=== PATIENT | female | born 1975 | race Hispanic/Latino ===

== ENCOUNTER 2025-04-20 21:29 | Emergency (ER) | payer OTHER ==
--- OUTSIDE RECORDS SUMMARY | 2025-04-20 21:37 | XMS REPORT | Continuity of Care Document ---
Author Name Unknown Address [address] [facility] [address] [place] [address] [facility] Address [address] [facility] [address] [place] [address] Care Team Providers Care Community Arts Officer Name Role Phone [facility] Primary Care Physician [phone] RAJ MAURER Attending Clinician Unavailable LAURIE SWAN Attending Clinician Unavailable KEO MONSIVAIS Attending Clinician Unavail able PASCUAL LEÓN Attending Clinician UnavailOSCAR Rick Attending Clinician Unavailable TAYLOR SMITH Attending Clinician UnavailMary Chavez MD Attending Clinician MARY STAFFORD Attending Clinician Unavailable LAB47 Attending Clinician Unavailable DANAE GRULLON Attending Clinician Unavailable MD SHANTEL Attending Clinician Unavailab regine PL, TECH 1 Attending Clinician Unavailable YURIY PEDERSEN Attending Clinician Unavailable SARAHY PAUL Attending Clinician Unavailable SERINA BLOOM Attending Clinician Unav ailable BLADIMIR WINKLER Attending Clinician Unavailable Doctor Unassigned, Clute Attending Clinician U navailable LAB45 Attending Clinician Unavailable JORGE IGNACIO Attending Clinician UnavailCharity Lee MD Attending Clinician [phone] CHARITY SPENCE Attending Clinician Unava ilELÍAS Bertrand Attending Clinician Unavailable EMLI RAMSEY Attending Clinician Unava ilable ANA LEAL Attending Clinician Unavailable ELÍAS BEAULIEU Attending Clinician Unavailmorelia Beaulieu MD, Elías Holguin Attending Clinician [phone] Ana Leal MD Attending Clinician [phone] ANA LEAL Attending Clinician Unavailable RONNIE NOYOLA Attending Clinician Unavailable GERTRUDIS TARIQ Attending Clinician UnavailMORALES Tavera Attending Clinician Unavailable RAGHAVENDRA SIMS Attending Clinician Unavailable Pob, 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 Attending Clinician UnavailRaghavendra Encarnacion MD Attending Clinician [phone] Morales Albright MD Attending Clinician [phone] MORALES ALBRIGHT Attending Clinician Unavailable RADIOLOGY Attending Clinician Unavailable Radiology Attending Clinician Unavailable FAUSTINO STINSON Attending Clinician Unavailable Doctor Unassigned, Clute Attending Clinician U navailable Charity Moon MD Attending Clinician [phone] CHARITY MOON Attending Clinician Unavailmorelia e DANAE GRULLON S Attending Clinician Unavailable Tony Alcantaraya S Attending Clinician [phone] Yessi Messina Attending Clinician + [phone] YESSI KLEIN Attending Clinician Unavaila TORRI Burnham Attending Clinician Unavailable Torri Pacheco NP Attending Clinician [phone] YING CADENA Attending Clinician Unavailable NOEL SAMPSON Attending Clinician Unavailable OBDULIA VIRAMONTES Attending Clinician [place] vaWILLIAM Faust Attending Clinician UnavailJAYSHREE Almeida Attending Clinician Unavailab ELÍAS Alvarado Admitting Clinician Unavailmorelia Beaulieu MD, Elías Holguin Admitting Clinician [phone] SARAHY COOK Admitting Clinician Unavailab DANAE Pino Admitting Clinician Unavailable MARY DEJESUS III Admitting Clinician Unava ilYESSI Solis Admitting Clinician Unavaila TORRI Burnham Admitting Clinician Unavailable OBDULIA VIRAMONTES Admitting Clinician [place] vailable JAYSHREE BUSCH Admitting Clinician Unavailab le Payers Payer Name Policy Type Policy Number Effective Date Expirati on Date Source [address] 87 [phone] [id number] 2024 00:00:00 [employer] EX[employer] Exchange [id number] 2023 00:00:00 DONIE TAMELA SEYBOLD EXCHANGE Exchange [id number] 2024 00:00:00 Problems Condition Name Condition Details Condition Category Status Onset Date Resolution Date Last Treatment Date Treating Clinician Comments Source Chronic pain with drug dependence (multi HCC) Chronic pain with drug dependence (multi HCC) Disease Active -13 00:00: 00 Tamela Seybold - Externa l Prediabete s Prediabete s Disease Active 3-13 00:00: 00 Tamela Seybold - Externa l Neural foraminal stenosis of lumbosacra l spine Neural foraminal stenosis of lumbosacra l spine Disease Active 2023-09 1-20 00:00: 00 Tamela Seybold - Externa l Immunodefi 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) Immunodefi 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) Disease Active 5-10 00:00: 00 Tamela Seybold - Externa l Well adult exam Well adult exam Disease Active 4-08 00:00: 00 Tamela Seybold - Externa l Lupus Lupus Disease Active -27 00:00: 00 Tamela Seybold - Externa l Chronic back pain Chronic back pain Disease Active - 00:00: 00 Tamela Seybold - Externa l DDD (degenerat lazaro disc disease), lumbar DDD (degenerat lazaro disc disease), lumbar Disease Active - 00:00: 00 Tamela Seybold - Externa l Rheumatoid arthritis (multi HCC) Rheumatoid arthritis (multi HCC) Disease Active 11-04 00:00: 00 Tamela Moody - Externa l History of hysterecto my History of hysterecto my Disease Active 11-04 00:00: 00 Tamela Moody - Externa l Fatty liver Fatty liver Disease Active 11-04 00:00: 00 Tamela Moody - Externa l Liver hemangioma Liver hemangioma Disease Active 11-04 00:00: 00 Tamela Moody - Externa l Other forms of systemic lupus erythemato marry (multi HCC) Other forms of systemic lupus erythemato marry (multi HCC) Disease Active 11-04 00:00: 00 Tamela Moody - Externa l Left foot pain Left foot pain Disease Active 1- 00:00: 00 [facility] Low back pain Low back pain Disease Active 8-31 00:00: 00 [facility] Hormone replacemen t therapy (postmenop ausal) Hormone replacemen t therapy (postmenop ausal) Disease Resolve d 11-04 00:00: 00 2025-02-10 00:00:00 2025-02-10 16:45:25 Tamela Moody - Externa l Hypertensi on Hypertensi on Disease Resolve d 2 00:00: 00 2024-11-18 00:00:00 2024-11-18 11:46:58 Tamela Moody - Externa l Anxiety Anxiety Disease Resolve d 11-04 00:00: 00 2024-11-18 00:00:00 2024-11-18 11:53:23 Tamela Moody - Externa l Adrenal adenoma Adrenal adenoma Disease Resolve d - 00:00: 00 2024-11-18 00:00:00 2024-11-18 11:49:46 Tamela Moody - Externa l Allergies, Adverse Reactions, Alerts Allergy Name Allergy Type Status Severity Reaction(s) Onset Date Inactive Date Treating Clinician Comments Source Ciproflo xacin Propensi ty to adverse reaction s Active Itching, Anxiety 2023-09 0-24 00:00: 00 Lisa Causey CIPROFLO XACIN DRUG INGREDI Active Hives 09-25 00:00: 00 [facility] Ciproflo xacin Hydrochl oride Propensi ty to adverse reaction s Active Hives 09-25 00:00: 00 Tamela Moody - Externa l Social History Social Habit Start Date Stop Date Quantity Comments Source ASSERTION Possible [facility] Sexual orientation [facility] [employer] History of Occupation Tamela Moody - External History of tobacco use Cigarette Smoker Tamela medina - External Gender identity Tammie Moody - External Alcoholic beverage intake 2025-04-06 00:00:00 2025-04-06 00:00:00 Lifetime non-drinker (finding) Tamela Moody - External Tobacco Comment 2024-09-14 00:00:00 2024-09-14 00:00:00 Quit 05/2024 Tamela Moody - External Cigarettes smoked current (pack per day) - Reported 2024-09-14 00:00:00 2024-09-14 00:00:00 Tamela Moody - External Cigarette pack-years 2024-09-14 00:00:00 2024-09-14 00:00:00 Tamela Moody - External Tobacco use and exposure 2024-09-14 00:00:00 2024-09-14 00:00:00 Smokeless tobacco non-user Tamela Moody - External Sex 2024-06-04 12:50:25 2024-06-04 12:50:25 Female (finding) [facility] Alcohol intake 2023-11-11 00:00:00 2023-11-11 00:00:00 Lifetime non-drinker (finding) Tamela Moody - External Education 2023-11-04 00:00:00 2023-11-04 00:00:00 16 Tamela Moody - External History of Social function 2023-11-03 00:00:00 2023-11-03 00:00:00 Tamela Moody - External Exposure to SARS-CoV-2 (event) 2021-11-18 00:00:00 2021-12-18 20:08:00 Not sure [facility] Sex assigned at 1975 00:00:00 1975 00:00:00 Tamela Comer External Smoking Status Start Date Stop Date Source Tobacco smoking consumption unknown [facility] Never smoked tobacco [facility] Ex-smoker 2024-09-14 00:00:00 2024-09-14 00:00:00 Tamela Comer External Smokes tobacco daily 2023-12-15 00:00:00 Tamela Comer External Medications Ordered Medication Name Filled Medication Name Start Date Stop Date Current Medication? Ordering Clinician Indication Dosage Frequency Signature (SIG) Comments Components Source Tizanidine HCl 4 MG oral Tablet Tizanidine HCl 4 MG oral Tablet 04-06 00:00: 00 Yes [id number] 4mg QD Take 1 tablet (4 mg total) by mouth nightly. Tamela murphy Hydrocortis one 10 MG oral Tablet Hydrocortis one 10 MG oral Tablet 04-06 00:00: 00 Yes [id number] 1.5 tab in the morning, 1 in evening, may increase as directed.. Tamela murphy Tizanidine HCl 4 MG oral Tablet Tizanidine HCl 4 MG oral Tablet 04-05 00:00: 00 04-06 00:00 :00 No [id number] 4mg Q.25D Take 1 tablet (4 mg total) by mouth every 6 hours as needed. Tamela murphy DULoxetine HCl [address] Particles DULoxetine HCl [address] Particles 03-25 00:00: 00 04-06 00:00 :00 No 40mg QD Take 1 capsule (40 mg total) by mouth daily. Tamela murphy Folic Acid 1 MG oral tablet Folic Acid 1 MG oral tablet 03-16 00:00: 00 Yes [id number] 1mg QD Take 1 tablet (1 mg total) by mouth daily. Tamela murphy acetaminoph en-codeine (Tylenol w/ Codeine #3) 300-30 MG per tablet 2 tablet acetaminoph en-codeine (Tylenol w/ Codeine #3) 300-30 MG per tablet 2 tablet 02-25 20:15: 00 02-25 20:24 :00 No 2{tbl} 2 tablet, Oral, Once, On Fri02/25/25 at 2014, For 1 dose Lisa Causey ketorolac (Toradol) injection 30 mg ketorolac (Toradol) injection 30 mg 02-25 20:15: 00 02-25 20:24 :00 No 30mg 30 mg, Intramuscu lar, Once, On Fri02/25/25 at 2014, For 1 dose Lisa Causey Estradiol 0.1 MG/24HR transdermal PATCH BIWEEKLY 02-10 16:35: 54 02-10 00:00 :00 No 1{patch } Place 1 patch onto the skin twice a week. Tamela murphy Hydrocortis one Sod Suc, PF, (SOLU-JD F) 100 MG injection Recon Soln Hydrocortis one Sod Suc, PF, (SOLU-JD F) 100 MG injection Recon Soln 02-10 00:00: 00 Yes [id number] 100mg Inject 100 mg into the muscle as needed (for adrenal crisis). Tamela murphy Cholecalcif ban 50 MCG (2000 UT) oral Capsule Cholecalcif ban 50 MCG (2000 UT) oral Capsule 02-10 00:00: 00 Yes [id number] 1{capsu le} QD Take 1 capsule by mouth daily. Tamela murphy Tramadol HCl (ULTRAM) 50 MG oral Tablet Tramadol HCl (ULTRAM) 50 MG oral Tablet 02-10 00:00: 00 Yes [id number] 50mg QD Take 1 tablet (50 mg total) by mouth daily as needed for pain. Tamela murphy Hydrocortis one 10 MG oral Tablet Hydrocortis one 10 MG oral Tablet 02-10 00:00: 00 04-06 00:00 :00 No [id number] 10mg Q.5D Take 1 tablet (10 mg total) by mouth 2 times daily 1 tablet 3 times a day and extra for sick days. Tamela murphy methylPREDN ISolone (Medrol) 4 MG oral Tablet Therapy Pack 02-10 00:00: 00 02-10 00:00 :00 No 1{joan} Take 1 joan by mouth See Admin Instructio ns. Tamela murphy Tizanidine HCl 2 MG oral Tablet 02-10 00:00: 00 02-10 00:00 :00 No 2mg Take 1 tablet (2 mg total) by mouth every 12 hours as needed for muscle spasms. Tamela murphy Estradiol 0.1 MG/24HR transdermal PATCH BIWEEKLY 02-09 15:52: 14 Yes 1{patch } Place 1 patch onto the skin twice a week. Tamela murphy Duloxetine HCl [address] Particles 01-25 00:00: 00 Yes 40mg QD Take 1 capsule (40 mg total) by mouth daily. Tamela murphy Gabapentin 600 MG oral Tablet Gabapentin 600 MG oral Tablet 01-25 00:00: 00 04-06 00:00 :00 No 600mg Q.[id number] 3D Take 1 tablet (600 mg total) by mouth 3 times daily. Tamela murphy Estradiol 0.1 MG/24HR transdermal PATCH BIWEEKLY 01-13 15:17: 06 Yes 1{patch } Place 1 patch onto the skin twice a week. Tamela murphy Hydrocortis one 10 MG oral Tablet 01-13 00:00: 00 04-14 04:59 :00 No [id number] 10mg Q.[id number] 3D Take 1 tablet (10 mg total) by mouth 3 times daily 1 tablet 3 times a day and extra for sick days. Tamela murphy Hydroxychlo roquine Sulfate 200 MG oral Tablet Hydroxychlo roquine Sulfate 200 MG oral Tablet 01-12 00:00: 00 Yes [id number] 400mg QD Take 2 tablets (400 mg total) by mouth daily. Tamela murphy Estradiol 0.1 MG/24HR transdermal PATCH BIWEEKLY 12-14 15:05: 00 Yes 1{patch } Place 1 patch onto the skin twice a week. Tamela murphy Belimumab (Benlysta) 200 MG/ML subcutaneou s Solution Auto-inject or Belimumab (Benlysta) 200 MG/ML subcutaneou s Solution Auto-inject or 12-14 00:00: 00 Yes [id number] 200mg Q1W Inject 1 mL (200 mg total) into the skin once a week. Tamela murphy Estradiol 0.1 MG/24HR transdermal PATCH BIWEEKLY 12-07 15:23: 23 Yes 1{patch } Place 1 patch onto the skin twice a week. Tamela murphy Duloxetine HCl [address] Particles 12-07 00:00: 00 Yes 20mg QD Take 1 capsule (20 mg total) by mouth daily. Tamela murphy Gabapentin 300 MG oral Capsule 12-07 00:00: 00 Yes Take 1 tab nightly for 5 nights; If no adverse affects increase to 1 tab two times a day for 5 days; If no adverse affects increase to 1 tab three times a day. Call physician office if you have any issues.. Tamela murphy Estradiol 0.1 MG/24HR transdermal PATCH BIWEEKLY 11-18 11:14: 58 Yes 1{patch } Place 1 patch onto the skin twice a week. Tamela murphy Pantoprazol e Sodium 40 MG oral Tablet Delayed Response Pantoprazol e Sodium 40 MG oral Tablet Delayed Response 11-18 00:00: 00 Yes [id number] 40mg QD Take 1 tablet (40 mg total) by mouth daily as needed (GERD). Tamela murphy Cholecalcif ban 50 MCG (2000 UT) oral Capsule 11-18 00:00: 00 02-10 00:00 :00 No [id number] 1{capsu le} QD Take 1 capsule by mouth daily. Tamela murphy Belimumab (Benlysta) 200 MG/ML subcutaneou s Solution Auto-inject or 11-18 00:00: 00 12-14 00:00 :00 No [id number] 200mg Q1W Inject 1 mL (200 mg total) into the skin once a week. Tamela murphy Tramadol HCl (ULTRAM) 50 MG oral Tablet 3-13 00:00: 00 12-07 00:00 :00 No [id number] 50mg QD Take 1 tablet (50 mg total) by mouth daily as needed for pain. Tamela murphy HYDROcodone -Acetaminop hen 7.5-325 MG oral Tablet 12 00:00: 00 02-10 00:00 :00 No 1{tbl} Q.25D Take 1 tablet by mouth every 6 hours as needed. Tamela murphy Meloxicam 7.5 MG oral Tablet 10-18 15:06: 48 10-18 00:00 :00 No 7.5mg QD Take 1 tablet (7.5 mg total) by mouth daily. Tamela murphy Estradiol 0.1 MG/24HR transdermal PATCH BIWEEKLY 10-18 14:55: 18 Yes 1{patch } Place 1 patch onto the skin twice a week. Tamela murphy Estradiol 0.1 MG/24HR transdermal PATCH BIWEEKLY 10-11 15:13: 34 Yes 1{patch } Place 1 patch onto the skin twice a week. Tamela murphy Meloxicam 7.5 MG oral Tablet 10-11 15:13: 34 Yes 7.5mg QD Take 1 tablet (7.5 mg total) by mouth daily. Tamela murphy Hydrocortis one Sod Suc, PF, (SOLU-JD F) 100 MG injection Recon Soln 10-11 00:00: 00 Yes [id number] 100mg Inject 100 mg into the muscle as needed (for adrenal crisis). Tamela murphy Hydrocortis one 10 MG oral Tablet 10-11 00:00: 00 01-13 00:00 :00 No 10mg Take 1 tablet (10 mg total) by mouth every evening. Tamela Fransisco murphy Methotrexat e Sodium 2.5 MG oral Tablet Methotrexat e Sodium 2.5 MG oral Tablet 10-07 00:00: 00 Yes [id number] 15mg Q1W Take 6 tablets (15 mg total) by mouth once a week. Tamela murphy Folic Acid 1 MG oral tablet 10-07 00:00: 00 03-16 00:00 :00 No [id number] 1mg QD Take 1 tablet (1 mg total) by mouth daily. Tamela murphy Estradiol 0.1 MG/24HR transdermal PATCH BIWEEKLY 10-06 15:26: 41 Yes 1{patch } Place 1 patch onto the skin twice a week. Tamela murphy Meloxicam 7.5 MG oral Tablet 10-06 15:26: 41 Yes 7.5mg QD Take 1 tablet (7.5 mg total) by mouth daily. Tamela murphy HYDROcodone -Acetaminop hen 7.5-325 MG oral Tablet 09-23 00:00: 00 Yes [id number] 1{tbl} Q.25D Take 1 tablet by mouth every 6 hours as needed for pain. Tamela Fransisco murphy methylPREDN ISolone 4 MG oral Tablet Therapy Pack 2023-09 00:00: 00 01-13 00:00 :00 No 6{tbl} 6 tablets See Admin Instructio ns. Tamela Fransisco murphy methylPREDN ISolone (Medrol) 4 MG oral Tablet Therapy Pack 2023-09 00:00: 00 10-11 00:00 :00 No [id number] 1{joan} Take 1 joan by mouth See Admin Instructio ns Use as directed.. Tamela murphy Estradiol 0.1 MG/24HR transdermal PATCH BIWEEKLY 2023-09 15:31: 53 Yes 1{patch } Place 1 patch onto the skin twice a week. Tamela murphy Meloxicam 7.5 MG oral Tablet 2023-09 15:31: 53 Yes 7.5mg QD Take 1 tablet (7.5 mg total) by mouth daily. Tamela murphy hydroCHLORO thiazide 25 MG oral Tablet 2023-09 15:31: 53 Yes 25mg QD Take 1 tablet (25 mg total) by mouth daily. Tamela murphy Carvedilol 3.125 MG oral Tablet 2023-09 15:31: 53 Yes 3.125mg Take 1 tablet (3.125 mg total) by mouth in the morning and 1 tablet (3.125 mg total) in the evening. Take with meals. Tamela murphy Hydroxychlo roquine Sulfate 200 MG oral Tablet 2023-09 00:00: 00 Yes 400mg QD Take 2 tablets (400 mg total) by mouth daily. Tamela murphy Estradiol 0.1 MG/24HR transdermal PATCH BIWEEKLY 2023-09 09:16: 28 Yes 1{patch } Place 1 patch onto the skin twice a week. Tamela murphy Meloxicam 7.5 MG oral Tablet 2023-09 09:16: 28 Yes 7.5mg QD Take 1 tablet (7.5 mg total) by mouth daily. Tamela murphy hydroCHLORO thiazide 25 MG oral Tablet 2023-09 09:16: 28 Yes 25mg QD Take 1 tablet (25 mg total) by mouth daily. Tamela murphy Carvedilol 3.125 MG oral Tablet 2023-09 09:16: 28 Yes 3.125mg Take 1 tablet (3.125 mg total) by mouth in the morning and 1 tablet (3.125 mg total) in the evening. Take with meals. Tamela murphy Estradiol 0.1 MG/24HR transdermal PATCH BIWEEKLY 2023-09 10:56: 28 Yes 1{patch } Place 1 patch onto the skin twice a week. Tamela murphy Meloxicam 7.5 MG oral Tablet 2023-09 10:56: 28 Yes 7.5mg QD Take 1 tablet (7.5 mg total) by mouth daily. Tamela murphy hydroCHLORO thiazide 25 MG oral Tablet 2023-09 10:56: 28 Yes 25mg QD Take 1 tablet (25 mg total) by mouth daily. Tamela Fransisco murphy Carvedilol 3.125 MG oral Tablet 2023-09 10:56: 28 Yes 3.125mg Take 1 tablet (3.125 mg total) by mouth in the morning and 1 tablet (3.125 mg total) in the evening. Take with meals. Tamela murphy Benlysta 200 MG/ML subcutaneou s Solution Auto-inject or 2023-09 00:00: 00 Yes Tamela murphy Estradiol 0.1 MG/24HR transdermal PATCH BIWEEKLY 2023-09 14:50: 15 Yes 1{patch } Place 1 patch onto the skin twice a week. Tamela murphy Meloxicam 7.5 MG oral Tablet 2023-09 14:50: 15 Yes 7.5mg QD Take 1 tablet (7.5 mg total) by mouth daily. Tamela murphy hydroCHLORO thiazide 25 MG oral Tablet 2023-09 14:50: 15 Yes 25mg QD Take 1 tablet (25 mg total) by mouth daily. Tamela murphy Carvedilol 3.125 MG oral Tablet 2023-09 14:50: 15 Yes 3.125mg Take 1 tablet (3.125 mg total) by mouth in the morning and 1 tablet (3.125 mg total) in the evening. Take with meals. Tamela murphy Hydrocortis one 10 MG oral Tablet 2023-09 14:50: 15 Yes 15mg QD Take 1.5 tablets (15 mg total) by mouth every evening. Tamela murphy Hydrocortis one 10 MG oral Tablet 2023-09 00:00: 00 10-11 00:00 :00 No [id number] 20mg Q.5D Take 2 tablets (20 mg total) by mouth 2 times daily. Tamela murphy Hydrocortis one Sod Suc, PF, (SOLU-JD F) 100 MG injection Recon Soln 2023-09 00:00: 00 10-11 00:00 :00 No [id number] 100mg Inject 100 mg into the muscle as needed (for adrenal crisis). Tamela murphy Cholecalcif ban 50 MCG (1999) oral Capsule 2023-09 0-29 00:00: 00 11-18 00:00 :00 No [id number] 1{capsu le} QD Take 1 capsule by mouth daily. Tamela murphy ondansetron (Zofran) injection 4 mg ondansetron (Zofran) injection 4 mg 2023-09 18:40: 00 07-01 18:44 :00 No 4mg 4 mg, Intravenou s, Once, On Fri07/01/24 at 1840, For 1 dose, Administer IVP. Lisa Causey sodium chloride 0.9 % bolus 1,000 mL [id number] 0-24 17:25: 00 07-01 19:34 :00 No 1000mL 1,000 mL, Intravenou s, at 1,000 mL/hr, Administer over 1 Hours, Once, On Fri07/01/24 at 1725, For 1 dose Lisa Causey hydrocortis one sod succinate (PF) (Solu-JD F) injection 100 mg hydrocortis one sod succinate (PF) (Solu-JD F) injection 100 mg 2023-09 15:45: 00 07-01 16:22 :00 No 100mg 100 mg, Intravenou s, Once, On Fri07/01/24 at 1545, For 1 dose, IV or IM Reconstitu te 100 mg vials with bacteriost atic water or bacteriost atic sodium chloride. not more > 2ml Lisa Causey iohexol (OMNIPaque) 350 MG/ML injection 100 mL iohexol (OMNIPaque) 350 MG/ML injection 100 mL 2023-09 0 15:27: 04 07-01 15:27 :00 No 100mL 100 mL, Intravenou s, Once in imaging, Starting on Fri07/01/24 at 1527, For 1 dose Lisa Causey ondansetron ODT (Zofran-ODT ) 4 MG disintegrat ing tablet ondansetron ODT (Zofran-ODT ) 4 MG disintegrat ing tablet 2023-09 00:00: 00 07-08 23:59 :00 No 4mg Q8H Take 1 tablet by mouth every 8 hours if needed for nausea or vomiting for up to 7 days. Lisa Causey tiZANidine (Zanaflex) 2 MG tablet tiZANidine (Zanaflex) 2 MG tablet 2023-09 00:00: 00 07-08 23:59 :00 No 2mg Take 1 tablet by mouth at bedtime for 7 days. Lisa Causey Benlysta 200 MG/ML subcutaneou s Solution Auto-inject or 2023-09 00:00: 00 07-12 00:00 :00 No [id number] INJECT 1 PEN UNDER THE SKIN EVERY 7 DAYS Tamela murphy Estradiol 0.1 MG/24HR transdermal PATCH BIWEEKLY 05-31 15:33: 13 Yes 1{patch } Place 1 patch onto the skin twice a week. Tamela murphy Meloxicam 7.5 MG oral Tablet 05-31 15:33: 13 Yes 7.5mg QD Take 1 tablet (7.5 mg total) by mouth daily. Tamela murphy hydroCHLORO thiazide 25 MG oral Tablet 05-31 15:33: 13 Yes 25mg QD Take 1 tablet (25 mg total) by mouth daily. Tamela murphy Carvedilol 3.125 MG oral Tablet 05-31 15:33: 13 Yes 3.125mg Take 1 tablet (3.125 mg total) by mouth in the morning and 1 tablet (3.125 mg total) in the evening. Take with meals. Tamela murphy Cholecalcif ban 50 MCG (1999) oral Capsule 05-31 00:00: 00 Yes [id number] 1{capsu le} QD Take 1 capsule by mouth daily. Tamela murphy Hydrocortis one Sod Suc, PF, (SOLU-JD F) 100 MG injection Recon Soln 05-31 00:00: 00 07-12 00:00 :00 No [id number] 100mg Inject 100 mg into the muscle as needed (for adrenal crisis). Tamela murphy Hydroxychlo roquine Sulfate 200 MG oral Tablet 05-26 00:00: 00 07-30 00:00 :00 No 400mg QD Take 2 tablets (400 mg total) by mouth daily. Tamela murphy Methotrexat e Sodium 2.5 MG oral Tablet 05-06 00:00: 00 Yes [id number] 15mg Q1W Take 6 tablets (15 mg total) by mouth once a week. Tamela murphy Folic Acid 1 MG oral tablet 05-06 00:00: 00 Yes [id number] 1mg QD Take 1 tablet (1 mg total) by mouth daily. Tamela murphy Estradiol 0.1 MG/24HR transdermal PATCH BIWEEKLY 03-31 14:10: 14 Yes 1{patch } Place 1 patch onto the skin twice a week. Tamela murphy Meloxicam 7.5 MG oral Tablet 03-31 14:10: 14 Yes 7.5mg QD Take 1 tablet (7.5 mg total) by mouth daily. Tamela murphy hydroCHLORO thiazide 25 MG oral Tablet 03-31 14:10: 14 Yes 25mg QD Take 1 tablet (25 mg total) by mouth daily. Tameal murphy Carvedilol 3.125 MG oral Tablet 03-31 14:10: 14 Yes 3.125mg Take 1 tablet (3.125 mg total) by mouth in the morning and 1 tablet (3.125 mg total) in the evening. Take with meals. Tamela murphy Estradiol 0.1 MG/24HR transdermal PATCH BIWEEKLY 03-29 15:52: 46 Yes 1{patch } Place 1 patch onto the skin twice a week. Tamela murphy Meloxicam 7.5 MG oral Tablet 03-29 15:52: 46 Yes 7.5mg QD Take 1 tablet (7.5 mg total) by mouth daily. Tamela murphy hydroCHLORO thiazide 25 MG oral Tablet 03-29 15:52: 46 Yes 25mg QD Take 1 tablet (25 mg total) by mouth daily. Tamela murphy Carvedilol 3.125 MG oral Tablet 03-29 15:52: 46 Yes 3.125mg Take 1 tablet (3.125 mg total) by mouth in the morning and 1 tablet (3.125 mg total) in the evening. Take with meals. Tamela murphy Estradiol 0.1 MG/24HR transdermal PATCH BIWEEKLY 03-17 14:58: 16 Yes 1{patch } Place 1 patch onto the skin twice a week. Tamela murphy Meloxicam 7.5 MG oral Tablet 03-17 14:58: 16 Yes 7.5mg QD Take 1 tablet (7.5 mg total) by mouth daily. Tamela murphy hydroCHLORO thiazide 25 MG oral Tablet 03-17 14:58: 16 Yes 25mg QD Take 1 tablet (25 mg total) by mouth daily. Tamela murphy Carvedilol 3.125 MG oral Tablet 03-17 14:58: 16 Yes 3.125mg Take 1 tablet (3.125 mg total) by mouth in the morning and 1 tablet (3.125 mg total) in the evening. Take with meals. Tamela murphy Meloxicam 7.5 MG oral Tablet 03-17 00:00: 00 02-10 00:00 :00 No 7.5mg Take 1 tablet (7.5 mg total) by mouth. Tamela murphy Clobetasol Propionate 0.05 % apply externally Cream 03-17 00:00: 00 11-18 00:00 :00 No [id number] Apply to affected areas on buttock twice daily Friday-Fri.. Tamela murphy Valacyclovi r HCl 500 MG oral Tablet 03-17 00:00: 00 11-18 00:00 :00 No [id number] Take 2 tablets twice daily for 10 days. Tamela Fransisco murphy Estradiol 0.1 MG/24HR transdermal PATCH BIWEEKLY 03-01 15:30: 06 Yes 1{patch } Place 1 patch onto the skin twice a week. Tamela murphy Meloxicam 7.5 MG oral Tablet 03-01 15:30: 06 Yes 7.5mg Take 1 tablet (7.5 mg total) by mouth daily. Tamela Fransisco murphy hydroCHLORO thiazide 25 MG oral Tablet 03-01 15:30: 06 Yes 25mg Take 1 tablet (25 mg total) by mouth daily. Tamela murphy Carvedilol 3.125 MG oral Tablet 03-01 15:30: 06 Yes 3.125mg Take 1 tablet (3.125 mg total) by mouth in the morning and 1 tablet (3.125 mg total) in the evening. Take with meals. Tamela Fransisco murphy Estradiol 0.1 MG/24HR transdermal PATCH BIWEEKLY 02-03 15:07: 21 Yes 1{patch } Place 1 patch onto the skin twice a week. Tamela murphy Meloxicam 7.5 MG oral Tablet 02-03 15:07: 21 Yes 7.5mg Take 1 tablet (7.5 mg total) by mouth daily. Tamela murphy hydroCHLORO thiazide 25 MG oral Tablet 02-03 15:07: 21 Yes 25mg Take 1 tablet (25 mg total) by mouth daily. Tamela Fransisco murphy Carvedilol 3.125 MG oral Tablet 02-03 15:07: 21 Yes 3.125mg Take 1 tablet (3.125 mg total) by mouth in the morning and 1 tablet (3.125 mg total) in the evening. Take with meals. Tamela murphy Folic Acid 1 MG oral tablet 02-03 00:00: 05-06 00:00 :00 No [id number] 1mg QD Take 1 tablet (1 mg total) by mouth daily. Tamela murphy Methotrexat e Sodium 2.5 MG oral Tablet 02-03 00:00: 05-05 04:59 :00 No [id number] 15mg Q1W Take 6 tablets (15 mg total) by mouth once a week 6 tabs. Tamela murphy Hydroxychlo roquine Sulfate 200 MG oral Tablet 02-03 00:00: 05-05 04:59 :00 No [id number] 400mg QD Take 2 tablets (400 mg total) by mouth daily. Tamela murphy hydroCHLORO thiazide 25 MG oral Tablet 01-18 00:00: 03-16 00:00 :00 No 25mg QD Take 1 tablet (25 mg total) by mouth daily. Tamela murphy Losartan Potassium (COZAAR) 50 MG oral Tablet 01-18 00:00: 01-13 00:00 :00 No 50mg QD Take 1 tablet (50 mg total) by mouth daily. Tamela murphy Clobetasol Propionate 0.05 % apply externally Cream 01-06 00:00: 00 03-17 00:00 :00 No [id number] Apply to affected areas twice daily for up to two weeks. Then use as needed to affected areas.. Tamela murphy dexAMETHaso ne 1 MG oral Tablet 12-17 00:00: 05-31 00:00 :00 No [id number] To be taken once at 11 pm : the night before cortisol check. Tamela murphy Estradiol 0.1 MG/24HR transdermal PATCH BIWEEKLY 12-14 13:52: 29 Yes 1{patch } Place 1 patch onto the skin twice a week. Tamela murphy Meloxicam 7.5 MG oral Tablet 12-14 13:52: 29 Yes 7.5mg Take 1 tablet (7.5 mg total) by mouth daily. Tamela murphy hydroCHLORO thiazide 25 MG oral Tablet 12-14 13:52: 29 Yes 25mg Take 1 tablet (25 mg total) by mouth daily. Tamela murphy Carvedilol 3.125 MG oral Tablet 12-14 13:52: 29 Yes 3.125mg Take 1 tablet (3.125 mg total) by mouth in the morning and 1 tablet (3.125 mg total) in the evening. Take with meals. Tamela murphy Tramadol HCl (ULTRAM) 50 MG oral Tablet 12-14 00:00: 00 Yes [id number] 50mg QD Take 1 tablet (50 mg total) by mouth daily as needed for pain. Tamela murphy Venlafaxine HCl 75 MG oral Capsule 24 Hour Sustained Release 12-14 00:00: 00 11-18 00:00 :00 No [id number] 75mg QD Take 1 capsule (75 mg total) by mouth daily. Tamela murphy Belimumab 200 MG/ML subcutaneou s Solution Auto-inject or 11-27 00:00: 00 Yes [id number] 200mg Q1W Inject 1 mL (200 mg total) into the skin once a week. Tamela murphy Belimumab (Benlysta) 200 MG/ML subcutaneou s Solution Auto-inject or 11-05 15:55: 10 11-05 00:00 :00 No 200mg Inject 1 mL (200 mg total) into the skin once a week. Tamela murphy Methotrexat e Sodium 2.5 MG oral Tablet 11-05 15:55: 10 11-05 00:00 :00 No 15mg Take 6 tablets (15 mg total) by mouth once a week 6 tabs . Tamela murphy Methotrexat e 2.5 MG/ML oral Solution 11-05 15:42: 07 11-05 00:00 :00 No 2.5mg Take 1 mL (2.5 mg total) by mouth once a week 6 tablets by mouth per week . Tamela murphy Estradiol 0.1 MG/24HR transdermal PATCH BIWEEKLY 11-05 15:33: 19 Yes 1{patch } Place 1 patch onto the skin twice a week. Tamela murphy Meloxicam 7.5 MG oral Tablet 11-05 15:33: 19 Yes 7.5mg Take 1 tablet (7.5 mg total) by mouth daily. Tamela murphy hydroCHLORO thiazide 25 MG oral Tablet 11-05 15:33: 19 Yes 25mg Take 1 tablet (25 mg total) by mouth daily. Tamela murphy Carvedilol 3.125 MG oral Tablet 11-05 15:33: 19 Yes 3.125mg Take 1 tablet (3.125 mg total) by mouth in the morning and 1 tablet (3.125 mg total) in the evening. Take with meals. Tamela murphy Venlafaxine HCl 75 MG oral Capsule 24 Hour Sustained Release 11-05 15:33: 19 Yes 75mg Take 1 capsule (75 mg total) by mouth daily. Tamela murphy Belimumab 200 MG/ML subcutaneou s Solution Auto-inject or 11-05 00:00: 00 Yes [id number] 200mg Inject 1 mL (200 mg total) into the skin once a week. Tamela murphy Methotrexat e Sodium 2.5 MG oral Tablet 11-05 00:00: 00 02-03 00:00 :00 No [id number] 15mg Take 6 tablets (15 mg total) by mouth once a week 6 tabs. Tamela murphy Folic Acid 1 MG oral tablet 11-05 00:00: 00 02-03 00:00 :00 No [id number] 1mg Take 1 tablet (1 mg total) by mouth daily. Tamela murphy Hydroxychlo roquine Sulfate 200 MG oral Tablet 11-05 00:00: 00 02-03 00:00 :00 No [id number] 400mg Take 2 tablets (400 mg total) by mouth daily. Tamela murphy Venlafaxine HCl 75 MG oral Capsule 24 Hour Sustained Release 11-04 14:11: 03 Yes 75mg Take 1 capsule (75 mg total) by mouth daily. Tamela murphy Losartan Potassium (COZAAR) 50 MG oral Tablet 11-04 14:10: 09 11-04 00:00 :00 No 50mg Take 1 tablet (50 mg total) by mouth daily. Tamela murphy Estradiol 0.1 MG/24HR transdermal PATCH BIWEEKLY 11-04 13:57: 36 Yes 1{patch } Place 1 patch onto the skin twice a week. Tamela murphy Meloxicam 7.5 MG oral Tablet 11-04 13:57: 36 Yes 7.5mg Take 1 tablet (7.5 mg total) by mouth daily. Tamela murphy hydroCHLORO thiazide 25 MG oral Tablet 11-04 13:57: 36 Yes 25mg Take 1 tablet (25 mg total) by mouth daily. Tamela murphy Carvedilol 3.125 MG oral Tablet 11-04 13:57: 36 Yes 3.125mg Take 1 tablet (3.125 mg total) by mouth in the morning and 1 tablet (3.125 mg total) in the evening. Take with meals. Tamela murphy Tramadol HCl (ULTRAM) 50 MG oral Tablet 11-04 00:00: 00 Yes [id number] 50mg QD Take 1 tablet (50 mg total) by mouth daily as needed for pain. Tamela murphy Losartan Potassium (COZAAR) 100 MG oral Tablet 11-04 00:00: 00 Yes [id number] 100mg QD Take 1 tablet (100 mg total) by mouth daily. Tamela murphy Pantoprazol e Sodium 40 MG oral Tablet Delayed Response 11-03 00:00: 00 Yes 40mg QD Take 1 tablet (40 mg total) by mouth daily. Tamela murphy Hydroxychlo roquine Sulfate 200 MG oral Tablet 09-29 00:00: 00 Yes 400mg Take 2 tablets (400 mg total) by mouth daily. Tamela murphy ergocalcife rol, vitamin d2, 1,250 mcg (50,000 unit) capsule 2022-09 00:00: 00 Yes [id number] 66097D Take 1 capsule by mouth weekly. [facility] Ergocalcife rol 10 MCG (400 UNIT) oral Tablet 2022-09 00:00: 00 11-18 00:00 :00 No [id number] Q1W Take 50,000 units by mouth once a week. Tamela murphy gadobenate dimeglumine (MULTIHANCE -20 mL) injection 0.2 mL/kg 2022-09 22:30: 00 07-24 22:21 :00 No [id number] .2mL/kg 0.2 mL/kg, Intravenou s, ONCE, 1 dose, On Fri07/24/23 at 1630, Routine [facility] Tramadol HCl (ULTRAM) 50 MG oral Tablet 2022-09 00:00: 00 11-04 00:00 :00 No 50mg Q.[id number] 3D Take 1 tablet (50 mg total) by mouth every 8 hours as needed for pain. Tamela murphy iopamidol (ISOVUE 370-500 mL) injection 122 mL 05-16 21:30: 00 05-16 20:35 :00 No [id number] 122mL 122 mL, Intravenou s, ONCE, 1 dose, On Fri05/16/23 at 1630, Routine [facility] estradioL 0.1 mg/24 hr twice weekly patch 05-05 20:43: 11 Yes 1{patch } Apply 1 Patch to skin. [facility] FOLIC ACID ORAL 05-05 20:43: 11 Yes Take by mouth. [facility] clonazePAM (KLONOPIN) 2 mg tablet 05-05 17:13: 41 05-05 00:00 :00 No 2mg Take 2 mg by mouth 3 (three) times daily. [facility] acetaminoph en-codeine 300-30 mg tablet 17 00:00: 00 Yes 1{tbl} Take 1 tablet by mouth. [facility] methotrexat e 2.5 mg tablet 8-09 00:00: 00 Yes Take by mouth [facility] Folic Acid 1 MG oral tablet 03-03 00:00: 00 Yes 1mg Take 1 tablet (1 mg total) by mouth daily. Tamela Moody - Ana l meloxicam 7.5 mg tablet 5- 00:00: 00 Yes TAKE 1 TABLET BY MOUTH 1 TIME EACH DAY. [facility] venlafaxine 75 mg tablet 09-24 00:00: 00 Yes TAKE 1 TABLET BY MOUTH 1 TIME EACH DAY. [facility] cyclobenzap rine 10 mg tablet 2021-09 00:00: 00 Yes 10mg Take 1 tablet by mouth. [facility] amoxicillin -clavulanat e 875-125 mg per tablet 12-19 00:00: 00 Yes [id number] 1{tbl} Take 1 tablet by mouth every 12 (twelve) hours. [facility] ondansetron 4 mg disintegrat ing tablet 12-19 00:00: 00 Yes [id number] 4mg Take 1 tablet by mouth every 8 (eight) hours as needed for Nausea and Vomiting (N/V). [facility] hydroxychlo roquine sulfate (HYDROXYCHL OROQUINE ORAL) 2020-09 06:06: 04 Yes Take by mouth. [facility] methylPREDN ISolone 4 mg tablets 2020-09 00:00: 00 05-05 00:00 :00 No [id number] Take by mouth SEE-INSTRU CTIONS. follow package directions [facility] metformin ER 500 mg 24 hr tablet 2020-09 0-05 00:00: 00 06-13 04:59 :00 No 500mg Take 500 mg by mouth. [facility] belimumab (BENLYSTA) 200 mg/mL AtIn 04-16 00:00: 00 Yes [facility] ergocalcife rol, vitamin d2, 1,250 mcg (50,000 unit) capsule 11-06 00:00: 00 08-05 00:00 :00 No [id number] Take 50,000 Units by mouth. [facility] traMADOL (ULTRAM) 50 mg tablet 10-03 00:00: 00 Yes 50mg Take 1 tablet by mouth every 6 (six) hours as needed for Pain (scale 4-6). Brando Burns PA-C / Eleazar Hardy MD SARITHA# [id number] DPS# [id number] x Lic.# [id number] NPI# [id number] [facility] clonazePAM (KLONOPIN) 2 mg tablet 09-09 16:05: 09 Yes 2mg Take 2 mg by mouth 3 (three) times daily. [facility] acyclovir 400 mg tablet 2015-09 00:00: 00 05-05 00:00 :00 No TK 1 T PO QHS [facility] gabapentin 100 mg capsule 2015-09 00:00: 00 05-05 00:00 :00 No TK ONE C PO QHS [facility] methocarbam ol (ROBAXIN) 500 mg tablet 04-11 00:00: 00 05-05 00:00 :00 No TK 1 T PO QHS [facility] tramadol-ac etaminophen (ULTRACET) 37.5-325 mg per tablet 04-11 00:00: 00 05-05 00:00 :00 No TK 1 T PO BID WF [facility] Immunizations Ordered Immunization Name Filled Immunization Name Date Status Comments Source Covid-19 Vaccine Moderna (Spikevax), Mrna-lnp, Brando Protein, Pf Covid-19 Vaccine Moderna (Spikevax), Mrna-lnp, [employer], Pf 2020-12-25 00:00:00 Sirisha Dunn Covid-19 Vaccine Moderna (Spikevax), Mrna-lnp, [employer], Pf Unknown Completed Tamela Seybold - External Covid-19 Vaccine Moderna (Spikevax), Mrna-lnp, [employer], Pf Unknown Completed Tamela Seybold - External Covid-19 Vaccine Moderna (Spikevax), Mrna-lnp, [employer], Pf Unknown Completed Tamela Seybold - External Covid-19 Vaccine Moderna (Spikevax), Mrna-lnp, [employer], Pf Unknown Completed Tamela Seybold - External Covid-19 Vaccine Moderna (Spikevax), Mrna-lnp, [employer], Pf Unknown Completed Tamela Seybold - External Covid-19 Vaccine Moderna (Spikevax), Mrna-lnp, [employer], Pf Unknown Completed Tamela Seybold - External Covid-19 Vaccine Moderna (Spikevax), Mrna-lnp, [employer], Pf Unknown Completed Tamela Seybold - External Covid-19 Vaccine Moderna (Spikevax), Mrna-lnp, [employer], Pf Unknown Completed Tamela Seybold - External Covid-19 Vaccine Moderna (Spikevax), Mrna-lnp, [employer]ando [employer], Pf Unknown Completed Tamela Seybold - External Covid-19 Vaccine Moderna (Spikevax), Mrna-lnp, [employer]ando [employer], Pf Unknown Completed Tamela Seybold - External Covid-19 Vaccine Moderna (Spikevax), Mrna-lnp, [employer]ando [employer], Pf Unknown Completed Tamela Seybold - External Covid-19 Vaccine Moderna (Spikevax), Mrna-lnp, Brando [employer], Pf Unknown Completed Tamela Seybold - External Covid-19 Vaccine Moderna (Spikevax), Mrna-lnp, Brando [employer], Pf Unknown Completed Tamela Seybold - External Covid-19 Vaccine Moderna (Spikevax), Mrna-lnp, Brando [employer], Pf Unknown Completed Tamela Seybold - External Covid-19 Vaccine Moderna (Spikevax), Mrna-lnp, Brando [employer], Pf Unknown Completed Tamela Seybold - External Covid-19 Vaccine Moderna (Spikevax), Mrna-lnp, Brando [employer], Pf Unknown Completed Tamela Seybold - External Covid-19 Vaccine Moderna (Spikevax), Mrna-lnp, Brando [employer], Pf Unknown Completed Tamela Seybold - External Covid-19 Vaccine Moderna (Spikevax), Mrna-lnp, Brando [employer], Pf Unknown Completed Tamela Seybold - External Covid-19 Vaccine Moderna (Spikevax), Mrna-lnp, [employer]ando [employer], Pf Unknown Completed Tamela Seybold - External Covid-19 Vaccine Moderna (Spikevax), Mrna-lnp, Brando Protein, Pf Unknown Completed Tamela Seybold - External Covid-19 Vaccine Moderna (Spikevax), Mrna-lnp, Brando Protein, Pf Unknown Completed Tamela Seybold - External Covid-19 Vaccine Moderna (Spikevax), Mrna-lnp, Brando Protein, Pf Unknown Completed Tamela Seybold - External Covid-19 Vaccine Moderna (Spikevax), Mrna-lnp, Brando Protein, Pf Unknown Completed Tamela Seybold - External Covid-19 Vaccine Moderna (Spikevax), Mrna-lnp, Brando Protein, Pf Unknown Completed Tamela Seybold - External Covid-19 Vaccine Moderna (Spikevax), Mrna-lnp, Brando Protein, Pf Unknown Completed Tamela Seybold - External Covid-19 Vaccine Moderna (Spikevax), Mrna-lnp, Brando Protein, Pf Unknown Completed Tamela Seybold - External Covid-19 Vaccine Moderna (Spikevax), Mrna-lnp, Brando Protein, Pf Unknown Completed Tamela Seybold - External Covid-19 Vaccine Moderna (Spikevax), Mrna-lnp, Brando Protein, Pf Unknown Completed Tamela Seybold - External Covid-19 Vaccine Moderna (Spikevax), Mrna-lnp, Brando Protein, Pf Unknown Completed Tamela Seybold - External Vital Signs Vital Name Observation Time Observation Value Comments S ource Systolic blood pressure 2025-04-06 15:44:00 112 mm[Hg] Tamela Seybold - External Diastolic blood pressure 2025-04-06 15:44:00 72 mm[Hg] Tamela Seybold - External Systolic blood pressure 2025-04-05 15:57:00 107 mm[Hg] Tamela Seybold - External Diastolic blood pressure 2025-04-05 15:57:00 71 mm[Hg] Tamela Seybold - External Heart rate 2025-04-05 15:57:00 98 /min Tamela Seybold - External Systolic blood pressure 2025-03-16 20:15:00 114 mm[Hg] Tamela Hammerybold - External Diastolic blood pressure 2025-03-16 20:15:00 79 mm[Hg] Tamela Hammerybold - External Heart rate 2025-03-16 20:15:00 91 /min Tamela Hammerybold - External Respiratory rate 2025-03-16 20:15:00 16 /min Tamela Hammerybold - External Body height 2025-03-16 20:15:00 157.5 cm Tamela Hammerybold - External Body weight 2025-03-16 20:15:00 70.761 kg Tamela Hammerybold - External BMI 2025-03-16 20:15:00 28.53 kg/m2 Tamela Hammerybold - External Systolic blood pressure 2025-02-25 20:41:00 134 mm[Hg] [facility] Diastolic blood pressure 2025-02-25 20:41:00 84 mm[Hg] [facility] Heart rate 2025-02-25 20:41:00 76 /min [facility] Body temperature 2025-02-25 20:41:00 36.61 Arlet [facility] Epic Respiratory rate 2025-02-25 20:41:00 16 /min [facility] Epic Oxygen saturation in Arterial blood by Pulse oximetry 2025-02-25 20:41:00 97 /min [facility] Body height 2025-02-25 18:30:00 160 cm [facility] Body weight 2025-02-25 18:30:00 72.4 kg [facility] BMI 2025-02-25 18:30:00 28.27 kg/m2 [facility] Systolic blood pressure 2025-02-25 20:41:00 134 mm[Hg] [facility] Diastolic blood pressure 2025-02-25 20:41:00 84 mm[Hg] [facility] Heart rate 2025-02-25 20:41:00 76 /min [facility] Body temperature 2025-02-25 20:41:00 36.61 Arlet [facility] Respiratory rate 2025-02-25 20:41:00 16 /min [facility] Epic Oxygen saturation in Arterial blood by Pulse oximetry 2025-02-25 20:41:00 97 /min [facility] Body height 2025-02-25 18:30:00 160 cm [facility] Body weight 2025-02-25 18:30:00 72.4 kg [facility] BMI 2025-02-25 18:30:00 28.27 kg/m2 [facility] Systolic blood pressure 2025-02-10 21:17:00 118 mm[Hg] Tamela Seybold - External Diastolic blood pressure 2025-02-10 21:17:00 70 mm[Hg] Tamela Seybold - External Heart rate 2025-02-10 21:17:00 92 /min Tamela Seybold - External Body temperature 2025-02-10 21:17:00 36.44 Arlet Tamela Seybold - External Respiratory rate 2025-02-10 21:17:00 18 /min Tamela Seybold - External Body height 2025-02-10 21:17:00 160 cm Tamela Seybold - External Body weight 2025-02-10 21:17:00 75.297 kg Tamela Seybold - External BMI 2025-02-10 21:17:00 29.41 kg/m2 Tamela Seybold - External Oxygen saturation in Arterial blood by Pulse oximetry 2025-02-10 21:17:00 98 /min Tamela Seybold - External Systolic blood pressure 2025-02-09 20:49:00 111 mm[Hg] Tamela Seybold - External Diastolic blood pressure 2025-02-09 20:49:00 70 mm[Hg] Tamela Seybold - External Heart rate 2025-02-09 20:49:00 82 /min Tamela Seybold - External Body temperature 2025-02-09 20:49:00 36.72 Arlet Tamela Seybold - External Respiratory rate 2025-02-09 20:49:00 19 /min Tamela Seybold - External Body height 2025-02-09 20:49:00 160 cm Tamela Seybold - External Body weight 2025-02-09 20:49:00 74.844 kg Tamela Seybold - External BMI 2025-02-09 20:49:00 29.23 kg/m2 Tamela Seybold - External Systolic blood pressure 2025-01-13 20:20:00 114 mm[Hg] Tamela Seybold - External Diastolic blood pressure 2025-01-13 20:20:00 75 mm[Hg] Tamela Seybold - External Heart rate 2025-01-13 20:20:00 84 /min Tamela Hammerybold - External Body temperature 2025-01-13 20:20:00 36.33 Arlet Tamela Seybold - External Respiratory rate 2025-01-13 20:20:00 18 /min Tamela Seybold - External Body height 2025-01-13 20:20:00 160 cm Tamela Seybold - External Body weight 2025-01-13 20:20:00 79.833 kg Tamela Hammerybold - External BMI 2025-01-13 20:20:00 31.18 kg/m2 Tamela Seybold - External Systolic blood pressure 2024-12-14 20:05:00 122 mm[Hg] Tamela Seybold - External Diastolic blood pressure 2024-12-14 20:05:00 86 mm[Hg] Tamela Seybold - External Heart rate 2024-12-14 20:05:00 97 /min Tamela Seybold - External Respiratory rate 2024-12-14 20:05:00 16 /min Tamela Hammerybold - External Body height 2024-12-14 20:05:00 160 cm Tamela Hammerybadam - External Body weight 2024-12-14 20:05:00 76.658 kg Tamela Seybold - External BMI 2024-12-14 20:05:00 29.94 kg/m2 Tamela Seybold - External Systolic blood pressure 2024-12-07 20:23:00 108 mm[Hg] Tamela Seybold - External Diastolic blood pressure 2024-12-07 20:23:00 74 mm[Hg] Tamela Seybold - External Heart rate 2024-12-07 20:23:00 97 /min Tamela Seybold - External Body height 2024-12-07 20:23:00 160 cm Tamela Moody - External Oxygen saturation in Arterial blood by Pulse oximetry 2024-12-07 20:23:00 98 /min Tamela Seybold - External Systolic blood pressure 2024-11-18 16:10:00 122 mm[Hg] Tamela Seybold - External Diastolic blood pressure 2024-11-18 16:10:00 80 mm[Hg] Tamela Seybold - External Heart rate 2024-11-18 16:10:00 96 /min Tamela Seybold - External Body temperature 2024-11-18 16:10:00 36.61 Arlet Tamela Seybold - External Respiratory rate 2024-11-18 16:10:00 16 /min Tamela Seybold - External Body height 2024-11-18 16:10:00 157.5 cm Tamela Seybold - External Body weight 2024-11-18 16:10:00 80.196 kg Tamela Seybold - External BMI 2024-11-18 16:10:00 32.34 kg/m2 Tamela Seybold - External Oxygen saturation in Arterial blood by Pulse oximetry 2024-11-18 16:10:00 98 /min Tamela Seybold - External Systolic blood pressure 2024-10-11 21:16:00 109 mm[Hg] Tamela Seybold - External Diastolic blood pressure 2024-10-11 21:16:00 78 mm[Hg] Tamela Seybold - External Heart rate 2024-10-11 21:16:00 92 /min Tamela Seybold - External Body temperature 2024-10-11 21:16:00 36.39 Arlet Tamela Seybold - External Respiratory rate 2024-10-11 21:16:00 18 /min Tamela Seybold - External Body height 2024-10-11 21:16:00 157.5 cm Tamela Seybold - External Body weight 2024-10-11 21:16:00 84.823 kg Tamela Seybold - External BMI 2024-10-11 21:16:00 34.20 kg/m2 Tamela Seybold - External Systolic blood pressure 2024-10-06 21:21:00 128 mm[Hg] Tamela Seybold - External Diastolic blood pressure 2024-10-06 21:21:00 82 mm[Hg] Tamela Seybold - External Heart rate 2024-10-06 21:21:00 90 /min Tamela Seybold - External Respiratory rate 2024-10-06 21:21:00 17 /min Tamela Seybold - External Body height 2024-10-06 21:21:00 160 cm Tamela Seybold - External Body weight 2024-10-06 21:21:00 84.823 kg Tamela Seybold - External BMI 2024-10-06 21:21:00 33.13 kg/m2 Tamela Seybold - External Oxygen saturation in Arterial blood by Pulse oximetry 2024-10-06 21:21:00 96 /min Tamela Seybold - External Systolic blood pressure 2024-07-30 21:26:00 138 mm[Hg] patient has not taken for a month Tamela Seybold - External Diastolic blood pressure 2024-07-30 21:26:00 80 mm[Hg] patient has not taken for a month Tamela Seybold - External Heart rate 2024-07-30 21:26:00 68 /min Tamela Seybold - External Body temperature 2024-07-30 21:26:00 36.61 Arlet Tamela Seybold - External Respiratory rate 2024-07-30 21:26:00 16 /min Tamela Seybold - External Body height 2024-07-30 21:26:00 160 cm Tamela Seybold - External Body weight 2024-07-30 21:26:00 82.101 kg Tamela Seybold - External BMI 2024-07-30 21:26:00 32.06 kg/m2 Tamela Seybold - External Systolic blood pressure 2024-07-22 16:59:00 128 mm[Hg] Tamela Seybold - External Diastolic blood pressure 2024-07-22 16:59:00 85 mm[Hg] Tamela Seybold - External Heart rate 2024-07-22 16:59:00 97 /min Tamela Seybold - External Body temperature 2024-07-22 16:59:00 36.72 Arlet Tamela Seybold - External Respiratory rate 2024-07-22 16:59:00 18 /min Tamela Seybold - External Body height 2024-07-22 16:59:00 160 cm Tamela Seybold - External Body weight 2024-07-22 16:59:00 82.555 kg Tamela Seybold - External BMI 2024-07-22 16:59:00 32.24 kg/m2 Tamela Seybold - External Systolic blood pressure 2024-07-12 20:58:00 98 mm[Hg] Tamela Seybold - External Diastolic blood pressure 2024-07-12 20:58:00 72 mm[Hg] Tamela Seybold - External Heart rate 2024-07-12 20:58:00 115 /min Tamela Seybold - External Body temperature 2024-07-12 20:58:00 36.83 Arlet Tamela Seybold - External Respiratory rate 2024-07-12 20:58:00 18 /min Tamela Seybold - External Body height 2024-07-12 20:58:00 157.5 cm Tamela Hammerybold - External Body weight 2024-07-12 20:58:00 84.369 kg Tamela Seybold - External BMI 2024-07-12 20:58:00 34.02 kg/m2 Tamela Seybold - External Systolic blood pressure 2024-07-01 19:15:00 150 mm[Hg] [facility] Diastolic blood pressure 2024-07-01 19:15:00 92 mm[Hg] [facility] Epic Heart rate 2024-07-01 19:15:00 97 /min [facility] Body temperature 2024-07-01 19:15:00 37.06 Arlet [facility] Epic Respiratory rate 2024-07-01 19:15:00 22 /min [facility] Epic Oxygen saturation in Arterial blood by Pulse oximetry 2024-07-01 19:15:00 98 /min [facility] Body height 2024-07-01 14:01:00 157.5 cm [facility] Body weight 2024-07-01 14:01:00 85.9 kg [facility] BMI 2024-07-01 14:01:00 34.64 kg/m2 [facility] Epic Systolic blood pressure 2024-07-01 19:15:00 150 mm[Hg] [facility] Epic Diastolic blood pressure 2024-07-01 19:15:00 92 mm[Hg] [facility] Epic Heart rate 2024-07-01 19:15:00 97 /min [facility] Epic Body temperature 2024-07-01 19:15:00 37.06 [facility] Epic Respiratory rate 2024-07-01 19:15:00 22 /min [facility] Oxygen saturation in Arterial blood by Pulse oximetry 2024-07-01 19:15:00 98 /min [facility] Body height 2024-07-01 14:01:00 157.5 cm [facility] Body weight 2024-07-01 14:01:00 85.9 kg [facility] BMI 2024-07-01 14:01:00 34.64 kg/m2 [facility] Systolic blood pressure 2024-05-31 20:36:00 132 mm[Hg] Tamela Seybold - External Diastolic blood pressure 2024-05-31 20:36:00 89 mm[Hg] Tamela Seybold - External Heart rate 2024-05-31 20:36:00 98 /min Tamela Seybold - External Body temperature 2024-05-31 20:36:00 36.94 Arlet Tamela Seybold - External Respiratory rate 2024-05-31 20:36:00 18 /min Tamela Seybold - External Body height 2024-05-31 20:36:00 157.5 cm Tamela Seybold - External Body weight 2024-05-31 20:36:00 87.544 kg Tamela Seybold - External BMI 2024-05-31 20:36:00 35.30 kg/m2 Tamela Seybold - External Systolic blood pressure 2024-03-29 20:59:00 131 mm[Hg] Tamela Seybold - External Diastolic blood pressure 2024-03-29 20:59:00 91 mm[Hg] Tamela Seybold - External Heart rate 2024-03-29 20:59:00 91 /min Tamela Seybold - External Body temperature 2024-03-29 20:59:00 36.78 Arlet Tamela Seybold - External Respiratory rate 2024-03-29 20:59:00 18 /min Tamela Seybold - External Body height 2024-03-29 20:59:00 157.5 cm Tamela Seybold - External Body weight 2024-03-29 20:59:00 87.544 kg Tamela Seybold - External BMI 2024-03-29 20:59:00 35.30 kg/m2 Tamela Seybold - External Systolic blood pressure 2024-02-04 20:07:00 128 mm[Hg] Tamela Seybold - External Diastolic blood pressure 2024-02-04 20:07:00 88 mm[Hg] Tamela Seybold - External Heart rate 2024-02-04 20:07:00 99 /min Tamela Seybold - External Body temperature 2024-02-04 20:07:00 36.39 Arlet Tamela Seybold - External Respiratory rate 2024-02-04 20:07:00 16 /min Tamela Seybold - External Body height 2024-02-04 20:07:00 157.5 cm Tamela Seybold - External Body weight 2024-02-04 20:07:00 87.635 kg Tamela Seybold - External BMI 2024-02-04 20:07:00 35.34 kg/m2 Tamela Seybold - External Systolic blood pressure 2023-12-18 20:33:00 156 mm[Hg] Tamela Seybold - External Diastolic blood pressure 2023-12-18 20:33:00 88 mm[Hg] Tamela Seybold - External Heart rate 2023-12-18 20:33:00 88 /min Tamela Seybold - External Body temperature 2023-12-18 20:33:00 36.72 Arlet Tamela Seybold - External Respiratory rate 2023-12-18 20:33:00 18 /min Tamela Seybold - External Body height 2023-12-18 20:33:00 157.5 cm Tamela Seybold - External Body weight 2023-12-18 20:33:00 90.266 kg Tamela Seybold - External BMI 2023-12-18 20:33:00 36.40 kg/m2 Tamela Seybold - External Systolic blood pressure 2023-12-17 20:06:00 145 mm[Hg] Tamela Seybold - External Diastolic blood pressure 2023-12-17 20:06:00 89 mm[Hg] Tamela Seybold - External Heart rate 2023-12-17 20:06:00 93 /min Tamela Seybold - External Body height 2023-12-17 20:06:00 157.5 cm Tamela Seybold - External Body weight 2023-12-17 20:06:00 90.719 kg Tamela Seybold - External BMI 2023-12-17 20:06:00 36.58 kg/m2 Tamela Seybold - External Systolic blood pressure 2023-12-15 18:49:00 124 mm[Hg] Tamela Seybold - External Diastolic blood pressure 2023-12-15 18:49:00 76 mm[Hg] Tamela Seybold - External Heart rate 2023-12-15 18:49:00 85 /min Tamela Seybold - External Body temperature 2023-12-15 18:49:00 36.28 Arlet Tamela Seybold - External Respiratory rate 2023-12-15 18:49:00 15 /min Tamela Seybold - External Body height 2023-12-15 18:49:00 157.5 cm Tamela Seybold - External Body weight 2023-12-15 18:49:00 89.359 kg Tamela Seybold - External BMI 2023-12-15 18:49:00 36.03 kg/m2 Tamela Seybold - External Systolic blood pressure 2023-11-05 21:33:00 108 mm[Hg] Tamela Seybold - External Diastolic blood pressure 2023-11-05 21:33:00 78 mm[Hg] Tamela Seybold - External Heart rate 2023-11-05 21:33:00 90 /min Tamela Seybold - External Body temperature 2023-11-05 21:33:00 36.17 Arlet Tamela Seybold - External Respiratory rate 2023-11-05 21:33:00 16 /min Tamela Seybold - External Body height 2023-11-05 21:33:00 157.5 cm Tamela Seybold - External Body weight 2023-11-05 21:33:00 87.726 kg Tamela Seybold - External BMI 2023-11-05 21:33:00 35.37 kg/m2 Tamela Seybold - External Systolic blood pressure 2023-11-04 19:54:00 134 mm[Hg] Tamela Seybold - External Diastolic blood pressure 2023-11-04 19:54:00 72 mm[Hg] Tamela Seybold - External Heart rate 2023-11-04 19:54:00 78 /min Tamela Seybold - External Body temperature 2023-11-04 19:54:00 37 Arlet Tamela Moody - External Respiratory rate 2023-11-04 19:54:00 23 /min Tamela Moody - External Body height 2023-11-04 19:54:00 157.5 cm Tamela Moody - External Body weight 2023-11-04 19:54:00 90.266 kg Tamela Moody - External BMI 2023-11-04 19:54:00 36.40 kg/m2 Tamela Moody - External Systolic blood pressure 2023-08-05 19:49:00 129 mm[Hg] [facility] Diastolic blood pressure 2023-08-05 19:49:00 88 mm[Hg] [facility] Heart rate 2023-08-05 19:48:00 120 /min [facility] Respiratory rate 2023-08-05 19:48:00 18 /min [facility] Body height 2023-08-05 19:48:00 157.5 cm [facility] Body weight 2023-08-05 19:48:00 86.909 kg [facility] BMI 2023-08-05 19:48:00 35.04 kg/m2 [facility] Oxygen saturation in Arterial blood by Pulse oximetry 2023-08-05 19:48:00 98 /min [facility] Systolic blood pressure 2023-05-06 01:30:00 148 mm[Hg] [facility] Diastolic blood pressure 2023-05-06 01:30:00 106 mm[Hg] [facility] Heart rate 2023-05-06 01:30:00 93 /min [facility] Respiratory rate 2023-05-06 01:30:00 16 /min [facility] Oxygen saturation in Arterial blood by Pulse oximetry 2023-05-06 01:30:00 95 /min [facility] Body temperature 2023-05-05 21:15:00 36.89 Arlet [facility] Body height 2023-05-05 21:15:00 157.5 cm [facility] Body weight 2023-05-05 21:15:00 85.276 kg [facility] BMI 2023-05-05 21:15:00 34.39 kg/m2 [facility] Procedures Procedure Date / Time Performed Performing Clinician Source UA WITH CULTURE IF INDICATED 2024-07-01 17:28:00 Hetal, Ivonne Laguna [facility] CT ANGIOGRAM CHEST ABDOMEN PELVIS 2024-07-01 15:26:33 Hetal, Ivonne Laguna [facility] BLOOD GAS, VENOUS 2024-07-01 14:29:00 Hetal, Ivonne Laguna [facility] COMPLETE BLOOD COUNT 2024-07-01 14:28:00 Hetal, Ivonne Laguna [facility] AUTOMATED DIFFERENTIAL 2024-07-01 14:28:00 Hetal, Ivonne Laguna [facility] COMPREHENSIVE METABOLIC PANEL 2024-07-01 14:28:00 Hetal, Ivonne Laguna [facility] LIPASE LEVEL 2024-07-01 14:28:00 Hetal, Ivonne Laguna [facility] HCG TOTAL (QUANTITATIVE) 2024-07-01 14:28:00 Hetal, Ivonne Laguna [facility] COMPLETE BLOOD COUNT W/DIFF AND PLATELET 2024-07-01 14:28:00 Hetal, Ivonne Laguna [facility] PROCALCITONIN LEVEL 2024-07-01 14:28:00 [facility] TROPONIN I HIGH SENSITIVITY (SINGLE ORDER) 2024-07-01 14:28:00 Hetal, Ivonne Laguna [facility] LACTIC ACID WITH 2 HOUR REFLEX 2024-07-01 14:28:00 Hetal, Ivonne Laguna [facility] Lactic acid with 2 Hours Reflex 2024-07-01 00:00:00 [facility] Urine Culture 2024-07-01 00:00:00 [facility] MAGNESIUM LEVEL 2024-06-09 05:35:00 [place] [facility] PHOSPHORUS LEVEL 2024-06-09 05:35:00 [place] [facility] COMPLETE BLOOD COUNT W/DIFF AND PLATELET 2024-06-09 05:35:00 [place] landry [facility] AUTO DIFFERENTIAL - DATA CONV 2024-06-09 05:35:00 [place], Elías Holguin [facility] COMPREHENSIVE METABOLIC PANEL 2024-06-09 05:35:00 Brittnee Elías Holguin [facility] ANTIBODY SCREEN 2024-06-08 10:39:00 Adriel Charity [facility] ABORH BLOOD TYPE 2024-06-08 10:39:00 Adriel Charity [facility] HEMOGLOBIN A1C 2024-06-07 15:51:00 Brittnee Elías [facility] COMPLETE BLOOD COUNT W/DIFF AND PLATELET 2024-06-07 15:51:00 Brittnee Elías [facility] MANUAL DIFFERENTIAL 2024-06-07 15:51:00 Brittnee Elías [facility] COMPREHENSIVE METABOLIC PANEL 2024-06-07 15:51:00 Brittnee Elías [facility] CORTISOL AM 2023-09-03 15:02:00 [facility] FREE T4 2023-09-03 15:02:00 Levi [facility] THYROID STIMULATING HORMONE 2023-09-03 15:02:00 Levi [facility] BASIC METABOLIC PANEL (NA, K , CL, CO2, GLUCOSE, BUN, CREATININE, CA) 2023-09-03 15:02:00 [facility] INTACT PTH CALCIUM GROUP 2023-09-03 15:02:00 [facility] VITAMIN D, 25-OH 2023-09-03 15:02:00 [facility] FREE T3 2023-09-03 15:02:00 [facility] BI SCREENING TOMOSYNTHESIS BILATERAL 2023-07-24 20:25:37 Requisition, Paper [facility] REFERRAL- REQUEST/RESPONSE 2023-06-06 05:01:00 Doctor Unassigned, Clute [facility] CT ABDOMEN PELVIS W WO CONTRAST 2023-05-16 20:33:04 Sarahy Cook [facility] NOTICE OF PRIVACY PRACTICES 2023-05-16 19:11:34 Doctor Unassigned, Clute [facility] CONSENT/REFUSAL FOR DIAGNOSI S AND TREATMENT 2023-05-16 19:11:17 Doctor Unassigned, Clute [facility] ASSIGNMENT OF BENEFITS 2023-05-16 19:10:49 Doctor Unassigned, Clute [facility] CBC WITH DIFF 2023-05-08 14:41:00 Sarahy Cook [facility] PHOSPHORUS 2023-05-08 14:41:00 Sarahy Cook [facility] GAMMA GLUTAMYLTRANSFERASE 2023-05-08 14:41:00 Sarahy Cook [facility] BILI UNCONJUGATED/BILI CONJUG 2023-05-08 14:41:00 Sarahy Cook [facility] FREE T4 2023-05-08 14:41:00 Sarahy Cook [facility] THYROID STIMULATING HORMONE 2023-05-08 14:41:00 Sarahy Cook [facility] COMP. METABOLIC PANEL (32608) 2023-05-08 14:41:00 Sarahy Cook [facility] SEDIMENTATION RATE 2023-05-08 14:41:00 Celio Mclean [facility] URINALYSIS 2023-05-08 14:41:00 Celio Mclean [facility] PROTEIN CREAT RATIO URINE RANDOM 2023-05-08 14:41:00 Celio Mclean [facility] CT ABDOMEN PELVIS WO CONTRAST 2023-05-05 23:14:21 Danae Grullon [facility] COMP. METABOLIC PANEL (27566) 2023-05-05 22:28:00 Danae Grullon [facility] CBC WITH DIFF 2023-05-05 22:28:00 Danae Grullon [facility] URINALYSIS 2023-05-05 22:24:00 Danae Grullon [facility] ASSIGNMENT OF BENEFITS 2023-05-05 21:34:15 Doctor Unassigned, Clute [facility] CONSENT/REFUSAL FOR DIAGNOSI S AND TREATMENT 2023-05-05 21:05:37 Doctor Unassigned, Clute [facility] ASSIGNMENT OF BENEFITS 2022-07-18 22:46:03 Doctor Unassigned, Clute [facility] PHYSICIAN ORDERS 2022-05-22 05:01:00 Doctor Unassigned, Clute [facility] RENAL PANEL 2022-05-11 14:31:00 Mealnie Olivera [facility] BILI UNCONJUGATED/BILI CONJUG 2022-05-11 14:31:00 Melanie Olivera [facility] COMP. METABOLIC PANEL (67329) 2022-05-11 14:31:00 Sarahy Cook [facility] LIPID PANEL (00201)(TOTAL CHOLESTEROL, TRIGLYCERIDES, HDL) 2022-05-11 14:31:00 Sarahy Cook [facility] CBC WITH DIFF 2022-05-11 14:31:00 Sarahy Cook [facility] PHYSICIAN ORDERS 2022-05-11 05:01:00 Doctor Unassigned, Clute [facility] MAMMOGRAM, BILATERAL-DIAGNOSTIC 2006-04-14 15:31:00 Emma Conway [facility] SINGLE/[employer]LET[employer] POINT 1/2 MUSCLES Tamela Moody - External Plan of Care Planned Activity Planned Date Details Comments Source Encounters Start Date/Time End Date/Time Encounter Type Admission Type Attending Clinicians Care Facility Care Department Encounter ID Source 2025-08-09 16:00:00 2025-08-09 16:00:00 Outpatient RAJ MAURER [id number] Tamela Moody 2025-08-01 14:30:00 2025-08-01 14:30:00 Outpatient LAURIE SWAN [id number] Tamela Hammerybadam 2025-07-20 15:45:00 2025-07-20 15:45:00 Outpatient KEO MONSIVAIS [id number] Tamela Hammerybadam 2025-05-24 15:45:00 2025-05-24 15:45:00 Outpatient PASCUAL LEÓN [id number] Tamela Moody 2025-04-29 12:17:00 2025-04-29 12:17:00 Outpatient PASCUAL LEÓN [id number] Tamela Hammerybadam 2025-04-20 00:00:00 2025-04-20 00:00:00 Outpatient KEO MONSIVAIS TAMELA SINGH [id number] [facility] 2025-04-18 00:00:00 2025-04-18 00:00:00 Outpatient KEO MONSIVAIS TAMELA SINGH [id number] Tamela Seybold 2025-04-18 00:00:00 2025-04-18 00:00:00 Outpatient OSCAR JONES TAMELA SINGH [id number] Tamela Seybold 2025-04-13 00:00:00 2025-04-13 00:00:00 Outpatient ANSOANUUR, PASCUAL ISNGH [id number] [facility] 2025-04-13 00:00:00 2025-04-13 00:00:00 Outpatient ANSOANUUR, PASCUAL SINGH [id number] [facility] 2025-04-12 00:00:00 2025-04-12 00:00:00 Outpatient ANSOANUUR, PASCUAL SINGH [id number] [facility] 2025-04-07 00:00:00 2025-04-07 00:00:00 Outpatient ANSOANUUR, PASCUAL SINGH [id number] [facility] 2025-04-07 00:00:00 2025-04-07 00:00:00 Outpatient ANSOANUUR, PASCUAL SINGH [id number] Tamela Seybold 2025-04-06 15:45:00 2025-04-06 15:45:00 Outpatient RAJ MAURER [id number] Tamela Seybold 2025-04-05 16:00:00 2025-04-05 16:00:00 Outpatient ANSOANUURPASCUAL [id number] Tamela Seybold 2025-03-30 14:45:00 2025-03-30 14:45:00 Outpatient TAMELA SINGH [id number] Tamela Seybold 2025-03-25 00:00:00 2025-03-25 00:00:00 Outpatient TAYLOR SMITH [id number] Tamela Seybold 2025-03-24 15:15:00 2025-03-24 15:15:00 Outpatient RAJ MAURER TAMELA [id number] Tamela Hammeradam 2025-03-16 15:30:00 2025-03-16 15:30:00 Outpatient KEO MONSIVAIS TAMELA TAMELA [id number] Tamela Hammeradam 2025-03-15 16:45:00 2025-03-15 16:45:00 Outpatient TAMELA SINGH [id number] Tamela [facility] 2025-02-28 00:00:00 2025-02-28 00:00:00 Outpatient RAJ MAURER TAMELA [id number] Tamela [facility] 2025-02-25 19:40:00 2025-02-25 20:51:00 Emergency [place] [id number] [facility] 2025-02-25 19:40:00 2025-02-25 20:51:00 Emergency Emergency [facility] General Medicine [id number] [facility] 2025-02-18 14:00:00 2025-02-18 14:00:00 Outpatient RAJ MAURER TAMELA [id number] Tamela [facility] 2025-02-10 16:30:00 2025-02-10 16:30:00 Outpatient RAJ MAURER TAMELA SINGH [id number] [facility] 2025-02-10 00:00:00 2025-02-10 00:00:00 Outpatient TAYLOR SMITH [id number] Tamela [facility] 2025-02-10 00:00:00 2025-02-10 00:00:00 [facility] [id number] [facility] 2025-02-09 16:35:00 2025-02-09 16:35:00 Outpatient SARWAT SINGH [id number] Tamela [facility] 2025-02-09 16:00:00 2025-02-09 16:00:00 Outpatient OSCAR JONES TAMELA SINGH [id number] Tamela Seybadam 2025-02-08 00:00:00 2025-02-08 00:00:00 Outpatient SARAH TAYLOR TAMELA SINGH [id number] [facility] 2025-02-01 00:00:00 2025-02-01 00:00:00 Outpatient TONY GRULLONYA TAMELA SINGH [id number] [facility] 2025-01-28 14:30:00 2025-01-28 14:30:00 Outpatient TONY GRULLONYA TAMELA SINGH [id number] [facility] 2025-01-28 00:00:00 2025-01-28 00:00:00 Outpatient MD TAMELA HASTINGS [id number] [facility] 2025-01-25 00:00:00 2025-01-25 00:00:00 Outpatient TAYLOR SMITH [id number] Tamela [facility] 2025-01-13 15:30:00 2025-01-13 15:30:00 Outpatient BENY MIGUELABBIE SINGH [id number] [facility] 2025-01-12 00:00:00 2025-01-12 00:00:00 Outpatient RAJ MAURER [id number] [facility] 2025-01-12 00:00:00 2025-01-12 00:00:00 Outpatient KEO MONSIVAIS [id number] [facility] 2025-01-11 00:00:00 2025-01-11 00:00:00 Outpatient TAYLOR SMITH [id number] Tamela Seybadam 2025-01-07 15:45:00 2025-01-07 15:45:00 Outpatient SARWAT SINGH [id number] Tamela Seybadam 2025-01-07 15:00:00 2025-01-07 15:00:00 Outpatient IZABEL GREGORIO [id number] Tamela Seybold 2025-01-07 00:00:00 2025-01-07 00:00:00 Outpatient MD TAMELA HASTINGS [id number] Tamela pamella 2025-01-06 00:00:00 2025-01-06 00:00:00 Outpatient MD [facility]ST[facility] [id number] [facility] 00:00:00 2025-01-06 00:00:00 Outpatient LAURIE SWAN TAMELA SINGH [id number] [facility] 2025-01-04 00:00:00 2025-01-04 00:00:00 Outpatient TAMELA SINGH [id number] Tamela pamella 2025-01-04 00:00:00 2025-01-04 00:00:00 Outpatient MD TAMELA HASTINGS [id number] Tamela [facility] 2024-12-31 00:00:00 2024-12-31 00:00:00 Outpatient TAYLOR SMITH [id number] Tamela [facility] 2024-12-16 15:45:00 2024-12-16 15:45:00 Outpatient YURIY PEDERSEN [id number] Tamela [facility] 2024-12-14 15:45:00 2024-12-14 15:45:00 Outpatient KEO MONSIVAIS [id number] Tamela [facility] 2024-12-14 15:00:00 2024-12-14 15:00:00 Outpatient SARAHY PAUL [id number] [facility] 2024-12-13 10:45:00 2024-12-13 10:45:00 Outpatient YURIY PEDERSEN [id number] [facility] 2024-12-13 00:00:00 2024-12-13 00:00:00 Outpatient RAJ MAURER [id number] Tamela Moody 2024-12-10 00:00:00 2024-12-10 00:00:00 Outpatient MD TAMELA HASTINGS [id number] Tamela Moody 2024-12-10 00:00:00 2024-12-10 00:00:00 Outpatient RAJ MAURER TAMELA SINGH [id number] [facility] 2024-12-07 15:45:00 2024-12-07 15:45:00 Outpatient TAYLOR SMITH TAMELA SINGH [id number] [facility] 2024-12-01 00:00:00 2024-12-01 00:00:00 Outpatient RAJ MAURER TAMELA SINGH [id number] [facility] 2024-11-25 00:00:00 2024-11-25 00:00:00 Outpatient SERINA BLOOM TAMELA SINGH [id number] [facility] 2024-11-23 14:45:00 2024-11-23 14:45:00 Outpatient KEO MONSIVAIS TAMELA SINGH [id number] [facility] 2024-11-23 14:20:00 2024-11-23 14:20:00 Outpatient MERARISandhya TAMELA SINGH [id number] [facility] 2024-11-23 00:00:00 2024-11-23 00:00:00 Outpatient LAURIE SWAN TAMELA SINGH [id number] [facility] 2024-11-23 00:00:00 2024-11-23 00:00:00 Outpatient LAURIE SWAN TAMELA SINGH [id number] [facility] 2024-11-18 11:30:00 2024-11-18 11:30:00 Outpatient RAJ MAURER TAMELA SINGH [id number] [facility] 2024-11-17 09:59:00 2024-11-17 09:59:00 Outpatient YURIY PEDERSEN [id number] Tamela Seybold 2024-11-17 07:50:00 2024-11-17 07:50:00 Outpatient TAMELA SINGH [id number] Tamela Seybold 2024-11-17 00:00:00 2024-11-17 00:00:00 Outpatient TAMELA SINGH [id number] Tamela Seybold 2024-11-12 00:00:00 2024-11-12 00:00:00 Outpatient YURIY PEDERSEN [id number] Tamela Fransisco 2024-11-08 15:45:00 2024-11-08 15:45:00 Outpatient TAMELA SINGH [id number] Tamela Fransisco 2024-11-06 00:00:00 2024-11-06 00:00:00 Outpatient SERINA BLOOM [id number] Tamela Moody 2024-11-05 00:00:00 2024-11-05 00:00:00 Outpatient SERINA BLOOM [id number] Tamela Hammeradam 2024-11-03 15:45:00 2024-11-03 15:45:00 Outpatient WINKLERBLADIMIR [id number] Tamela Hammeradam 2014-11-30 00:00:00 2024-10-23 04:30:46 Orders Only Doctor Unassigned, Clute Doctor Unassigned, Clute [facility] [id number] [facility] 2024-10-21 15:00:00 2024-10-21 15:00:00 Outpatient YURIY PEDERSEN [id number] Tamela adam 2024-10-20 00:00:00 2024-10-20 00:00:00 Outpatient SERINA BLOOM [id number] Tamela adam 2024-10-20 00:00:00 2024-10-20 00:00:00 Outpatient SERINA BLOOM [id number] Tamela adam 2024-10-18 15:00:00 2024-10-18 15:00:00 Outpatient SERINA BLOOM [id number] Tamela adam 2024-10-11 16:00:00 2024-10-11 16:00:00 Outpatient SARWAT SINGH [id number] Tamela pamella 2024-10-11 15:30:00 2024-10-11 15:30:00 Outpatient LAURIE SWAN [id number] Tamela Moody 2024-10-07 10:00:00 2024-10-07 10:00:00 Outpatient LAURIE SWAN TAMELA SINGH [id number] Tamela Fransisco 2024-10-07 00:00:00 2024-10-07 00:00:00 Outpatient BLADIMIR WINKLER [id number] Tamela Fransisco 2024-10-06 16:00:00 2024-10-06 16:00:00 Outpatient HUGO TAMELA SINGH [id number] Tamela Hammeradam 2024-10-06 15:00:00 2024-10-06 15:00:00 Outpatient BLADIMIR WINKLER [id number] Tamela adam 2024-09-27 00:00:00 2024-09-27 00:00:00 Outpatient MATEUS JORGE TAMELA SINGH [id number] Tamela adam 2024-09-23 00:00:00 2024-09-23 00:00:00 Outpatient SERINA BLOOM [id number] [facility] 2024-09-23 00:00:00 2024-09-23 00:00:00 Outpatient SERINA BLOOM [id number] [facility] 2024-09-15 10:40:00 2024-09-15 10:40:00 Outpatient ANGELITO YURIY TAMELA SINGH [id number] Tamela adam 2024-09-15 07:55:00 2024-09-15 07:55:00 Outpatient TAMELA SINGH [id number] Tamela adam 2024-09-15 00:00:00 2024-09-15 00:00:00 Outpatient TAMELA SINGH [id number] Tamela ybadam 2024-09-09 00:00:00 2024-09-09 00:00:00 Outpatient TAMELA SINGH [id number] Tamela Moody 2024-09-06 00:00:00 2024-09-06 00:00:00 Outpatient BLADIMIR WINKLER [id number] Tamela ybadam 2024-09-06 00:00:00 2024-09-06 00:00:00 Outpatient BLADIMIR WINKLER [id number] Tamela Seybold 2024-08-31 00:00:00 2024-08-31 00:00:00 Outpatient MD TAMELA HASTINGS [id number] Tamela Seybold 2024-08-26 10:00:00 2024-08-26 10:00:00 Outpatient [facility] TAMELA SINGH [id number] Tamela Seybold 2024-08-24 00:00:00 2024-08-24 00:00:00 Outpatient LAURIE SWAN [id number] Tamela Seybold 2024-08-13 00:00:00 2024-08-13 00:00:00 Outpatient TAMELA SINGH [id number] Tamela Seybold 2024-08-09 09:20:00 2024-08-09 09:20:00 Outpatient TAMELA SINGH [id number] Tamela Seybold 2024-08-05 00:00:00 2024-08-05 00:00:00 Outpatient LAURIE SWAN [id number] Tamela Seybold 2024-08-04 00:00:00 2024-08-04 00:00:00 Outpatient MD TAMELA HASTINGS [id number] Tamela Seybold 2024-08-04 00:00:00 2024-08-04 00:00:00 Outpatient SERINA BLOOM [id number] Tamela Seybold 2024-08-04 00:00:00 2024-08-04 00:00:00 Outpatient MD TAMELA HASTINGS [id number] Tamela Seybold 2024-08-02 00:00:00 2024-08-02 00:00:00 Outpatient LAURIE SWAN [id number] Tamela Seybold 2024-07-30 15:00:00 2024-07-30 15:00:00 Outpatient BLADIMIR WINKLER [id number] Tamela Seybold 2024-07-28 09:15:00 2024-07-28 09:15:00 [facility] [id number] [facility]24-07-22 11:45:00 2024-07-22 11:45:00 Outpatient LAB47 TAMELA ZENGSEY [id number] Tamela Moody 2024-07-22 11:00:00 2024-07-22 11:00:00 Outpatient LAURIE SWAN TAMELA [id number] Tamela Moody 2024-07-19 00:00:00 2024-07-19 00:00:00 Outpatient LAURIE SWAN TAMELA [id number] Tamela Hammerybadam 2024-07-14 00:00:00 2024-07-14 00:00:00 Outpatient LAURIE SWAN TAMELA SINGH [id number] Tamela Hammerybadam 2024-07-12 16:00:00 2024-07-12 16:00:00 Outpatient LAB47 TAMELA TAMELA [id number] Tamela Moody 2024-07-12 15:30:00 2024-07-12 15:30:00 Outpatient LAURIE SWAN TAMELA [id number] [facility]ela [facility] 2024-07-06 00:00:00 2024-07-06 00:00:00 Outpatient LAURIE SWAN TAMELA [id number] [facility] 2024-07-01 14:12:00 2024-07-01 19:36:00 Emergency Charity Spence [facility] 1.2.840.114 350.1.13.70 8.2.7.2.686 [id number] [facility] 2024-07-01 14:12:00 2024-07-01 19:36:00 Emergency Emergency JORDYCHARITY LOYD [facility] General Medicine [id number] [facility] 2024-06-29 00:00:00 2024-06-29 00:00:00 Outpatient LAURIE SWAN TAMELA SINGH [id number] [facility] 2024-06-24 00:00:00 2024-06-24 00:00:00 Outpatient ELÍAS BEAULIEU [id number] [facility] 2024-06-23 14:00:00 2024-06-23 14:00:00 Outpatient ELÍAS BEAULIEU TAMELA SINGH [id number] [facility] 2024-06-18 00:00:00 2024-06-18 00:00:00 Outpatient LAURIE SWAN TAMELA SINGH [id number] [facility] 2024-06-17 15:45:00 2024-06-17 15:45:00 Outpatient RAJ MAURER TAMELA SINGH [id number] [facility] 2024-06-17 15:15:00 2024-06-17 15:15:00 Outpatient EMIL RAMSEY TAMELA SINGH [id number] [facility] 2024-06-15 00:00:00 2024-06-15 00:00:00 Outpatient ELÍAS BEAULIEU TAMELA SINGH [id number] [facility] 2024-06-15 00:00:00 2024-06-15 00:00:00 Outpatient MD TAMELA HASTINGS [id number] [facility] 2024-06-10 00:00:00 2024-06-10 00:00:00 Outpatient BLADIMIR WINKLER TAMELA SINGH [id number] [facility] 2024-06-08 14:29:00 2024-06-09 13:40:00 Inpatient U ANA LEAL [facility] [id number] [facility] 2024-06-08 14:29:00 2024-06-09 13:40:00 Inpatient Urgent ELÍAS BEAULIEU [facility] [id number] [facility] 2024-06-08 14:29:00 2024-06-09 13:40:00 Hospital Encounter Brittnee ElíasAna [facility] 1.2.840.114 350.1.13.70 8.2.7.2.686 [id number] Lisa murphy [facility] 2024-06-09 00:00:00 2024-06-09 00:00:00 Outpatient ANA LEAL [id number] [facility] 2024-06-08 12:00:00 2024-06-08 12:00:00 Outpatient ELÍAS BEAULIEU TAMELA SINGH [id number] [facility] 2024-06-08 00:00:00 2024-06-08 00:00:00 Outpatient ANA LEAL [facility]ELA [facility]INGH [id number] [facility] 2024-05-31 15:45:00 2024-05-31 15:45:00 Outpatient LAURIE SWAN TAMELA SINGH [id number] [facility] 2024-05-31 00:00:00 2024-05-31 00:00:00 Outpatient MD TAMELA HASTINGS [id number] [facility] 2024-05-31 00:00:00 2024-05-31 00:00:00 Outpatient BRITTNEEELÍAS LANDRY TAMELA SINGH [id number] [facility] 2024-05-30 00:00:00 2024-05-30 00:00:00 Outpatient TAMELA SINGH [id number] [facility] 2024-05-20 00:00:00 2024-05-20 00:00:00 Outpatient ELÍAS BEAULIEU TAMELA SINGH [id number] [facility] 2024-05-18 15:20:00 2024-05-18 15:20:00 Outpatient RONNIE NOYOLA TAMELA SINGH [id number] [facility] 2024-05-18 14:00:00 2024-05-18 14:00:00 Outpatient TAMELA SINGH [id number] Tamela Seybold 2024-05-06 15:00:00 2024-05-06 15:00:00 Outpatient PETERSON BLADIMIR SINGH [id number] Tamela Seybold 2024-05-05 15:00:00 2024-05-05 15:00:00 Outpatient ELÍAS BEAULIEU TAMELA SINGH [id number] Tamela Seybold 2024-05-03 15:45:00 2024-05-03 15:45:00 Outpatient SERINA BLOOM [id number] Tamela Seybold 2024-04-05 00:00:00 2024-04-05 00:00:00 Outpatient LAURIE SWAN TAMELA [id number] Tamela Seybold 2024-03-31 14:00:00 2024-03-31 14:00:00 Outpatient ELÍAS BEAULIEU TAMELA TAMELA [id number] Tamela Seybold 2024-03-31 00:00:00 2024-03-31 00:00:00 Outpatient ELÍAS BEAULIEU TAMELA [id number] Tamela Seybold 2024-03-29 16:35:00 2024-03-29 16:35:00 Outpatient SARWAT TAMELA SINGH [id number] Tamela Seybold 2024-03-29 16:00:00 2024-03-29 16:00:00 Outpatient LAURIE SWAN TAMELA SINGH [id number] Tamela Seybold 2024-03-29 00:00:00 2024-03-29 00:00:00 Outpatient LUHMIGUEL PETERABBIE SINGH [id number] Tamela Seybold 2024-03-17 15:00:00 2024-03-17 15:00:00 Outpatient ROXY EMILBerna SINGH [id number] Tamela Seybold 2024-03-16 14:30:00 2024-03-16 14:30:00 Outpatient RAJ MAURER [id number] Tamela Seybold 2024-03-01 15:45:00 2024-03-01 15:45:00 Outpatient SERINA BLOOM [id number] Tamela Seybold 2024-02-12 00:00:00 2024-02-12 00:00:00 Outpatient BENY LAURIE SINGH [id number] Tamela Seybold 2024-02-11 00:00:00 2024-02-11 00:00:00 Outpatient LUHROME LAURIE SINGH [id number] Tamela Seybold 2024-02-11 00:00:00 2024-02-11 00:00:00 Outpatient GERTRUDIS TARIQ [id number] Tamela Seybold 2024-02-09 15:00:00 2024-02-09 15:00:00 Outpatient LAB47 TAMELA ZENGSEY [id number] Tamela Seybold 2024-02-06 15:45:00 2024-02-06 15:45:00 Outpatient LAB47 TAMELA SINGH [id number] Tamela Seybold 2024-02-06 15:00:00 2024-02-06 15:00:00 Outpatient TAMELA TAMELA [id number] Tamela Seybold 2024-02-06 13:55:00 2024-02-06 13:55:00 Outpatient LAB47 TAMELA ZENGSEY [id number] Tamela Seybold 2024-02-06 00:00:00 2024-02-06 00:00:00 Outpatient MORALES ALBRIGHT TAMELA SINGH [id number] Tamela Seybold 2024-02-04 15:30:00 2024-02-04 15:30:00 Outpatient PETERSON BLADIMIR SINGH [id number] Tamela Seybold 2024-01-27 00:00:00 2024-01-27 00:00:00 Outpatient LAURIE SWAN [id number] Tamela Seybold 2024-01-20 00:00:00 2024-01-20 00:00:00 Outpatient LAURIE SWAN [id number] Tamela Seybold 2024-01-19 16:00:00 2024-01-19 16:00:00 Outpatient SERINA BLOOM [id number] Tamela Seybold 2024-01-15 16:00:00 2024-01-15 16:00:00 Outpatient LABSandhya TAMELA SINGH [id number] Tamela Seybold 2024-01-14 00:00:00 2024-01-14 00:00:00 Outpatient TAMELA SINGH [id number] Tamela Seybold 2024-01-13 00:00:00 2024-01-13 00:00:00 Outpatient LAURIE SWAN [id number] Tamela Seybold 2024-01-13 00:00:00 2024-01-13 00:00:00 Outpatient LAURIE SWAN [id number] Tamela Seybold 2024-01-13 00:00:00 2024-01-13 00:00:00 Outpatient LAURIE SWAN TAMELA [id number] Tamela Seybold 2024-01-13 00:00:00 2024-01-13 00:00:00 Outpatient LAURIE SWAN TAMELA [id number] Tamela Seybold 2024-01-12 15:30:00 2024-01-12 15:30:00 Outpatient TAMELA SINGH [id number] Tamela Seybold 2024 10:50:00 2024 10:50:00 Outpatient LAB TAMELA SINGH [id number] Tamela Seybold 2024-01-07 15:00:00 2024-01-07 15:00:00 Outpatient EMIL RAMSEY TAMELA SINGH [id number] Tamela Seybold 2023-12-22 00:00:00 2023-12-22 00:00:00 Outpatient PREMARLENERAJ Florentino TAMELA SINGH [id number] Tamela Seybold 2023-12-19 00:00:00 2023-12-19 00:00:00 Outpatient PREMARLENERAJ Florentino TAMELA SINGH [id number] Tamela Seybold 2023-12-19 00:00:00 2023-12-19 00:00:00 Outpatient TAMELA SINGH [id number] Tamela Seybold 2023-12-18 15:45:00 2023-12-18 15:45:00 Outpatient LAURIE SWAN TAMELA SINGH [id number] Tamela Seybold 2023-12-17 15:15:00 2023-12-17 15:15:00 Outpatient WOLFHOLLYSERINASMALLS [id number] Tamela Seybold 2023-12-15 14:15:00 2023-12-15 14:15:00 Outpatient CARIMARLENERAJ Florentino TAMELA SINGH [id number] Tamela Seybold 2023-12-12 00:00:00 2023-12-12 00:00:00 Outpatient BLADIMIR WINKLER [id number] Tamela Seybold 2023-12-05 00:00:00 2023-12-05 00:00:00 Outpatient BLADIMIR WINKLER TAMELA [id number] Tamela Seybadam 2023-11-28 00:00:00 2023-11-28 00:00:00 Outpatient BLADIMIR WINKLER TAMELA [id number] Tamela Seybadam 2023-11-27 14:45:00 2023-11-27 14:45:00 Outpatient TAMELA SINGH [id number] Tamela Seybold 2023-11-27 14:40:00 2023-11-27 14:40:00 Outpatient TAMELA SINGH [id number] Tamela Seybold 2023-11-27 14:35:00 2023-11-27 14:35:00 Outpatient TAMELA TAMELA [id number] Tamela Seybadam 2023-11-27 14:30:00 2023-11-27 14:30:00 Outpatient LAB47 TAMELA SINGH [id number] [facility] 2023-11-25 15:30:00 2023-11-25 15:30:00 Outpatient R RAGHAVENDRA SIMS [facility] [id number] [facility] 2023-11-11 15:05:00 2023-11-11 15:05:00 Outpatient TAMELA SINGH [id number] [facility] 2023-11-11 15:00:00 2023-11-11 15:00:00 Outpatient RONNIE NOYOLA TAMELA SINGH [id number] Tamela Seybold 2023-11-05 16:20:00 2023-11-05 16:20:00 Outpatient LAB45 TAMELA SINGH [id number] Tamela Seybold 2023-11-05 15:30:00 2023-11-05 15:30:00 Outpatient BLADIMIR WINKLER TAMELA SINGH [id number] Tamela Seybold 2023-11-04 14:00:00 2023-11-04 14:00:00 Outpatient KINGSTON RAJ TAMELA SINGH [id number] Tamela Seybold 2023-09-03 08:00:00 2023-09-03 08:15:00 Last Putter Away Visit Pob, 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 Raghavendra Sims [facility] 1.2.840.114 350.1.13.10 4.2.7.2.686 [id number] [facility] 2023-09-03 08:00:00 2023-09-03 08:00:00 Outpatient R LEVI GUTHRIE [facility] [id number] [facility] 2023-08-05 14:00:00 2023-08-05 14:50:24 Outpatient R LEVI GUTHRIE [facility] [id number] [facility] 2023-08-05 14:00:00 2023-08-05 14:50:24 Office Visit [facility] 1.2.840.114 350.1.13.10 4.2.7.2.686 [id number] [facility] 2023-07-24 14:05:59 2023-07-24 23:59:00 Hospital Encounter Morales Albright [facility] 1.2.840.114 350.1.13.10 4.2.7.2.686 [id number] [facility] 2023-07-24 14:03:47 2023-07-24 14:04:00 Outpatient R RADIOLOGY [facility] [id number] [facility] 2023-07-24 14:03:47 2023-07-24 14:04:00 Hospital Encounter Radiology [facility] 1.2.840.114 350.1.13.10 4.2.7.2.686 [id number] [facility] 2023-07-17 00:00:00 2023-07-17 00:00:00 Outpatient R RADIOLOGY [facility] [id number] [facility] 2023-07-08 14:00:00 2023-07-08 14:00:00 Outpatient R FAUSTINO STINSON [facility] [id number] [facility] 2023-06-06 00:00:00 2023-06-06 00:00:00 Orders Only Doctor Unassigned, Clute [facility] 1.2.840.114 350.1.13.10 4.2.7.2.686 [id number] [facility] 2023-05-16 14:11:26 2023-05-16 23:59:00 Outpatient R RADIOLOGY [facility] [id number] [facility] 2023-05-16 14:11:26 2023-05-16 23:59:00 Hospital Encounter Radiology [facility] 1.2.840.114 350.1.13.10 4.2.7.2.686 [id number] [facility] 2023-05-13 00:00:00 2023-05-13 00:00:00 Outpatient R RADIOLOGY [facility] [id number] [facility] 2023-05-08 09:45:00 2023-05-08 10:00:00 Last Putter Away Visit Pob, 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 Charity Moon [facility] PROFESSIO [facility] 1..840.114 350.1.13.10 4.2.7.2.686 [id number] [facility] 2023-05-08 09:45:00 2023-05-08 09:45:00 Outpatient R CHARITY MOON [facility] [id number] [facility] 2023-05-05 16:17:00 2023-05-05 20:43:00 Emergency X DANAE GRULLON [facility] ERT [id number] [facility] 2023-05-05 16:17:00 2023-05-05 20:43:00 Emergency Danae Grullon S [facility] 1.2.840.114 350.1.13.10 4.2.7.2.686 [id number] [facility] 2022-07-18 16:47:32 2022-07-18 23:59:00 Outpatient R RADIOLOGY [facility] [id number] [facility] 2022-07-18 16:47:32 2022-07-18 23:59:00 Hospital Encounter Radiology [facility] 1.2840.114 350.1.13.10 4.2.7.2.686 [id number] [facility] 2022-07-18 00:00:00 2022-07-18 00:00:00 Orders Only Doctor Unassigned, Clute [facility] 1.2840.114 350.1.13.10 4.2.7.2.686 [id number] [facility] 2022-06-07 13:29:41 2022-06-07 23:59:00 Outpatient R RADIOLOGY [facility] [id number] [facility] 2022-06-07 13:29:41 2022-06-07 23:59:00 Hospital Encounter Radiology [facility] 1.2840.114 350.1.13.10 4.2.7.2.686 [id number] [facility] 2022-05-22 14:45:00 2022-05-22 15:00:00 Last Putter Away Visit Pob, 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 Charity Moon [facility] 1.840.114 350.1.13.10 4.2.7.2.686 [id number] [facility] 2022-05-22 14:45:00 2022-05-22 14:45:00 Outpatient R ANA M BECKLEY [facility] [id number] [facility] 2022-05-22 00:00:00 2022-05-22 00:00:00 Orders Only Doctor Unassigned, Clute [facility] 1.2840.114 350.1.13.10 4.2.7.2.686 [id number] [facility] 2022-05-11 09:45:00 2022-05-11 10:00:00 Last Putter Away Visit Pob, 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 Charity Moon [facility] 1.840.114 350.1.13.10 4.2.7.2.686 [id number] [facility] 2022-05-11 09:45:00 2022-05-11 09:45:00 Outpatient R CHARITY MOON [facility] [id number] [facility] 2022-05-11 00:00:00 2022-05-11 00:00:00 Orders Only Doctor Unassigned, Clute [facility] 1.840.114 350.1.13.10 4.2.7.2.686 [id number] [facility] 2022-04-22 00:00:00 2022-04-22 00:00:00 Outpatient R RADIOLOGY [facility] [id number] [facility] 2021-12-18 20:11:00 2021-12-19 01:25:00 Emergency Latoya [facility] 1840.114 350..13.10 4.2.7.2.686 [id number] [facility] 2021-12-18 20:11:00 2021-12-19 01:25:00 Emergency X LATOYA [facility] ERT [id number] [facility] 2021-08-14 00:00:00 2021-08-14 00:00:00 Patient Secure Msg Doctor Unassigned, Clute [facility] 1.840.114 350.1.13.10 4.2.7.2.686 [id number] [facility] 2021-08-13 16:13:00 2021-08-13 18:06:00 Emergency X TORRI PACHECO [facility] ERT [id number] [facility] 2021-08-13 16:13:00 2021-08-13 18:06:00 Emergency Torri Pacheco [facility] 1.2.840.114 350.1.13.10 4.2.7.2.686 [id number] [facility] 2020-11-23 00:00:00 2020-11-23 00:00:00 Outpatient R SURINDERBETHANYRANIKAILA [facility] [id number] [facility] 2020-06-05 14:40:00 2020-06-05 14:40:00 Outpatient R [facility] [id number] [facility] 2020-03-22 14:45:00 2020-03-22 14:45:00 Outpatient R NOEL SAMPSON [facility] [id number] [facility] 2020-02-21 14:03:27 2020-02-21 23:59:00 Outpatient R OBDULIA BOOTH [facility] [id number] [facility] 2020-02-07 14:30:00 2020-02-07 14:30:00 Outpatient R OBDULIA BOOTH [facility] [id number] [facility] 2019-12-13 14:30:00 2019-12-13 14:30:00 Outpatient R WILLIAM OSORIO [facility] [id number] [facility] 2019-12-01 10:42:24 2019-12-01 12:03:00 Emergency X JAYSHREE BUSCH [facility] ERT [id number] [facility] Results Test Description Test Time Test Comments Results Result Co [facility]/Diff and Vpyhuyoe5815-26-69 06:43:31 * Test Item Value Reference Range Interpretation Comme nts WBC (test code = 4590376070) 12.25 10^3/uL 4.15-10.55 H NRBC % (test code = 4596794790) See_Comment Reference range for Pediatrics not established. [Automated message] The system which generated this result transmitted reference range: 0.0 - 0.0 /100WB. The reference range was not used to interpret this result as normal/abnormal. RBC (test code = 4653753853) 4.31 10^6/ul 3.74-5.22 Hgb (test code = 4566810001) 13.6 g/dL 10.8-14.8 Hct (test code = 3295735295) 42.3 % 33.9-45.4 MCV (test code = 6941664246) 98.1 fL 77.8-97.5 H MCH (test code = 9594722695) 31.6 pg 24.9-32.6 MCHC (test code = 9428723838) 32.2 g/dL 30.1-35.0 RDW - SD (test code = 6037990286) 56.8 fL 37.6-49.1 H Plt Count (test code = 6308413132) 247 10^3/uL 191-422 MPV (test code = 5915343763) 10.7 fL 9.0-12.6 Lab Interpretation (test code = 78121-9) Abnormal [facility] EpicComprehensive Metabolic Tmowb7601-09-39 06:26:06* Test Item Value Reference Range Interpretation Comme nts Sodium Lvl (test code = 7287943851) See_Comment [Automated TrackBill] The system which generated this result transmitted reference range: 136 - 145 mEq/L. The reference range was not used to interpret this result as normal/abnormal. Potassium Lvl (test code = 2779405669) See_Comment L The pediatric reference ranges for this test represent a CLSI-based transference of the Siemens study of pediatric reference intervals for the Siemens Atellica analyzer (CLSI EP28). [facility] has not internally validated these reference ranges and therefore they should be used only in the context of a thorough clinical assessment. [Automated message] The system which generated this result transmitted reference range: 3.4 - 4.5 mEq/L. The reference range was not used to interpret this result as normal/abnormal. Chloride Lvl (test code = 8717090008) See_Comment [Automated TrackBill] The system which generated this result transmitted reference range: 98 - 107 mEq/L. The reference range was not used to interpret this result as normal/abnormal. CO2 Lvl (test code = 1700917293) See_Comment [Automated messa Aqua Access] The system which generated this result transmitted reference range: 20.0 - 31.0 mEq/L. The reference range was not used to interpret this result as normal/abnormal. Anion Gap (test code = 5650986688) See_Comment [Automated messa Aqu[employer] Access] The system which generated this result transmitted reference range: 10.0 - 20.0 mEq/L. The reference range was not used to interpret this result as normal/abnormal. Glucose Lvl (test code = 0446057374) 90 mg/dL 70-99 Adult reference range values reflect the clinical guidelines of the [place] [employer]. The pediatric reference ranges for this test represent a CLSI-based transference of the Siemens study of pediatric reference intervals for the Siemens Atellica analyzer (CLSI EP28). ?[facility] [employer] Services has not internally validated these reference ranges and therefore they should be used only in the context of a thorough clinical assessment. Creatinine Lvl (test code = 4821154896) 0.63 mg/dL 0.55-1.02 BUN (test code = 7109985345) 10 mg/dL 9-23 B/C Ratio (test code = 3076420098) 6-25 Total Protein (test code = 9131142694) 5.4 g/dL 5.7-8.2 L Albumin Lvl (test code = 7457145048) 2.9 g/dL 3.4-5.0 L Globulin (test code = 7363534104) 2.5 g/dL 2.0-4.0 Albumin/Globulin Ratio (test code = 4423164006) 0.7-1.6 Calcium Lvl (test code = 3063927502) 7.9 mg/dL 8.3-10.6 L ALT (test code = 9647369917) 48 U/L 7-40 H AST (test code = 9005568924) 30 U/L 12-40 Bilirubin Total (test code = 4601142646) 0.7 mg/dL 0.30-1.20 The pediatric reference ranges for this test represent a CLSI-based transference of the Siemens study of pediatric reference intervals for the Siemens Atellica analyzer (CLSI EP28). [facility] [employer] [facility] has not internally validated these reference ranges and therefore they should be used only in the context of a thorough clinical assessment. Alkaline Phosphatase (test code = 1439049238) 108 U/L 46-116 eGFR (test code = 3326048891) mL/min/1.73m2 The eGFR is calculated using the CKD-EPI formula. In most young, healthy individuals the eGFR will be >90 mL/min/1.73m2. The eGFR declines with age. An eGFR of 60-89 may be normal in some populations, particularly the elderly, for whom the CKD-EPI formula has not been extensively validated. Use of the eGFR is not recommended in the following populations:Individu als with unstable creatinine concentrations, including patients and those with serious co-morbid conditions.Patients with extremes in muscle mass or diet. The data above are obtained from the National Kidney Disease Education Program (NKDEP) which additionally recommends that when the eGFR is used in patients with extremes of body mass index for purposes of drug dosing, the eGFR should be multiplied by the estimated BMI. Lab Interpretation (test code = 98730-6) [facility]normal [facility] Rznve3161-21-33 06:26:06* Test Item Value Reference Range Interpretation Comme nts Magnesium Lvl (test code = 4639903868) 1.79 mg/dL 1.60-2.60 [facility] EpicPhosphorus Icbov0704-60-56 06:26:06* Test Item Value Reference Range Interpretation Comme nts Phosphorus Lvl (test code = 3905704698) 3.4 mg/dL 2.4-5.1 [facility] Paso[facility]ibody Avnlin7583-21-91 11:34:28* Test Item Value Reference Range Interpretation Comme nts Antibody Screen (test code = 5642409527) Negative [facility] Paso[facility] Blood [id number] 11:23:36* Test Item Value Reference Range Interpretation Comme nts ABO/Rh (test code = 7197254949) O POS [facility] Paso[facility]ual Mhrolptgdteh0766-58-51 16:38:27* Test Item Value Reference Range Interpretation Comme nts Segmented Neutrophils Manual (test code = 2092371180) 77 % 40.9-70.4 H Lymphs % (test code = 9401095177) 14 % 15.6-46.4 L Monocytes (test code = 8382782332) 3 % 3.9-10.9 L Eos % (test code = 5450417079) 2 % 0.3-4.1 Basos % (test code = 6061339591) 1 % 0.2-1.3 The pediatric reference ranges for this test represent a CLSI-based transference of the study for "Pediatric Reference Intervals" 8th edition, [facility] press 2020, with the Sysmex analyzers (CLSI EP28). [facility] has not internally validated these reference ranges and therefore they should be used only in the context of a thorough clinical assessment. Segs # (test code = 6973409798) 10.76 10^3/uL 2.03-7.09 H Lymphocytes # (test code = 8493400294) 1.96 10^3/uL 1.09-3.65 Monocytes # (test code = 6451486066) 0.42 10^3/uL 0.27-0.78 The pediatric reference ranges for this test represent a CLSI-based transference of the study for "Pediatric Reference Intervals" 8th edition, [facility] press 2020, with the Sysmex analyzers (CLSI EP28). [facility] has not internally validated these reference ranges and therefore they should be used only in the context of a thorough clinical assessment. Eosinophils # (test code = 0445176048) 0.28 10^3/uL 0.02-0.33 Basophils # (test code = 3458483231) 0.14 10^3/uL 0.01-0.09 H Metamyelocytes (test code = 6663702141) 3 % 0.0-1.0 H NRBC % (test code = 2558552775) See_Comment The pediatric reference ranges for this test represent a CLSI-based transference of the study for "Pediatric Reference Intervals" 8th edition, [facility] press 2020, with the Sysmex analyzers (CLSI EP28). [facility] not internally validated these reference ranges and therefore they should be used only in the context of a thorough clinical assessment. [Automated message] The system which generated this result transmitted reference range: <=0 /100WB. The reference range was not used to interpret this result as normal/abnormal. Lab Interpretation (test code = 44156-0) Abnormal [facility] EpicComprehensive Metabolic [id number] 16:21:15* Test Item Value Reference Range Interpretation Comme nts Sodium Lvl (test code = 8529316174) See_Comment [Automated [employer]] The system which generated this result transmitted reference range: 136 - 145 mEq/L. The reference range was not used to interpret this result as normal/abnormal. Potassium Lvl (test code = 4576417589) See_Comment The pediatric reference ranges for this test represent a CLSI-based transference of the Siemens study of pediatric reference intervals for the Siemens Atellica analyzer (CLSI EP28). [facility] [employer] [facility] has not internally validated these reference ranges and therefore they should be used only in the context of a thorough clinical assessment. [Automated message] The system which generated this result transmitted reference range: 3.4 - 4.5 mEq/L. The reference range was not used to interpret this result as normal/abnormal. Chloride Lvl (test code = 9056633689) See_Comment [Automated Correlsense[employer] ge] The system which generated this result transmitted reference range: 98 - 107 mEq/L. The reference range was not used to interpret this result as normal/abnormal. CO2 Lvl (test code = 3998623932) See_Comment [Automated [employer]rels[employer] ge] The system which generated this result transmitted reference range: 20.0 - 31.0 mEq/L. The reference range was not used to interpret this result as normal/abnormal. Anion Gap (test code = 5130656416) See_Comment [Automated [employer]] The system which generated this result transmitted reference range: 10.0 - 20.0 mEq/L. The reference range was not used to interpret this result as normal/abnormal. Glucose Lvl (test code = 0076566784) 95 mg/dL 70-99 Adult reference range values reflect the clinical guidelines of the [place] [employer]. The pediatric reference ranges for this test represent a CLSI-based transference of the Siemens study of pediatric reference intervals for the Siemens Atellica analyzer (CLSI EP28). ?[facility] [employer] [facility] has not internally validated these reference ranges and therefore they should be used only in the context of a thorough clinical assessment. Creatinine Lvl (test code = 1490796738) 1.01 mg/dL 0.55-1.02 BUN (test code = 9670070083) 20 mg/dL 9-23 B/C Ratio (test code = 8495680001) 6-25 Total Protein (test code = 1676112929) 6.6 g/dL 5.7-8.2 Albumin Lvl (test code = 6663883977) 3.5 g/dL 3.4-5.0 Globulin (test code = 8947101800) 3.1 g/dL 2.0-4.0 Albumin/Globulin Ratio (test code = 0193366482) 0.7-1.6 Calcium Lvl (test code = 4700374928) 8.8 mg/dL 8.3-10.6 ALT (test code = 6176141231) 62 U/L 7-40 H AST (test code = 9877919535) 40 U/L 12-40 Bilirubin Total (test code = 0790605861) 0.4 mg/dL 0.30-1.20 The pediatric reference ranges for this test represent a CLSI-based transference of the Siemens study of pediatric reference intervals for the Siemens Atellica analyzer (CLSI EP28). [facility] has not internally validated these reference ranges and therefore they should be used only in the context of a thorough clinical assessment. Alkaline Phosphatase (test code = 6368672855) 130 U/L 46-116 H eGFR (test code = 9577553999) mL/min/1.73m2 The eGFR is calculated using the CKD-EPI formula. In most young, healthy individuals the eGFR will be >90 mL/min/1.73m2. The eGFR declines with age. An eGFR of 60-89 may be normal in some populations, particularly the elderly, for whom the CKD-EPI formula has not been extensively validated. Use of the eGFR is not recommended in the following populations:Individu als with unstable creatinine concentrations, including patients and those with serious co-morbid conditions.Patients with extremes in muscle mass or diet. The data above are obtained from the National Kidney Disease Education Program (NKDEP) which additionally recommends that when the eGFR is used in patients with extremes of body mass index for purposes of drug dosing, the eGFR should be multiplied by the estimated BMI. Lab Interpretation (test code = 38045-4) Abnormal [facility] EpicHemoglobin [id number] 16:16:15* Test Item Value Reference Range Interpretation Comme nts Hgb A1C (test code = 0124089729) 5.97 % <=5.60 H Lab Interpretation (test cod e = 23404-2) Abnormal [facility] EpicComplete Blood Count w/Diff and [id number] 16:08:20 * Test Item Value Reference Range Interpretation Comme nts WBC (test code = 5273609450) 13.98 10^3/uL 4.15-10.55 H NRBC % (test code = 1346295250) See_Comment H Reference range for Pediatrics not established. [Automated message] The system which generated this result transmitted reference range: 0.0 - 0.0 /100WB. The reference range was not used to interpret this result as normal/abnormal. RBC (test code = 4181066274) 4.76 10^6/ul 3.74-5.22 Hgb (test code = 0668137071) 15.1 g/dL 10.8-14.8 H Hct (test code = 8382252697) 46 % 33.9-45.4 H MCV (test code = 3021374133) 96.6 fL 77.8-97.5 MCH (test code = 2087531852) 31.7 pg 24.9-32.6 MCHC (test code = 0517604353) 32.8 g/dL 30.1-35.0 RDW - SD (test code = 8404522521) 55.8 fL 37.6-49.1 H Plt Count (test code = 8223380248) 293 10^3/uL 191-422 MPV (test code = 5248108010) 10.3 fL 9.0-12.6 Lab Interpretation (test code = 05672-0) Abnormal [facility] EpicTHYROID STIMULATING [id number] 16:37:37* Test Item Value Reference Range Interpretation Comme nts TSH (test code = 8581992499) 1.00 See_Comment [Automated messa ge] The system which generated this result transmitted reference range: 0.45 - 4.70 mIU/L. The reference range was not used to interpret this result as normal/abnormal. Lab Interpretation (test code = 99635-0) Normal [facility] [id number] 16:23:56* Test Item Value Reference Range Interpretation Comme nts FREE T4 (test code = 6300380735) 0.60 See_Comment L [Automated messa ge] The system which generated this result transmitted reference range: 0.78 - 2.20 ng/dL:. The reference range was not used to interpret this result as normal/abnormal. Lab Interpretation (test code = 57913-8) [facility]normal [facility] [id number] 16:14:33* Test Item Value Reference Range Interpretation Comme nts ESR (test code = 60719-2) 4 See_Comment [Automated message] The system which generated this result transmitted reference range: 0 - 20 mm/HR. The reference range was not used to interpret this result as normal/abnormal. Lab Interpretation (test code = 56176-0) Normal [facility]. METABOLIC PANEL (48525)2023-05-08 16:10:52* Test Item Value Reference Range Interpretation Comme nts NA (test code = 9090013936) 140 mmol/L 135-145 K (test code = 6326118179) 3.9 mmol/L 3.5-5.0 CL (test code = 9256259518) 104 mmol/L 98-108 CO2 TOTAL (test code = 5230236937) 30 mmol/L 23-31 AGAP (test code = 7637514254) 6 2-16 BUN (test code = 8978536046) 10 mg/dL 7-23 GLUCOSE (test code = 2760082385) 96 mg/dL 70-110 CREATININE (test code = 7613173134) 0.62 mg/dL 0.50-1.04 TOTAL BILI (test code = 0866771548) 0.3 mg/dL 0.1-1.1 CALCIUM (test code = 2850692076) 9.0 mg/dL 8.6-10.6 T PROTEIN (test code = 0189662717) 6.0 g/dL 6.3-8.2 L ALBUMIN (test code = 2109918376) 3.7 g/dL 3.5-5.0 ALK PHOS (test code = 9433296633) 147 U/L 34-122 H ALTv (test code = 1742-6) 37 U/L 5-35 H AST(SGOT) (test code = 9160231896) 31 U/L 13-40 eGFR (test code = 7302778941) 102.3 mL/min/1.73m2 REJI (test code = REJI) Association of Glomerular Filtration Rate (GFR) and Staging of Kidney Disease* + --+ --+ ------+| GFR (mL/min/1.73 m2) ?| With Kidney Damage ?| ?Without Kidney Damage+ --------+ --------+ +| ?>90 ?| ?Stage one ?| ? Normal ?+ ---+ ---+ -------+| ?60-89 ?| ?Stage two ?| ? Decreased GFR ? + --+ --+ ------+| ?30-59 ?| ?Stage three ?| ? Stage three ? + --+ --+ ------+| ?15-29 ?| ?Stage four ? | ? Stage four ?+ ---+ ---+ -------+| ?<15 (or dialysis) ? ?| ?Stage five ? | ? Stage five ?+ ---+ ---+ -------+ *Each stage assumes the associated GFR level has been in effect for at least three months. ?Stages 1 to 5, with or without kidney disease, indicate chronic kidney disease. Notes: Determination of stages one and two (with eGFR >59mL/min/1.73 m2) requires estimation of kidney damage for at least three months as defined by structural or functional abnormalities of the kidney, manifested by either:Pathological abnormalities or Markers of kidney damage (including abnormalities in the composition of the blood or urine or abnormalities in imaging tests). Lab Interpretation (test code = 64319-5) [facility]normal [facility] 16:10:32* Test Item Value Reference Range Interpretation Comme nts PHOSPHORUS (test code = 2351730347) 3.3 mg/dL 2.5-5.0 Lab Interpretation (test cod e = 38306-9) Normal [facility] NorthwestGAMMA [id number] 16:10:31* Test Item Value Reference Range Interpretation Comme nts GGT (test code = 5423551346) 104 U/L 13-40 H Lab Interpretation (test cod e = 91452-7) Abnormal [facility] NorthwestBILI UNCONJUGATED/BILI [id number] 16:09:51* Test Item Value Reference Range Interpretation Comme nts BILI CONJ (test code = 5929062367) 0.0 mg/dL 0.0-0.3 BILI UNCON (test code = 4130446828) 0.1 mg/dL 0.1-1.1 Lab Interpretation (test cod e = 98247-1) Normal [facility]MAMMOGRAM, [id number] 22:44:00*.*.*.*.*.*.*.*.*.*.*.*.*.*FINAL*.*.*.*.*.*.*.*.*.*.*.*.*.*.*No comparison films were available at the time of this reading. Bilateral Breast Findings (craniocaudal, mediolateral oblique and CCexaggerated to axilla projections):There are scattered fibroglandular densities. No significant masses,calcifications or other abnormalities are seen. ROSALEE OMALLEY JR, MD ?Personally interpreted by: ROSALEE OMALLEY JR, MD /Signed/ ROSALEE OMALLEY JR, MDUnTexas Health [facility] Notes Date/Time Note Provider Source 2025-04-06 16:01:56 [facility] [id number] 16:01:56* Patient Instructions* Raj Maurer DO - 04/06/2025 4:01 PM CDT Lupus/RA: Stable. Managed by Rheumatology. Taking Plaquenil 400 mg daily, methotrexate 15 mg every week, and Benysta.200 mg every week. She is also taking folic acid. Follow up with Rheumatology as directed. Hyperparathyroidism/adrenal insufficiency after removal of adrenal adenoma/Simona: Stable. Managed by endocrinology. Currently on Hydrocortisone 15 mg every am and 10 mg every pm. Chronic back pain: Stable. Managed by Spine and Pain management. Had trigger point injections. Tramadol was increased to 100 mg daily. Tizandine 4 mg nightly. She stopped Cymbalta and Gabapentin. There is plan for nerve ablation in the future. Has follow up in 1.5 months. Prediabetes: Recent A1c 6.2. Recommend to decrease carbohydrate intake to less than 45 g per meal. Recheck lab in 3 to 6 months to reassess. 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 Will provide handicap placard. [facility]2025-07-30 16:01:56* Raj Maurer DO - 04/06/2025 3:45 PM CDT Chief Complaint Routine Follow-up (Prediabetes) and Back Pain (LSpine) History of Present Illness Eda Deshpande is a(n) 50 year old female with a past medical history asdocumented below who presents today for evaluation of Routine Follow-up (Prediabetes) and Back Pain (LSpine) . Prediabetes: Recent A1c 6.2. Lupus/RA: Medication reviewed and updated. Diagnosed about 4 years. Managed by Rheumatology. Taking Plaquenil and methotrexate amd Benysta. She also takes folic acid. Hyperparathyroidism/adrenal insufficiency after removal of adrenal adenoma/Flushing: Managed by endocrinology in the past. Notes below. Currently on Hydrocortisone 15 mg every am and 10 mg every pm. She will feels fine with medication. Chronic back pain: Managed by Spine and Pain management. Had trigger point injections. Tramadol was increased to 100 mg daily. Tizandine 4 mg nightly. He stopped Cymbalta and Gabapentin. Now seen by a new pain management doctor. Told surgery is not recommended at this time. Lab 02/09/2025: CBC/CMP is stable and unremarkable. Lab 11/25/2024: Creatinine 0.7, GFR 106. Liver function test unremarkable. Hemoglobin A1c 6.2. Lab 10/06/2024: AST within normal range. ALT within normal range. C-reactive protein unremarkable. Sed rate within normal range. Lab 07/22/2024: Double-stranded DNA negative. Complement C3 and C4 unremarkable. Creatinine 0.7, GFR 106. AST 112, ALT 75 Lab 11/27/2023: QuantiFERON gold negative. Hepatitis B- hepatitis C nonreactive. CBC unremarkable. Hepatic function shows alk phos 145, ALT 39, ALT 48. Renal function unremarkable. CCP negative. RF negative. Lab 09/03/2023: TSH was normal. Free T4 0.76. Lab 05/11/2022: A1c 5.4 Pain management note 04/05/2025: Reviewed1. Myofascial pain syndrome INJECTION SINGLE/[employer]LET[employer] TRIGGER POINT 1/2 MUSCLES 2. Neural foraminal stenosis of lumbosacral spine 3. Chronic lumbosacral pain 4. Lumbar paraspinal muscle spasm Tizanidine HCl 4 MG oral Tablet PLAN Patient presents to clinic for follow-up with a pretty extensive history ofback pain there are multiple factors contributing to it including scoliosis, lumbar canal stenosis, lumbar spondylosis and likely some lumbar radiculitis however her presentation today appears that myofascial pain and spasming of the lumbar paraspinous muscle is the main generator of her pain. The lumbar paraspinal muscle stenosis and myofascial pain could be a result of for instance the lumbar spondylosis leading to irritation of medial branch nerves and/or lumbar radiculitis leading to spasming of lumbar paraspinous muscles. Patient has tried different types of medications including Tylenol 3, hydrocodone-acetaminophen, gabapentin and Cymbalta. The aforementioned opioid medications seem to make her drowsy. She is currently on tramadol which gives her energy I would like patient to try increasing each dose of tramadol to 100 mg at a time and I will also give her a muscle relaxer for her to take that will help relax her muscles and make her drowsy so that she can sleep when she takes tramadol 100 mg. We also performed a trigger point injection in clinic for her lumbar paraspinous muscles Will have patient follow-up in a month and a half to see if there is new medication regiment and the trigger point injected were effective for her recommend routine physical Continue bowel management Patient instructed to continue with home exercise program. Patient instructed to go to nearest ER if developed any sudden weakness in the extremities or sudden bowel and/or bladder incontinence. Procedure order: Trigger point injection performed in clinic today Rheumatology note 03/16/2025: ReviewedAssessment and Plan Eda Deshpande is a 50 year old female following up for RA & SLE, has new De Quervain tenosynovitis on MTX, HCQ, and belimumab, so has additional diagnosis of underlying immunodeficiency due to drug therapy. No signs of infection, will continue infection precautions and monitor. 100% improvement on belimumab, which is still working well. -labs with next draw -nighttime splints for De Quervain's -renew FA, other meds ok, pt will call about Estephania seniors -RTC 4 months/PRN Endocrinology notes 01/13/2025: ReviewedCushing's disease (multi HCC) Adrenal Simona'sThe patient incidentally was found to have a 3.6 cm adenoma She has excess cortisol secretion Cortisol after 1 mg Dex was 21 Urine and salivary cortisol elevated She has overt adrenal Simona's She has striae, easy bruising, she has a buffalo hump and truncal obesity I discussed the case with the patient She needs surgery Because she has such high cortisol levels , she needs to have stress dosage preop, she also needs to be started on steroid replacement after surgery She probably will have some cortisol withdrawal postop I recommend giving preop HC injections and starting HC right after surgery I discussed the need for medical alert after surgery and discussed sick day rules She didn't have DEXA scan yet Metanephrines were normal Renin and aldosterone were normal ruling out hyper Cyrus Features on CT abdomen rules out ACC Surgery was done Confirming an adrenal adenoma Hyperparathyroidism (multi HCC) Secondary to low vitamin D PTH normalized when vitamin D was replaced Liver hemangiomaI did an E consult to GI They recommended repeat CT abdomen in 6 months I will schedule it next visit Adrenal insufficiency after adrenalectomyI believe the patient has adrenal insufficiency secondary to surgery I believe patient was going through steroid withdrawal That is why I increased the dose of the hydrocortisone The patient started feeling much better We had so much trouble lowering the dose of the steroids She is on 20 mg in the morning and 10 in the evening I will try to lower the dose for her she will take 15 in the morning and 10 in the evening Then 15 in the morning and 5 in the evening, and stay on this dose on this dose till I see her Eda was seen today for follow-up and adrenal problem. Diagnoses and all orders for this visit: Adrenal Flushing's syndrome ([facility]-H[facility])- COMP. METABOLIC PANEL (14); Future - HEMOGLOBIN (HB) A1C; Future - LIPID PANEL; Future - TSH; Future Adrenal insufficiency after adrenalectomy ([facility]-HCC)- Hydrocortisone 10 MG oral Tablet; Take 1 tablet (10 mg total) by mouth 3 times daily 1 tablet 3 times a day and extra for sick days. - COMP. METABOLIC PANEL (14); Future - HEMOGLOBIN (HB) A1C; Future - LIPID PANEL; Future - TSH; Future Liver hemangioma Hyperparathyroidism ([facility]HS-HCC) Current Medications Current Medications[1] Past Medical History Past Medical History[2] Past Surgical History Past Surgical History:Procedure Laterality Date ADRENAL LAPAROSCOPIC SURGERY Left 06/08/2024 LUMBAR/SACRAL INTERLAMINAR EPIDURAL STEROID INJECTION Left 09/15/2024 Performed by Yuriy Pedersen MD at [facility] LUMBAR/SACRAL TRANSFORAMINAL/SELECTIVE NERVE ROOT BLOCK EPIDURAL INJECTION Left 11/17/2024 Performed by Yuriy Pedersen MD at [facility] LUMBAR/SACRAL TRANSFORAMINAL/SELECTIVE NERVE ROOT BLOCK EPIDURAL INJECTION, ADDITIONAL LEVEL Left 11/17/2024 Performed by Yuriy Pedersen MD at [facility] SUPRACERVICAL ABDL HYSTER W/WO RMVL TUBE OVARY Family Medical History Family History[3] Social History Social History[4] Review of Systems Review of Systems Physical Exam BP 112/72 | LMP (LMP Unknown) General: Alert, Conversant, cooperative, oriented x3.Heart: Regular rate and rhythm. No murmurs. Lungs: Clear to auscultation bilateral. Abdomen: Soft, nontender, nondistended. Extremities: Good range of motion to all extremities. No focal deficits. Skin: Normal skin turgor. Skin appears dry. No significant edema. Neuro: No focal deficits. Mental: Patient appears in good mood. Intact judgement and insight. Patient interactive and appropriate. Labs/Radiology As above Assessment and Plan 1. Lumbar paraspinal muscle spasm- Tizanidine HCl 4 MG oral Tablet; Take 1 tablet (4 mg total) by mouth nightly. - HANDICAP PLACARD APPLICATION 2. Adrenal insufficiency after adrenalectomy ([facility])- Hydrocortisone 10 MG oral Tablet; 1.5 tab in the morning, 1 in evening, may increase as directed.. - HANDICAP PLACARD APPLICATION 3. History of adrenal surgery- HANDICAP PLACARD APPLICATION 4. Prediabetes- HANDICAP PLACARD APPLICATION 5. Rheumatoid arthritis involving multiple sites, unspecified whetherrheumatoid factor present (multi [facility]) - HANDICAP PLACARD APPLICATION 6. Other forms of systemic lupus erythematosus, unspecified organ involvement status (multi [facility]) - HANDICAP PLACARD APPLICATION 7. Immunodeficiency due to conditions classified elsewhere ([facility])- HANDICAP PLACARD APPLICATION Lupus/RA: Stable. Managed by Rheumatology. Taking Plaquenil 400 mg daily, methotrexate 15 mg every week, and Benysta.200 mg every week. She is also taking folic acid. Follow up with Rheumatology as directed. Hyperparathyroidism/adrenal insufficiency after removal of adrenal adenoma/Simona: Stable. Managed by endocrinology. Currently on Hydrocortisone 15 mg every am and 10 mg every pm. Chronic back pain: Stable. Managed by Spine and Pain management. Had trigger point injections. Tramadol was increased to 100 mg daily. Tizandine 4 mg nightly. She stopped Cymbalta and Gabapentin. There is plan for nerve ablation in the future. Has follow up in 1.5 months. Prediabetes: Recent A1c 6.2. Recommend to decrease carbohydrate intake to less than 45 g per meal. Recheck lab in 3 to 6 months to reassess. 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 Will provide handicap placard. Questions answered. Instructions/handouts given. Risks and benefits of any prescription medicines, including any side effects, addressed in detail with the patient. Patient understands and agrees with plan of care. Follow-Up Return in about 4 months (around 08/07/2025) for Well adult. RAJ MAURER DO [1]Current Outpatient Medications Medication Sig Dispense Refill Hydrocortisone 10 MG oral Tablet 1.5 tab in the morning, 1 in evening, may increase as directed.. Tizanidine HCl 4 MG oral Tablet Take 1 tablet (4 mg total) by mouth nightly. Belimumab (Benlysta) 200 MG/ML subcutaneous Solution Auto-injector Inject 1 mL (200 mg total) into the skin once a week. 4 each 12 Cholecalciferol 50 MCG (2000 UT) oral Capsule Take 1 capsule by mouth daily. 90 capsule 1 Folic Acid 1 MG oral tablet Take 1 tablet (1 mg total) by mouth daily. 90 tablet 3 Hydrocortisone Sod Suc, PF, (SOLU-CORTEF) 100 MG injection Recon Soln Inject 100 mg into the muscle as needed (for adrenal crisis). Hydroxychloroquine Sulfate 200 MG oral Tablet Take 2 tablets (400 mg total) by mouth daily. 180 tablet 1 Methotrexate Sodium 2.5 MG oral Tablet Take 6 tablets (15 mg total) by mouth once a week. 78 tablet 1 Pantoprazole Sodium 40 MG oral Tablet Delayed Response Take 1 tablet (40 mg total) by mouth daily as needed (GERD). Tramadol HCl (ULTRAM) 50 MG oral Tablet Take 1 tablet (50 mg total) by mouth daily as needed for pain. 30 tablet 0 No current facility-administered medications for this visit.[2] Past Medical History: Diagnosis Date Adrenal adenoma Left side Anxiety Chronic back pain DDD (degenerative disc disease), lumbar Fatty liver History of adrenal surgery 2023 Left removed History of hysterectomy Hormone replacement therapy (postmenopausal) Hypertension Liver hemangioma GI Dr. 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 [employer] Tobacco Use Smoking status: Former Current packs/day: 0.50 Average packs/day: 0.5 packs/day for 10.0 years (5.0 ttl pk-yrs) Types: Cigarettes Smokeless tobacco: Never Tobacco comments: Quit 05/2024 Vaping Use Vaping status: Never Used Substance and Sexual Activity Alcohol use: Never Drug use: Never Sexual activity: Not Currently control/protection: Hysterectomy [facility]2025-07-30 16:01:56Upcoming Encounters Health Maintenance Due Date Last Done Comments CT Colonography 1974 Cologuard 1974 FIT Tests 1974 Sigmoidoscopy 1974 Pneumococcal Vaccine: 50+ Ye ars (1 of 2 - PCV) 1993 Zoster Vaccines (1 of 2) 1993 COVID-19 Vaccine (2 - Modern a risk series) 01/22/2021 12/25/2020 Physical Exam 12/14/2024 12/15/2023 Influenza Vaccines (#1) 2025 Mammogram 07/24/2025 07/24/2023, 05/11, 11/30/2015 Creatinine Level (Kidney Fun ction Test) 02/09/2026 02/09/2025, 01/07/2025, 11/23/2024, Additional history exists Tdap Vaccines 12/21/2028 12/21/2018 (Prev iously completed) COLONOSCOPY 08/18/2033 08/18/2023 Colorectal Cancer Screening 08/18/2033 RSV Vaccines (1 - 1-dose 75+ series) 2049 [facility]2025-07-30 16:01:56 Diagnosis Prediabetes - Primary Other abnormal glucose Lumbar paraspinal muscle spasm Other symptoms referable to back Adrenal insufficiency after adrenalectomy ([facility]) History of adrenal surgery Rheumatoid arthritis involvi ng multiple sites, unspecified whether rheumatoid factor present (multi HCC) Other forms of systemic lupu s erythematosus, unspecified organ involvement status (multi HCC) Immunodeficiency due to cond itions classified elsewhere ([facility]) [facility]2025-07-30 16:01:56 [place] [id number] 16:37:26* [facility]2025-07-29 16:37:26 [place] [id number] 16:37:26* Pascual León MD - 04/05/2025 4:06 PM CDT Images from the original note were not included. [facility] Pascual León MD Workers Comp? No Case in Litigation? No Allergies[1] A) Chief complaint or Subjective: Area of pain : Low-Back left-sided, with radicular pain to lower extremity Pain status since onset - worsening Have you had this pain before? Yes Frequency of flare up? Daily What is the duration of your pain? constantly Kind of pain (quality):Sharp, Pins/[place], Numbness What makes it worse? Walking What have you tried for this pain? Rest, Ice Pack, Physical Therapy,Acupuncture, Chiropractor, medications-duloxetine, gabapentin, Tylenol 3, tramadol, patient has had transforaminal epidural steroid injections and intralaminar epidural steroid injections without any improvement Do you have any - WEAKNESS NoneNUMBNESS None Changes in pattern of pain or weakness? No Current modalities for pain management: Tramadol Functional Status: Independent with all Activities of Daily Living and mobility Social History[2] ROSReports of: Review of Systems Constitutional: Negative for chills, diaphoresis, fatigue and fever. HENT: Negative for congestion, rhinorrhea, tinnitus and trouble swallowing. Eyes: Negative for photophobia and pain. Respiratory: Negative for apnea, cough and choking. Cardiovascular: Negative for chest pain and leg swelling. Gastrointestinal: Negative for abdominal pain, constipation, diarrhea, nausea and vomiting. Endocrine: Negative for cold intolerance, heat intolerance and polyphagia. Genitourinary: Negative for difficulty urinating, dysuria, frequency and hematuria. Musculoskeletal: Positive for back pain. Skin: Negative for color change, pallor and rash. Allergic/Immunologic: Negative for environmental allergies. Neurological: Negative for dizziness, seizures, weakness and headaches. Psychiatric/Behavioral: Negative for agitation, confusion, hallucinations and suicidal ideas. PCP or referring MD is aware of the above symptom(s) HPI Eda Rosales a 50 year old female with a past medical history of [PastMedical History] who presents to clinic with Back Pain [Past Medical History]Diagnosis Date Adrenal adenoma Left side Anxiety Chronic back pain DDD (degenerative disc disease), lumbar Fatty liver History of adrenal surgery 2023 Left removed History of hysterectomy Hormone replacement therapy (postmenopausal) Hypertension Liver hemangioma GI Dr. Albright Lupus (systemic lupus erythematosus) (multi HCC) Seen by Rheumatology Rheumatoid arthritis (multi HCC) Seen by Rheumatology . her pain is localized to Lumbar Spine. her pain started 2 years ago. The pain has progressively gotten Worse There was an Inciting event of fall. The pain is described as sharp , tingling, and numb. There is radiation to the left back, radiation to the left buttock, and radiation to the left thigh. The pain occurs constantly . The pain is aggravated by walking. The pain is alleviated by laying down. At its worst the pain is rated as a 10 out of 10, at its best the pain is rated as a 8 out of 10 and on average the pain is rated as a 9 out of 10. So far the patient has tried injections, PT > 6 weeks, Acupuncture, and Chiropractor. Current medications include Tylenol and tramadol 50 mg which they take 2 x's a days. They have used these for the past 1-2 years. These medications can take their worst pain rating down to a 9 out of 10. Patient denies bowel or bladder incontinence. Patient denies weakness. Denies fever, chills, unintentional weight loss. Denies depression, denies suicidal ideation. Trial of PT, OTC analgesics, and medications without relief. Routine physical or WWE within the past year? YES PHYSICAL EXAMINATION Vital sign and Nursing Note Reviewed. GENERAL: Not in acute distress, well developed, well nourished HEADNormocephalic, atraumatic Cranial nerves II - XII: grossly intact Pupils: PERRLA, without miosis or mydriasis Greater occipital tenderness: none CERVICAL Full range of motionAlignment: normal Lehrmitte's: negative Spurling's: negative Facet joints: non tender Trigger points: none trapezius, splenius capitus, paraspinatus UPPER EXTREMITIES Sensory: Normal C5-T1 dermatomes bilateralTone: Normal; no muscle atrophy Pulses: 2+ bilaterally Reflexes: Normal C5, C6, C7 bilateral Motor: C5-T1 myotomes 5/5 bilateral SHOULDER ROM: full, without pain (active or passive)Impingement: Absent Hawkin's: negative Supraspinatus stress test: negative ELBOW Medial epicondyle tenderness: absentPain with resisted wrist extension: absent Lateral epicondyle tenderness: absent Swelling: none WRIST/HAND Tinel's: AbsentReverse Phalen's: absent Thenar atrophy: Absent Hand intrinsic muscle atrophy: absent Heberden's nodules: absent Tenderness: absent THORACIC/LUMBAR ROM: Decreased due to painAlignment: Normal Scoliosis: Present Palpable mass or focal swelling/redness: absent Pat's signs: Absent Trigger points: There is a trigger point on the left lumbar paraspinous muscle that surround L1 and L2 Tender points: absent Lumbar scar: none Facet joints: non tender Facet loading: Negative LOWER EXTREMITIES Reflexes: 2+ Patella and ankle bilateralBabinski: WNL bilaterally Pulses: posterior tibial and dorsalis pedis 2+ bilateral Tone: Normal; no muscle atrophy Edema: Absent Skin hair growth: Normal Sensory: Dermatomes L2-S1 normal bilateral Motor: Myotomes L3-S1 are 5/5 bilateral Straight Leg Raise: Positive on the left HIP/PELVIS ROM: Decreased due to pain particularly on the leftIlliotibial band tightness: Negative PSIS: Non tender Suraj's: negative NEUROLOGICAL Gait: antalgic PSYCH Mood: stable Pain behavior: none Diagnostic studies MRI of the lumbar spine: FINDINGS: For purposes of this dictation, it is assumed that there are 5 nonrib-bearing lumbar type vertebrae, and the most caudal fully segmented lumbar vertebra is labeled L5. Moderate levoscoliosis with apex at L2-L3. Vertebral bodies are normal inheight. There is a normal marrow signal pattern. The conus medullaris terminates at a normal level. The nerve roots of the cauda equina appear normal. Partially visualized heterogeneous mass again noted in the left adrenal gland. The included paraspinal soft tissues are grossly normal. Evaluation of the individual levels: L1-2: Mild loss of disc height. No significant spinal canal or neural foraminal stenosis. L2-3: Disc is normal in height and signal intensity. No significant spinalcanal or neural foraminal stenosis. L3-4: Severe loss of disc height with edematous endplate changes.Circumferential disc bulge and facet hypertrophy result in moderate spinal canal, moderate right and mild left neural foraminal stenosis. L4-5: Mild loss of disc height. Circumferential disc bulge and facethypertrophy result in moderate spinal canal, mild right and severe left neural foraminal stenosis. L5-S1: Disc is normal in height and signal intensity. Fatty endplate changes. Circumferential disc bulge and facet hypertrophy result in moderate left neural foraminal stenosis. No significant spinal canal or right neural foraminal stenosis. IMPRESSION: Scoliosis and degenerative changes result in moderate spinal canal stenosis at L3-L4 and L4-L5. There is also moderate right L3-L4, severe left L4-L5 and moderate left L5-S1 neural foraminal stenosis. Blood ThinnersNSAIDs ASSESSMENT 1. Myofascial pain syndrome INJECTION SINGLE/ATHLETIC TRAINING INTERNSHIP TRIGGER POINT 1/2 MUSCLES 2. Neural foraminal stenosis of lumbosacral spine 3. Chronic lumbosacral pain 4. Lumbar paraspinal muscle spasm Tizanidine HCl 4 MG oral Tablet PLAN Patient presents to clinic for follow-up with a pretty extensive history ofback pain there are multiple factors contributing to it including scoliosis, lumbar canal stenosis, lumbar spondylosis and likely some lumbar radiculitis however her presentation today appears that myofascial pain and spasming of the lumbar paraspinous muscle is the main generator of her pain. The lumbar paraspinal muscle stenosis and myofascial pain could be a result of for instance the lumbar spondylosis leading to irritation of medial branch nerves and/or lumbar radiculitis leading to spasming of lumbar paraspinous muscles. Patient has tried different types of medications including Tylenol 3, hydrocodone-acetaminophen, gabapentin and Cymbalta. The aforementioned opioid medications seem to make her drowsy. She is currently on tramadol which gives her energy I would like patient to try increasing each dose of tramadol to 100 mg at a time and I will also give her a muscle relaxer for her to take that will help relax her muscles and make her drowsy so that she can sleep when she takes tramadol 100 mg. We also performed a trigger point injection in clinic for her lumbar paraspinous muscles Will have patient follow-up in a month and a half to see if there is new medication regiment and the trigger point injected were effective for her recommend routine physical Continue bowel management Patient instructed to continue with home exercise program. Patient instructed to go to nearest ER if developed any sudden weakness in the extremities or sudden bowel and/or bladder incontinence. Procedure order: Trigger point injection performed in clinic today *The following may be discussed with patient based on pt's treatment plan: Opiate Risk Tool Scorin-3 Low risk: 6% change of developing problematic behaviors 4-7 Moderate risk: 28% change of developing problematic behaviors >=8 High risk: >90% change of developing problematic behaviors Goals of Therapy:Improve ambulation, quality of life, minimize medications, improve sleep pattern, increase level of activities, return to work, or improve ability to work. Patient understands their responsibility of their involvement to achieve the above goals, better quality of life, better function, and possible pain control. Patient also understands the nature of chronic pain and disease process. Options:Conservative options have been reviewed and discussed in detail. These include additional physical therapy, medication, exercise conditioning, and weight loss. Interventional treatment options include epidural steroid injections, sacroiliac injections, medial branch block, or radiofrequency ablation. The patient has decided to proceed with interventional injection therapy. We discussed the role of surgery consult as well. That decision was deferred at this time. Risks:Risks of conservative treatment were discussed and include progression of the underlying condition, including permanent or increased neurological sequelae. Risks of interventional injection treatment were also reviewed in detail and include , hemorrhage, infection, nerve damage, paralysis, recurrence, worsening or non-resolution of symptoms, dural tear, dural puncture headache, meningitis. No guarantees were given. Certain components of the symptoms may not resolve as a result of interventional injection therapy. Patient is aware that spinal injection with varies types of corticosteroids is not FDA approved. The patient agrees to proceed with this treatment recommendation. Counseling Given:The diagnosis, prognosis, treatment options, risks; alternatives were discussed in detail using language understandable to this patient. Questions have been elicited and all questions have been answered to the patient’s satisfaction in understandable terms. Realistic reassurance has been given to the patient regarding any fears or anxieties expressed today. Risks, benefits and options of recommended interventional procedures and proposed treatments were discussed. Preoperative instructions were reviewed including the use of anticoagulants. The patient was instructed to call if any change in medical status occurs, including infections which may necessitate schedule changes. Opiate Controlled Substance Therapy Requirements:Urine Drug Screen: Agree to submit to urine and/or blood screening tests to detect the use of non-prescribed medications, inappropriate pain medication, (including alcohol) or illicit drugs at any time. Psychology Clearance: Opiate controlled substance therapy for chronic pain represents a complex problem that may benefit from physical therapy, psychotherapy, and behavioral medicine strategies. Safety: Patient is aware that driving is prohibited while using opiate medications, muscle relaxants, antidepressants, or antiepileptics. Patients are prohibited to use any sedative hypnotics or sleeping aid, benzodiazepines or barbiturates while on medications from the pain clinic. Controlled substance medications should be in a locked, inaccessible to others, including children. Medication therapy of opiate controlled substance, muscle relaxant, antidepressant, antiepileptic, benzodiazepine, tranquilizer, or sedative may cause: Psychological dependence (addiction) to controlled substances that willrequire participation in any treatment program prescribed at facilities, which may include; ?? detoxification and/or ?? psychological, and medical treatment 2. multiple side effects include:- respiratory depression or failure that may lead to sudden . - intractable constipation that may cause bowel impaction or obstruction, which may require surgery. - urinary retention that may lead to renal problems - decrease of hormone levels with possible impotence, decreased libido, or sexual dysfunction. - Methadone or various antidepressants may cause heart arrhythmias that may lead to . - withdrawal symptoms such as, abdominal cramps, sweats, chills, generalized aching, and sudden . - sedation caused by medications: opiates (oral, patch, or infusion pump) muscle relaxants, anti-epileptic, benzodiazapines, antidepressants, sedatives, and/or tranquilizers, the drug coupon collection clerk, recommends not operating ANY machinery or ANY form of motorized equipment (this includes a motor vehicle). - sedation from medications may cause increase risk of falls which requires 24 hrs supervision when starting a new medication. - any other side effects that may require immediate ER medical attention. - Patient is aware the possible of developing seriotonin syndrome while being on various antidepressants or tramadol type medications which may lead to sudden . Pascual León, [facility]-Pain [facility] [place] This document was created using a voice recognition transcribing system. Incorrect words may have been transcribed or phrases may have been missed during proofreading. Please interpret accordingly. INJECTION PROCEDURE NOTE Location: left Procedure: Trigger point injection of the lumbar paraspinous muscle Indication: Myofascial pain Medication used:Triamcinolone 40 mg/mL- 1 mL and Bupivacaine 0.25% - 4 mL Consent for the procedure was obtained from the patient. Risks of the procedure were discussed which included infection, infiltration of blood vessel and worsening pain. As well as benefits which included relief from patient's current pain. Patient gave verbal consent to proceed with the procedure after displaying an understanding of the risks and the benefits. Patient was gowned and sat in an upright position on the examination table. Trigger points were identified at the left lumbar paraspinous muscle was marked and sterilely prepped with ChloraPrep. A a formal timeout was performed, and afterward a 1 1/2 inch 25 gauge needlewas advanced through one of the identified trigger points. Next 2 mL of a solution containing Triamcinolone 40 mg/mL- 1 mL combined with Bupivacaine 0.25% - 4 mL was injected. The needle and syringe were removed and a Band-Aid was placed. After 5 minutes the patient reported that she no longer experienced shepain. Patient tolerated the procedure well, instructed to call 911 with any shortness of abdominal pain, abdominal distention, breath, anaphylactic or allergy, infection, or fever and proceed to ER if any complications were to occur. Corticosteroid use with diabetic patients must monitor blood sugar three times a day for one week. Pascual León, [facility]-Pain Medicine [place] This document was created using a voice recognition transcribing system. Incorrect words may have been transcribed or phrases may have been missed during proofreading. Please interpret accordingly. [1]Allergies Allergen Reactions Ciprofloxacin Hydrochloride Hives [2] Social History Tobacco Use Smoking status: Former Current packs/day: 0.50 Average packs/day: 0.5 packs/day for 10.0 years (5.0 ttl pk-yrs) Types: Cigarettes Smokeless tobacco: Never Tobacco comments: Quit 05/2024 Vaping Use Vaping status: Never Used Substance Use Topics Alcohol use: Never Drug use: Never [facility]2025-07-29 16:37:26Upcoming Encounters Scheduled Orders Name Type Priority Associated Diagnoses Orde r Schedule INJECTION SINGLE/ATHLETIC TRAINING INTERNSHIP TRIGGER POINT 1/2 MUSCLES Procedures Routine Myofascial pain syndrome Ordered: 04/05/2025 Health Maintenance Due Date Last Done Comments CT Colonography 1974 Cologuard 1974 FIT Tests 1974 Sigmoidoscopy 1974 Pneumococcal Vaccine: 50+ Ye ars (1 of 2 - PCV) 1993 Zoster Vaccines (1 of 2) 1993 COVID-19 Vaccine (2 - Modern a risk series) 01/22/2021 12/25/2020 Physical Exam 12/14/2024 12/15/2023 Influenza Vaccines (#1) 2025 Mammogram 07/24/2025 07/24/2023, 05/11, 11/30/2015 Creatinine Level (Kidney Fun ction Test) 02/09/2026 02/09/2025, 01/07/2025, 11/23/2024, Additional history exists Tdap Vaccines 12/21/2028 12/21/2018 (Prev iously completed) COLONOSCOPY 08/18/2033 08/18/2023 Colorectal Cancer Screening 08/18/2033 RSV Vaccines (1 - 1-dose 75+ series) 2049 [facility]2025-07-29 16:37:26 Diagnosis Myofascial pain syndrome - Primary Mylagia and myositis, unspecified Neural foraminal stenosis of lumbosacral spine Chronic lumbosacral pain Lumbago Lumbar paraspinal muscle spasm Other symptoms referable to back [facility]2025-07-29 16:37:26 [facility]2025-07-29 15:55:53 Eda Rosales a 50 year old female with a past medical history of Past Medical History[1] who presents to clinic with Back Pain . her pain is localized to Lumbar Spine. her pain started 2 years ago. The pain has progressively gotten Worse There was an Inciting event of fall. The pain is described as sharp , tingling, and numb. There is radiation to the left back, radiation to the left buttock, and radiation to the left thigh. The pain occurs constantly . The pain is aggravated by walking. The pain is alleviated by laying down. At its worst the pain is rated as a 10 out of 10, at its best the pain is rated as a 8 out of 10 and on average the pain is rated as a 9 out of 10. So far the patient has tried injections, PT > 6 weeks, Acupuncture, and Chiropractor. Current medications include Tylenol and tramadol 50 mg which they take 2 x's a days. They have used these for the past 1-2 years. These medications can take their worst pain rating down to a 9 out of 10. Patient denies bowel or bladder incontinence. Patient denies weakness. [1] Past Medical History: Diagnosis Date Adrenal adenoma Left side Anxiety Chronic back pain DDD (degenerative disc disease), lumbar Fatty liver History of adrenal surgery 2023 Left removed History of hysterectomy Hormone replacement therapy (postmenopausal) Hypertension Liver hemangioma GI Dr. Albright Lupus (systemic lupus erythematosus) (multi HCC) Seen by Rheumatology Rheumatoid arthritis (multi HCC) Seen by Rheumatology [id number] 15:23:10 Chief Complaint Patient presents with Follow-up 3 month. Danielle Horne LVN [id number] 20:51:20* [id number] 20:51:20 [facility] [id number] 20:51:20 Diagnosis Acute on chronic back pain - Primary [id number] 20:51:20 [id number] 18:01:00 History of Present Illness: Chief Complaint: Patient presents with Groin Pain Rectal Pain 50 yo female with hx of Lupus RA presenting to ER for evaluation of groin pain/rectal pain. Pt reports hx of chronic back pain related to herniated discs. Pt repots left buttock pain that radiates around the inguinal region and down left leg. Pt is seeing a pain management doctor. PT reports these symptoms have been chornic but feels like the pain is worse. Pain management was changed to gabapentin recently. Pt reports her meds are not working. Pt was on narcotics before but it was stopped. Pt reports some numbness of left leg. Pt denies any recent falls. Pt is able to ambulate. Pt denies urinary symptoms, urniatng normally. BM are normal other than constipation. No fever. PMH: as above PSH: adrenalectomy, hysterectomy History provided by: Patient and friend per diem interpreter used: No Patient History No past medical history on file. Past Surgical History: Procedure Laterality Date ADRENALECTOMY Left CHOLECYSTECTOMY Left 06/08/2024 LAPAROSCOPIC LEFT ADRENALECTOMY AND ALL OTHER INDICATED PROCEDURES No family history on file. Social History: Tobacco Use Smoking status: Not on file Smokeless tobacco: Not on file Substance Use Topics Alcohol use: Not on file Drug use: Not on file Review of Systems: Review of Systems Constitutional: Negative for fever. Respiratory: Negative for shortness of breath. Cardiovascular: Negative for chest pain. Gastrointestinal: Negative for abdominal pain, nausea and vomiting. Genitourinary: Negative for difficulty urinating, dysuria and urgency. Musculoskeletal: Positive for back pain and joint swelling. Neurological: Positive for numbness. Physical Exam: Constitutional: General: She is not in acute distress. HENT: Head: Normocephalic and atraumatic. Eyes: Conjunctiva/sclera: Conjunctivae normal. Pupils: Pupils are equal, round, and reactive to light. Cardiovascular: Rate and Rhythm: Normal rate and regular rhythm. Pulmonary: Effort: Pulmonary effort is normal. Breath sounds: Normal breath sounds. Abdominal: General: Abdomen is flat. There is no distension. Palpations: Abdomen is soft. Tenderness: There is no abdominal tenderness. Musculoskeletal: General: No swelling or deformity. Normal range of motion. Cervical back: Normal range of motion. Comments: no tenderness in the lumbar spine, no gluteal tenderness, no proximal femoral tenderness or hip tenderness. Negative for CVA tenderness. Patient with +2 pedal pulse on the left, patient able to extend and flex at the knee with normal range of motion and +2 patellar reflex Skin: General: Skin is warm and dry. Neurological: General: No focal deficit present. Mental Status: She is alert and oriented to person, place, and time. Triage Vitals: BP: 116/82, Heart Rate: 93, Temp: 36.7 ?C (98.1 ?F), Resp: 20, SpO2: 96 %, Height: 160 cm (5' 3"), Weight: 72.4 kg (159 lb 9.8 oz) Last Recorded Vitals: BP: 116/82, Heart Rate: 93, Temp: 36.7 ?C (98.1 ?F), Resp: 20, SpO2: 96 %, Height: 160 cm (5' 3"), Weight: 72.4 kg (159 lb 9.8 oz) Procedures Performed: Procedures ED Course : Diagnoses as of 02/25/252019 Acute on chronic back pain Disposition: Discharge Medical Decision Making Patient with unremarkable vitals on arrival, nontoxic in appearance, no red flags or history of physical. 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 Will revive patient with analgesia, otherwise no need for additional workup at this time. No urinary symptoms, no fever, no recent injections or surgeries. No tenderness to the back. Recommend follow-up to PCP and pain specialist, will give spine surgery referral as well. Differential diagnosis for back pain: Muscle strain, sciatica, herniated disks, muscle spasm Amount and/or Complexity of Data Reviewed External Data Reviewed: notes. Details: Raj Maurer DO at 02/10/2025, outpatient PCP note for evaluation of chronic back pain, continue supportive measures and follow-up with pain management Risk OTC drugs. Diagnosis or treatment significantly limited by social determinants of health. Risk Details: Considered antiemetics but patient without nausea/vomiting in ER. Considered getting UA but patient symptoms not consistent with UTI Scoring Tools Mary Stafford MD 02/25/252019 [facility]66[facility]-91 16:23:07 Chief Complaint Patient presents with Leg Pain Hip Pain Back Pain Patient complains of lower extremity pain Natalie Hebert MA Abby [id number] 15:51:10 Chief Complaint Patient presents with Consultation Previous In [place] Dx Fatty, Liver Mass, and CystPt. 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 [place] [id number] 14:49:55 Eda Deshpande is a 49 year old female Chief Complaint Patient presents with Follow-up Low back and left leg pain, numbness and tingling. Back Pain Adela Alexander MA III [facility] Adela Alexander [place] [id number] 15:13:39 Chief Complaint Patient presents with Follow-up Adrenal Problem Vanita Marcelino MA [place] [id number] 15:23:28 Chief Complaint Patient presents with Elbow Pain Elbow pain/swelling. Started over a month and progressively getting worse each day Na Mccoy MA [place] [id number] 15:26:47 Chief Complaint Patient presents with Follow-Up Visit Lupus Patient here for follow up on lupus Cecilia Donald LVN [facility] [id number] 10:56:33 Chief Complaint Patient presents with Follow-up Adrenal Problem Vanita Marcelino CMA II [facility] TamelaFransisco [id number] 14:50:44 Chief Complaint Patient presents with Follow-up Adrenal Problem Vanita Marcelino CMA II [facility]2024-10-24 19:36:42* [facility] HospitalVvotxzq7846-10-46 19:36:42* Calculated C-SSRS Risk Score (Lifetime/Recent) Answer Date of Assessment Author No Risk Indicated 07/01/2024 3:32 PM CDT Kevon Calvin RN * [place] Suicide Severity Rating Scale (Screener/Recent Self-Report) Question Answer Date of Assessment Author 1. Wish to be (Past 1 Month) No 024 3:32 PM CDT Kevon Calvin, NILDA 2. Non-Specific Active Suici millicent Thoughts (Past 1 Month) No 07/01/2024 3:32 PM CDT Kevon Calvin RN 6. Suicidal Behavior (Lifetime) No 4 3:32 PM CDT Kevon Calvin RN [facility] HospitalQhzgbqu9286-44-42 19:36:42Pending Results Scheduled Orders Name Type Priority Associated Diagnoses Orde r Schedule Lactic acid with 2 Hours Reflex Lab STAT Once for 1 Occur rences starting 07/01/2024 until 07/01/2024 Urine Culture Microbiology STAT Once (Lab ) for 1 Occurrences starting 07/01/2024 until 07/01/2024 Health Maintenance Due Date Last Done Comments CT Colonography 1975 Colonoscopy 1975 Colorectal Cancer Screening 1975 FIT-DNA 1975 FIT 1975 FOBT 1975 Sigmoidoscopy 1975 Pneumococcal Vaccine: Pediatrics (0 to 5 Years) and At-Risk Patients (6 to 64 Years) (1 of 2 - PCV) 01/09/1980 DTaP/Tdap/Td Vaccines (1 - Tdap) 1993 Hepatitis A Vaccines (1 of 2 - Risk 2-dose series) 1993 Hepatitis B Vaccines (1 of 3 - 19+ 3-dose series) 1993 Zoster Vaccines (1 of 2) 1993 Pap Smear 1995 Cervical Cancer Screening 01/09/2004 HPV/Cotest 01/09/2004 Influenza Vaccine (#1) 2024 Mammogram 07/24/2025 07/24/2023, 07/24/2023, 06/07/2022 Lipid Panel 01/07/2029 2024, 05/11/2022 HIB Vaccines Aged Out No longer eligi ble based on patient's age to complete this topic HPV Vaccines Aged Out No longer eligi ble based on patient's age to complete this topic IPV Vaccines Aged Out No longer eligi ble based on patient's age to complete this topic Meningococcal Vaccine Aged Out No bessie cruz eligible based on patient's age to complete this topic Rotavirus Vaccines Aged Out No longer eligible based on patient's age to complete this topic [place] [address]-10-24 19:36:42 Diagnosis Nausea and vomiting, unspeci fied vomiting type - Primary Right upper quadrant abdomin al pain [place] 67832-10-24 19:36:42 [place] 67832-10-02 16:01:30* [place] [address]-10-02 16:01:[address]10-02 16:01:30 Diagnosis Flushing's syndrome, unspecif ied (HCC) [facility] HospitalYevoufs6019-58-09 15:33:18 Chief Complaint Patient presents with Follow-up Adrenal Problem Vanita Marcelino CMA II T Abby [id number] 15:52:52 Chief Complaint Patient presents with Follow-up Adrenal Problem Vanita Marcelino CMA II T Abby [id number] 14:58:20 Chief Complaint Patient presents with Follow-up Discoid lupus f/u Leigh Marquez TamelaFransisco [id number] 15:29:38 Eda Deshpande is a 49 year old female Chief Complaint Patient presents with Follow-up 49 year old female; C/O lower back pain. No recent injuries/accidents. Pain 11/15. Fanny Olsen CMA I [facility]2024-05-29 15:07:00 Chief Complaint Patient presents with Follow-Up Visit Follow up on lupus Lupus Sol Tavares CMA II [facility]2024-05-13 16:03:38 Eda Deshpande is a 49 year old female Chief Complaint Patient presents with Follow-up 49 year old female; C/O lower back pain. Patient here to review MRI results. No recent injuries/accidents. Pain 12/16. Fanny Olsen CMA I [facility] 15:39:03 Chief Complaint Patient presents with Consultation Thyroid Problem Vanita Marcelino CMA II [facility]2024-04-10 15:02:01 Eda Deshpande is a 48 year old female Chief Complaint Patient presents with New Patient Consult Back Pain Patient with chronic back pain, rheumatoid arthritis and lupus. Seen by media marketing specialist in the past. Was to have MRI and further evaluation and treatment. Adela Alexander CMA II [facility], [facility] 13:52:35 Chief Complaint Patient presents with Physical Jeri Mack MA II [place] [id number] 15:32:07 Chief Complaint Patient presents with Follow-Up Visit Follow up on Lupus and rheumatoid arthritis Sol Tavares CMA II [facility]2023-12-27 08:00:00 Images from the original note were not included. Pt is here to complete all labs for Raghavendra Sims MD. Mihir Fierro 09/03/2023 9:02 AM Venipuncture collection performed by clean technique on the right anticubitus. Total of 1 attempts were made. Slight pressure and a bandage/dressing were applied to the site(s). The patient experienced no complications. The following specimens were processed according to instructions and sent to [facility] laboratories per lab order on 09/03/2023 : LT BLUE SST 5 RED LAV 3 PPT DK GREEN (LiHep) 1 DK GREEN (SodH) [place] DK BLUE (K2) DK BLUE (S) ACD Blood Culture NIPT/NTD [facility]2023-08-31 09:45:00 Images from the original note were not included. Venipuncture collection performed by clean technique on the right anticubitus. Total of 1 attempts were made. Slight pressure and a bandage/dressing were applied to the site(s). The patient experienced no complications. The following specimens were processed according to instructions and sent to [facility] laboratories per lab order on 05/08/2023: LT BLUE SST 6 RED LAV 1 PPT DK GREEN (LiHep) DK GREEN (SodH) [place] DK BLUE (K2) DK BLUE (S) ACD Blood Culture NIPT/NTD Patient has been identified by and name and was provided with cup, antiseptic towelette, and clean catch instructions. 2 urine specimen(s) sent. Unpreserved 2 Urine Culture Aptima tube Other urine [facility]2023-08-28 20:41:41 Pt discharged with diagnosis of acute left flank pain and R groin pain. Printed and verbal instructions reviewed with and given to patient. Prescriptions given x 0. Pt verbalized understanding of teaching and recommended follow-up. Denies questions or concerns at this time. Pt ambulatory at discharge. Appears in no apparent distress. No ataxia noted. 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 Ana Edouard [facility]
[2025-04-20] MEDS ORDERED: ONDANSETRON 4 MG/2 ML VIAL ONE (22:55)
[2025-04-20] MEDS ORDERED: KETOROLAC 30 MG/ML INJ ONE (22:55)
[2025-04-20] MEDS ORDERED: MORPHINE 4 MG/ML SYR ONE (22:56)
--- NOTE | 2025-04-20 23:59 | ER ---
Nurse's Notes [facility] Name: Sienna Vogel Age: 50 yrs Sex: Female : 1975 Arrival Date: 04/20/2025 Time: 21:29 Bed 17 Private MD: Raj Maurer Diagnosis: Low back pain;Radiculopathy, lumbosacral region Presentation: 04/20 21:58 Chief complaint: Patient states: low back pain radiating down left leg. Coronavirus lg3 screen: Client denies travel out of the [place] in the last 14 days. At this time, the client does not indicate any symptoms associated with coronavirus-19. Ebola Screen: No symptoms or risks identified at this time. Initial Sepsis Screen: Does the patient meet any 2 criteria? No. Patient's initial sepsis screen is negative. Does the patient have a suspected source of infection? No. Patient's initial sepsis screen is negative. Risk Assessment: Do you want to hurt yourself or someone else? Patient reports no desire to harm self or others. Onset of symptoms is unknown. 21:58 Method Of Arrival: Wheelchair lg3 21:58 Acuity: LIVE 4 lg3 Triage Assessment: 22:00 General: Appears in no apparent distress. uncomfortable, Behavior is calm, cooperative. lg3 Pain: Complains of pain in lumbar area and left low back Pain radiates to left leg. EENT: No deficits noted. No signs and/or symptoms were reported regarding the EENT system. Neuro: No deficits noted. Walker Agitation-Sedation Scale (RASS): 0 - Alert and Calm Level of Consciousness is awake, alert, obeys commands, Oriented to person, place, time, situation. Cardiovascular: No deficits noted. Denies chest pain, shortness of breath, Capillary refill < 3 seconds Clubbing of nail beds is absent JVD is absent Patient's skin is warm and dry. Respiratory: No deficits noted. Airway is patent Respiratory effort is even, unlabored, Respiratory pattern is regular, symmetrical. GI: No deficits noted. No signs and/or symptoms were reported involving the gastrointestinal system. : No signs and/or symptoms were reported regarding the genitourinary system. Derm: No deficits noted. No signs and/or symptoms reported regarding the dermatologic system. Skin is intact, is healthy with good turgor, Skin is dry, Skin is normal, Skin temperature is warm. Musculoskeletal: Circulation, motion, and sensation intact. Range of motion: intact in all extremities, Reports pain in lumbar area, left low back and left leg. 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 - Infectious Disease History:: Denies. - Social history:: Smoking status: Patient denies any tobacco usage or history of. Patient/guardian denies using alcohol, street drugs. - Family history:: not pertinent. - Hospitalizations: : No recent hospitalization is reported. Screenin:40 [facility] ED Fall Risk Assessment (Adult) History of falling in the last 3 months, kj2 including since admission No falls in past 3 months (0 pts) Confusion or Disorientation No (0 pts) Intoxicated or Sedated No (0 pts) Impaired Gait No (0 pts) Mobility Assist Device Used No (0 pt) Altered Elimination No (0 pt) Score/Fall Risk Level 0 - 2 = Low Risk Maintained a safe environment, Hourly rounding (assess needs \T\ fall precautionary measures) done. Abuse screen: Denies threats or abuse. Denies injuries from another. Nutritional screening: No deficits noted. Tuberculosis screening: No symptoms or risk factors identified. Assessment: 22:40 General: Appears in no apparent distress. uncomfortable, Behavior is cooperative. Pain: kj2 Complains of pain in left leg and left low back Pain currently is 9 out of 10 on a pain scale. Neuro: Level of Consciousness is awake, alert, obeys commands, Oriented to person, place, time, situation. Cardiovascular: Patient's skin is warm and dry. Respiratory: Airway is patent Respiratory effort is even, unlabored. GI: No signs and/or symptoms were reported involving the gastrointestinal system. : No signs and/or symptoms were reported regarding the genitourinary system. 23:37 Reassessment: Patient appears in no apparent distress at this time. Patient and/or kj2 family updated on plan of care and expected duration. Pain level reassessed. Patient is alert, oriented x 3, equal unlabored respirations, skin warm/dry/pink. 04/21 00:08 Reassessment: Patient appears in no apparent distress at this time. Patient and/or kj2 family updated on plan of care and expected duration. Pain level reassessed. Patient is alert, oriented x 3, equal unlabored respirations, skin warm/dry/pink. Vital Signs: 04/20 21:58 BP 119 / 90; Pulse 79; Resp 18 S; Temp 97.9(O); Pulse Ox 97% on R/A; Weight 65.77 kg lg3 (R); Height 5 ft. 3 in. (R); Pain 9/10; 23:38 BP 104 / 64; Pulse 67; Resp 20; Pulse Ox 98% on R/A; kj2 04/21 00:08 BP 101 / 61; Pulse 64; Resp 18; Temp 98; Pulse Ox 100% on R/A; kj2 04/20 21:58 Body Mass Index 25.69 (65.77 kg, 160.02 cm) lg3 04/20 21:58 Pain Scale: Adult lg3 ED Course: 04/20 21:32 Patient arrived in ED. jj6 21:32 Raj Maurer DO is Private Physician. jj6 21:37 Aston Zepeda MD is Attending Physician. rn 22:00 Triage completed. lg3 22:00 Arm band placed on right wrist. lg3 22:40 Patient has correct armband on for positive identification. Bed in low position. Call kj2 light in reach. Provided Education on: call light. 22:40 Inserted saline lock: 20 gauge in left antecubital area, using aseptic technique. ha1 Flushed with 10 mL NS. 22:53 Kori Casey, RN is Primary Nurse. kj2 04/21 00:09 No provider procedures requiring assistance completed. IV discontinued, intact, kj2 bleeding controlled, No redness/swelling at site. Pressure dressing applied. Administered Medications: 04/20 23:05 Drug: Decadron - Dexamethasone IVP 10 mg IVP once Route: IVP; Site: left antecubital; kj2 04/21 00:09 Follow up: Response: No adverse reaction kj2 04/20 23:06 Drug: Ketorolac IVP 15 mg IVP once Route: IVP; Site: left antecubital; kj2 04/21 00:10 Follow up: Response: No adverse reaction 2 04/20 23:06 Drug: morphine IVP or IV 4 mg IVP once over 4 mins Route: IVP; Infused Over: 4 mins; kj2 Site: left antecubital; 04/21 00:10 Follow up: Response: No adverse reaction kj2 04/20 23:06 Drug: Ondansetron IVP 4 mg IVP once; over 2 minutes Route: IVP; Site: left antecubital; kj2 04/21 00:09 Follow up: Response: No adverse reaction kj2 Medication: 00:09 VIS not applicable for this client. kj2 Outcome: 04/20 23:58 Discharge ordered by . rn 04/21 00:09 Discharged to home ambulatory, with family, kj2 Condition: stable Discharge instructions given to patient, family, Instructed on discharge instructions, follow up and referral plans. Demonstrated understanding of instructions, follow-up care, 00:15 Patient left the ED. kj2 Signatures: Aston Zepdea MD MD rn Able, Lacie RN RN lg3 Sarahy Gallegos jj6 Marcia Ocasio RN RN ha1 Kori Casey RN RN kj2
--- NOTE | 2025-04-20 23:59 | EDPHYS ---
Physician Documentation [facility] Name: Sienna Vogel Age: 50 yrs Sex: Female : 1975 Arrival Date: 04/20/2025 Time: 21:29 Bed 17 Private MD: Raj Maurer ED Physician Aston Zepeda HPI: 04/20 22:43 This 50 yrs old Female presents to ER via Wheelchair with complaints of Back rn Pain. 22:43 The patient presents with pain that is chronic. Patient reports lower back pain, rn radiates to both legs but more on the left side. Patient has chronic back pain for 6 years and gets back injections. Patient denies any new injury or new symptoms. No bowel or bladder issues. No weakness. Patient states feels identical to other episodes but is not due for another shot until next week. Came in for pain control. No abdominal pain. No fever.. 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 - Infectious Disease History:: Denies. - Social history:: Smoking status: Patient denies any tobacco usage or history of. Patient/guardian denies using alcohol, street drugs. - Family history:: not pertinent. - Hospitalizations: : No recent hospitalization is reported. ROS: 22:43 Constitutional: Negative for fever, chills, and weight loss, Cardiovascular: Negative rn for chest pain, palpitations, and edema, Respiratory: Negative for shortness of breath, cough, wheezing, and pleuritic chest pain, Abdomen/GI: Negative for abdominal pain, nausea, vomiting, diarrhea, and constipation, Back: Positive for back pain : Negative for injury, bleeding, discharge, and swelling, MS/Extremity: Negative for injury and deformity, Neuro: Negative for headache, weakness, numbness, tingling, and seizure, Exam: 22:43 Constitutional: This is a well developed, well nourished patient who is awake, alert, rn appears uncomfortable, in wheelchair Abdomen/GI: Soft, nontender, no masses, no pulsatile masses, no peritoneal signs Skin: No skin discoloration or cyanosis MS/ Extremity: Pulses equal, no cyanosis. Neurovascular intact. Full, normal range of motion. Equal circumference. Neuro: Awake and alert, GCS 15, oriented to person, place, time, and situation. Motor strength 5/5 in all extremities. Sensory grossly intact. Vital Signs: 21:58 BP 119 / 90; Pulse 79; Resp 18 S; Temp 97.9(O); Pulse Ox 97% on R/A; Weight 65.77 kg lg3 (R); Height 5 ft. 3 in. (R); Pain 9/10; 23:38 BP 104 / 64; Pulse 67; Resp 20; Pulse Ox 98% on R/A; kj2 04/21 00:08 BP 101 / 61; Pulse 64; Resp 18; Temp 98; Pulse Ox 100% on R/A; kj2 04/20 21:58 Body Mass Index 25.69 (65.77 kg, 160.02 cm) lg3 04/20 21:58 Pain Scale: Adult lg3 MDM: 04/20 21:37 Medical Screening Exam initiated rn 23:57 Differential diagnosis: arthritis, chronic back pain, Radiculopathy. Data reviewed: rn vital signs, nurses notes, old medical records, and as a result, I will discharge patient. Care significantly affected by the following chronic conditions: Chronic back pain, adrenal insufficiency, sciatica. Counseling: I had a detailed discussion with the patient and/or guardian regarding the historical points, exam findings, and any diagnostic results supporting the discharge/admit diagnosis, the need for outpatient follow up, to return to the emergency department if symptoms worsen or persist or if there are any questions or concerns that arise at home. Response to treatment: the patient's symptoms have markedly improved after treatment, and as a result, I will discharge patient. Special discussion: I discussed with the patient/guardian in detail that at this point there is no indication for admission to the hospital. It is understood, however, that if the symptoms persist or worsen the patient needs to return immediately for re-evaluation. 23:59 ED course: Patient already on tramadol and tizanidine as well as chronic hydrocortisone rn for her adrenal insufficiency. Will add gabapentin and not more steroids.. 04/20 22:01 Order name: IV Start; Complete Time: 23:03 rn Administered Medications: 23:05 Drug: Decadron - Dexamethasone IVP 10 mg IVP once Route: IVP; Site: left antecubital; kj2 04/21 00:09 Follow up: Response: No adverse reaction kj2 04/20 23:06 Drug: Ketorolac IVP 15 mg IVP once Route: IVP; Site: left antecubital; kj2 04/21 00:10 Follow up: Response: No adverse reaction 2 04/20 23:06 Drug: morphine IVP or IV 4 mg IVP once over 4 mins Route: IVP; Infused Over: 4 mins; kj2 Site: left antecubital; 04/21 00:10 Follow up: Response: No adverse reaction 2 04/20 23:06 Drug: Ondansetron IVP 4 mg IVP once; over 2 minutes Route: IVP; Site: left antecubital; kj2 04/21 00:09 Follow up: Response: No adverse reaction kj2 Disposition Summary: 04/20/25 23:58 Discharge Ordered Notes: Location: Home rn Problem: new rn Symptoms: have improved rn Condition: Stable rn Diagnosis - Low back pain rn - Radiculopathy, lumbosacral region rn Followup: rn - With: Private Physician - When: As needed - Reason: Recheck today's complaints, Re-evaluation by your physician Discharge Instructions: - Discharge Summary Sheet rn - Acute Back Pain, Adult rn - Lumbosacral Radiculopathy rn - Musculoskeletal Pain rn Forms: - Medication Reconciliation Form rn - Antibiotic production pattern maker - Prescription Opioid Use rn - Patient Portal Instructions rn - Leadership Thank You Letter rn Prescriptions: - gabapentin 100 mg Oral capsule - take 1 capsule ORAL route 2 times per day As needed; 14 capsule; Refills: 0, rn Product Selection Permitted Signatures: Aston Zepeda MD MD rn Able, Lacie, RN RN lg3 Kori Casey RN RN kj2
[2025-04-21 01:18] VITALS: BP 101/61; TEMP 98; O2SAT 100
== END 2025-04-21 00:15 | disposition home or self-care (01) ==
LOC: ER 21:29
DX: M54.17 Radiculopathy, lumbosacral region (principal)
CPT/HCPCS: 96375; 96374; 99284; J1100; J2405

== ENCOUNTER 2025-06-08 07:31 | Emergency (ER) | payer OTHER ==
--- OUTSIDE RECORDS SUMMARY | 2025-06-08 07:40 | XMS REPORT | Continuity of Care Document ---
Author Name Unknown Address [address] [place] [address] [facility] Address [address] [place] [address] Care Team Providers Care Accounting Officer Name Role Phone [facility] Primary Care Physician [phone] PASCUAL LEÓN Attending Clinician UnavailRAJ Tate Attending Clinician Unavailable LAURIE SWAN Attending Clinician Unavailable KEO MONSIVAIS Attending Clinician Unavail able TRED47 Attending Clinician Unavailable OSCAR JONES Attending Clinician Unavailable TAYLOR SMITH Attending Clinician Unavailab MARY Bailey Attending Clinician Unavailable Mary Stafford MD Attending Clinician LAB47 Attending Clinician Unavailable DANAE GRULLON Attending Clinician Unavailable MD SHANTEL Attending Clinician Unavailab regine PL, TECH 1 Attending Clinician Unavailable YURIY PEDERSEN Attending Clinician Unavailable SARAHY PAUL Attending Clinician Unavailable SERINA BLOOM Attending Clinician Unav ailable BLADIMIR WINKLER Attending Clinician Unavailable Doctor Unassigned, [place] Attending Clinician U navailable LAB45 Attending Clinician Unavailable JORGE IGNACIO Attending Clinician UnavailCharity Lee MD Attending Clinician [phone] CHARITY SPENCE Attending Clinician Unava ilELÍAS Bertrand Attending Clinician Unavailable EMIL RAMSEY Attending Clinician Unava ELÍAS Walsh Attending Clinician UnavailANA Mirza Attending Clinician Unavailable Elías Beaulieu MD Attending Clinician [phone] Ana Leal MD Attending Clinician [phone] ANA LEAL Attending Clinician Unavailable RONNIE NOYOLA Attending Clinician Unavailable GERTRUDIS TARIQ Attending Clinician UnavailMORALES Tavera Attending Clinician Unavailable RAGHAVENDRA SIMS Attending Clinician Unavailable Pob, 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 Attending Clinician UnavailRaghavendra Encarnacion MD Attending Clinician [phone] Morales Albright MD Attending Clinician [phone] MORALES ALBRIGHT Attending Clinician Unavailable RADIOLOGY Attending Clinician Unavailable Radiology Attending Clinician Unavailable FAUSTINO STINSON Attending Clinician Unavailable Doctor Unassigned, [place] Attending Clinician U navailable Charity Moon MD Attending Clinician [phone] CHARIYT MOON Attending Clinician Unavailabl e DANAE GRULLON Attending Clinician Unavailable Jose Armando Alcantaraya S Attending Clinician [phone] Yessi Messina Attending Clinician + [phone] YESSI KLEIN Attending Clinician Unavaila TORRI Burnham Attending Clinician Unavailable Torri Pacheco NP Attending Clinician [phone] YING CADENA Attending Clinician Unavailable NOEL SAMPSON Attending Clinician Unavailable OBDULIA VIRAMONTES Attending Clinician [place] vailable WILLIAM OSORIO Attending Clinician UnavailJAYSHREE Almeida Attending Clinician Unavailab ELÍAS Alvarado Admitting Clinician UnavailElías Adler MD Admitting Clinician [phone] SARAHY COOK Admitting Clinician Unavailab DANAE Pino Admitting Clinician Unavailable MARY DEJESUS III Admitting Clinician YESSI Corona Admitting Clinician UnavailTORRI Dalton Admitting Clinician Unavailable OBDULIA VIRAMONTES Admitting Clinician [place] JAYSHREE [place] Admitting Clinician Unavailab le Payers Payer Name Policy Type Policy Number Effective Date Expirati on Date Source [place] [employer] 87 [id number] 2024 00:00:00 [employer] EXCHANGE Exchange [id number] 2023 00:00:00 IONIA TAMELA SEYBOLD EXCHANGE Exchange [id number] 2024 00:00:00 Problems Condition Name Condition Details Condition Category Status Onset Date Resolution Date Last Treatment Date Treating Clinician Comments Source Chronic pain with drug dependence Chronic pain with drug dependence Disease Active 3-13 00:00: 00 Tamela Seybold - Externa l Prediabete s Prediabete s Disease Active 3-13 00:00: 00 Tamela Seybold - Externa l Neural foraminal stenosis of lumbosacra l spine Neural foraminal stenosis of lumbosacra l spine Disease Active 2023-09 1-20 00:00: 00 Tamela Seybold - Externa l Immunodefi ciency due to conditions classified elsewhere Immunodefi ciency due to conditions classified elsewhere Disease Active 5-10 00:00: 00 Tamela Seybold [...] (degenerat lazaro disc disease), lumbar Disease Active -27 00:00: 00 Tamela Seybold - Externa l Rheumatoid arthritis Rheumatoid arthritis Disease Active - 00:00: 00 Tamela Vallesa jeffrey History of hysterecto my History of hysterecto my Disease Active 11-04 00:00: 00 Tamela Vallesa jeffrey Fatty liver Fatty liver Disease Active 11-04 00:00: 00 Tamela Vallesa jeffrey Liver hemangioma Liver hemangioma Disease Active 11-04 00:00: 00 Tamela Vallesa jeffrey Other forms of systemic lupus erythemato marry Other forms of systemic lupus erythemato marry Disease Active 11-04 00:00: 00 Tamela Vallesa jeffrey Left foot pain Left foot pain Disease Active 09-09 00:00: 00 [facility] Low back pain Low back pain Disease Active 05-08 00:00: 00 [facility] Hormone replacemen t therapy (postmenop ausal) Hormone replacemen t therapy (postmenop ausal) Disease Resolve d 11-04 00:00: 00 2025-02-10 00:00:00 2025-02-10 16:45:25 Tamela Vallesa jeffrey Hypertensi on Hypertensi on Disease Resolve d 11-04 00:00: 00 2024-11-18 00:00:00 2024-11-18 11:46:58 Tamela Moody - Externa jeffrey Anxiety Anxiety Disease Resolve d 11-04 00:00: 00 2024-11-18 00:00:00 2024-11-18 11:53:23 Tamela Comer Externa l Adrenal adenoma Adrenal adenoma Disease Resolve d 11-04 00:00: 00 2024-11-18 00:00:00 2024-11-18 11:49:46 Tamela Moody - Externa l Allergies, Adverse Reactions, Alerts Allergy Name Allergy Type Status Severity Reaction(s) Onset Date Inactive Date Treating Clinician Comments Source Ciproflo xacin Propensi ty to adverse reaction s Active Itching, Anxiety 2023-09 0-24 00:00: 00 Lisa Causey CIPROFLO XACIN DRUG INGREDI Active Hives 118 00:00: 00 [facility] Ciproflo xacin Hydrochl oride Propensi ty to adverse reaction s Active Hives 2015-0 1-18 00:00: 00 Tamela Moody - Externa l Social History Social Habit Start Date Stop Date Quantity Comments Source ASSERTION Possible [facility] Sexual orientation [facility] History of Occupation Tamela Moody - External History of tobacco use Cigarette Smoker Tamela medina - External Gender identity Tammie Moody - External Alcoholic beverage intake 2025-05-24 00:00:00 2025-05-24 00:00:00 Lifetime non-drinker (finding) Tamela Moody - [...] Sex 2024-06-04 12:50:25 2024-06-04 12:50:25 Female (finding) [facility] Alcohol intake 2023-11-11 00:00:00 2023-11-11 00:00:00 Lifetime non-drinker (finding) Tamela Moody - External Education 2023-11-04 00:00:00 2023-11-04 00:00:00 16 Tamela Moody - External History of Social function 2023-11-03 00:00:00 2023-11-03 00:00:00 Tamela Moody - External Exposure to SARS-CoV-2 (event) 2021-11-18 00:00:00 2021-12-18 20:08:00 Not sure [facility] Sex assigned at 1975 00:00:00 1975 00:00:00 Tamela Moody - External Smoking Status Start Date Stop Date Source Tobacco smoking consumption unknown [facility] Never smoked tobacco [facility] Ex-smoker 2024-09-14 00:00:00 2024-09-14 00:00:00 Tamela Comer External Smokes tobacco daily 2023-12-15 00:00:00 Tamela Comer External Medications Ordered Medication Name Filled Medication Name Start Date Stop Date Current Medication? Ordering Clinician Indication Dosage Frequency Signature (SIG) Comments Components Source Pantoprazol e Sodium 40 MG oral Tablet Delayed Response Pantoprazol e Sodium 40 MG oral Tablet Delayed Response 8- 00:00: 00 Yes [id number] 40mg QD Take 1 tablet (40 mg total) by mouth daily as needed (GERD). Tamela murphy Tramadol HCl (ULTRAM) 50 MG oral Tablet Tramadol HCl (ULTRAM) 50 MG oral Tablet 04-12 00:00: 00 Yes [id number] 100mg QD Take 2 tablets (100 mg total) by mouth daily as needed for pain. Tamela murphy Tizanidine HCl 4 MG oral Tablet Tizanidine HCl 4 MG oral Tablet 04-06 00:00: 00 Yes [id number] 4mg QD Take 1 tablet (4 mg total) by mouth nightly. Tamela murphy Hydrocortis one 10 MG oral Tablet Hydrocortis one 10 MG oral Tablet 04-06 00:00: 00 Yes [id number] 1.5 tab in the morning, 1 in evening, may increase as directed.. Tamela murphy Tizanidine HCl 4 MG oral Tablet Tizanidine HCl 4 MG oral Tablet 04-05 00:00: 00 04-06 00:00 :00 No [id number] 4mg Q.25D Take 1 tablet (4 mg total) by mouth every 6 hours as needed. Tamela murphy Cyclobenzap rine HCl 10 MG oral Tablet Cyclobenzap rine HCl 10 MG oral Tablet 04-04 00:00: 00 Yes 10mg Q.[id number] 3D Take 1 tablet (10 mg total) by mouth every 8 hours as needed for muscle spasms. Tamela murphy DULoxetine HCl [address] Particles DULoxetine HCl [address] Particles 03-25 00:00: 00 04-06 00:00 :00 No 40mg QD Take 1 capsule (40 mg total) by mouth daily. Tamela murphy Folic Acid 1 MG oral tablet Folic Acid 1 MG oral tablet 03-16 00:00: 00 Yes [id number] 1mg QD Take 1 tablet (1 mg [...] the skin twice a week. Tamela murphy methylPREDN ISolone 4 MG oral Tablet Therapy Pack methylPREDN ISolone 4 MG oral Tablet Therapy Pack 02-10 00:00: 00 Yes 6{tbl} 6 tablets See Admin Instructio ns TAKE 6 TABLETS ON DAY 1 DIRECTED ON PACKAGE AND DECREASE BY 1 TAB EACH DAY FOR A TOTAL OF 6 DAYS. Tamela murphy Hydrocortis one Sod Suc, PF, (SOLU-JD F) 100 MG injection Recon Soln Hydrocortis one Sod Suc, PF, (SOLU-JD F) 100 MG injection Recon Soln 02-10 00:00: 00 Yes [id number] 100mg Inject 100 mg into the muscle as needed (for adrenal crisis). Tamela murphy Cholecalcif ban 50 MCG (1999) oral Capsule Cholecalcif ban 50 MCG (1999) oral Capsule 02-10 00:00: 00 Yes [id number] 1{capsu le} QD Take 1 capsule by mouth daily. Tamela murphy Tramadol HCl (ULTRAM) 50 MG oral Tablet Tramadol HCl (ULTRAM) 50 MG oral Tablet 02-10 00:00: 00 Yes [id number] 50mg QD Take 1 tablet (50 mg total) by mouth daily as needed for pain. Tamela murphy Hydrocortis one 10 MG oral Tablet Hydrocortis one 10 MG oral Tablet 02-10 00:00: 00 04-06 00:00 :00 No [id number] 10mg Q.5D Take 1 tablet (10 mg [...] Gabapentin 600 MG oral Tablet 01-25 00:00: 04-06 00:00 :00 No 600mg Q.[id number] 3D Take 1 tablet (600 mg total) by mouth 3 times daily. Tamela Perez l Estradiol 0.1 MG/24HR transdermal PATCH BIWEEKLY 01-13 15:17: 06 Yes 1{patch } Place 1 patch onto the skin twice a week. Tamela murphy Hydrocortis one 10 MG oral Tablet 01-13 00:00: 00 04-14 04:59 :00 No [id number] 10mg Q.[id number] 3D Take 1 tablet (10 mg total) by mouth 3 times daily 1 tablet 3 times a day and extra for sick days. Tamela murphy Hydroxychlo roquine Sulfate 200 MG oral Tablet Hydroxychlo roquine Sulfate 200 MG oral Tablet 01-12 00:00: 00 Yes [id number] 400mg QD Take 2 tablets (400 mg total) by mouth daily. Tamela murphy Estradiol 0.1 MG/24HR transdermal PATCH BIWEEKLY 12-14 15:05: 00 Yes 1{patch } Place 1 patch onto the skin twice a week. Tamela murphy Belimumab (Benlysta) 200 MG/ML subcutaneou s Solution Auto-inject or Belimumab (Benlysta) 200 MG/ML subcutaneou s Solution Auto-inject or 12-14 00:00: 00 Yes [id number] 200mg Q1W Inject 1 mL (200 mg [...] Tablet Delayed Response 11-18 00:00: 00 Yes [id number] 40mg QD Take 1 tablet (40 mg total) by mouth daily as needed (GERD). Tamela murphy Cholecalcif ban 50 MCG (2000 UT) oral Capsule 11-18 00:00: 00 02-10 00:00 :00 No [id number] 1{capsu le} QD Take 1 capsule by mouth daily. Tamela murphy Belimumab (Benlysta) 200 MG/ML subcutaneou s Solution Auto-inject or 11-18 00:00: 00 12-14 00:00 :00 No [id number] 200mg Q1W Inject 1 mL (200 mg total) into the skin once a week. Tamela murphy Tramadol HCl (ULTRAM) 50 MG oral Tablet 11-18 00:00: 00 12-07 00:00 :00 No [id number] 50mg QD Take 1 tablet (50 mg total) by mouth daily as needed for pain. Tamela murphy HYDROcodone -Acetaminop hen 7.5-325 MG oral Tablet -12 00:00: 00 02-10 00:00 :00 No 1{tbl} Q.25D Take 1 tablet by mouth every 6 hours as needed. Tamela murphy Meloxicam 7.5 MG oral Tablet 2-10 15:06: 48 10-18 00:00 :00 No 7.5mg QD Take 1 tablet (7.5 mg total) by mouth daily. Tamela murphy Estradiol 0.1 MG/24HR transdermal PATCH BIWEEKLY 10-18 14:55: 18 Yes 1{patch } Place 1 patch onto the skin twice a week. Tamela Perez l Estradiol 0.1 MG/24HR transdermal PATCH BIWEEKLY 10-11 15:13: 34 Yes 1{patch } Place 1 patch onto the skin twice a week. Tamela murphy Meloxicam 7.5 MG oral Tablet 10-11 15:13: 34 Yes 7.5mg QD Take 1 tablet (7.5 mg total) by mouth daily. Tamela murphy Hydrocortis one Sod Suc, PF, (SOLU-JD F) 100 MG injection Recon Soln 10-11 00:00: 00 Yes [id number] 100mg Inject 100 mg into the muscle as needed (for adrenal crisis). Tamela murphy Hydrocortis one 10 MG oral Tablet 10-11 00:00: 00 01-13 00:00 :00 No 10mg Take 1 tablet (10 mg total) by mouth every evening. Tamela murphy Methotrexat e Sodium 2.5 MG oral Tablet Methotrexat e Sodium 2.5 MG oral Tablet 10-07 00:00: 00 Yes [id number] 15mg Q1W Take 6 tablets (15 mg total) by mouth once a week. Tamela murphy Folic Acid 1 MG oral tablet 10-07 00:00: 00 03-16 00:00 :00 No [id number] 1mg QD Take 1 tablet (1 mg [...] MG oral Tablet 09-23 00:00: 00 Yes [id number] 1{tbl} Q.25D Take 1 tablet by mouth every 6 hours as needed for pain. Tamela Fransisco murphy methylPREDN ISolone 4 MG oral Tablet Therapy Pack 2023-09 00:00: 00 01-13 00:00 :00 No 6{tbl} 6 tablets See Admin Instructio ns. Tamela Fransisco murphy methylPREDN ISolone (Medrol) 4 MG oral Tablet Therapy Pack 2023-09 00:00: 00 10-11 00:00 :00 No [id number] 1{joan} Take 1 joan by mouth See [...] or 2023-09 00:00: 00 Yes Tamela murphy Carvedilol 3.125 MG oral Tablet 2023-09 14:50: 15 Yes 3.125mg Take 1 tablet (3.125 mg total) by mouth in the morning and 1 tablet (3.125 mg total) in the evening. Take with meals. Tamela murphy Hydrocortis one 10 MG oral Tablet 2023-09 14:50: 15 Yes 15mg QD Take 1.5 tablets (15 mg total) by mouth every evening. Tamela murphy Estradiol 0.1 MG/24HR transdermal PATCH [...] by mouth daily. Tamela murphy Hydrocortis one 10 MG oral Tablet 2023-09 00:00: 00 10-11 00:00 :00 No [id number] 20mg Q.5D Take 2 tablets (20 mg total) by mouth 2 times daily. Tamela murphy Hydrocortis one Sod Suc, PF, (SOLU-JD F) 100 MG injection Recon Soln 2023-09 00:00: 00 10-11 00:00 :00 No [id number] 100mg Inject 100 mg into the muscle as needed (for adrenal crisis). Tamela murphy Cholecalcif ban 50 MCG (2000 UT) oral Capsule 2023-09 0-29 00:00: 00 11-18 00:00 :00 No [id number] 1{capsu le} QD Take 1 capsule by mouth daily. Tamela muprhy ondansetron (Zofran) injection 4 mg ondansetron (Zofran) injection 4 mg 2023-09 18:40: 00 07-01 18:44 :00 No 4mg 4 mg, Intravenou s, Once, On Christal 07/01/24 at 1840, For 1 dose, Administer IVP. Lisa Causey sodium chloride 0.9 % bolus 1,000 mL [id number] 9481-1 0- 17:25: 00 07-01 19:34 :00 No 1000mL [...] (OMNIPaque) 350 MG/ML injection 100 mL 2023-09 15:27: 04 07-01 15:27 :00 No 100mL [...] MG/ML subcutaneou s Solution Auto-inject or 2023-09 0-03 00:00: 00 07-12 00:00 :00 No [id number] INJECT 1 PEN UNDER THE SKIN EVERY [...] meals. Tamela murphy Cholecalcif ban 50 MCG (2000 UT) oral Capsule 05-31 00:00: 00 Yes [id number] 1{capsu le} QD Take 1 capsule by mouth daily. Tamela murphy Hydrocortis one Sod Suc, PF, (SOLU-JD F) 100 MG injection Recon Soln 05-31 00:00: 00 07-12 00:00 :00 No [id number] 100mg Inject 100 mg into the muscle as needed (for adrenal crisis). Tamela murphy Hydroxychlo roquine Sulfate 200 MG oral Tablet 05-26 00:00: 00 07-30 00:00 :00 No 400mg QD Take 2 tablets (400 mg total) by mouth daily. Tamela murphy Methotrexat e Sodium 2.5 MG oral Tablet 05-06 00:00: 00 Yes [id number] 15mg Q1W Take 6 tablets (15 mg total) by mouth once a week. Tamela murphy Folic Acid 1 MG oral tablet 05-06 00:00: 00 Yes [id number] 1mg QD Take 1 tablet (1 mg [...] Tamela murphy Carvedilol 3.125 MG oral Tablet 03-31 [...] 03-17 00:00: 00 11-18 00:00 :00 No [id number] Apply to affected areas on buttock twice daily Friday-Fri.. Tamela murphy Valacyclovi r HCl 500 MG oral Tablet 03-17 00:00: 00 11-18 00:00 :00 No [id number] Take 2 tablets twice daily for 10 days. Tamela murphy Estradiol 0.1 MG/24HR transdermal PATCH [...] Tamela murphy Carvedilol 3.125 MG oral Tablet 02-03 15:07: 21 Yes 3.125mg Take 1 tablet (3.125 mg total) by mouth in the morning and 1 tablet (3.125 mg total) in the evening. Take with meals. Tamela murphy Folic Acid 1 MG oral tablet 02-03 00:00: 00 05-06 00:00 :00 No [id number] 1mg QD Take 1 tablet (1 mg total) by mouth daily. Tamela murphy Methotrexat e Sodium 2.5 MG oral Tablet 02-03 00:00: 00 05-05 04:59 :00 No [id number] 15mg Q1W Take 6 tablets (15 mg total) by mouth once a week 6 tabs. Tamela murphy Hydroxychlo roquine Sulfate 200 MG oral Tablet 02-03 00:00: 00 05-05 04:59 :00 No [id number] 400mg QD Take 2 tablets (400 mg total) by mouth daily. Tamela murphy hydroCHLORO thiazide 25 MG oral Tablet 01-18 00:00: 00 03-16 00:00 :00 No 25mg QD Take 1 tablet (25 mg total) by mouth daily. Tamela murphy Losartan Potassium (COZAAR) 50 MG oral Tablet 01-18 00:00: 00 01-13 00:00 :00 No 50mg QD Take 1 tablet (50 mg total) by mouth daily. Tamela murphy Clobetasol Propionate 0.05 % apply externally Cream 01-06 00:00: 00 03-17 00:00 :00 No [id number] Apply to affected areas twice daily for up to two weeks. Then use as needed to affected areas.. Tamela murphy dexAMETHaso ne 1 MG oral Tablet 12-17 00:00: 00 05-31 00:00 :00 No [id number] To be taken once at 11 pm [...] MG oral Tablet 12-14 00:00: 00 Yes [id number] 50mg QD Take 1 tablet (50 mg total) by mouth daily as needed for pain. Tamela murphy Venlafaxine HCl 75 MG oral Capsule 24 Hour Sustained Release 12-14 00:00: 00 11-18 00:00 :00 No [id number] 75mg QD Take 1 capsule (75 mg total) by mouth daily. Tamela murphy Belimumab 200 MG/ML subcutaneou s Solution Auto-inject or 11-27 00:00: 00 Yes [id number] 200mg Q1W Inject 1 mL (200 mg [...] Solution Auto-inject or 11-05 00:00: 00 Yes [id number] 200mg Inject 1 mL (200 mg total) into the skin once a week. Tamela murphy Methotrexat e Sodium 2.5 MG oral Tablet 11-05 00:00: 00 02-03 00:00 :00 No [id number] 15mg Take 6 tablets (15 mg total) by mouth once a week 6 tabs. Tamela murphy Folic Acid 1 MG oral tablet 11-05 00:00: 00 02-03 00:00 :00 No [id number] 1mg Take 1 tablet (1 mg total) by mouth daily. Tamela murphy Hydroxychlo roquine Sulfate 200 MG oral Tablet 11-05 00:00: 00 02-03 00:00 :00 No [id number] 400mg Take 2 tablets (400 mg total) [...] MG oral Tablet 11-04 00:00: 00 Yes [id number] 50mg QD Take 1 tablet (50 mg total) by mouth daily as needed for pain. Tamela murphy Losartan Potassium (COZAAR) 100 MG oral Tablet 11-04 00:00: 00 Yes [id number] 100mg QD Take 1 tablet (100 mg [...] (50,000 unit) capsule 2022-09 00:00: 00 Yes [id number] 63931P Take 1 capsule by mouth weekly. [facility] Ergocalcife rol 10 MCG (400 UNIT) oral Tablet 2022-09 00:00: 00 11-18 00:00 :00 No [id number] Q1W Take 50,000 units by mouth once a week. Tamela murphy gadobenate dimeglumine (MULTIHANCE -20 mL) injection 0.2 mL/kg 2022-09 22:30: 00 07-24 22:21 :00 No [id number] .2mL/kg 0.2 mL/kg, Intravenou s, ONCE, 1 dose, On Fri07/24/23 at 1630, Routine [facility] Tramadol HCl (ULTRAM) 50 MG oral Tablet 2022-09 0-30 00:00: 00 11-04 00:00 :00 No 50mg Q.[id number] 3D Take 1 tablet (50 mg total) by mouth every 8 hours as needed for pain. Tamela murphy iopamidol (ISOVUE 370-500 mL) injection 122 mL 05-16 21:30: 00 05-16 20:35 :00 No [id number] 122mL 122 mL, Intravenou s, ONCE, 1 dose, On Fri05/16/23 at 1630, Routine [facility] estradioL 0.1 mg/24 hr twice weekly patch 05-05 20:43: 11 Yes 1{patch } Apply 1 Patch to skin. [facility] FOLIC ACID ORAL 05-05 20:43: 11 Yes Take by mouth. [facility] clonazePAM (KLONOPIN) 2 mg tablet 05-05 17:13: 41 05-05 00:00 :00 No 2mg Take 2 mg by mouth 3 (three) times daily. [facility] acetaminoph en-codeine 300-30 mg tablet 04-24 00:00: 00 Yes 1{tbl} Take 1 tablet by mouth. [facility] methotrexat e 2.5 mg tablet 04-16 00:00: 00 Yes Take by mouth [facility] Folic Acid 1 MG oral tablet 03-03 00:00: 00 Yes 1mg Take 1 tablet (1 mg total) by mouth daily. Tamela murphy meloxicam 7.5 mg tablet - 00:00: 00 Yes TAKE 1 TABLET BY MOUTH 1 TIME EACH DAY. [facility] venlafaxine 75 mg tablet -17 00:00: 00 Yes TAKE 1 TABLET BY MOUTH 1 TIME EACH DAY. [facility] cyclobenzap rine 10 mg tablet 2021-09 2- 00:00: 00 Yes 10mg Take 1 tablet by mouth. [facility] amoxicillin -clavulanat e 875-125 mg per tablet 12-19 00:00: 00 Yes [id number] 1{tbl} Take 1 tablet by mouth every 12 (twelve) hours. [facility] ondansetron 4 mg disintegrat ing tablet 12-19 00:00: 00 Yes [id number] 4mg Take 1 tablet by mouth every 8 (eight) hours as needed for Nausea and Vomiting (N/V). [facility] hydroxychlo roquine sulfate (HYDROXYCHL OROQUINE ORAL) 2020-09 06:06: 04 Yes Take by mouth. [facility] methylPREDN ISolone 4 mg tablets 2020-09 00:00: 00 05-05 00:00 :00 No [id number] Take by mouth SEE-INSTRU CTIONS. follow package directions [facility] metformin ER 500 mg 24 hr tablet 2020-09 0 00:00: 00 06-13 04:59 :00 No 500mg Take 500 mg by mouth. [facility] belimumab (BENLYSTA) 200 mg/mL AtIn 04-16 00:00: 00 Yes [facility] ergocalcife rol, vitamin d2, 1,250 mcg (50,000 unit) capsule 11-06 00:00: 00 08-05 00:00 :00 No [id number] Take 50,000 Units by mouth. [facility] traMADOL (ULTRAM) 50 mg tablet 10-03 00:00: 00 Yes 50mg Take 1 tablet by mouth every 6 (six) hours as needed for Pain (scale 4-6). Brando Burns PA-C / Eleazar Hardy MD SARITHA# [id number] DPS# [id number] Lic.# [id number] NPI# [id number] [facility] clonazePAM (KLONOPIN) 2 mg tablet 09-09 16:05: 09 Yes 2mg Take 2 mg by mouth 3 (three) times daily. [facility] acyclovir 400 mg tablet 2015-09 00:00: 00 05-05 00:00 :00 No TK 1 T [facility] gabapentin 100 mg capsule 2015-09 00:00: 00 05-05 00:00 :00 No TK ONE C [facility] methocarbam ol (ROBAXIN) 500 mg tablet 04-11 00:00: 00 05-05 00:00 :00 No TK 1 T [facility] tramadol-ac etaminophen (ULTRACET) 37.5-325 mg per tablet 04-11 00:00: 00 05-05 00:00 :00 No TK 1 T PO BID [facility] Immunizations Ordered Immunization Name Filled Immunization Name Date Status Comments Source Covid-19 Vaccine Moderna (Spikevax), Mrna-lnp, [employer], Pf Covid-19 Vaccine Moderna (Spikevax), Mrna-lnp, [employer], Pf 2020-12-25 00:00:00 [facility] Moderna (Spikevax), Mrna-lnp, [facility] [employer], Pf Unknown [facility]ine Moderna (Spikevax), Mrna-lnp, [employer], Pf Unknown Completed [facility] - External Covid-19 Vaccine Moderna (Spikevax), Mrna-lnp, [employer], Pf Unknown [facility]ine Moderna (Spikevax), Mrna-lnp, [employer], Pf Unknown [facility]ine Moderna (Spikevax), Mrna-lnp, [facility], Pf [facility]ine Moderna (Spikevax), Mrna-lnp, [employer], Pf Unknown [facility] Cov[facility] Vaccine Moderna (Spikevax), Mrna-lnp, [employer], Pf Unknown [facility] Vaccine Moderna (Spikevax), Mrna-lnp, [...] Value Comments S ource Systolic blood pressure 2025-05-24 15:30:00 113 mm[Hg] Tamela Seybold - External Diastolic blood pressure 2025-05-24 15:30:00 71 mm[Hg] Tamela Seybold - External Heart rate 2025-05-24 15:30:00 82 /min Tamela Seybold - External Systolic blood pressure 2025-04-06 15:44:00 112 mm[Hg] Tamela Seybold - External Diastolic blood pressure 2025-04-06 15:44:00 72 mm[Hg] Tamela Seybold - External Systolic blood pressure 2025-04-05 15:57:00 107 mm[Hg] Tamela Seybold - External Diastolic blood pressure 2025-04-05 15:57:00 71 mm[Hg] Tamela Seybold - External Heart rate 2025-04-05 15:57:00 98 /min Tamela Seybold - External Systolic blood pressure 2025-03-16 20:15:00 114 mm[Hg] Tamela Seybold - External Diastolic blood pressure 2025-03-16 20:15:00 79 mm[Hg] Tamela Seybold - External Heart rate 2025-03-16 20:15:00 91 /min Tamela Seybold - External Respiratory rate 2025-03-16 20:15:00 16 /min Tamela Hammerybold - External Body height 2025-03-16 20:15:00 157.5 cm Tamela Hammerybold - External Body weight 2025-03-16 20:15:00 70.761 kg Tamela Seybold - External BMI 2025-03-16 20:15:00 28.53 kg/m2 Tamela Seybold - External Systolic blood pressure 2025-02-25 20:41:00 134 mm[Hg] [facility] Diastolic blood pressure 2025-02-25 20:41:00 84 mm[Hg] [facility] Heart rate 2025-02-25 20:41:00 76 /min [facility] Body temperature 2025-02-25 20:41:00 36.61 Arlet [facility] Respiratory rate 2025-02-25 20:41:00 16 /min [facility] Oxygen saturation in Arterial blood by Pulse oximetry 2025-02-25 20:41:00 97 /min [facility] Body height 2025-02-25 18:30:00 160 cm [facility] Body weight 2025-02-25 18:30:00 72.4 kg [facility] BMI 2025-02-25 18:30:00 28.27 kg/m2 [facility] Systolic blood pressure 2025-02-25 20:41:00 134 mm[Hg] [facility] Diastolic blood pressure 2025-02-25 20:41:00 84 mm[Hg] [facility] Heart rate 2025-02-25 20:41:00 76 /min [facility] Body temperature 2025-02-25 20:41:00 36.61 Arlet [facility] Respiratory rate 2025-02-25 20:41:00 16 /min [facility] Oxygen saturation in Arterial blood by Pulse oximetry 2025-02-25 20:41:00 97 /min [facility] Body height 2025-02-25 18:30:00 160 cm [facility] Body weight 2025-02-25 18:30:00 72.4 kg [facility] BMI 2025-02-25 18:30:00 28.27 kg/m2 [facility] Systolic blood pressure 2025-02-10 21:17:00 118 mm[Hg] Tamela Seybold - External Diastolic blood pressure 2025-02-10 21:17:00 70 mm[Hg] Tamela Seybold - External Heart rate 2025-02-10 21:17:00 92 /min Tamela Seybold - External Body temperature 2025-02-10 21:17:00 36.44 Arlet Tamela Hammerybold - External Respiratory rate 2025-02-10 21:17:00 18 /min Tamela Garciaold - External Body height 2025-02-10 21:17:00 160 cm Tamela Garciaold - External Body weight 2025-02-10 21:17:00 75.297 kg Tamela Seybold - External BMI 2025-02-10 21:17:00 29.41 kg/m2 Tamela Moody - External Oxygen saturation in Arterial blood by Pulse oximetry 2025-02-10 21:17:00 98 /min Tamela Seybold - External Systolic blood pressure 2025-02-09 20:49:00 111 mm[Hg] Tamela Seybold - External Diastolic blood pressure 2025-02-09 20:49:00 70 mm[Hg] Tamela Seybold - External Heart rate 2025-02-09 20:49:00 82 /min Tamela Seybold - External Body temperature 2025-02-09 20:49:00 36.72 Arlet Tamela Hammerybold - External Respiratory rate 2025-02-09 20:49:00 19 /min Tamela Garciaold - External Body height 2025-02-09 20:49:00 160 cm Tamela Moody - External Body weight 2025-02-09 20:49:00 74.844 kg Tamela Moody - External BMI 2025-02-09 20:49:00 29.23 kg/m2 Tamela Seybold - External Systolic blood pressure 2025-01-13 20:20:00 114 mm[Hg] Tamela Seybold - External Diastolic blood pressure 2025-01-13 20:20:00 75 mm[Hg] Tamela Seybold - External Heart rate 2025-01-13 20:20:00 84 /min Tamela Seybold - External Body temperature 2025-01-13 20:20:00 36.33 Arlet Tamela Hammerybold - External Respiratory rate 2025-01-13 20:20:00 18 /min Tamela Hammerybold - External Body height 2025-01-13 20:20:00 160 cm Tamela Garciaold - External Body weight 2025-01-13 20:20:00 79.833 [...] Body height 2024-12-14 20:05:00 160 cm Tamela Hammerybold - External Body weight 2024-12-14 20:05:00 76.658 [...] blood pressure 2024-11-18 16:10:00 80 mm[Hg] Tamela Hammerybold - External Heart rate 2024-11-18 16:10:00 96 /min Tamela Hammerybold - External Body temperature 2024-11-18 16:10:00 36.61 Arlet Tamela Hammerybold - External Respiratory rate 2024-11-18 16:10:00 16 /min Tamela Hammerybold - External Body height 2024-11-18 16:10:00 157.5 cm Tamela Hammerybold - External Body weight 2024-11-18 16:10:00 80.196 [...] External Body temperature 2024-10-11 21:16:00 36.39 Arlet Tamlea Seybold - External Respiratory rate 2024-10-11 21:16:00 [...] patient has not taken for a month Tamlea Seybold - External Heart rate 2024-07-30 21:26:00 [...] Body height 2024-07-12 20:58:00 157.5 cm Tamela Seybold - External Body weight 2024-07-12 20:58:00 84.369 kg Tamela Seybold - External BMI 2024-07-12 20:58:00 34.02 kg/m2 Tamela Seybold - External Systolic blood pressure 2024-07-01 19:15:00 150 mm[Hg] [facility] Diastolic blood pressure 2024-07-01 19:15:00 92 mm[Hg] [facility] Heart rate 2024-07-01 19:15:00 97 /min [facility] Body temperature 2024-07-01 19:15:00 37.06 Arlet [facility] Respiratory rate 2024-07-01 19:15:00 22 /min [facility] Oxygen saturation in Arterial blood by Pulse oximetry 2024-07-01 19:15:00 98 /min [facility] Body height 2024-07-01 14:01:00 157.5 cm [facility] Body weight 2024-07-01 14:01:00 85.9 kg [facility] BMI 2024-07-01 14:01:00 34.64 kg/m2 [facility] Systolic blood pressure 2024-07-01 19:15:00 150 mm[Hg] [facility] Diastolic blood pressure 2024-07-01 19:15:00 92 mm[Hg] [facility] Heart rate 2024-07-01 19:15:00 97 /min [facility] Body temperature 2024-07-01 19:15:00 37.06 Arlet [facility] Respiratory rate 2024-07-01 19:15:00 22 /min [facility] Oxygen saturation in Arterial blood by Pulse oximetry 2024-07-01 19:15:00 98 /min [facility] Body height 2024-07-01 14:01:00 157.5 cm [facility] Body weight 2024-07-01 14:01:00 85.9 kg [facility] BMI 2024-07-01 14:01:00 34.64 kg/m2 [facility] Systolic blood pressure 2024-05-31 20:36:00 132 mm[Hg] [...] External Respiratory rate 2024-02-04 20:07:00 16 /min Tameal Seybold - External Body height 2024-02-04 20:07:00 [...] Body temperature 2023-11-04 19:54:00 37 Arlet Tamela Seybold - External Respiratory rate 2023-11-04 19:54:00 23 /min Tamela Seybold - External Body height 2023-11-04 19:54:00 157.5 cm Tamela Seybold - External Body weight 2023-11-04 19:54:00 90.266 kg Tamela Seybold - External BMI 2023-11-04 19:54:00 36.40 kg/m2 Tamela Seybold - External Systolic blood pressure 2023-08-05 19:49:00 129 mm[Hg] [facility] Diastolic blood pressure 2023-08-05 19:49:00 88 mm[Hg] [facility] Heart rate 2023-08-05 19:48:00 120 /min [facility] Respiratory rate 2023-08-05 19:48:00 18 /min [facility] Body height 2023-08-05 19:48:00 157.5 cm [facility] Body weight 2023-08-05 19:48:00 86.909 kg [facility] BMI 2023-08-05 19:48:00 35.04 kg/m2 [facility] Oxygen saturation in Arterial blood by Pulse oximetry 2023-08-05 19:48:00 98 /min [facility] Systolic blood pressure 2023-05-06 01:30:00 148 mm[Hg] [facility] Diastolic blood pressure 2023-05-06 01:30:00 106 mm[Hg] [facility] Heart rate 2023-05-06 01:30:00 93 /min [facility] Respiratory rate 2023-05-06 01:30:00 16 /min [facility] Oxygen saturation in Arterial blood by Pulse oximetry 2023-05-06 01:30:00 95 /min [facility] Body temperature 2023-05-05 21:15:00 36.89 Arlet [facility] Body height 2023-05-05 21:15:00 157.5 cm [facility] Body weight 2023-05-05 21:15:00 85.276 kg [facility] BMI 2023-05-05 21:15:00 34.39 kg/m2 [facility] Procedures Procedure Date / Time Performed Performing Clinician Source UA WITH CULTURE IF INDICATED 2024-07-01 17:28:00 Hetal, Ivonne Laguna [facility] CT ANGIOGRAM CHEST ABDOMEN PELVIS 2024-07-01 15:26:33 HetalIvonne ritchie [facility] BLOOD GAS, VENOUS 2024-07-01 14:29:00 HetalIvonne ritchie [facility] COMPREHENSIVE METABOLIC PANEL 2024-07-01 14:28:00 HetalIvonne ritchie [facility] LIPASE LEVEL 2024-07-01 14:28:00 HetalIvonne scott [facility] HCG TOTAL (QUANTITATIVE) 2024-07-01 14:28:00 Hetal, Ivonne Laguna [facility] COMPLETE BLOOD COUNT W/DIFF AND PLATELET 2024-07-01 14:28:00 Hetal, Ivonne Lecea [facility] PROCALCITONIN LEVEL 2024-07-01 14:28:00 Hetal, Ivonne [facility] TROPONIN I HIGH SENSITIVITY (SINGLE ORDER) 2024-07-01 14:28:00 Hetal, Ivonne [facility] LACTIC ACID WITH 2 HOUR REFLEX 2024-07-01 14:28:00 [facility] 2024-07-01 14:28:00 [facility] AUTOM[facility] DIFFERENTIAL 2024-07-01 14:28:00 Hetal, Ivonne [facility] Lactic acid with 2 Hours Reflex 2024-07-01 00:00:00 [facility] Urine Culture 2024-07-01 00:00:00 [facility] MAGNESIUM LEVEL 2024-06-09 05:35:00 [facility]OS[facility] 2024-06-09 05:35:00 Brittnee, Elías [facility] COMPLETE BLOOD COUNT W/DIFF AND PLATELET 2024-06-09 05:35:00 Barneveld, Elías [facility] AUTO DIFFERENTIAL - DATA CONV 2024-06-09 05:35:00 Barneveld, Elías [facility] COMPREHENSIVE METABOLIC PANEL 2024-06-09 05:35:00 Barneveld, Elías [facility] ANTIBODY SCREEN 2024-06-08 10:39:00 Charity Morel [facility] ABORH BLOOD TYPE 2024-06-08 10:39:00 Charity Morel [facility] HEMOGLOBIN A1C 2024-06-07 15:51:00 Brittnee, Elías [facility] COMPLETE BLOOD COUNT W/DIFF AND PLATELET 2024-06-07 15:51:00 Barneveld, Elías [facility] MANUAL DIFFERENTIAL 2024-06-07 15:51:00 Brittnee, Elías [facility] COMPREHENSIVE METABOLIC PANEL 2024-06-07 15:51:00 Elías Beaulieu [facility] CORTISOL AM 2023-09-03 15:02:00 Levi [facility] FREE T4 2023-09-03 15:02:00 Levi, [facility] THYROID STIMULATING HORMONE 2023-09-03 15:02:00 Levi [facility] BASIC METABOLIC PANEL (NA, K , CL, CO2, GLUCOSE, BUN, CREATININE, CA) 2023-09-03 15:02:00 Levi [facility] INTACT PTH CALCIUM GROUP 2023-09-03 15:02:00 Levi [facility] VITAMIN D, 25-OH 2023-09-03 15:02:00 Levi, [facility] FREE T3 2023-09-03 15:02:00 Levi [facility] BI SCREENING TOMOSYNTHESIS BILATERAL 2023-07-24 20:25:37 Requisition, Paper [facility] REFERRAL- REQUEST/RESPONSE 2023-06-06 05:01:00 Doctor Unassigned, [place] [facility] CT ABDOMEN PELVIS W WO CONTRAST 2023-05-16 20:33:04 Sarahy Cook [facility] NOTICE OF PRIVACY PRACTICES 2023-05-16 19:11:34 Doctor Unassigned, [place] [facility] CONSENT/REFUSAL FOR DIAGNOSI S AND TREATMENT 2023-05-16 19:11:17 Doctor Unassigned, [place] [facility] ASSIGNMENT OF BENEFITS 2023-05-16 19:10:49 Doctor Unassigned, [place] [facility] CBC WITH DIFF 2023-05-08 14:41:00 Sarahy Cook [facility] PHOSPHORUS 2023-05-08 14:41:00 Sarahy Cook [facility] GAMMA GLUTAMYLTRANSFERASE 2023-05-08 14:41:00 Sarahy Cook [facility] BILI UNCONJUGATED/BILI CONJUG 2023-05-08 14:41:00 Sarahy Cook [facility] FREE T4 2023-05-08 14:41:00 Sarahy Cook [facility] THYROID STIMULATING HORMONE 2023-05-08 14:41:00 Sarahy Cook [facility] COMP. METABOLIC PANEL (67131) 2023-05-08 14:41:00 Sarahy Cook [facility] SEDIMENTATION RATE 2023-05-08 14:41:00 Celio Mclean [facility] URINALYSIS 2023-05-08 14:41:[address] [facility] PROTEIN CREAT RATIO URINE RANDOM 2023-05-08 14:41:00 Celio Mclean [facility] CT ABDOMEN PELVIS WO CONTRAST 2023-05-05 23:14:21 Danae Grullon [facility] COMP. METABOLIC PANEL (32795) 2023-05-05 22:28:00 Danae Grullon [facility] CBC WITH DIFF 2023-05-05 22:28:00 Danae Grullon [facility] URINALYSIS 2023-05-05 22:24:00 Danae Grullon [facility] ASSIGNMENT OF BENEFITS 2023-05-05 21:34:15 Doctor Unassigned, [place] [facility] CONSENT/REFUSAL FOR DIAGNOSI S AND TREATMENT 2023-05-05 21:05:37 Doctor Unassigned, [place] [facility] ASSIGNMENT OF BENEFITS 2022-07-18 22:46:03 Doctor Unassigned, [place] [facility] PHYSICIAN ORDERS 2022-05-22 05:01:00 Doctor Unassigned, [place] [facility] RENAL PANEL 2022-05-11 14:31:00 Melanie Olivera [facility] BILI UNCONJUGATED/BILI CONJUG 2022-05-11 14:31:00 Melanie Olivera [facility] COMP. METABOLIC PANEL (01085) 2022-05-11 14:31:00 Sarahy Cook [facility] LIPID PANEL (03053)(TOTAL CHOLESTEROL, TRIGLYCERIDES, HDL) 2022-05-11 14:31:00 Sarahy Cook [facility] CBC WITH DIFF 2022-05-11 14:31:00 Sarahy Cook [facility] PHYSICIAN ORDERS 2022-05-11 05:01:00 Doctor Unassigned, [place] [facility] MAMMOGRAM, BILATERAL-DIAGNOSTIC 2006-04-14 15:31:00 Emma Conway [facility] ECG 12 lead [facility] INJECTION SINGLE/SHOVELER TRIGGER POINT 1/2 MUSCLES Tamela Moody - External Plan of Care Planned Activity Planned Date Details Comments Source Encounters Start Date/Time End Date/Time Encounter Type Admission Type Attending [facility] Facility Care Department Encounter ID Source 2025-08-26 15:30:00 2025-08-26 15:30:00 Outpatient PASCUAL LE[facility]N [id number] [facility]-09 16:00:00 2025-08-09 16:00:00 Outpatient RAJ MAURER [id number] Tamela [facility] 2025-08-01 14:30:00 2025-08-01 14:30:00 Outpatient LAURIE SWAN [id number] Tamela [facility] 2025-07-20 15:45:00 2025-07-20 15:45:00 Outpatient KEO MONSIVAIS [id number] Tamela [facility] 2025-06-06 00:00:00 2025-06-06 00:00:00 Outpatient PASCUAL LEÓN [id number] Tamela [facility] 2025-05-24 15:45:00 2025-05-24 15:45:00 Outpatient PASCUAL LEÓN [id number] Tamela [facility] 2025-05-24 00:00:00 2025-05-24 00:00:00 Outpatient TAMELA SINGH [id number] [facility] 2025-04-29 09:40:00 2025-04-29 09:40:00 Outpatient PASCUAL LEÓN [id number] [facility] 2025-04-29 07:45:00 2025-04-29 07:45:00 Outpatient TAMELA SINGH [id number] Tamela [facility] 2025-04-22 14:30:00 2025-04-22 14:30:00 Outpatient LEANDRO7 [facility] SINGH [id number] [facility] 2025-04-22 00:00:00 2025-04-22 00:00:00 Outpatient TAMELA SINGH [id number] Tamela Seybold 2025-04-20 00:00:00 2025-04-20 00:00:00 Outpatient KEO MONSIVAIS [facility]A SINGH [id number] [facility] 2025-04-18 00:00:00 2025-04-18 00:00:00 Outpatient KEO MONSIVAIS [facility] SINGH [id number] [facility] 2025-04-18 00:00:00 2025-04-18 00:00:00 Outpatient ROBERTOSCAR [facility]ELA SINGH [id number] [facility] 2025-04-13 00:00:00 2025-04-13 00:00:00 Outpatient ANSOANPASCUAL FLOREZ [id number] [facility] 2025-04-13 00:00:00 2025-04-13 00:00:00 Outpatient ANSOANPASCUAL FLOREZ [id number] Tamela Seybold 2025-04-12 00:00:00 2025-04-12 00:00:00 Outpatient ANSOANELDARPASCUAL [id number] Tamela Seybold 2025-04-07 00:00:00 2025-04-07 00:00:00 Outpatient ANSOANPASCUAL FLOREZ [id number] Tamela Seybold 2025-04-07 00:00:00 2025-04-07 00:00:00 Outpatient ANSOANPASCUAL FLOREZ [id number] Tamela Seybold 2025-04-06 15:45:00 2025-04-06 15:45:00 Outpatient RAJ MAURER [id number] Tamela Seybold 2025-04-05 16:00:00 2025-04-05 16:00:00 Outpatient ANSOANUURPASCUAL [id number] Tamela Seybold 2025-03-30 14:45:2025-03-30 14:45:00 Outpatient TAMELA SINGH [id number] Tamela [facility] 2025-03-25 00:00:00 2025-03-25 00:00:00 Outpatient SARAHTAYLOR TAMELA SINGH [id number] Tamela [facility] 2025-03-24 15:15:00 2025-03-24 15:15:00 Outpatient CARIMARLENERAJ Florentino TAMELA SINGH [id number] Tamela [facility] 2025-03-16 15:30:00 2025-03-16 15:30:00 Outpatient KEO MONSIVAIS TAMELA SINGH [id number] Tamela [facility] 2025-03-15 16:45:00 2025-03-15 16:45:00 Outpatient TAMELA SINGH [id number] [facility] 2025-02-28 00:00:00 2025-02-28 00:00:00 Outpatient KINGSTONRAJ TAMELA SINGH [id number] [facility] 2025-02-25 19:40:00 2025-02-25 20:51:00 Emergency Emergency [facility] General Medicine [id number] [facility] 2025-02-25 19:40:00 2025-02-25 20:51:00 Emergency [place], [facility] [id number] [facility] 2025-02-18 14:00:00 2025-02-18 14:00:00 Outpatient RAJ MAURER TAMELA SINGH [id number] Tamela [facility] 2025-02-10 16:30:00 2025-02-10 16:30:00 Outpatient KINGSTON RAJ TAMELA SINGH [id number] [facility] 2025-02-10 00:00:00 2025-02-10 00:00:00 Outpatient TAYLOR SMITH [id number] [facility] 2025-02-10 00:00:00 2025-02-10 00:00:00 Outpatient OSCAR JONES [id number] Tamela Seybold 2025-02-09 16:35:00 2025-02-09 16:35:00 Outpatient LABSandhya TAMELA SINGH [id number] Tamela Seybold 2025-02-09 16:00:00 2025-02-09 16:00:00 Outpatient OSCAR JONES TAMELA SINGH [id number] Tamela Seybold 2025-02-08 00:00:00 2025-02-08 00:00:00 Outpatient TAYLOR SMITH [id number] Tamela Seybold 2025-02-01 00:00:00 2025-02-01 00:00:00 Outpatient DANAE GRULLON [id number] Tamela Seybold 2025-01-28 14:30:00 2025-01-28 14:30:00 Outpatient DANAE GRULLON [id number] Tamela Seybold 2025-01-28 00:00:00 2025-01-28 00:00:00 Outpatient MD TAMELA HASTINGS [id number] Tamela Seybold 2025-01-25 00:00:00 2025-01-25 00:00:00 Outpatient TAYLOR SMITH [id number] Tamela Seybold 2025-01-13 15:30:00 2025-01-13 15:30:00 Outpatient LAURIE SWAN [id number] Tamela Seybold 2025-01-12 00:00:00 2025-01-12 00:00:00 Outpatient RAJ MAURER [id number] Tamela Seybold 2025-01-12 00:00:00 2025-01-12 00:00:00 Outpatient KEO MONSIVAIS [id number] Tamela Seybold 2025-01-11 00:00:00 2025-01-11 00:00:00 Outpatient TAYLOR SMITH [id number] Tamela Seybold 2025-01-07 15:45:00 2025-01-07 15:45:00 Outpatient LAB47 TAMELA SINGH [id number] Tamela Seybadam 2025-01-07 15:00:00 2025-01-07 15:00:00 Outpatient IZABEL GREGORIO [id number] Tamela Seadam 2025-01-07 00:00:00 2025-01-07 00:00:00 Outpatient MD TAMELA HASTINGS [id number] Tamela Moody 2025-01-06 00:00:00 2025-01-06 00:00:00 Outpatient MD TAMELA HASTINGS [id number] [facility]-06 00:00:00 2025-01-06 00:00:00 Outpatient LAURIE SWAN [id number] Tamela [facility] 2025-01-04 00:00:00 2025-01-04 00:00:00 Outpatient TAMELA SINGH [id number] Tamela [facility] 2025-01-04 00:00:00 2025-01-04 00:00:00 Outpatient MD TAMELA HASTINGS [id number] Tamela [facility] 2024-12-31 00:00:00 2024-12-31 00:00:00 Outpatient TAYLOR SMITH [id number] Tamela [facility] 2024-12-16 15:45:00 2024-12-16 15:45:00 Outpatient YURIY PEDERSEN [id number] Tamela [facility] 2024-12-14 15:45:00 2024-12-14 15:45:00 Outpatient KEO MONSIVAIS [id number] [facility] 2024-12-14 15:00:00 2024-12-14 15:00:00 Outpatient SARAHY PAUL [id number] [facility] 2024-12-13 10:45:00 2024-12-13 10:45:00 Outpatient YURIY PEDERSEN [id number] [facility] 2024-12-13 00:00:00 2024-12-13 00:00:00 Outpatient RAJ MAURER [id number] Tamela Seybold 2024-12-10 00:00:00 2024-12-10 00:00:00 Outpatient MD TAMELA HASTINGS [id number] Tamela Seybold 2024-12-10 00:00:00 2024-12-10 00:00:00 Outpatient CARIDEA RAJ SINGH [id number] Tamela Seybold 2024-12-07 15:45:00 2024-12-07 15:45:00 Outpatient SARAH TAYLOR TAMELA SINGH [id number] Tamela Seybold 2024-12-01 00:00:00 2024-12-01 00:00:00 Outpatient KINGSTON RAJ SINGH [id number] [facility] 2024-11-25 00:00:00 2024-11-25 00:00:00 Outpatient SERINA BLOOM [id number] Tamela Seybold 2024-11-23 14:45:00 2024-11-23 14:45:00 Outpatient MITRA MONSIVAISKCHELSEY SINGH [id number] Tamela Seybold 2024-11-23 14:20:00 2024-11-23 14:20:00 Outpatient SARWAT SINGH [id number] Tamela Seybold 2024-11-23 00:00:00 2024-11-23 00:00:00 Outpatient LAURIE SWAN [id number] Tamela Seybold 2024-11-23 00:00:00 2024-11-23 00:00:00 Outpatient BENY MIGUELABBIE SINGH [id number] Tamela Seybold 2024-11-18 11:30:00 2024-11-18 11:30:00 Outpatient KINGSTON RAJ TAMELA SINGH [id number] Tamela Seybold 2024-11-17 09:59:00 2024-11-17 09:59:00 Outpatient YURIY PEDERSEN [id number] Tamela Seybold 2024-11-17 07:50:00 2024-11-17 07:50:00 Outpatient TAMELA SINGH [id number] Tamela [facility] 2024-11-17 00:00:00 2024-11-17 00:00:00 Outpatient TAMELA SINGH [id number] Tamela [facility] 2024-11-12 00:00:00 2024-11-12 00:00:00 Outpatient YURIY PEDERSEN TAMELA SINGH [id number] Tamela Moody 2024-11-08 15:45:00 2024-11-08 15:45:00 Outpatient TAMELA SINGH [id number] Tamela [facility] 2024-11-06 00:00:00 2024-11-06 00:00:00 Outpatient SERINA BLOOM [id number] Tamela Moody 2024-11-05 00:00:00 2024-11-05 00:00:00 Outpatient SERINA BLOOM [id number] Tamela Hammeradam 2024-11-03 15:45:00 2024-11-03 15:45:00 Outpatient BLADIMIR WINKLER TAMELA SINGH [id number] [facility] 2014-11-30 00:00:00 2024-10-23 04:30:46 Orders Only Doctor Unassigned, [place] Doctor Unassigned, [place] [facility] [id number] [facility] 2024-10-21 15:00:00 2024-10-21 15:00:00 Outpatient YURIY PEDERSEN TAMELA SINGH [id number] [facility] 2024-10-20 00:00:00 2024-10-20 00:00:00 Outpatient SERINA BLOOM [id number] Tamela adam 2024-10-20 00:00:00 2024-10-20 00:00:00 Outpatient SERINA BLO[facility] [id number] [facility] 2024-10-18 15:00:00 2024-10-18 15:00:00 Outpatient SERINA BLOOM [id number] Tamela [facility] 2024-10-11 16:00:00 2024-10-11 16:00:00 Outpatient LAB47 TAMELA SINGH [id number] Tamela Seybold 2024-10-11 15:30:00 2024-10-11 15:30:00 Outpatient LAURIE SWAN TAMELA SINGH [id number] Tamela Seybold 2024-10-07 10:00:00 2024-10-07 10:00:00 Outpatient LAURIE SWAN TAMELA SINGH [id number] Tamela Seybold 2024-10-07 00:00:00 2024-10-07 00:00:00 Outpatient BLADIMIR WINKLER TAMELA SINGH [id number] Tamela Seybold 2024-10-06 16:00:00 2024-10-06 16:00:00 Outpatient LAB45 TAMELA SINGH [id number] Tamela Seybold 2024-10-06 15:00:00 2024-10-06 15:00:00 Outpatient BLADIMIR WINKLER TAMELA SINGH [id number] Tamela Seybold 2024-09-27 00:00:00 2024-09-27 00:00:00 Outpatient JORGE IGNACIO [id number] Tamela Seybold 2024-09-23 00:00:00 2024-09-23 00:00:00 Outpatient SERINA BLOOM [id number] Tamela Seybold 2024-09-23 00:00:00 2024-09-23 00:00:00 Outpatient SERINA BLOOM [id number] Tamela Seybold 2024-09-15 10:40:00 2024-09-15 10:40:00 Outpatient YURIY PEDERSEN [id number] Tamela Seybold 2024-09-15 07:55:00 2024-09-15 07:55:00 Outpatient TAMELA SINGH [id number] Tamela Seybold 2024-09-15 00:00:00 2024-09-15 00:00:00 Outpatient TAMELA SINGH [id number] Tamela Seybold 2024-09-09 00:00:00 2024-09-09 00:00:00 Outpatient TAMELA SINGH [id number] Tamela Seybold 2024-09-06 00:00:00 2024-09-06 00:00:00 Outpatient BLADIMIR WINKLER TAMELA SINGH [id number] Tamela Seybold 2024-09-06 00:00:00 2024-09-06 00:00:00 Outpatient BLADIMIR WINKLER TAMELA SINGH [id number] Tamela Seybold 2024-08-31 00:00:00 2024-08-31 00:00:00 Outpatient MD [facility]ELA HASTINGS [id number] [facility] 2024-08-26 10:00:00 2024-08-26 10:00:[address] [facility] TAMELA SINGH [id number] Tamela Seybold 2024-08-24 00:00:00 2024-08-24 00:00:00 Outpatient LAURIE SWAN [id number] Tamela Seybold 2024-08-13 00:00:00 2024-08-13 00:00:00 Outpatient TAMELA SINGH [id number] Tamela Seybold 2024-08-09 09:20:00 2024-08-09 09:20:00 Outpatient TAMELA SINGH [id number] Tamela Seybold 2024-08-05 00:00:00 2024-08-05 00:00:00 Outpatient LAURIE SWAN [id number] Tamela Seybold 2024-08-04 00:00:00 2024-08-04 00:00:00 Outpatient MD TAMELA HASTINGS [id number] Tamela Seybold 2024-08-04 00:00:00 2024-08-04 00:00:00 Outpatient SERINA BLOOM [id number] Tamela Seybold 2024-08-04 00:00:00 2024-08-04 00:00:00 Outpatient MD TAMELA HASTINGS [id number] Tamela Seybold 2024-08-02 00:00:00 2024-08-02 00:00:00 Outpatient LAURIE SWAN [id number] Tamela Seybold 2024-07-30 15:00:00 2024-07-30 15:00:00 Outpatient BLADIMIR WINKLERSEY [id number] [facility] 2024-07-28 09:15:00 2024-07-28 09:15:00 Outpatient SERINA BLOOMSEY [id number] Tamela Seybold 2024-07-22 11:45:00 2024-07-22 11:45:00 Outpatient LABSandhya ZENGSEY [id number] Tamela Seybold 2024-07-22 11:00:00 2024-07-22 11:00:00 Outpatient LAURIE SWANSEY [id number] Tamela Seybold 2024-07-19 00:00:00 2024-07-19 00:00:00 Outpatient LAURIE SWAN TAMELA [id number] [facility] 2024-07-14 00:00:00 2024-07-14 00:00:00 Outpatient LAURIE SWAN TAMELA [id number] [facility] 2024-07-12 16:00:00 2024-07-12 16:00:00 Outpatient LABSandhya SINGH [id number] [facility] 2024-07-12 15:30:00 2024-07-12 15:30:00 Outpatient LAURIE SWAN TAMELA [id number] [facility] 2024-07-06 00:00:00 2024-07-06 00:00:00 Outpatient LAURIE SWAN TAMELA [id number] [facility] 2024-07-01 14:12:00 2024-07-01 19:36:00 Emergency Charity Spence [facility] 1.2.840.114 350.1.13.70 8.2.7.2.686 [id number] [facility] 2024-07-01 14:12:00 2024-07-01 19:36:00 Emergency Emergency CHARITY SPENCE [facility] General Medicine [id number] [facility] 2024-06-29 00:00:00 2024-06-29 00:00:00 Outpatient LAURIE SWAN TAMELA SINGH [id number] [facility] 2024-06-24 00:00:00 2024-06-24 00:00:00 Outpatient ELÍAS BEAULIEU TAMELA SINGH [id number] [facility] 2024-06-23 14:00:00 2024-06-23 14:00:00 Outpatient ELÍAS BEAULIEU TAMELA SINGH [id number] [facility] 2024-06-18 00:00:00 2024-06-18 00:00:00 Outpatient LAURIE SWAN TAMELA SINGH [id number] [facility] 2024-06-17 15:45:00 2024-06-17 15:45:00 Outpatient RAJ MAURER TAMELA SINGH [id number] [facility] 2024-06-17 15:15:00 2024-06-17 15:15:00 Outpatient RAMSEYEMIL ALMANZAR TAMELA SINGH [id number] [facility] 2024-06-15 00:00:00 2024-06-15 00:00:00 Outpatient ELÍAS BEAULIEU TAMELA SINGH [id number] [facility] 2024-06-15 00:00:00 2024-06-15 00:00:00 Outpatient MD TAMELA HASTINGS [id number] [facility] 2024-06-10 00:00:00 2024-06-10 00:00:00 Outpatient BLADIMIR WINKLER [id number] [facility] 2024-06-08 14:29:00 2024-06-09 13:40:00 Inpatient Urgent ELÍAS BEAULIEU [facility] [id number] [facility] 2024-06-08 14:29:00 2024-06-09 13:40:00 Inpatient ANA LEAL [facility] [id number] [facility] 2024-06-08 14:29:00 2024-06-09 13:40:00 Hospital Encounter Elías Beaulieu [facility] 1.2.840.114 350.1.13.70 8.2.7.2.686 [id number] Lisa Levin [facility] 2024-06-09 00:00:00 2024-06-09 00:00:00 Outpatient ANA LEAL TAMELA SINGH [id number] Tamela [facility] 2024-06-08 12:00:00 2024-06-08 12:00:00 Outpatient BRITTNEEELÍAS HURST TAMELA SINGH [id number] [facility] 2024-06-08 00:00:00 2024-06-08 00:00:00 Outpatient ANA LEAL TAMELA SINGH [id number] Tamela [facility] 2024-05-31 15:45:00 2024-05-31 15:45:00 Outpatient YOELAnn MIGUELABBIE SINGH [id number] [facility] 2024-05-31 00:00:00 2024-05-31 00:00:00 Outpatient MD TAMELA HASTINGS [id number] [facility] 2024-05-31 00:00:00 2024-05-31 00:00:00 Outpatient ELÍAS BEAULIEU [id number] [facility] 2024-05-30 00:00:00 2024-05-30 00:00:00 Outpatient TAMELA SINGH [id number] Tamela [facility] 2024-05-20 00:00:00 2024-05-20 00:00:00 Outpatient ELÍAS BEAULIEU [id number] [facility] 2024-05-18 15:20:00 2024-05-18 15:20:00 Outpatient RONNIE NOYOLA [id number] [facility]-18 14:00:00 2024-05-18 14:00:00 Outpatient TAMELA SINGH [id number] [facility] 2024-05-06 15:00:00 2024-05-06 15:00:00 Outpatient BLADIMIR WINKLER [id number] [facility] 2024-05-05 15:00:00 2024-05-05 15:00:00 Outpatient ELÍAS BEAULIEU TAMELA SINGH [id number] Tamela Seybold 2024-05-03 15:45:00 2024-05-03 15:45:00 Outpatient SERINA BLOOM [id number] Tamela Seybold 2024-04-05 00:00:00 2024-04-05 00:00:00 Outpatient LAURIE SWAN [id number] Tamela Seybold 2024-03-31 14:00:00 2024-03-31 14:00:00 Outpatient ELÍAS BEAULIEU TAMELA SINGH [id number] Tamela Seybold 2024-03-31 00:00:00 2024-03-31 00:00:00 Outpatient ELÍAS BEAULIEU TAMELA SINGH [id number] [facility] 2024-03-29 16:35:00 2024-03-29 16:35:00 Outpatient SARWAT SINGH [id number] [facility] 2024-03-29 16:00:00 2024-03-29 16:00:00 Outpatient LAURIE SWAN [id number] Tamela Seybold 2024-03-29 00:00:00 2024-03-29 00:00:00 Outpatient LAURIE SWAN [id number] [facility] 2024-03-17 15:00:00 2024-03-17 15:00:00 Outpatient EMIL RAMSEY [id number] Tamela Seybold 2024-03-16 14:30:00 2024-03-16 14:30:00 Outpatient RAJ MAURER [id number] Tamela Seybold 2024-03-01 15:45:00 2024-03-01 15:45:00 Outpatient SERINA BLOOM [id number] Tamela Seybold 2024-02-12 00:00:00 2024-02-12 00:00:00 Outpatient LAUREI SWAN [id number] Tamela Seybold 2024-02-11 00:00:00 2024-02-11 00:00:00 Outpatient LAURIE SWAN TAMELA SINGH [id number] Tamela Seybold 2024-02-11 00:00:00 2024-02-11 00:00:00 Outpatient GERTRUDIS TARIQ TAMELA SINGH [id number] Tamela Seybold 2024-02-09 15:00:00 2024-02-09 15:00:00 Outpatient LAB47 TAMELA SINGH [id number] Tamela Seybold 2024-02-06 15:45:00 2024-02-06 15:45:00 Outpatient LAB47 TAMELA TAMELA [id number] Tamela Seybold 2024-02-06 15:00:00 2024-02-06 15:00:00 Outpatient TAMELA SINGH [id number] Tamela Seybold 2024-02-06 13:55:00 2024-02-06 13:55:00 Outpatient LAB47 TAMELA SINGH [id number] Tamela Seybold 2024-02-06 00:00:00 2024-02-06 00:00:00 Outpatient MORALES ALBRIGHT TAMELA SINGH [id number] Tamela Seybold 2024-02-04 15:30:00 2024-02-04 15:30:00 Outpatient BLADIMIR WINKLER TAMELA SINGH [id number] Tamela Seybold 2024-01-27 00:00:00 2024-01-27 00:00:00 Outpatient LAURIE SWAN TAMELA SINGH [id number] Tamela Seybold 2024-01-20 00:00:00 2024-01-20 00:00:00 Outpatient LAURIE SWAN TAMELA SINGH [id number] Tamela Seybold 2024-01-19 16:00:00 2024-01-19 16:00:00 Outpatient SERINA BLOOM [id number] Tamela Seybold 2024-01-15 16:00:00 2024-01-15 16:00:00 Outpatient LAB47 TAMELA SINGH [id number] Tamela Seybold 2024-01-14 00:00:00 2024-01-14 00:00:00 Outpatient TAMELA SINGH [id number] Tamela Seybold 2024-01-13 00:00:00 2024-01-13 00:00:00 Outpatient BENY, LAURIE SINGH TAMELA [id number] Tamela Seybold 2024-01-13 00:00:00 2024-01-13 00:00:00 Outpatient BENY, LAURIE SINGH TAMELA [id number] Tamela Seybold 2024-01-13 00:00:00 2024-01-13 00:00:00 Outpatient BENY, LAURIE SINGH TAMELA [id number] Tamela Seybold 2024-01-13 00:00:00 2024-01-13 00:00:00 Outpatient BENY, LAURIE SINGH TAMELA [id number] Tamela Seybold 2024-01-12 15:30:00 2024-01-12 15:30:00 Outpatient TAMELA SINGH [id number] Tamela Seybold 2024 10:50:00 2024 10:50:00 Outpatient LABSandhya SINGH [id number] Tamela Seybold 2024-01-07 15:00:00 2024-01-07 15:00:00 Outpatient RAMSEYEMIL TAMELA SINGH [id number] Tamela Seybold 2023-12-22 00:00:00 2023-12-22 00:00:00 Outpatient RAJ MAURER [id number] Tamela Seybold 2023-12-19 00:00:00 2023-12-19 00:00:00 Outpatient RAJ MAURER [id number] Tamela Seybold 2023-12-19 00:00:00 2023-12-19 00:00:00 Outpatient TAMELA SINGH [id number] Tamela Seybold 2023-12-18 15:45:00 2023-12-18 15:45:00 Outpatient LUHALURIE PETER TAMELA SINGH [id number] Tamela Seybold 2023-12-17 15:15:00 2023-12-17 15:15:00 Outpatient SERINA BLOOM [id number] Tamela Seybold 2023-12-15 14:15:00 2023-12-15 14:15:00 Outpatient RAJ MAURER TAMELA SINGH [id number] Tamela Seybadam 2023-12-12 00:00:00 2023-12-12 00:00:00 Outpatient PETERSON BLADIMIR SINGH [id number] Tamela Seybadam 2023-12-05 00:00:00 2023-12-05 00:00:00 Outpatient BLADIMIR WINKLER TAMELA SINGH [id number] Tamela Seybadam 2023-11-28 00:00:00 2023-11-28 00:00:00 Outpatient WINKLERBLADIMIR Parra TAMELA SINGH [id number] Tamela Seybadam 2023-11-27 14:45:00 2023-11-27 14:45:00 Outpatient [facility]ELA SINGH [id number] [facility] 2023-11-27 14:40:00 2023-11-27 14:40:00 Outpatient TAMELA SINGH [id number] [facility] 2023-11-27 14:35:00 2023-11-27 14:35:00 Outpatient TAMELA SINGH [id number] [facility] 2023-11-27 14:30:00 2023-11-27 14:30:00 Outpatient LAB47 TAMELA SINGH [id number] [facility] 2023-11-25 15:30:00 2023-11-25 15:30:00 Outpatient RAGHAVENDRA HANNA [facility] [id number] [facility] 2023-11-11 15:05:00 2023-11-11 15:05:00 Outpatient TAMELA SINGH [id number] [facility] 2023-11-11 15:00:00 2023-11-11 15:00:00 Outpatient RONNIE NOYOLA TAMELA SINGH [id number] Tamela Seybold 2023-11-05 16:20:00 2023-11-05 16:20:00 Outpatient LAB45 TAMELA SINGH [id number] Tamela Seybold 2023-11-05 15:30:00 2023-11-05 15:30:00 Outpatient BLADIMIR WINKLER [id number] Tamela Seybold 2023-11-04 14:00:00 2023-11-04 14:00:00 Outpatient RAJ MAURER [id number] Tamela Moody 2023-09-03 08:00:00 2023-09-03 08:15:00 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, 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 Levi [facility] [employer] 1.2.840.114 350.1.13.10 4.2.7.2.686 [id number] [facility] 2023-09-03 08:00:00 2023-09-03 08:00:00 Outpatient R LEVI [facility] [id number] [facility] 2023-08-05 14:00:00 2023-08-05 14:50:24 Outpatient R LEVI [facility] [id number] [facility] 2023-08-05 14:00:00 2023-08-05 14:50:24 Office Visit [facility] 1.2.840.114 350.1.13.10 4.2.7.2.686 [id number] [facility] 2023-07-24 14:05:59 2023-07-24 23:59:00 Hospital Encounter Morales Albright [facility] 1.2.840.114 350.1.13.10 4.2.7.2.686 [id number] [facility] 2023-07-24 14:03:47 2023-07-24 14:04:00 Outpatient R RADIOLOGY [facility] [id number] [facility] 2023-07-24 14:03:47 2023-07-24 14:04:00 Hospital Encounter Radiology [facility] 1.2.840.114 350.1.13.10 4.2.7.2.686 [id number] [facility] 2023-07-17 00:00:00 2023-07-17 00:00:00 Outpatient R RADIOLOGY [facility] [id number] [facility] 2023-07-08 14:00:00 2023-07-08 14:00:00 Outpatient R FAUSTINO STINSON [facility] [id number] [facility] 2023-06-06 00:00:00 2023-06-06 00:00:00 Orders Only Doctor Unassigned, [place] [facility] 1..840.114 350.1.13.10 4.2.7.2.686 [id number] [facility] 2023-05-16 14:11:26 2023-05-16 23:59:00 Outpatient R RADIOLOGY [facility] [id number] [facility] 2023-05-16 14:11:26 2023-05-16 23:59:00 Hospital Encounter Radiology [facility] 1..840.114 350.1.13.10 4.2.7.2.686 [id number] [facility] 2023-05-13 00:00:00 2023-05-13 00:00:00 Outpatient R RADIOLOGY [facility] [id number] [facility] 2023-05-08 09:45:00 2023-05-08 10:00:00 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, 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 Charity Moon [facility] 1..840.114 350.1.13.10 4.2.7.2.686 [id number] [facility] 2023-05-08 09:45:00 2023-05-08 09:45:00 Outpatient R CHARITY MOON [facility] [id number] [facility] 2023-05-05 16:17:00 2023-05-05 20:43:00 Emergency X DANAE GRULLON [facility] ERT [id number] [facility] 2023-05-05 16:17:00 2023-05-05 20:43:00 Emergency Danae Grullon [facility] 1.2.840.114 350.1.13.10 4.2.7.2.686 [id number] [facility] 2022-07-18 16:47:32 2022-07-18 23:59:00 Outpatient R RADIOLOGY [facility] [id number] [facility] 2022-07-18 16:47:32 2022-07-18 23:59:00 Hospital Encounter Radiology [facility] 1.2.840.114 350.1.13.10 4.2.7.2.686 [id number] [facility] 2022-07-18 00:00:00 2022-07-18 00:00:00 Orders Only Doctor Unassigned, [place] 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 1.2.114 350.1.13.10 4.2.7.2.686 [id number] [facility] 2022-04-22 00:00:00 2022-04-22 00:00:00 Outpatient R RADIOLOGY [facility] [id number] [facility] 2021-12-18 20:11:00 2021-12-19 01:25:00 [facility] 1.84.114 350.1.13.10 4.2.7.2.686 [id number] [facility] 2021-12-18 20:11:00 2021-12-19 01:25:00 Emergency [facility] [id number] [facility] 2021-08-14 00:00:00 2021-08-14 00:00:00 Patient Secure Msg Doctor Unassigned, [place] [facility] 1.284.114 350.1.13.10 4.2.7.2.686 [id number] [facility] 2021-08-13 16:13:00 2021-08-13 18:06:00 Emergency X TORRI PACHECO [facility] ERT [id number] [facility] 2021-08-13 16:13:00 2021-08-13 18:06:00 Emergency Torri Pacheco [facility] 1.2.840.114 350.1.13.10 4.2.7.2.686 [id number] [facility] 2020-11-23 00:00:00 2020-11-23 00:00:00 Outpatient R YING CADENA [facility] [id number] [facility] 2020-06-05 14:40:00 2020-06-05 14:40:00 Outpatient R [facility] [id number] [facility] 2020-03-22 14:45:00 2020-03-22 14:45:00 Outpatient R NOEL SAMPSON [facility] [id number] [facility] 2020-02-21 14:03:27 2020-02-21 23:59:00 Outpatient R OBDULIA BOOTH [facility] [id number] [facility] 2020-02-07 14:30:00 2020-02-07 14:30:00 Outpatient R OBDULIA BOOTH [facility] [id number] [facility] 2019-12-13 14:30:00 2019-12-13 14:30:00 Outpatient R WILLIAM OSORIO [facility] [id number] [facility] 2019-12-01 10:42:24 2019-12-01 12:03:00 Emergency X JAYSHREE BUSCH [facility] ERT [id number] [facility] Results Test Description Test Time Test Comments Results Result Co mments Source [facility] w/Diff and [id number] 06:43:31 * Test Item Value Reference Range Interpretation Comme nts WBC (test code = 5420954517) 12.25 10^3/uL 4.15-10.55 H NRBC % (test code = 6504170461) See_Comment Reference range for Pediatrics not established. [Automated message] The system which generated this result transmitted reference range: 0.0 - 0.0 /100WB. The reference range was not used to interpret this result as normal/abnormal. RBC (test code = 3300636849) 4.31 10^6/ul 3.74-5.22 Hgb (test code = 4954202292) 13.6 g/dL 10.8-14.8 Hct (test code = 8944470412) 42.3 % 33.9-45.4 MCV (test code = 6356042736) 98.1 fL 77.8-97.5 H MCH (test code = 6993060710) 31.6 pg 24.9-32.6 MCHC (test code = 4439365866) 32.2 g/dL 30.1-35.0 RDW - SD (test code = 0990772946) 56.8 fL 37.6-49.1 H Plt Count (test code = 0009082369) 247 10^3/uL 191-422 MPV (test code = 5324248132) 10.7 fL 9.0-12.6 Lab Interpretation (test code = 35856-7) Abnormal [facility] EpicComprehensive Metabolic [id number] 06:26:06* Test Item Value Reference Range Interpretation Comme nts Sodium Lvl (test code = 9239445942) See_Comment [Automated messa ge] The system which generated this result transmitted reference range: 136 - 145 mEq/L. The reference range was not used to interpret this result as normal/abnormal. Potassium Lvl (test code = 8755578454) See_Comment L The pediatric reference ranges for this test represent a CLSI-based transference of the Siemens study of pediatric reference intervals for the Siemens Atellica analyzer (CLSI EP28). [facility] has not internally validated these reference ranges and therefore they should be used only in the context of a thorough clinical assessment. [Automated message] The system which generated this result transmitted reference range: 3.4 - 4.5 mEq/L. The reference range was not used to interpret this result as normal/abnormal. Chloride Lvl (test code = 5860436987) See_Comment [Automated [employer]] The system which generated this result transmitted reference range: 98 - 107 mEq/L. The reference range was not used to interpret this result as normal/abnormal. CO2 Lvl (test code = 1346610388) See_Comment [Automated [employer]] The system which generated this result transmitted reference range: 20.0 - 31.0 mEq/L. The reference range was not used to interpret this result as normal/abnormal. Anion Gap (test code = 3331513265) See_Comment [Automated [employer]] The system which generated this result transmitted reference range: 10.0 - 20.0 mEq/L. The reference range was not used to interpret this result as normal/abnormal. Glucose Lvl (test code = 2052479307) 90 mg/dL 70-99 Adult reference range values reflect the clinical guidelines of the [place] [employer]. The pediatric reference ranges for this test represent a CLSI-based transference of the Siemens study of pediatric reference intervals for the Siemens Atellica analyzer (CLSI EP28). ?[facility] has not internally validated these reference ranges and therefore they should be used only in the context of a thorough clinical assessment. Creatinine Lvl (test code = 5871045969) 0.63 mg/dL 0.55-1.02 BUN (test code = 7015780105) 10 mg/dL 9-23 B/C Ratio (test code = 6836393499) 6-25 Total Protein (test code = 9669503690) 5.4 g/dL 5.7-8.2 L Albumin Lvl (test code = 8757398644) 2.9 g/dL 3.4-5.0 L Globulin (test code = 1906200151) 2.5 g/dL 2.0-4.0 Albumin/Globulin Ratio (test code = 8151390267) 0.7-1.6 Calcium Lvl (test code = 3400829414) 7.9 mg/dL 8.3-10.6 L ALT (test code = 5520801296) 48 U/L 7-40 H AST (test code = 3047302261) 30 U/L 12-40 Bilirubin Total (test code = 2776626380) 0.7 mg/dL 0.30-1.20 The pediatric reference ranges for this test represent a CLSI-based transference of the Siemens study of pediatric reference intervals for the Siemens Atellica analyzer (CLSI EP28). [facility] has not internally validated these reference ranges and therefore they should be used only in the context of a thorough clinical assessment. Alkaline Phosphatase (test code = 3179438688) 108 U/L 46-116 eGFR (test code = 0003634275) mL/min/1.73m2 The eGFR is calculated using the [...] estimated BMI. Lab Interpretation (test code = 16881-3) Abnormal [place] [facility] EpicMagnesium Ghqxn4521-28-58 06:26:06* Test Item Value Reference Range Interpretation Comme nts Magnesium Lvl (test code = 6053718350) 1.79 mg/dL 1.60-2.60 [facility] EpicPhosphorus Rhqwr6050-13-90 06:26:06* Test Item Value Reference Range Interpretation Comme nts Phosphorus Lvl (test code = 0208444770) 3.4 mg/dL 2.4-5.1 [facility] EpicAntibody Cphxwr9824-81-18 11:34:28* Test Item Value Reference Range Interpretation Comme nts Antibody Screen (test code = 8069045730) Negative [facility] Ibse0416-84-24 11:23:36* Test Item Value Reference Range Interpretation Comme nts ABO/Rh (test code = 9016378542) O POS [facility] EpicManual Liprhmojasbu8889-39-32 16:38:27* Test Item Value Reference Range Interpretation Comme nts Segmented Neutrophils Manual (test code = 7763002328) 77 % 40.9-70.4 H Lymphs % (test code = 0986800239) 14 % 15.6-46.4 L Monocytes (test code = 1564936143) 3 % 3.9-10.9 L Eos % (test code = 2073920151) 2 % 0.3-4.1 Basos % (test code = 1309232236) 1 % 0.2-1.3 The pediatric reference ranges for this test represent a CLSI-based transference of the study for "Pediatric Reference Intervals" 8th edition, AAC press 2020, with the Sysmex analyzers (CLSI EP28). [facility] has not internally validated these reference ranges and therefore they should be used only in the context of a thorough clinical assessment. Segs # (test code = 3158489595) 10.76 10^3/uL 2.03-7.09 H Lymphocytes # (test code = 3718479275) 1.96 10^3/uL 1.09-3.65 Monocytes # (test code = 4480983213) 0.42 10^3/uL 0.27-0.78 The pediatric reference ranges for this test represent a CLSI-based transference of the study for "Pediatric Reference Intervals" 8th edition, AAC press 2020, with the Sysmex analyzers (CLSI EP28). [facility] [email or web address] has not internally validated these reference ranges and therefore they should be used only in the context of a thorough clinical assessment. Eosinophils # (test code = 1583170383) 0.28 10^3/uL 0.02-0.33 Basophils # (test code = 5068583114) 0.14 10^3/uL 0.01-0.09 H Metamyelocytes (test code = 9093769004) 3 % 0.0-1.0 H NRBC % (test code = 5943056065) See_Comment The pediatric reference ranges for this test represent a CLSI-based transference of the study for "Pediatric Reference Intervals" 8th edition, AAC press 2020, with the Sysmex analyzers (CLSI EP28). [facility] has not internally validated these reference ranges and therefore they should be used only in the context of a thorough clinical assessment. [Automated message] The system which generated this result transmitted reference range: <=0 /100WB. The reference range was not used to interpret this result as normal/abnormal. Lab Interpretation (test code = 00076-6) Abnormal [facility] Axbph7727-08-31 16:21:15* Test Item Value Reference Range Interpretation Comme nts Sodium Lvl (test code = 0992229177) See_Comment [Automated [employer]] The system which generated this result transmitted reference range: 136 - 145 mEq/L. The reference range was not used to interpret this result as normal/abnormal. Potassium Lvl (test code = 0118856049) See_Comment The pediatric reference ranges for this test represent a CLSI-based transference of the Siemens study of pediatric reference intervals for the Siemens Atellica analyzer (CLSI EP28). [facility] [email or web address] [facility] has not internally validated these reference ranges and therefore they should be used only in the context of a thorough clinical assessment. [Automated message] The system which generated this result transmitted reference range: 3.4 - 4.5 mEq/L. The reference range was not used to interpret this result as normal/abnormal. Chloride Lvl (test code = 6409537116) See_Comment [Automated messa ge] The system which generated this result transmitted reference range: 98 - 107 mEq/L. The reference range was not used to interpret this result as normal/abnormal. CO2 Lvl (test code = 0358239773) See_Comment [Automated messa ge] The system which generated this result transmitted reference range: 20.0 - 31.0 mEq/L. The reference range was not used to interpret this result as normal/abnormal. Anion Gap (test code = 5272719467) See_Comment [Automated messa ge] The system which generated this result transmitted reference range: 10.0 - 20.0 mEq/L. The reference range was not used to interpret this result as normal/abnormal. Glucose Lvl (test code = 3253432983) 95 mg/dL 70-99 Adult reference range values reflect the clinical guidelines of the [place] [employer]. The pediatric reference ranges for this test represent a CLSI-based transference of the Siemens study of pediatric reference intervals for the Siemens Atellica analyzer (CLSI EP28). ?[facility] has not internally validated these reference ranges and therefore they should be used only in the context of a thorough clinical assessment. Creatinine Lvl (test code = 5411104020) 1.01 mg/dL 0.55-1.02 BUN (test code = 1375515369) 20 mg/dL 9-23 B/C Ratio (test code = 7910991993) 6-25 Total Protein (test code = 6491344920) 6.6 g/dL 5.7-8.2 Albumin Lvl (test code = 8958426164) 3.5 g/dL 3.4-5.0 Globulin (test code = 9899205523) 3.1 g/dL 2.0-4.0 Albumin/Globulin Ratio (test code = 2976599846) 0.7-1.6 Calcium Lvl (test code = 3552244448) 8.8 mg/dL 8.3-10.6 ALT (test code = 0607230595) 62 U/L 7-40 H AST (test code = 4156241535) 40 U/L 12-40 Bilirubin Total (test code = 0210914182) 0.4 mg/dL 0.30-1.20 The pediatric reference ranges for this test represent a CLSI-based transference of the Siemens study of pediatric reference intervals for the Siemens Atellica analyzer (CLSI EP28). [facility] has not internally validated these reference ranges and therefore they should be used only in the context of a thorough clinical assessment. Alkaline Phosphatase (test code = 4447276239) 130 U/L 46-116 H eGFR (test code = 6166600936) mL/min/1.73m2 The eGFR is calculated using the [...] estimated BMI. Lab Interpretation (test code = 93670-7) Abnormal [facility] EpicHemoglobin [id number] 16:16:15* Test Item Value Reference Range Interpretation Comme nts Hgb A1C (test code = 2042595982) 5.97 % <=5.60 H Lab Interpretation (test cod e = 83153-7) [facility]normal [facility] w/Diff and Migoyssq4546-89-44 16:08:20 * Test Item Value Reference Range Interpretation Comme nts WBC (test code = 2548400176) 13.98 10^3/uL 4.15-10.55 H NRBC % (test code = 9575470834) See_Comment H Reference range for Pediatrics not established. [Automated message] The system which generated this result transmitted reference range: 0.0 - 0.0 /100WB. The reference range was not used to interpret this result as normal/abnormal. RBC (test code = 2579205000) 4.76 10^6/ul 3.74-5.22 Hgb (test code = 0659107655) 15.1 g/dL 10.8-14.8 H Hct (test code = 7715784523) 46 % 33.9-45.4 H MCV (test code = 9072588427) 96.6 fL 77.8-97.5 MCH (test code = 6159537911) 31.7 pg 24.9-32.6 MCHC (test code = 7629301901) 32.8 g/dL 30.1-35.0 RDW - SD (test code = 5689018739) 55.8 fL 37.6-49.1 H Plt Count (test code = 7517995128) 293 10^3/uL 191-422 MPV (test code = 5862481925) 10.3 fL 9.0-12.6 Lab Interpretation (test code = 74739-3) Abnormal [facility] STIMULATING BDYEZZK2231-21-92 16:37:37* Test Item Value Reference Range Interpretation Comme nts TSH (test code = 0646081931) 1.00 See_Comment [Automated [employer] ge] The system which generated this result transmitted reference range: 0.45 - 4.70 mIU/L. The reference range was not used to interpret this result as normal/abnormal. Lab Interpretation (test code = 37058-4) [facility] [id number] 16:23:56* Test Item Value Reference Range Interpretation Comme nts FREE T4 (test code = 9816528893) 0.60 See_Comment L [Automated messa ge] The system which generated this result transmitted reference range: 0.78 - 2.20 ng/dL:. The reference range was not used to interpret this result as normal/abnormal. Lab Interpretation (test code = 95956-8) Abnormal [facility] CenterSEDIMENTATION [id number] 16:14:33* Test Item Value Reference Range Interpretation Comme nts ESR (test code = 27181-0) 4 See_Comment [Automated message] The system which generated this result transmitted reference range: 0 - 20 mm/HR. The reference range was not used to interpret this result as normal/abnormal. Lab Interpretation (test code = 11698-4) Normal [facility]. METABOLIC PANEL (89802)2023-05-08 16:10:52* Test Item Value Reference Range Interpretation Comme nts NA (test code = 7219984550) 140 mmol/L 135-145 K (test code = 5371873017) 3.9 mmol/L 3.5-5.0 CL (test code = 4076703588) 104 mmol/L 98-108 CO2 TOTAL (test code = 6861461045) 30 mmol/L 23-31 AGAP (test code = 9018561981) 6 2-16 BUN (test code = 9006050097) 10 mg/dL 7-23 GLUCOSE (test code = 2899337909) 96 mg/dL 70-110 CREATININE (test code = 8579759768) 0.62 mg/dL 0.50-1.04 TOTAL BILI (test code = 1126623312) 0.3 mg/dL 0.1-1.1 CALCIUM (test code = 4350490973) 9.0 mg/dL 8.6-10.6 T PROTEIN (test code = 0251574281) 6.0 g/dL 6.3-8.2 L ALBUMIN (test code = 4334170924) 3.7 g/dL 3.5-5.0 ALK PHOS (test code = 3573542583) 147 U/L 34-122 H ALTv (test code = 1742-6) 37 U/L 5-35 H AST(SGOT) (test code = 6743434983) 31 U/L 13-40 eGFR (test code = 9742029496) 102.3 mL/min/1.73m2 REJI (test code = REJI) [...] imaging tests). Lab Interpretation (test code = 47803-2) [facility]normal [facility]2023-[facility]-31 16:10:32* Test Item Value Reference Range Interpretation Comme [facility] PHOSPHORUS (test code = 0677376115) 3.3 mg/dL 2.5-5.0 Lab Interpretation (test cod e = 21481-0) Normal [facility] CenterGAMMA KJXAVDMPNJLBMCWUNET4576-50-76 16:10:31* Test Item Value Reference Range Interpretation Comme nts GGT (test code = 2193277551) 104 U/L 13-40 H Lab Interpretation (test cod e = 03446-3) Abnormal [facility] CenterBILI UNCONJUGATED/BILI IJYMOQ8847-24-76 16:09:51* Test Item Value Reference Range Interpretation Comme nts BILI CONJ (test code = 9932640384) 0.0 mg/dL 0.0-0.3 BILI UNCON (test code = 4566647841) 0.1 mg/dL 0.1-1.1 Lab Interpretation (test cod e = 32897-9) Normal [facility] CenterMAMMOGRAM, PKOEHZTRG-[id number] 22:44:00*.*.*.*.*.*.*.*.*.*.*.*.*.*FINAL*.*.*.*.*.*.*.*.*.*.*.*.*.*.*No comparison films were available at the time of this reading. Bilateral Breast Findings (craniocaudal, mediolateral oblique and CCexaggerated to axilla projections):There are scattered fibroglandular densities. No significant masses,calcifications or other abnormalities are seen. ROSALEE OMALLEY JR, MD ?Personally interpreted by: ROSALEE OMALLEY JR, MD /Signed/ ROSALEE OMALLEY JR, MDUnUT Health [facility] Notes Date/Time Note Provider Source Referral ID Status Reason Start Date Expiration Date Visits Requested Visits Authorized [id number] Authorized Service Not Available at Clinic 05/24/2025 08/22/2025 1 1 Abby Cmfnkh0701-98-64 16:03:53* Abby Ckwvqu1924-52-09 16:03:53 Abby Afhjbk6077-11-37 16:03:53* Pascual León MD - 05/24/2025 3:45 PM CDT Images from the original note [...] your pain? constantly Kind of pain (quality):Sharp, Pins/[place], Numbness What makes it worse? Walking What [...] PT, OTC analgesics, and medications without relief. Interval history05/24/2025 Patient presents to clinic for follow-up. Pain level is a 5-6 out of 10 she is 50% improved from a caudal epidural steroid injection that was recently done. Still having some pain around her lumbar paraspinous muscles. Routine physical or WWE within the past [...] leftIlliotibial band tightness: Negative PSIS: Non tender Surja's: negative NEUROLOGICAL Gait: antalgic PSYCH Mood: stable [...] neural foraminal stenosis. Blood ThinnersNSAIDs ASSESSMENT 1. Chronic lumbosacral pain REFERRAL TO PHYSICAL THERAPY- EXTERNAL 2. Myofascial pain syndrome REFERRAL TO PHYSICAL THERAPY- EXTERNAL 3. Coccydynia 4. Neural foraminal stenosis of lumbosacral spine PLAN Patient presents to clinic for follow-up [...] Trigger point injection performed in clinic today Addendum 5Caudal epidural steroid injection as patient is complaining of coccydynia with radicular symptoms down her left leg. 5Assessment: 1. Chronic lumbosacral pain REFERRAL TO PHYSICAL THERAPY- EXTERNAL 2. Myofascial pain syndrome REFERRAL TO PHYSICAL THERAPY- EXTERNAL 3. Coccydynia 4. Neural foraminal stenosis of lumbosacral spine Plan:Patient will follow-up in 3 months time to see if we need to repeat the caudal epidural steroid injection Patient referred to physical therapy for dry needling *The following may be discussed with patient [...] benzodiazapines, antidepressants, sedatives, and/or tranquilizers, the drug commercial painter, recommends not operating ANY machinery or ANY [...] which may lead to sudden . Pascual León [facility]-Pain Medicine [facility] This document was created using a voice [...] times a day for one week. Pascual León [facility]-Pain [facility] This document was created using a voice [...] Topics Alcohol use: Never Drug use: Never [facility]2025-09-16 16:03:53Upcoming Encounters Scheduled Referrals Name Type Priority Associated Diagnoses Orde r Schedule REFERRAL TO PHYSICAL THERAPY- EXTERNAL Referral Routine Chronic lumbosacral pain Myofascial pain syndrome Ordered: 05/24/2025 Health Maintenance Due Date Last Done Comments [...] Vaccines (1 - 1-dose 75+ series) 2049 [facility]2025-09-16 16:03:53 Diagnosis Chronic lumbosacral pain - Primary Lumbago Myofascial pain syndrome Mylagia and myositis, unspecified Coccydynia Other disorder of coccyx Neural foraminal stenosis of lumbosacral spine [facility]2025-09-16 16:03:53 [place] 816565-09-16 15:29:36 Chief Complaint Patient presents with Follow-up On back pain. LIZZETTE 04/05/2025. Says pain has improved about 50% since having the trigger point injection. LIANG Diaz III Irina PriceAshtabula General HospitalJuahex0590-01-21 16:01:56* [facility] 2025-04-06 16:01:56 [facility]2025-07-30 16:01:56* Patient Instructions* Raj Maurer DO - [...] plan of care. Will provide handicap placard. TamelaFransisco Givsvt8696-60-82 16:01:56* Raj Maurer DO - 04/06/2025 3:45 [...] acid. Hyperparathyroidism/adrenal insufficiency after removal of adrenal adenoma/Simona: Managed by endocrinology in the past. Notes [...] note 04/05/2025: Reviewed1. Myofascial pain syndrome INJECTION SINGLE/SHOVELER TRIGGER POINT 1/2 MUSCLES 2. Neural foraminal [...] other meds ok, pt will call about Benlysta shots -RTC 4 months/PRN Endocrinology notes 01/13/2025: ReviewedCushing's [...] and all orders for this visit: Adrenal Simona's syndrome (HHS-HCC)- COMP. METABOLIC PANEL (14); Future [...] 09/15/2024 Performed by Yuriy Pedersen MD at [facility] LUMBAR/SACRAL TRANSFORAMINAL/SELECTIVE NERVE ROOT BLOCK EPIDURAL INJECTION Left 11/17/2024 Performed by Yuriy Pedersen MD at [facility] LUMBAR/SACRAL TRANSFORAMINAL/SELECTIVE NERVE ROOT BLOCK EPIDURAL INJECTION, ADDITIONAL LEVEL Left 11/17/2024 Performed by Yuriy Pedersen MD at [facility] SUPRACERVICAL ABDL HYSTER W/WO RMVL TUBE [...] PLACARD APPLICATION 2. Adrenal insufficiency after adrenalectomy ([facility])- Hydrocortisone 10 MG oral Tablet; 1.5 tab in the morning, 1 in evening, may increase as directed.. - HANDICAP PLACARD APPLICATION 3. History of adrenal surgery- HANDICAP PLACARD APPLICATION 4. Prediabetes- HANDICAP PLACARD APPLICATION 5. Rheumatoid arthritis involving multiple sites, unspecified whetherrheumatoid factor present (multi HCC) - HANDICAP PLACARD APPLICATION 6. Other forms of systemic lupus erythematosus, unspecified organ involvement status (multi HCC) - HANDICAP PLACARD APPLICATION 7. Immunodeficiency due to conditions classified elsewhere ([facility])- HANDICAP PLACARD APPLICATION Lupus/RA: Stable. 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[employer] Tobacco Use Smoking status: Former Current packs/day: 0.50 Average packs/day: 0.5 packs/day for 10.0 years (5.0 ttl pk-yrs) Types: Cigarettes Smokeless tobacco: Never Tobacco comments: Quit 05/2024 Vaping Use Vaping status: Never Used Substance and Sexual Activity Alcohol use: Never Drug use: Never Sexual activity: Not Currently control/protection: Hysterectomy [facility]2025-07-30 16:01:56Upcoming Encounters Health Maintenance Due Date Last [...] Vaccines (1 - 1-dose 75+ series) 2049 [facility]2025-07-30 16:01:56 Diagnosis Prediabetes - Primary Other abnormal glucose Lumbar paraspinal muscle spasm Other symptoms referable to back Adrenal insufficiency after adrenalectomy ([facility]) History of adrenal surgery Rheumatoid arthritis involvi ng multiple sites, unspecified whether rheumatoid factor present (multi HCC) Other forms of systemic lupu s erythematosus, unspecified organ involvement status (multi HCC) Immunodeficiency due to cond itions classified elsewhere ([facility]) [facility]ercatrinaApp[facility] HospitalLdorpb2424-39-22 16:01:56 [facility] Jcqanr1162-77-06 16:37:26* [facility]2025-07-29 16:37:26 [place] 816565-07-29 16:37:26* Pascual León MD - 04/05/2025 4:06 [...] your pain? constantly Kind of pain (quality):Sharp, Pins/[place], Numbness What makes it worse? Walking What [...] ThinnersNSAIDs ASSESSMENT 1. Myofascial pain syndrome INJECTION SINGLE/SHOVELER TRIGGER POINT 1/2 MUSCLES 2. Neural foraminal [...] benzodiazapines, antidepressants, sedatives, and/or tranquilizers, the drug commercial painter, recommends not operating ANY machinery or ANY [...] which may lead to sudden . Pascual León [facility]-Pain Medicine [facility] This document was created using a voice [...] times a day for one week. Pascual León [facility]-Pain Medicine [address] This document was created using a voice [...] Topics Alcohol use: Never Drug use: Never [facility]2025-07-29 16:37:26Upcoming Encounters Scheduled Orders Name Type Priority Associated Diagnoses Orde r Schedule INJECTION SINGLE/SHOVELER TRIGGER POINT 1/2 MUSCLES Procedures Routine Myofascial [...] Vaccines (1 - 1-dose 75+ series) 2049 [facility]2025-07-29 16:37:26 Diagnosis Myofascial pain syndrome - Primary Mylagia and myositis, unspecified Neural foraminal stenosis of lumbosacral spine Chronic lumbosacral pain Lumbago Lumbar paraspinal muscle spasm Other symptoms referable to back [facility]2025-07-29 16:37:26 [facility]2025-07-29 15:55:53 Eda Rosales a 50 year old [...] arthritis (multi HCC) Seen by Rheumatology Irina Julio [facility]2025-07-09 15:23:10 Chief Complaint Patient presents with Follow-up 3 month. Danielle Horne LVN [facility]2025-06-20 20:51:20* [facility] HospitalQvygeqk4762-80-32 20:51:20 [place] 889075-06-20 20:51:20 Diagnosis Acute on chronic back pain - Primary [facility] HospitalTqaegyb7238-38-06 20:51:20 [place] 889075-06-20 18:01:00 History of Present Illness: Chief Complaint: [...] hysterectomy History provided by: Patient and friend translator and interpreter used: No Patient History No past [...] on chronic back pain, patient is seeing painter spray. Will revive patient with analgesia, otherwise no [...] UTI Scoring Tools Mary Stafford MD 02/25/252019 [facility]2025-06-05 16:23:07 Chief Complaint Patient presents with Leg Pain Hip Pain Back Pain Patient complains of lower extremity pain Laquesheia Lotson, MA TamelaFransisco Ffewgb9413-13-04 15:51:10 Chief Complaint Patient presents with Consultation Previous DrNicol [place] D[place] Fatty, Liver Mass, and CystPt. Seeking new Gastro resident care Kathrine TAVERA TamelaFransisco Zikrbh3232-44-19 15:17:35 Chief Complaint Patient presents with Follow-up Adrenal Problem Vanita Marcelino MA TamelaFransisco Cyiugo6000-61-11 15:05:04 Chief Complaint Patient presents with Consultation Hx of lupus CHELSIE - Kathrine Bee TamelaFransisco Myovmz2115-65-45 15:22:30 Chief Complaint Patient presents with Back Pain Brenda Godfrey MA Brenda PriceFransisco Ijjfod1300-98-63 11:14:59 No chief complaint on file. TamelaFransisco Zccwia4203-82-85 14:49:55 Eda Deshpande is a 49 year old female Chief Complaint Patient presents with Follow-up Low back and left leg pain, numbness and tingling. Back Pain Adela Alexander MA III MACHINE OPERATOR Adela PriceJoseold Rzsmxx4338-80-30 15:13:39 Chief Complaint Patient presents with Follow-up Adrenal Problem Vanita Marcelino MA [facility] TamelaFransisco Pxazdh5007-20-60 15:23:28 Chief Complaint Patient presents with Elbow Pain Elbow pain/swelling. Started over a month and progressively getting worse each day Na Mccoy MA [place] 753884-11-22 15:26:47 Chief Complaint Patient presents with Follow-Up Visit Lupus Patient here for follow up on lupus Cecilia Donald LVN [facility]2024-11-14 10:56:33 Chief Complaint Patient presents with Follow-up Adrenal Problem Vanita Marcelino CMA II [facility] Sqrlcq5654-52-71 14:50:44 Chief Complaint Patient presents with Follow-up Adrenal Problem Vanita Marcelino CMA II [facility]2024-10-24 19:36:42* [facility] HospitalKayjxcb8908-88-48 19:36:42* Calculated C-SSRS Risk Score (Lifetime/Recent) Answer Date of Assessment Author No Risk Indicated 07/01/2024 3:32 PM Kevon Kent RN * [place] Suicide Severity Rating Scale (Screener/Recent Self-Report) Question Answer Date of Assessment Author 1. Wish to be (Past 1 Month) No 024 3:32 PM CDT Udtohan, Kevon, RN 2. Non-Specific Active Suici millicent Thoughts (Past 1 Month) No 07/01/2024 3:32 PM CDT Kevon Calvin , NILDA 6. Suicidal Behavior (Lifetime) No 3:32 PM CDT Kevon Calvni, NILDA [facility] HospitalFwmonog5821-04-78 19:36:42Pending Results Scheduled Orders Name Type Priority [...] on patient's age to complete this topic [facility] HospitalLinjhxv1816-04-09 19:36:42 Diagnosis Nausea and vomiting, unspeci fied vomiting type - Primary Right upper quadrant abdomin al pain [facility] HospitalVrxqyin2413-00-24 19:36:42 [place] [address]-10-02 16:01:30* [place] [address]-10-02 16:01:30 [place] [address]-10-02 16:01:30 Diagnosis Simona's syndrome, unspecif ied ([facility]) [place] [address]-09-23 15:33:18 Chief Complaint Patient presents with Follow-up Adrenal Problem Vanita Marcelino CMA II Abby Hlofhs2485-07-69 15:52:52 Chief Complaint Patient presents with Follow-up Adrenal Problem Vanita Marcelino CMA II [place] Tuodvm9283-96-52 14:58:20 Chief Complaint Patient presents with Follow-up Discoid lupus f/u Leigh Marquez [facility] Mdcosn5558-65-61 15:29:38 Eda Deshpande is a 49 year old female Chief Complaint Patient presents with Follow-up 49 year old female; C/O lower back pain. No recent injuries/accidents. Pain 11/15. Fanny Olsen CMA I TamelaFransisco Suevkq9790-03-75 15:07:00 Chief Complaint Patient presents with Follow-Up Visit Follow up on lupus Lupus Sol Tavares CMA II Ab[place] Eydkhj8190-61-53 16:03:38 Eda Deshpande is a 49 year old female Chief Complaint Patient presents with Follow-up 49 year old female; C/O lower back pain. Patient here to review MRI results. No recent injuries/accidents. Pain 12/16. Fanny Olsen CMA I [facility] 15:39:03 Chief Complaint Patient presents with Consultation Thyroid Problem Vanita Marcelino CMA II [facility]2024-04-10 15:02:01 Eda Deshpande is a 48 year old female Chief Complaint Patient presents with New Patient Consult Back Pain Patient with chronic back pain, rheumatoid arthritis and lupus. Seen by environmental resource specialist in the past. Was to have MRI and further evaluation and treatment. Adela Alexander CMA II Adela Alexander MA, [facility]orth [facility] [id number] 13:52:35 Chief Complaint Patient presents with Physical Jeri Mack MA II [facility] [id number] 15:32:07 Chief Complaint Patient presents with Follow-Up Visit Follow up on Lupus and rheumatoid arthritis Sol Tavares CMA II [facility]2023-12-27 08:00:00 Images from the original note were [...] according to instructions and sent to [facility] laboratories per lab order on 09/03/2023 : LT BLUE SST 5 RED LAV 3 PPT DK GREEN (LiHep) 1 DK GREEN (SodH) [place] DK BLUE (K2) DK BLUE (S) ACD Blood Culture NIPT/NTD [facility]2023-08-31 09:45:00 Images from the original note were not included. Venipuncture collection performed by clean technique on the right anticubitus. Total of 1 attempts were made. Slight pressure and a bandage/dressing were applied to the site(s). The patient experienced no complications. The following specimens were processed according to instructions and sent to [facility] laboratories per lab order on 05/08/2023: LT BLUE SST 6 RED LAV 1 PPT DK GREEN (LiHep) DK GREEN (SodH) [place] DK BLUE (K2) DK BLUE (S) ACD Blood Culture NIPT/NTD Patient has been identified by and name and was provided with cup, antiseptic towelette, and clean catch instructions. 2 urine specimen(s) sent. Unpreserved 2 Urine Culture Aptima tube Other urine T [id number] 20:41:41 Pt discharged with diagnosis of acute left flank pain and R groin pain. Printed and verbal instructions reviewed with and given to patient. Prescriptions given x 0. Pt verbalized understanding of teaching and recommended follow-up. Denies questions or concerns at this time. Pt ambulatory at discharge. Appears in no apparent distress. No ataxia noted. 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 Ana Edouard [facility]
[2025-06-08 08:11] LABS: Absolute Lymphocytes (CBC) 1.2 K/uL (0.7-4.9); Hematocrit 42.4 % (36.0-45.0); Hemoglobin 14.6 g/dL (12.0-15.0); MCH 30.2 pg (27.0-35.0); MCHC 34.5 g/dL (32.0-36.0); MCV 87.5 fL (80-100); MPV 9.4 fL (7.6-11.3); Nucleated RBC Absolute Count 0.0 (0-0); Nucleated Red Blood Cells % 0.1 % (0-0); RBC Red Blood Cell Count 4.84 M/uL (3.86-4.86); White Blood Count 10.40 thou/uL (4.3-10.9)
[2025-06-08] MEDS ORDERED: MORPHINE 4 MG/ML SYR ONE (08:14)
[2025-06-08] MEDS ORDERED: NA CHLORIDE 0.9% 1,000 ML ONE (08:14)
[2025-06-08 08:29] LABS: ALT/SGPT 28.0 U/L (13-56); AST/SGOT 25.0 U/L (15-37); Albumin 2.9 g/dL (3.4-5.0); Albumin/Globulin Ratio 1.0 (1.1-1.8); Alkaline Phosphatase 124.0 U/L (45-117); Anion Gap 10.4 mEq/L (5.0-15.0); BUN Blood Urea Nitrogen 11.0 mg/dL (7-18); Globulin 2.9 g/dL (2.3-3.5); Glucose Level 122.0 mg/dL (74-106); Lipase 34.0 U/L (13-75); Potassium 3.4 mEq/L (3.5-5.1)
--- NOTE | 2025-06-08 09:11 | RAD REPORT ---
EXAMINATION: Abdomen Pelvis W Contrast CLINICAL INDICATION: Female, 50 years old.ABD PAIN TECHNIQUE: CT abdomen and pelvis was performed, after the administration of IV contrast, [facility]. Axial, sagittal and coronal reconstructions were obtained. One or more of the following dose reduction techniques were used: Automated exposure control, adjustment of the mA and/o r kV according to patient size, and/or iterative reconstruction. Unless otherwise specified, incidental findings do not require dedicated imaging follow-up. [id number]. COMPARISON: No prior exams FINDINGS: LOWER CHEST: No acute process identified.No significant pericardial effusion. UPPER GI: No significant abnormality. LIVER: 7 mm hypoattenuating lesion in the left hepatic lobe is too small to characterize but has vikram gn imaging features. GALLBLADDER/BILE DUCTS: The gallbladder is distended which is nonspecific. No pericholecystic inflamm atory changes.? PANCREAS: No mass, ductal dilation, or heavenly-pancreatic fluid. SPLEEN: Unremarkable. ADRENALS: Status post left adrenalectomy. 3.5 x 3.4 cm fluid collection adjacent to the upper pole le ft kidney without significant enhancement. This is probably a postoperative seroma. KIDNEYS AND URETERS: No hydronephrosis.No suspicious renal mass.Nonobstructing renal calculi.No urete ral calculi. ABDOMINAL AORTA AND OTHER VESSELS: Normal caliber aorta and IVC. PERITONEUM: No abnormal free fluid. No free air. LYMPH NODES: No pathologic lymphadenopathy. ABDOMINAL WALL: Unremarkable SMALL BOWEL/COLON: Small bowel has normal course and caliber. No colonic wall thickening or pericolon ic inflammatory changes.Normal appendix. Mild diverticulosis without diverticulitis. URINARY BLADDER: Underdistended but grossly unremarkable. REPRODUCTIVE ORGANS: Uterus surgically absent. No adnexal abnormality. MUSCULOSKELETAL: Multilevel degenerative changes in the spine. Grade 1 anterolisthesis of L3 on L4. There is some endplate irregularity, sclerosis, and severe disc height loss at L3-4 along the right aspect of the disc consistent with severe degenerative changes. Right inferior pubic ramus deformity may be from a remote fracture. No acute fracture seen. ADDITIONAL FINDINGS: None. IMPRESSION: Left adrenalectomy. Fluid collection adjacent to the upper pole the left kidney probably a postoperat lazaro seroma. Distended gallbladder without pericholecystic inflammatory changes. Normal appendix.
[2025-06-08 09:41] LABS: Urine Culture Reflex Order NOT NEEDED; Urine Microscopic Reflex YN ORDER UMIC
--- NOTE | 2025-06-08 09:57 | ER ---
Nurse's Notes [facility] Name: Sienna Vogel Age: 50 yrs Sex: Female : 1975 Arrival Date: 06/08/2025 Time: 07:31 Bed 7 Private MD: Diagnosis: Left lower quadrant abdominal tenderness Presentation: 06/08 07:42 Chief complaint: Patient states: LEFT LOWER ABDOMINAL/PELVIC PAIN X 2 WEEKS WORSE SINCE db YESTERDAY. FEELS"SQUEEZING" PAIN. N/V THIS AM. Coronavirus screen: Client denies travel out of the [place] in the last 14 days. At this time, the client does not indicate any symptoms associated with coronavirus-19. Ebola Screen: Patient negative for fever greater than or equal to 101.5 degrees Fahrenheit, and additional compatible Ebola Virus Disease symptoms Patient denies exposure to infectious person. Patient denies travel to an Ebola-affected area in the 21 days before illness onset. No symptoms or risks identified at this time. Initial Sepsis Screen: Does the patient meet any 2 criteria? No. Patient's initial sepsis screen is negative. Does the patient have a suspected source of infection? No. Patient's initial sepsis screen is negative. Risk Assessment: Do you want to hurt yourself or someone else? Patient reports no desire to harm self or others. Onset of symptoms was June 08, 2025. 07:42 Method Of Arrival: Ambulatory db 07:42 Acuity: LIVE 3 db Triage Assessment: 07:47 General: Appears in no apparent distress. uncomfortable, Behavior is calm, cooperative. db Pain: Complains of pain in left femoral area, left inguinal area and left iliac crest. Neuro: Level of Consciousness is awake, alert, obeys commands, Oriented to person, place, time, situation. Respiratory: Airway is patent Respiratory effort is even, unlabored, Respiratory pattern is regular, symmetrical. GI: Abdomen is flat, non-distended, Reports lower abdominal pain, nausea, vomiting. Historical: - Allergies: 07:47 Cipro; db - PMHx: 07:47 Hypertension; Lupus; sciatica (Lupus); Rheumatoid arthritis; db - PSHx: 07:47 adrenal gland removed; hysterectomy; db - Immunization history:: Adult Immunizations unknown. - Infectious Disease History:: Denies. - Social history:: Smoking status: Patient reports the use of cigarette tobacco products, denies chronic smoking, but will smoke occasionally. Screenin:03 [facility] ED Fall Risk Assessment (Adult) History of falling in the last 3 months, bp including since admission No falls in past 3 months (0 pts) Confusion or Disorientation No (0 pts) Intoxicated or Sedated No (0 pts) Impaired Gait No (0 pts) Mobility Assist Device Used No (0 pt) Altered Elimination No (0 pt) Score/Fall Risk Level 0 - 2 = Low Risk Oriented to surroundings. Abuse screen: Denies threats or abuse. Denies injuries from another. Nutritional screening: No deficits noted. Tuberculosis screening: No symptoms or risk factors identified. Assessment: 07:56 Reassessment: Patient appears in no apparent distress at this time. Patient and/or db family updated on plan of care and expected duration. Pain level reassessed. Patient is alert, oriented x 3, equal unlabored respirations, skin warm/dry/pink. SEE TRIAGE FOR INITIAL ASSESSMENT. 09:16 Reassessment: No changes from previously documented assessment. Patient is alert, bp oriented x 3, equal unlabored respirations, skin warm/dry/pink. 10:06 GI: Bowel sounds present X 4 quads. Abd is soft X 4 quads. bp Vital Signs: 07:42 BP 122 / 85; Pulse 103; Resp 18; Temp 98.2; Pulse Ox 98% ; Weight 68.04 kg; Height 5 db ft. 3 in. ; 08:00 BP 108 / 77; Pulse 96; Resp 16; Pulse Ox 100% on R/A; db 09:16 BP 109 / 70; Pulse 77; Resp 16; Pulse Ox 100% ; bp 07:42 Body Mass Index 26.57 (68.04 kg, 160.02 cm) db ED Course: 07:33 Patient arrived in ED. im 07:37 Saul Munoz DO is Attending Physician. ms3 07:45 Linda Roberto, RN is Primary Nurse. db 07:47 Triage completed. db 07:47 Arm band placed on Patient placed in an exam room. db 08:02 Inserted saline lock: 20 gauge in right forearm, using aseptic technique. Blood bp collected. Flushed with 10 mL NS. 08:03 Patient has correct armband on for positive identification. bp 08:47 CT Abd/Pelvis - IV Contrast Only In Process Unspecified. EDMS 09:56 Ryan Knapp DO is Referral Physician. ms3 10:05 No provider procedures requiring assistance completed. IV discontinued, intact, bp bleeding controlled, No redness/swelling at site. Pressure dressing applied. Administered Medications: 08:14 Drug: morphine IVP or IV 4 mg IVP once over 4 mins Route: IVP; Infused Over: 4 mins; db Site: right antecubital; 10:06 Follow up: Response: No adverse reaction bp 08:14 Drug: NS 0.9% IV 1000 ml IV at 1 bolus Per protocol; to be given as a bolus over 60 db minutes Route: IV; Rate: 1 bolus; Site: right antecubital; 10:06 Follow up: IV Status: Completed infusion bp Medication: 10:06 VIS not applicable for this client. bp Outcome: 09:56 Discharge ordered by . ms3 10:05 Discharged to home ambulatory, bp 10:05 Condition: stable 10:05 Discharge instructions given to patient, Instructed on discharge instructions, follow up and referral plans. Demonstrated understanding of instructions, follow-up care, 10:06 Patient left the ED. bp Signatures: Dispatcher [employer] EDMS Juan Liu, RN RN bp Saul Munoz DO DO ms3 Linda Roberto, RN RN db Vanessa Crandall
--- NOTE | 2025-06-08 09:57 | EDPHYS ---
Physician Documentation [facility] Name: Sienna Vogel Age: 50 yrs Sex: Female : 1975 Arrival Date: 06/08/2025 Time: 07:31 Bed 7 Private MD: ED Physician Saul Munoz HPI: 06/08 09:02 This 50 yrs old Female presents to ER via Ambulatory with complaints of ms3 Abdominal Pain. 09:02 50-year-old female with past medical history of hypertension, lupus, sciatica, ms3 rheumatoid arthritis presents to the emergency department for left lower quadrant abdominal pain that began on Friday. Patient states pain is 10/10. She denies any alleviating or inciting factors. Patient endorses nausea and vomiting. Patient denies diarrhea.. Historical: - Allergies: 07:47 Cipro; db - PMHx: 07:47 Hypertension; Lupus; sciatica (Lupus); Rheumatoid arthritis; db - PSHx: 07:47 adrenal gland removed; hysterectomy; db - Immunization history:: Adult Immunizations unknown. - Infectious Disease History:: Denies. - Social history:: Smoking status: Patient reports the use of cigarette tobacco products, denies chronic smoking, but will smoke occasionally. ROS: 09:02 Constitutional: Negative for fever, and chills. Cardiovascular: Negative for chest ms3 pain, and palpitations. Respiratory: Negative for shortness of breath, cough, wheezing, and pleuritic chest pain, 09:02 MS/Extremity: Negative for injury and deformity, Skin: Negative for injury, rash, and discoloration, 09:02 Abdomen/GI: Positive for abdominal pain, Exam: 09:02 Constitutional: This is a well developed, well nourished patient who is awake, alert, ms3 and in no acute distress. Cardiovascular: Regular rate and rhythm with a normal S1 and S2. No gallops, murmurs, or rubs. Normal PMI, no JVD. No pulse deficits. Respiratory: Lungs have equal breath sounds bilaterally, clear to auscultation and percussion. No rales, rhonchi or wheezes noted. No increased work of breathing, no retractions or nasal flaring. 09:02 Abdomen/GI: Inspection: abdomen appears normal, Bowel sounds: normal, in all quadrants, Palpation: moderate abdominal tenderness, in the left lower quadrant, Vital Signs: 07:42 BP 122 / 85; Pulse 103; Resp 18; Temp 98.2; Pulse Ox 98% ; Weight 68.04 kg; Height 5 db ft. 3 in. ; 08:00 BP 108 / 77; Pulse 96; Resp 16; Pulse Ox 100% on R/A; db 09:16 BP 109 / 70; Pulse 77; Resp 16; Pulse Ox 100% ; bp 07:42 Body Mass Index 26.57 (68.04 kg, 160.02 cm) db MDM: 07:38 Medical Screening Exam initiated ms3 09:02 Differential diagnosis: diverticulitis, non-specific abd pain, urinary tract infection. ms3 14:44 Data reviewed: vital signs, nurses notes, lab test result(s), radiologic studies, and ms3 as a result, I will discharge patient. I considered the following discharge prescriptions or medication management in the emergency department Medications were administered in the Emergency Department. See MAR. Independent interpretation of the following test(s) in the Emergency Department CT Scan: My interpretation is CT abdomen pelvis images reviewed by me did not reveal free air. Counseling: I had a detailed discussion with the patient and/or guardian regarding the historical points, exam findings, and any diagnostic results supporting the discharge/admit diagnosis, lab results, radiology results, the need for outpatient follow up, to return to the emergency department if symptoms worsen or persist or if there are any questions or concerns that arise at home. Special discussion: Based on the patient's Hx, exam, and Dx evaluation, there is no indication for emergent surgery or inpatient Tx. It is understood by the patient/guardian that if the Sx's persist or worsen they need to return immediately for re-evaluation. ED course: Discussed labs, imaging with patient. Patient to follow-up with primary care physician 2 to 3 days. All questions were answered. Return precautions were discussed include worsening symptoms, or any other concerns. Patient understands and agrees with plan. On reevaluation patient alert and oriented x 4, no apparent distress, nontoxic-appearing, speaking full sentences, ambulatory in the emergency department.. 06/08 07:58 Order name: CBC with Diff; Complete Time: 09:02 ms3 06/08 07:58 Order name: CMP; Complete Time: 09:02 ms3 06/08 07:58 Order name: Lipase; Complete Time: 09:02 ms3 06/08 07:58 Order name: Test, Serum; Complete Time: 09:02 ms3 06/08 09:24 Order name: UA Rfx Lewis Cult if indicated; Complete Time: 09:52 ms3 06/08 07:58 Order name: CT Abd/Pelvis - IV Contrast Only; Complete Time: 09:19 ms3 06/08 07:58 Order name: IV Saline Lock; Complete Time: 07:59 ms3 06/08 07:58 Order name: Labs collected and sent; Complete Time: 07:59 ms3 Administered Medications: 08:14 Drug: morphine IVP or IV 4 mg IVP once over 4 mins Route: IVP; Infused Over: 4 mins; db Site: right antecubital; 10:06 Follow up: Response: No adverse reaction bp 08:14 Drug: NS 0.9% IV 1000 ml IV at 1 bolus Per protocol; to be given as a bolus over 60 db minutes Route: IV; Rate: 1 bolus; Site: right antecubital; 10:06 Follow up: IV Status: Completed infusion bp Disposition Summary: 06/08/25 09:56 Discharge Ordered Notes: Location: Home ms3 Condition: Stable ms3 Diagnosis - Left lower quadrant abdominal tenderness ms3 Followup: ms3 - With: Ryan Knapp DO - When: 2 - 3 days - Reason: Re-evaluation by your physician Discharge Instructions: - Discharge Summary Sheet ms3 - Abdominal Pain, Adult ms3 Forms: - Medication Reconciliation Form ms3 - Antibiotic Education ms3 - Prescription Opioid Use ms3 - Patient Portal Instructions ms3 - Leadership Thank You Letter ms3 Signatures: Dispatcher [employer] Saul Trinh DO DO ms3 Linda Roberto, RN RN db Juan Liu RN bp
[2025-06-08 10:23] VITALS: TEMP 98.2
[2025-06-08 10:25] VITALS: O2SAT 100
[2025-06-08 10:27] VITALS: BP 109/70
== END 2025-06-08 10:06 | disposition home or self-care (01) ==
LOC: ER 07:31
DX: R10.32 Left lower quadrant pain (principal); I10 Essential (primary) hypertension; M54.30 Sciatica, unspecified side; M06.9 Rheumatoid arthritis, unspecified; F17.210 Nicotine dependence, cigarettes, uncomplicated
CPT/HCPCS: 96361; 85025; 81001; 36415; 84703; 83690; 80053; 74177; 96374; 99284; Q9967; J7030

== ENCOUNTER 2025-06-26 03:54 | Emergency (ER) | payer OTHER ==
--- OUTSIDE RECORDS SUMMARY | 2025-06-26 04:02 | XMS REPORT | Continuity of Care Document ---
Author Name Unknown Address [address] [place] [address] [facility] Address [address] [place] [address] Care Team Providers Care Trainman Name Role Phone [facility] Physician [phone] PASCUAL LEÓN Attending Clinician UnavailRAJ Tate Attending Clinician Unavailable LAURIE SWAN Attending Clinician Unavailable KEO MONSIVAIS Attending Clinician Unavail able [id number] Attending Clinician Unavailable [id number] Attending Clinician Unavailable OSCAR JONES Attending [...] BLADIMIR WINKLER Attending Clinician Unavailable Doctor Unassigned, [place] Attending Clinician U navailable [id number] Attending Clinician Unavailable JORGE IGNACIO Attending Clinician Unavaila Charity Cason MD Attending Clinician [phone] CHARITY SPENCE Attending Clinician Unava ilELÍAS Bertrand Attending Clinician Unavailable EMIL RAMSEY Attending Clinician Unava ilELÍAS Bertrand Attending Clinician Unavailabl ANA Parra Attending Clinician Unavailable Elías Beaulieu MD Attending Clinician [phone] Ana Leal MD Attending Clinician [phone] ANA LEAL Attending Clinician Unavailable RONNIE NOYOLA Attending Clinician Unavailable GERTRUDIS TARIQ Attending Clinician Unavailabl MORALES Tamayo Attending Clinician Unavailable RAGHAVENDRA SIMS Attending Clinician Unavailable Pob, 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 Attending Clinician UnavailRaghavendra Encarnacion MD Attending Clinician [phone] Morales Albright MD Attending Clinician [phone] MORALES ALBRIGHT Attending Clinician Unavailable RADIOLOGY Attending Clinician Unavailable Radiology Attending Clinician Unavailable FAUSTINO STINSON Attending Clinician Unavailable Doctor Unassigned, [place] Attending Clinician U navailable Charity Moon MD Attending Clinician [phone] CHARITY MOON Attending Clinician Unavailabl e DANAE GRULLON Attending Clinician Unavailable Danae Alcantara S Attending Clinician [phone] Yessi Messina Attending Clinician + [phone] YESSI KLEIN Attending Clinician Unavaila TORRI [place] Attending Clinician Unavailable Torri Pacheco NP Attending Clinician [phone] YING CADENA Attending Clinician Unavailable NOEL SAMPSON Attending Clinician Unavailable OBDULIA VIRAMONTES Attending Clinician Palak vailable WILLIAM OSORIO Attending Clinician UnavailJAYSHREE Almeida Attending Clinician UnavailELÍAS Britton Admitting Clinician UnavailElías Adler MD Admitting Clinician [phone] SHABNAMSARAHY Briseno Rand Admitting Clinician Unavailab DANAE Pino Admitting Clinician Unavailable MARY DEJESUS III Admitting Clinician Unaveronica ilYESSI Solis Admitting Clinician Unavaila TORRI [place] Admitting Clinician Unavailable OBDULIA VIRAMONTES Admitting Clinician Palak vaJAYSHREE Cabezas Admitting Clinician Unavailab le Payers Payer Name Policy Type Policy Number Effective Date Expirati on Date Source [place] [address] [employer] 87 [id number] 2024 00:00:00 [employer] Exchange [id number] 2023 00:00:00 [place] SEYBOLD EXCHANGE Exchange [id number] 2024 00:00:00 Problems Condition Name Condition Details [...] - Externa l Lupus Lupus Disease Active 2-27 00:00: 00 Tamela Seybold - Externa l Chronic back pain Chronic back pain Disease Active - 00:00: 00 Tamela Seybold - Externa l DDD (degenerat lazaro disc disease), lumbar DDD (degenerat lazaro disc disease), lumbar Disease Active 2- 00:00: 00 Tamela Hammerybold - Externa l Rheumatoid arthritis Rheumatoid arthritis Disease Active 11-04 00:00: 00 Tamela Moody - Externa l History of hysterecto my History of hysterecto my Disease Active 11-04 00:00: 00 Tamela Moody - Externa l Fatty liver Fatty liver Disease Active 11-04 00:00: 00 Tamela Moody - Externa l Liver hemangioma Liver hemangioma Disease Active 11-04 00:00: 00 Tamela Comer Externa l Other forms of systemic lupus erythemato marry Other forms of systemic lupus erythemato marry Disease Active 11-04 00:00: 00 Tamela Comer Externa l Left foot pain Left foot pain Disease Active 09-09 00:00: 00 [facility] Low back pain Low back pain Disease Active 05-08 00:00: 00 [facility] Hormone replacemen t therapy (postmenop ausal) [...] DRUG INGREDI Active Hives 118 00:00: 00 [facility] Ciproflo xacin Hydrochl oride Propensi ty to adverse reaction s Active Hives 0 1-18 00:00: 00 Tamela Moody - Externa l Social History Social Habit Start Date Stop Date Quantity Comments Source ASSERTION Possible [facility] Sexual orientation [facility] History of Occupation Tamela Moody - External [...] Sex 2024-06-04 12:50:25 2024-06-04 12:50:25 Female (finding) [facility] Alcohol intake 2023-11-11 00:00:00 2023-11-11 00:00:00 Lifetime non-drinker (finding) Tamela Moody - External Education 2023-11-04 00:00:00 2023-11-04 00:00:00 16 Tamela Moody - External History of Social function 2023-11-03 00:00:00 2023-11-03 00:00:00 Tamela Moody - External Exposure to SARS-CoV-2 (event) 2021-11-18 00:00:00 2021-12-18 20:08:00 Not sure [facility] Sex assigned at 1975 00:00:00 1975 00:00:00 Tamela Moody - External Smoking Status Start Date Stop Date Source Tobacco smoking consumption unknown [facility] Never smoked tobacco [facility] Ex-smoker 2024-09-14 00:00:00 2024-09-14 00:00:00 Tamela Comer External Smokes tobacco daily 2023-12-15 00:00:00 Tamela Comer External Medications Ordered Medication Name Filled Medication Name Start Date Stop Date Current Medication? Ordering Clinician Indication Dosage Frequency Signature (SIG) Comments Components Source Pantoprazol e Sodium 40 MG oral Tablet Delayed Response Pantoprazol e Sodium 40 MG oral Tablet Delayed Response 04-18 00:00: 00 Yes [id number] 40mg QD Take 1 tablet (40 mg total) by mouth daily as needed (GERD). Tamela murphy Tramadol HCl (ULTRAM) 50 MG oral Tablet Tramadol HCl (ULTRAM) 50 MG oral Tablet 04-12 00:00: 00 Yes [id number] 100mg QD Take 2 tablets (100 mg total) by mouth daily as needed for pain. Tamela murphy Tizanidine HCl 4 MG oral Tablet Tizanidine HCl 4 MG oral Tablet 04-06 00:00: 00 Yes [id number] 4mg QD Take 1 tablet (4 mg total) by mouth nightly. Tamela murphy Hydrocortis one 10 MG oral Tablet Hydrocortis one 10 MG oral Tablet 04-06 00:00: 00 Yes [id number] 1.5 tab in the morning, 1 in evening, may increase as directed.. Tamela murphy Tizanidine HCl 4 MG oral Tablet Tizanidine HCl 4 MG oral Tablet 04-05 00:00: 00 04-06 00:00 :00 No [id number] 4mg Q.25D Take 1 tablet (4 mg total) by mouth every 6 hours as needed. Tamela murphy Cyclobenzap rine HCl 10 MG oral Tablet Cyclobenzap rine HCl 10 MG oral Tablet 04-04 00:00: 00 Yes 10mg Q.[id number] 3D Take 1 tablet (10 mg total) [...] MG oral tablet 03-16 00:00: 00 Yes [id number] 1mg QD Take 1 tablet (1 mg total) by mouth daily. Tamela murphy acetaminoph en-codeine (Tylenol w/ Codeine #3) 300-30 MG per tablet 2 tablet acetaminoph en-codeine (Tylenol w/ Codeine #3) 300-30 MG per tablet 2 tablet 02-25 20:15: 00 02-25 20:24 :00 No 2{tbl} 2 tablet, Oral, Once, On Fri02/25/25 at 2014, For 1 dose Lisa Levin Epic ketorolac (Toradol) injection 30 mg ketorolac (Toradol) injection 30 mg 02-25 20:15: 00 02-25 20:24 :00 No 30mg 30 mg, Intramuscu lar, Once, On Fri02/25/25 at 2014, For 1 dose Lisa Levin Epic Estradiol 0.1 MG/24HR transdermal PATCH BIWEEKLY 02-10 [...] injection Recon Soln 02-10 00:00: 00 Yes [id number] 100mg Inject 100 mg into the muscle as needed (for adrenal crisis). Tamela murphy Cholecalcif ban 50 MCG (1999) oral Capsule Cholecalcif ban 50 MCG (1999) oral Capsule 02-10 00:00: 00 Yes [id number] 1{capsu le} QD Take 1 capsule by mouth daily. Tamela murphy Tramadol HCl (ULTRAM) 50 MG oral Tablet Tramadol HCl (ULTRAM) 50 MG oral Tablet 02-10 00:00: 00 Yes [id number] 50mg QD Take 1 tablet (50 mg total) by mouth daily as needed for pain. Tamela murphy Hydrocortis one 10 MG oral Tablet Hydrocortis one 10 MG oral Tablet 02-10 00:00: 00 04-06 00:00 :00 No [id number] 10mg Q.5D Take 1 tablet (10 mg [...] oral Tablet Gabapentin 600 MG oral Tablet 2025-0 5-20 00:00: 00 04-06 00:00 :00 No 600mg Q.[id number] 3D Take 1 tablet (600 mg total) by mouth 3 times daily. Tamela murphy Estradiol 0.1 MG/24HR transdermal PATCH BIWEEKLY 01-13 15:17: 06 Yes 1{patch } Place 1 patch onto the skin twice a week. Tamela murphy Hydrocortis one 10 MG oral Tablet 01-13 00:00: 00 04-14 04:59 :00 No [id number] 10mg Q.[id number] [id number] 3D Take 1 tablet (10 mg total) by mouth 3 times daily 1 tablet 3 times a day and extra for sick days. Tamela murphy Hydroxychlo roquine Sulfate 200 MG oral Tablet Hydroxychlo roquine Sulfate 200 MG oral Tablet 01-12 00:00: 00 Yes [id number] 400mg QD Take 2 tablets (400 mg total) by mouth daily. Tamela murphy Estradiol 0.1 MG/24HR transdermal PATCH BIWEEKLY 12-14 15:05: 00 Yes 1{patch } Place 1 patch onto the skin twice a week. Tamela murphy Belimumab (Benlysta) 200 MG/ML subcutaneou s Solution Auto-inject or Belimumab (Benlysta) 200 MG/ML subcutaneou s Solution Auto-inject or 12-14 00:00: 00 Yes [id number] 200mg Q1W Inject 1 mL (200 mg total) into the skin once a week. Tamela murphy Estradiol 0.1 MG/24HR transdermal PATCH BIWEEKLY 12-07 15:23: 23 Yes 1{patch } Place 1 patch onto the skin twice a week. Tamela murphy Duloxetine HCl [address] Particles 12-07 00:00: 00 Yes 20mg QD Take 1 capsule (20 mg total) by mouth daily. Tamela murhpy Gabapentin 300 MG oral Capsule 12-07 00:00: [...] Tablet Delayed Response 11-18 00:00: 00 Yes [id number] 40mg QD Take 1 tablet (40 mg total) by mouth daily as needed (GERD). Tamela murphy Cholecalcif ban 50 MCG (2000 UT) oral Capsule 11-18 00:00: 00 02-10 00:00 :00 No [id number] 1{capsu le} QD Take 1 capsule by mouth daily. Tamela murphy Belimumab (Benlysta) 200 MG/ML subcutaneou s Solution Auto-inject or 11-18 00:00: 00 12-14 00:00 :00 No [id number] 200mg Q1W Inject 1 mL (200 mg total) into the skin once a week. Tamela murphy Tramadol HCl (ULTRAM) 50 MG oral Tablet 11-18 00:00: 00 12-07 00:00 :00 No [id number] 50mg QD Take 1 tablet (50 mg [...] injection Recon Soln 10-11 00:00: 00 Yes [id number] 100mg Inject 100 mg into the muscle as needed (for adrenal crisis). Tamela murphy Hydrocortis one 10 MG oral Tablet 10-11 00:00: 00 01-13 00:00 :00 No 10mg Take 1 tablet (10 mg total) by mouth every evening. Tamela murphy Methotrexat e Sodium 2.5 MG oral Tablet Methotrexat e Sodium 2.5 MG oral Tablet 10-07 00:00: 00 Yes [id number] 15mg Q1W Take 6 tablets (15 mg total) by mouth once a week. Tamela murphy Folic Acid 1 MG oral tablet 10-07 00:00: 00 03-16 00:00 :00 No [id number] 1mg QD Take 1 tablet (1 mg [...] MG oral Tablet 09-23 00:00: 00 Yes [id number] 1{tbl} Q.25D Take 1 tablet by mouth every 6 hours as needed for pain. Tamela Hammerpamella murphy methylPREDN ISolone 4 MG oral Tablet Therapy Pack 2023-09 00:00: 00 01-13 00:00 :00 No 6{tbl} 6 tablets See Admin Instructio ns. Tamela Hammerpamella Souleymane Ana murphy methylPREDN ISolone (Medrol) 4 MG oral Tablet Therapy Pack 2023-09 00:00: 00 10-11 00:00 :00 No [id number] 1{joan} Take 1 joan by mouth See Admin Instructio ns Use as directed.. Tamela Fransisco murphy Estradiol 0.1 MG/24HR transdermal [...] 2023-09 00:00: 00 10-11 00:00 :00 No [id number] 20mg Q.5D Take 2 tablets (20 mg total) by mouth 2 times daily. Tamela murphy Hydrocortis one Sod Suc, PF, (SOLU-JD F) 100 MG injection Recon Soln 2023-09 00:00: 00 10-11 00:00 :00 No [id number] 100mg Inject 100 mg into the muscle as needed (for adrenal crisis). Tamela murphy Cholecalcif ban 50 MCG (1999 UT) oral Capsule 2023-09 0-29 00:00: 00 11-18 00:00 :00 No [id number] 1{capsu le} QD Take 1 capsule by mouth daily. Tamela murphy ondansetron (Zofran) injection 4 mg ondansetron (Zofran) injection 4 mg 2023-09 18:40: 00 07-01 18:44 :00 No 4mg 4 mg, Intravenou s, Once, On Christal 07/01/24 at 1840, For 1 dose, Administer IVP. Lisa Causey sodium chloride 0.9 % bolus 1,000 mL [id number] 0353-1 0 17:25: 07-01 19:34 :00 No 1000mL 1,000 mL, [...] 0-03 00:00: 00 07-12 00:00 :00 No [id number] INJECT 1 PEN UNDER THE SKIN EVERY [...] UT) oral Capsule 05-31 00:00: 00 Yes [id number] 1{capsu le} QD Take 1 capsule by mouth daily. Tamela murphy Hydrocortis one Sod Suc, PF, (SOLU-JD F) 100 MG injection Recon Soln 05-31 00:00: 00 07-12 00:00 :00 No [id number] 100mg Inject 100 mg into the muscle as needed (for adrenal crisis). Tamela murphy Hydroxychlo roquine Sulfate 200 MG oral Tablet 05-26 00:00: 00 07-30 00:00 :00 No 400mg QD Take 2 tablets (400 mg total) by mouth daily. Tamela murphy Methotrexat e Sodium 2.5 MG oral Tablet 05-06 00:00: 00 Yes [id number] 15mg Q1W Take 6 tablets (15 mg total) by mouth once a week. Tamela murphy Folic Acid 1 MG oral tablet 05-06 00:00: 00 Yes [id number] 1mg QD Take 1 tablet (1 mg [...] 03-17 00:00: 00 11-18 00:00 :00 No [id number] Apply to affected areas on buttock twice daily Friday-Fri.. Tamela murphy Valacyclovi r HCl 500 MG oral Tablet 03-17 00:00: 00 11-18 00:00 :00 No [id number] Take 2 tablets twice daily for 10 [...] 02-03 00:00: 00 05-06 00:00 :00 No [id number] 1mg QD Take 1 tablet (1 mg total) by mouth daily. Tamela murphy Methotrexat e Sodium 2.5 MG oral Tablet 02-03 00:00: 00 05-05 04:59 :00 No [id number] 15mg Q1W Take 6 tablets (15 mg total) by mouth once a week 6 tabs. Tamela murphy Hydroxychlo roquine Sulfate 200 MG oral Tablet 02-03 00:00: 00 05-05 04:59 :00 No [id number] 400mg QD Take 2 tablets (400 mg [...] 01-06 00:00: 00 03-17 00:00 :00 No [id number] Apply to affected areas twice daily for up to two weeks. Then use as needed to affected areas.. Tamela murphy dexAMETHaso ne 1 MG oral Tablet 12-17 00:00: 00 05-31 00:00 :00 No [id number] To be taken once at 11 pm [...] MG oral Tablet 12-14 00:00: 00 Yes [id number] 50mg QD Take 1 tablet (50 mg total) by mouth daily as needed for pain. Tamela murphy Venlafaxine HCl 75 MG oral Capsule 24 Hour Sustained Release 12-14 00:00: 00 11-18 00:00 :00 No [id number] 75mg QD Take 1 capsule (75 mg total) by mouth daily. Tamela murphy Belimumab 200 MG/ML subcutaneou s Solution Auto-inject or 11-27 00:00: 00 Yes [id number] 200mg Q1W Inject 1 mL (200 mg [...] Solution Auto-inject or 11-05 00:00: 00 Yes [id number] 200mg Inject 1 mL (200 mg total) into the skin once a week. Tamela murphy Methotrexat e Sodium 2.5 MG oral Tablet 11-05 00:00: 00 02-03 00:00 :00 No [id number] 15mg Take 6 tablets (15 mg total) by mouth once a week 6 tabs. Tamela murphy Folic Acid 1 MG oral tablet 11-05 00:00: 00 02-03 00:00 :00 No [id number] 1mg Take 1 tablet (1 mg total) by mouth daily. Tamela murphy Hydroxychlo roquine Sulfate 200 MG oral Tablet 11-05 00:00: 00 02-03 00:00 :00 No [id number] 400mg Take 2 tablets (400 mg total) [...] MG oral Tablet 11-04 00:00: 00 Yes [id number] 50mg QD Take 1 tablet (50 mg total) by mouth daily as needed for pain. Tamela murphy Losartan Potassium (COZAAR) 100 MG oral Tablet 11-04 00:00: 00 Yes [id number] 100mg QD Take 1 tablet (100 mg [...] (50,000 unit) capsule 2022-09 00:00: 00 Yes [id number] Take 1 capsule by mouth weekly. [facility] Ergocalcife rol 10 MCG (400 UNIT) oral Tablet 2022-09 00:00: 00 11-18 00:00 :00 No [id number] Q1W Take 50,000 units by mouth once a week. Tamela murphy gadobenate dimeglumine (MULTIHANCE -20 mL) injection 0.2 mL/kg 2022-09 22:30: 00 07-24 22:21 :00 No [id number] .2mL/kg 0.2 mL/kg, Intravenou s, ONCE, 1 dose, On Fri07/24/23 at 1630, Routine [facility] Tramadol HCl (ULTRAM) 50 MG oral Tablet 2022-09 030 00:00: 00 11-04 00:00 :00 No 50mg Q.[id number] 3D Take 1 tablet (50 mg total) by mouth every 8 hours as needed for pain. Tamela murphy iopamidol (ISOVUE 370-500 mL) injection 122 mL 05-16 21:30: 00 05-16 20:35 :00 No [id number] 122mL 122 mL, Intravenou s, ONCE, 1 dose, On Fri05/16/23 at 1630, Routine [facility] estradioL 0.1 mg/24 hr twice weekly patch 05-05 20:43: 11 Yes 1{patch } Apply 1 Patch to skin. [facility] FOLIC ACID ORAL 05-05 20:43: 11 Yes Take by mouth. [facility] clonazePAM (KLONOPIN) 2 mg tablet 05-05 17:13: 41 05-05 00:00 :00 No 2mg Take 2 mg by mouth 3 (three) times daily. [facility] acetaminoph en-codeine 300-30 mg tablet 04-24 00:00: 00 Yes 1{tbl} Take 1 tablet by mouth. [facility] methotrexat e 2.5 mg tablet 04-16 00:00: 00 Yes Take by mouth [facility] Folic Acid 1 MG oral tablet 03-03 00:00: 00 Yes 1mg Take 1 tablet (1 mg total) by mouth daily. Tamela murphy meloxicam 7.5 mg tablet 01-07 00:00: 00 Yes TAKE 1 TABLET BY MOUTH 1 TIME EACH DAY. [facility] venlafaxine 75 mg tablet -17 00:00: 00 Yes TAKE 1 TABLET BY MOUTH 1 TIME EACH DAY. [facility] cyclobenzap rine 10 mg tablet 2021-09 2- 00:00: 00 Yes 10mg Take 1 tablet by mouth. [facility] amoxicillin -clavulanat e 875-125 mg per tablet 12-19 00:00: 00 Yes [id number] 1{tbl} Take 1 tablet by mouth every 12 (twelve) hours. [facility] ondansetron 4 mg disintegrat ing tablet 12-19 00:00: 00 Yes [id number] 4mg Take 1 tablet by mouth every 8 (eight) hours as needed for Nausea and Vomiting (N/V). [facility] hydroxychlo roquine sulfate (HYDROXYCHL OROQUINE ORAL) 2020-09 2 06:06: 04 Yes Take by mouth. [facility] methylPREDN ISolone 4 mg tablets 2020-09 00:00: 00 05-05 00:00 :00 No [id number] Take by mouth SEE-INSTRU CTIONS. follow package directions [facility] metformin ER 500 mg 24 hr tablet 2020-09 0 00:00: 00 06-13 04:59 :00 No 500mg Take 500 mg by mouth. [facility] belimumab (BENLYSTA) 200 mg/mL AtIn 04-16 00:00: 00 Yes [facility] ergocalcife rol, vitamin d2, 1,250 mcg (50,000 unit) capsule 11-06 00:00: 00 08-05 00:00 :00 No [id number] Take 50,000 Units by mouth. [facility] traMADOL (ULTRAM) 50 mg tablet 10-03 00:00: 00 Yes 50mg Take 1 tablet by mouth every 6 (six) hours as needed for Pain (scale 4-6). Brando Burns PA-C / Eleazar Hardy MD SARITHA# [id number] DPS# [id number] Lic.# [id number] NPI# [id number] [facility] clonazePAM (KLONOPIN) 2 mg tablet 09-09 16:05: 09 Yes 2mg Take 2 mg by mouth 3 (three) times daily. [facility] acyclovir 400 mg tablet 2015-09 00:00: 00 05-05 00:00 :00 No [facility]09 00:00: 00 05-05 00:00 :00 No TK [facility] methocarbam [facility] (ROBAXIN) 500 mg tablet 04-11 00:00: 00 05-05 00:00 :00 No [facility] tramadol-ac etaminophen (ULTRACET) 37.5-325 mg per tablet 04-11 00:00: 00 05-05 00:00 :00 No TK 1 T PO BID [facility] Immunizations Ordered Immunization Name Filled Immunization Name Date Status Comments Source Covid-19 Vaccine Moderna (Spikevax), Mrna-lnp, Brando Protein, Pf Covid-19 Vaccine Moderna (Spikevax), Mrna-lnp, Brando Protein, Pf 2020-12-25 00:00:[address] [facility]ine Moderna (Spikevax), Mrna-lnp, Brando Protein, Pf Unknown [facility] Cov[facility] Vaccine Moderna (Spikevax), Mrna-lnp, [facility]ando Protein, Pf Unknown [facility] Cov[facility]-19 Vaccine Moderna (Spikevax), Mrna-lnp, Brando Protein, Pf Unknown Completed [facility]bold - External Covid-19 Vaccine Moderna (Spikevax), Mrna-lnp, Brando Protein, Pf Unknown Completed [facility] - External Covid-19 Vaccine Moderna (Spikevax), Mrna-lnp, Brando Protein, Pf Unknown Completed [facility] - External Covid-19 Vaccine Moderna (Spikevax), Mrna-lnp, Brando Protein, Pf Unknown Completed [facility] - External Covid-19 Vaccine Moderna (Spikevax), Mrna-lnp, Brando Protein, Pf Unknown Completed [facility] - External Covid-19 Vaccine Moderna (Spikevax), Mrna-lnp, [...] Systolic blood pressure 2025-02-25 20:41:00 134 mm[Hg] [facility] Diastolic blood pressure 2025-02-25 20:41:00 84 mm[Hg] [facility] Heart rate 2025-02-25 20:41:00 76 /min [facility] Body temperature 2025-02-25 20:41:00 36.61 Arlet [facility] Respiratory rate 2025-02-25 20:41:00 16 /min [facility] Oxygen saturation in Arterial blood by Pulse oximetry 2025-02-25 20:41:00 97 /min [facility] Body height 2025-02-25 18:30:00 160 cm [facility] Body weight 2025-02-25 18:30:00 72.4 kg [facility] BMI 2025-02-25 18:30:00 28.27 kg/m2 [facility] Systolic blood pressure 2025-02-25 20:41:00 134 mm[Hg] [facility] Diastolic blood pressure 2025-02-25 20:41:00 84 mm[Hg] [facility] Heart rate 2025-02-25 20:41:00 76 /min [facility] Body temperature 2025-02-25 20:41:00 36.61 Arlet [facility] Respiratory rate 2025-02-25 20:41:00 16 /min [facility] Oxygen saturation in Arterial blood by Pulse oximetry 2025-02-25 20:41:00 97 /min [facility] Body height 2025-02-25 18:30:00 160 cm [facility] Body weight 2025-02-25 18:30:00 72.4 kg [facility] BMI 2025-02-25 18:30:00 28.27 kg/m2 [facility] Systolic blood pressure 2025-02-10 21:17:00 118 mm[Hg] Tamela Seybold - External Diastolic blood pressure 2025-02-10 21:17:00 70 mm[Hg] Tamela Seybold - External Heart rate 2025-02-10 21:17:00 92 /min Tamela Seybold - External Body temperature 2025-02-10 21:17:00 36.44 Arlet Tamela Seybold - External Respiratory rate 2025-02-10 21:17:00 18 /min Tamela Seybold - External Body height 2025-02-10 21:17:00 160 cm Tamela Hammerybold - External Body weight 2025-02-10 21:17:00 75.297 [...] Body height 2025-02-09 20:49:00 160 cm Tamela Hammerybold - External Body weight 2025-02-09 20:49:00 74.844 kg Tamela Hammerybold - External BMI 2025-02-09 20:49:00 29.23 kg/m2 [...] Body weight 2025-01-13 20:20:00 79.833 kg Tamela Seybold - External BMI 2025-01-13 20:20:00 31.18 kg/m2 Tamela Seybold - External Systolic blood pressure 2024-12-14 20:05:00 122 mm[Hg] Tamela Seybold - External Diastolic blood pressure 2024-12-14 20:05:00 86 mm[Hg] Tamela Seybold - External Heart rate 2024-12-14 20:05:00 97 /min Tamela Seybold - External Respiratory rate 2024-12-14 20:05:00 16 /min Tamela Seybold - External Body height 2024-12-14 20:05:00 160 cm Tamela Seybold - External Body weight 2024-12-14 20:05:00 76.658 [...] Systolic blood pressure 2024-07-01 19:15:00 150 mm[Hg] [facility] Di[facility] pressure 2024-07-01 19:15:00 92 mm[Hg] [facility] Heart rate 2024-07-01 19:15:00 97 /min [facility] Body temperature 2024-07-01 19:15:00 37.06 Arlet [facility] Respiratory rate 2024-07-01 19:15:00 22 /min [facility] Oxygen saturation in Arterial blood by Pulse oximetry 2024-07-01 19:15:00 98 /min [facility] Body height 2024-07-01 14:01:00 157.5 cm [facility] Body weight 2024-07-01 14:01:00 85.9 kg [facility] BMI 2024-07-01 14:01:00 34.64 kg/m2 [facility] [facility] blood pressure 2024-07-01 19:15:00 150 mm[Hg] [facility] Diastolic blood pressure 2024-07-01 19:15:00 92 mm[Hg] [facility] Epic Heart rate 2024-07-01 19:15:00 97 /min [facility] Body temperature 2024-07-01 19:15:00 37.06 Arlet [facility] Epic Respiratory rate 2024-07-01 19:15:00 22 /min [facility] Oxygen saturation in Arterial blood by Pulse oximetry 2024-07-01 19:15:00 98 /min [facility] Body height 2024-07-01 14:01:00 157.5 cm [facility] Body weight 2024-07-01 14:01:00 85.9 kg [facility] BMI 2024-07-01 14:01:00 34.64 kg/m2 [facility] Systolic blood pressure 2024-05-31 20:36:00 132 [...] Systolic blood pressure 2023-08-05 19:49:00 129 mm[Hg] [facility] Diastolic blood pressure 2023-08-05 19:49:00 88 mm[Hg] [facility] Heart rate 2023-08-05 19:48:00 120 /min [facility] Respiratory rate 2023-08-05 19:48:00 18 /min [facility] Body height 2023-08-05 19:48:00 157.5 cm [facility] Body weight 2023-08-05 19:48:00 86.909 kg [facility] BMI 2023-08-05 19:48:00 35.04 kg/m2 [facility] Oxygen saturation in Arterial blood by Pulse oximetry 2023-08-05 19:48:00 98 /min [facility] Systolic blood pressure 2023-05-06 01:30:00 148 mm[Hg] [facility] Diastolic blood pressure 2023-05-06 01:30:00 106 mm[Hg] [facility] Heart rate 2023-05-06 01:30:00 93 /min [facility] Respiratory rate 2023-05-06 01:30:00 16 /min [facility] Oxygen saturation in Arterial blood by Pulse oximetry 2023-05-06 01:30:00 95 /min [facility] Body temperature 2023-05-05 21:15:00 36.89 Arlet [facility] Body height 2023-05-05 21:15:00 157.5 cm [facility] Body weight 2023-05-05 21:15:00 85.276 kg [facility] BMI 2023-05-05 21:15:00 34.39 kg/m2 [facility] Procedures Procedure Date / Time Performed Performing Clinician Source UA WITH CULTURE IF INDICATED 2024-07-01 17:28:00 HetalIvonne [facility] CT ANGIOGRAM CHEST ABDOMEN PELVIS 2024-07-01 15:26:33 HetalIvonne lipscomb [facility] BLOOD GAS, VENOUS 2024-07-01 14:29:00 HetalIvonne lipscomb [facility] COMPREHENSIVE METABOLIC PANEL 2024-07-01 14:28:00 HetalIvonne scott [facility] LIPASE LEVEL 2024-07-01 14:28:00 Hetal, Ivonne Adanparker [facility] HCG TOTAL (QUANTITATIVE) 2024-07-01 14:28:00 Hetal, Ivonne Laguna [facility] COMPLETE BLOOD COUNT W/DIFF AND PLATELET 2024-07-01 14:28:00 Hetal, Ivonne Laguna [facility] PROCALCITONIN LEVEL 2024-07-01 14:28:00 Hetal, Ivonne Laguna [facility] TROPONIN I HIGH SENSITIVITY (SINGLE ORDER) 2024-07-01 14:28:00 Hetal, Ivonne Laguna [facility] LACTIC ACID WITH 2 HOUR REFLEX 2024-07-01 14:28:00 Hetal, Ivonne Laguna [facility] COMPLETE BLOOD COUNT 2024-07-01 14:28:00 Hetal, Ivonne Laguna [facility] AUTOMATED DIFFERENTIAL 2024-07-01 14:28:00 Hetal, Ivonne Laguna [facility] Lactic acid with 2 Hours Reflex 2024-07-01 00:00:00 [facility] Urine Culture 2024-07-01 00:00:00 [facility] MAGNESIUM LEVEL 2024-06-09 05:35:00 [place], Elías [facility] PHOSPHORUS LEVEL 2024-06-09 05:35:00 Brittnee, Elías [facility] COMPLETE BLOOD COUNT W/DIFF AND PLATELET 2024-06-09 05:35:00 Brittnee, Elías [facility] AUTO DIFFERENTIAL - DATA CONV 2024-06-09 05:35:00 [place], Elías [facility] COMPREHENSIVE METABOLIC PANEL 2024-06-09 05:35:00 [place], Elías [facility] ANTIBODY SCREEN 2024-06-08 10:39:00 Charity Morel [facility] ABORH BLOOD TYPE 2024-06-08 10:39:00 Charity Morel [facility] HEMOGLOBIN A1C 2024-06-07 15:51:00 Brittnee, Elías [facility] COMPLETE BLOOD COUNT W/DIFF AND PLATELET 2024-06-07 15:51:00 [place], Elías [facility] MANUAL DIFFERENTIAL 2024-06-07 15:51:00 Brittnee, Elías [facility] COMPREHENSIVE METABOLIC PANEL 2024-06-07 15:51:00 Elías Beaulieu [facility] CORTISOL AM 2023-09-03 15:02:00 Levi, [facility] FREE T4 2023-09-03 15:02:00 Levi, [facility] THYROID STIMULATING HORMONE 2023-09-03 15:02:00 Levi, [facility] BASIC METABOLIC PANEL (NA, K , CL, CO2, GLUCOSE, BUN, CREATININE, CA) 2023-09-03 15:02:00 Levi, [facility] INTACT PTH CALCIUM GROUP 2023-09-03 15:02:00 Levi, [facility] VITAMIN D, 25-OH 2023-09-03 15:02:00 Levi, [facility] FREE T3 2023-09-03 15:02:00 Levi [facility] BI SCREENING TOMOSYNTHESIS BILATERAL 2023-07-24 20:25:37 Requisition, Paper [facility] REFERRAL- REQUEST/RESPONSE 2023-06-06 05:01:00 Doctor Unassigned, [place] [facility] CT ABDOMEN PELVIS W WO CONTRAST 2023-05-16 20:33:04 Sarahy Cook [facility] NOTICE OF PRIVACY PRACTICES 2023-05-16 19:11:34 Doctor Unassigned, [place] [facility] CONSENT/REFUSAL FOR DIAGNOSI S AND TREATMENT 2023-05-16 19:11:17 Doctor Unassigned, [place] [facility] ASSIGNMENT OF BENEFITS 2023-05-16 19:10:49 Doctor Unassigned, [place] [facility] CBC WITH DIFF 2023-05-08 14:41:00 Sarahy Cook [facility] PHOSPHORUS 2023-05-08 14:41:00 Sarahy Cook [facility] GAMMA GLUTAMYLTRANSFERASE 2023-05-08 14:41:00 Sarahy Cook [facility] BILI UNCONJUGATED/BILI CONJUG 2023-05-08 14:41:00 Sarahy Cook [facility] FREE T4 2023-05-08 14:41:00 Sarahy Cook [facility] THYROID STIMULATING HORMONE 2023-05-08 14:41:00 Sarahy Cook [facility] COMP. METABOLIC PANEL (27776) 2023-05-08 14:41:00 Sarahy Cook [facility] SEDIMENTATION RATE 2023-05-08 14:41:00 Celio Mclean [facility] URINALYSIS 2023-05-08 14:41:00 Caridad [facility] PROTEIN CREAT RATIO URINE RANDOM 2023-05-08 14:41:00 Celio Mclean [facility] CT ABDOMEN PELVIS WO CONTRAST 2023-05-05 23:14:21 Danae Grullon [facility] COMP. METABOLIC PANEL (11203) 2023-05-05 22:28:00 Danae Grullon [facility] CBC WITH DIFF 2023-05-05 22:28:00 Danae Grullon [facility] URINALYSIS 2023-05-05 22:24:00 Danae Grullon [facility] ASSIGNMENT OF BENEFITS 2023-05-05 21:34:15 Doctor Unassigned, [place] [facility] CONSENT/REFUSAL FOR DIAGNOSI S AND TREATMENT 2023-05-05 21:05:37 Doctor Unassigned, [place] [facility] ASSIGNMENT OF BENEFITS 2022-07-18 22:46:03 Doctor Unassigned, [place] [facility] PHYSICIAN ORDERS 2022-05-22 05:01:00 Doctor Unassigned, [place] [facility] RENAL PANEL 2022-05-11 14:31:00 Melanie Olivera [facility] BILI UNCONJUGATED/BILI CONJUG 2022-05-11 14:31:00 Melanie Olivera [facility] COMP. METABOLIC PANEL (84403) 2022-05-11 14:31:00 Sarahy Cook [facility] LIPID PANEL (39425)(TOTAL CHOLESTEROL, TRIGLYCERIDES, HDL) 2022-05-11 14:31:00 Sarahy Cook [facility] CBC WITH DIFF 2022-05-11 14:31:00 Sarahy Cook [facility] PHYSICIAN ORDERS 2022-05-11 05:01:00 Doctor Unassigned, [place] [facility] MAMMOGRAM, BILATERAL-DIAGNOSTIC 2006-04-14 15:31:00 Emma Conway [facility] ECG 12 lead [facility] n Epic INJECTION SINGLE/TRADE RECRUITER TRIGGER POINT 1/2 MUSCLES Tamela Moody - External Plan of Care Planned Activity Planned Date Details Comments Source Encounters Start Date/Time End Date/Time Encounter Type Admission Type Attending [facility] Facility Care Department Encounter ID Source 2025-08-26 15:30:00 2025-08-26 15:30:00 Outpatient PASCUAL LEÓN [id number] Tamela pamella 2025-08-09 16:00:00 2025-08-09 16:00:00 Outpatient RAJ MAURER [id number] Tamela pamella 2025-08-08 09:30:00 2025-08-08 09:30:00 Outpatient LAURIE SWAN [id number] [facility] 2025-08-01 14:30:00 2025-08-01 14:30:00 Outpatient LAURIE SWAN [id number] Tamela [facility] 2025-07-25 14:15:00 2025-07-25 14:15:00 Outpatient LAURIE SWAN [id number] [facility] 2025-07-20 15:45:00 2025-07-20 15:45:00 Outpatient KEO MONSIVAIS [id number] Tam[facility] 2025-07-19 14:45:00 2025-07-19 14:45:00 Outpatient RAJ MAURER [id number] Tamela pamella 2025-06-13 00:00:00 2025-06-13 00:00:00 Outpatient PASCUAL LEÓN [id number] Tamela pamella 2025-06-08 10:25:00 2025-06-08 10:25:00 Outpatient LIT414 TAMELA SINGH [id number] Tamela Seybold 2025-06-06 00:00:00 2025-06-06 00:00:00 Outpatient ANSOANUURPASCUAL TAMELA SINGH [id number] Tamela Seybold 2025-05-24 15:45:00 2025-05-24 15:45:00 Outpatient ANSOANUUR, PASCUAL TAMELA TAMELA [id number] Tamela Seybold 2025-05-24 00:00:00 2025-05-24 00:00:00 Outpatient TAMELA SINGH [id number] Tamela Seybold 2025-04-29 09:40:00 2025-04-29 09:40:00 Outpatient ANSOANUUKleverPASCUAL TAMELA SINGH [id number] Tamela Seybold 2025-04-29 07:45:00 2025-04-29 07:45:00 Outpatient T[facility]ELA SINGH [id number] [facility] 2025-04-22 14:30:00 2025-04-22 14:30:00 Outpatient TRED47 TAMELA SINGH [id number] [facility] 2025-04-22 00:00:00 2025-04-22 00:00:00 Outpatient TAMELA SINGH [id number] Tamela Seybold 2025-04-20 00:00:00 2025-04-20 00:00:00 Outpatient KEO MONSIVAIS [id number] [facility] 2025-04-18 00:00:00 2025-04-18 00:00:00 Outpatient KEO MONSIVAIS [id number] Tamela Seybold 2025-04-18 00:00:00 2025-04-18 00:00:00 Outpatient OSCAR JONES [id number] Tamela Seybold 2025-04-13 00:00:00 2025-04-13 00:00:00 Outpatient PASCUAL LEÓN [id number] Tamela Seybold 2025-04-13 00:00:00 2025-04-13 00:00:00 Outpatient PASCUAL LEÓN [id number] Tamela Seybold 2025-04-12 00:00:2025-04-12 00:00:00 Outpatient ANSOANUURPASCUAL TAMELA SINGH [id number] [facility] 2025-04-07 00:00:00 2025-04-07 00:00:00 Outpatient ANSOANUURPASCUAL TAMELA [id number] [facility] 2025-04-07 00:00:00 2025-04-07 00:00:00 Outpatient ANSOANUURPASCUAL TAMELA SINGH [id number] [facility] 2025-04-06 15:45:00 2025-04-06 15:45:00 Outpatient PREZARAJ Florentino TAMELA SINGH [id number] [facility] 2025-04-05 16:00:00 2025-04-05 16:00:00 Outpatient ANSOANUUPASCUAL Ernst TAMELA TAMELA [id number] Tam[facility] 2025-03-30 14:45:00 2025-03-30 14:45:00 Outpatient TAMELA SINGH [id number] [facility] 2025-03-25 00:00:00 2025-03-25 00:00:00 Outpatient SMITHTAYLOR [id number] [facility]25-03-24 15:15:00 2025-03-24 15:15:00 Outpatient RAJ MAURER [facility] [id number] [facility]25-03-16 15:30:00 2025-03-16 15:30:00 Outpatient KEO MONSIVAIS [id number] [facility] 2025-03-15 16:45:00 2025-03-15 16:45:00 Outpatient T[facility]ELA SINGH [id number] [facility] 2025-02-28 00:00:00 2025-02-28 00:00:00 Outpatient CARIRAJ MALIN [facility] SINGH [id number] [facility] 2025-02-25 19:40:00 2025-02-25 20:51:00 Emergency Emergency MARY STAFFORD [facility] General Medicine [id number] Izabella [facility] 2025-02-25 19:40:00 2025-02-25 20:51:00 Emergency [place], [facility] [id number] Lisa murphy [facility] 2025-02-18 14:00:00 2025-02-18 14:00:00 Outpatient RAJ MAURER [id number] [facility] 2025-02-10 16:30:00 2025-02-10 16:30:00 Outpatient RAJ MAURER [id number] [facility] 2025-02-10 00:00:00 2025-02-10 00:00:00 Outpatient TAYLOR SMITH [id number] [facility] 2025-02-10 00:00:00 2025-02-10 00:00:00 Outpatient OSCAR JONES [id number] [facility] 2025-02-09 16:35:00 2025-02-09 16:35:00 Outpatient [facility] TAMELA SINGH [id number] [facility] 2025-02-09 16:00:00 2025-02-09 16:00:00 Outpatient OSCAR JONES [id number] [facility] 2025-02-08 00:00:00 2025-02-08 00:00:00 Outpatient TAYLOR SMITH [id number] [facility] 2025-02-01 00:00:00 2025-02-01 00:00:00 Outpatient DANAE GRULLON [id number] [facility] 2025-01-28 14:30:00 2025-01-28 14:30:00 Outpatient DANAE GRULLON [id number] [facility] 2025-01-28 00:00:00 2025-01-28 00:00:00 Outpatient MD TAMELA HASTINGS [id number] [facility] 2025-01-25 00:00:00 2025-01-25 00:00:00 Outpatient TAYLOR SMITH [id number] Tamela ybadam 2025-01-13 15:30:00 2025-01-13 15:30:00 Outpatient LUHANTONYLAURIE Juarez TAMELA SINGH [id number] Tamela ybadam 2025-01-12 00:00:00 2025-01-12 00:00:00 Outpatient RAJ MAURER TAMELA SINGH [id number] Tamela ybadam 2025-01-12 00:00:00 2025-01-12 00:00:00 Outpatient KEO MONSIVAIS TAMELA SINGH [id number] Tamela Seybadam 2025-01-11 00:00:00 2025-01-11 00:00:00 Outpatient TAYLOR SMITH [id number] Tamela ybadma 2025-01-07 15:45:00 2025-01-07 15:45:00 Outpatient SARWAT SINGH [id number] Tamela ybadam 2025-01-07 15:00:00 2025-01-07 15:00:00 Outpatient IZABEL GREGORIO [id number] Tamela Seybadam 2025-01-07 00:00:00 2025-01-07 00:00:00 Outpatient MD TAMELA HASTINGS [id number] Tamela ybadam 2025-01-06 00:00:00 2025-01-06 00:00:00 Outpatient MD TAMELA HASTINGS [id number] Tamela Moody 2025-01-06 00:00:00 2025-01-06 00:00:00 Outpatient BENY MIGUELABBIE SINGH [id number] Tamela Seybadam 2025-01-04 00:00:00 2025-01-04 00:00:00 Outpatient TAMELA SINGH [id number] Tamela Moody 2025-01-04 00:00:00 2025-01-04 00:00:00 Outpatient MD TAMELA HASTINGS [id number] Tamela Moody 2024-12-31 00:00:00 2024-12-31 00:00:00 Outpatient TAYLOR SMITH [id number] [facility] 2024-12-16 15:45:00 2024-12-16 15:45:00 Outpatient PEDERSENYURIY SALMERON TAMELA SINGH [id number] [facility] 2024-12-14 15:45:00 2024-12-14 15:45:00 Outpatient KEO MONSIVAIS [id number] [facility] 2024-12-14 15:00:00 2024-12-14 15:00:00 Outpatient PAULSARAHY HURST TAMELA SINGH [id number] [facility] 2024-12-13 10:45:00 2024-12-13 10:45:00 Outpatient PEDERSENYURIY SALMERON TAMELA SINGH [id number] [facility] 2024-12-13 00:00:00 2024-12-13 00:00:00 Outpatient [facility]URER [id number] [facility] 2024-12-10 00:00:00 2024-12-10 00:00:00 Outpatient MD TAMELA HASTINGS [id number] [facility] 2024-12-10 00:00:00 2024-12-10 00:00:00 Outpatient RAJ MAURER [id number] [facility] 2024-12-07 15:45:00 2024-12-07 15:45:00 Outpatient TAYLOR SMITH [id number] [facility] 2024-12-01 00:00:00 2024-12-01 00:00:00 Outpatient RAJ MAURER [id number] [facility] 2024-11-25 00:00:00 2024-11-25 00:00:00 Outpatient SERINA BLOOM [id number] [facility] 2024-11-23 14:45:00 2024-11-23 14:45:00 Outpatient KEO MONSIVAIS [id number] [facility] 2024-11-23 14:20:00 2024-11-23 14:20:00 Outpatient SARWAT SINGH [id number] [facility] 2024-11-23 00:00:00 2024-11-23 00:00:00 Outpatient LAURIE SWAN TAMELA SINGH [id number] [facility] 2024-11-23 00:00:00 2024-11-23 00:00:00 Outpatient LAURIE SWAN TAMELA SINGH [id number] [facility] 2024-11-18 11:30:00 2024-11-18 11:30:00 Outpatient RAJ MAURER TAMELA SINGH [id number] [facility] 2024-11-17 09:59:00 2024-11-17 09:59:00 Outpatient YURIY PEDERSEN TAMELA SINGH [id number] [facility] 2024-11-17 07:50:00 2024-11-17 07:50:00 Outpatient TAMELA SINGH [id number] [facility] 2024-11-17 00:00:00 2024-11-17 00:00:00 Outpatient TAMELA SINGH [id number] [facility] 2024-11-12 00:00:00 2024-11-12 00:00:00 Outpatient YURIY PEDERSEN TAMELA SINGH [id number] [facility] 2024-11-08 15:45:00 2024-11-08 15:45:00 Outpatient TAMELA SINGH [id number] [facility] 2024-11-06 00:00:00 2024-11-06 00:00:00 Outpatient SERINA BLOOM [id number] [facility] 2024-11-05 00:00:00 2024-11-05 00:00:00 Outpatient SERINA BLOOM [id number] [facility] 2024-11-03 15:45:00 2024-11-03 15:45:00 Outpatient BLADIMIR WINKLER [id number] [facility] 2014-11-30 00:00:00 2024-10-23 04:30:46 Orders Only Doctor Unassigned, [place] Doctor Unassigned, [place] [facility] [id number] [facility] 2024-10-21 15:00:00 2024-10-21 15:00:00 Outpatient YURIY PEDERSEN TAMELA SINGH [id number] Tamela Joseadam 2024-10-20 00:00:00 2024-10-20 00:00:00 Outpatient SERINA BLOOM [id number] Tamela adam 2024-10-20 00:00:00 2024-10-20 00:00:00 Outpatient SERINA BLOOM [id number] Tamela Fransisco 2024-10-18 15:00:00 2024-10-18 15:00:00 Outpatient SERINA BLOOM [id number] Tam[facility] 2024-10-11 16:00:00 2024-10-11 16:00:00 Outpatient LAB47 TAMELA SINGH [id number] Tamela [facility] 2024-10-11 15:30:00 2024-10-11 15:30:00 Outpatient LAURIE SWAN [id number] [facility] 2024-10-07 10:00:00 2024-10-07 10:00:00 Outpatient LAURIE SWAN [id number] [facility] 2024-10-07 00:00:00 2024-10-07 00:00:00 Outpatient BLADIMIR WINKLER [id number] [facility] 2024-10-06 16:00:00 2024-10-06 16:00:00 Outpatient LAB45 TAMELA SINGH [id number] [facility] 2024-10-06 15:00:00 2024-10-06 15:00:00 Outpatient BLADIMIR WINKLRE [id number] [facility] 2024-09-27 00:00:00 2024-09-27 00:00:00 Outpatient JORGE IGNACIO [id number] [facility] 2024-09-23 00:00:00 2024-09-23 00:00:00 Outpatient SERINA BLOOM TAMELA SINGH [id number] Tamela Seybadam 2024-09-23 00:00:00 2024-09-23 00:00:00 Outpatient SERINA BLOOM TAMELA SINGH [id number] Tamela Seybadam 2024-09-15 10:40:00 2024-09-15 10:40:00 Outpatient PEDERSEN YURIY TAMELA SINGH [id number] Tamela Seybold 2024-09-15 07:55:00 2024-09-15 07:55:00 Outpatient TAMELA SINGH [id number] Tamela Seybold 2024-09-15 00:00:00 2024-09-15 00:00:00 Outpatient TAMELA SINGH [id number] Tamela Seybold 2024-09-09 00:00:00 2024-09-09 00:00:00 Outpatient TAMELA SINGH [id number] Tamela Seybold 2024-09-06 00:00:00 2024-09-06 00:00:00 Outpatient BLADIMIR WINKLER [id number] Tamela Seybold 2024-09-06 00:00:00 2024-09-06 00:00:00 Outpatient BLADIMIR WINKLER [id number] Tamela Seybold 2024-08-31 00:00:00 2024-08-31 00:00:00 Outpatient MD TAMELA HASTINGS [id number] Tamela Seybold 2024-08-26 10:00:00 2024-08-26 10:00:00 Outpatient [facility] TAMELA SINGH [id number] Tamela Seybold 2024-08-24 00:00:00 2024-08-24 00:00:00 Outpatient LAURIE SWAN [id number] Tamela Seybold 2024-08-13 00:00:00 2024-08-13 00:00:00 Outpatient TAMELA SINGH [id number] Tamela Seybadam 2024-08-09 09:20:00 2024-08-09 09:20:00 Outpatient TAMELA SINGH [id number] Tamela Seybold 2024-08-05 00:00:00 2024-08-05 00:00:00 Outpatient BENYMIGUELABBIE SINGH [id number] Tamela Seybold 2024-08-04 00:00:00 2024-08-04 00:00:00 Outpatient MD TAMELA HASTINGS [id number] Tamela Seybold 2024-08-04 00:00:00 2024-08-04 00:00:00 Outpatient SERINA BLOOM [id number] Tamela Seybold 2024-08-04 00:00:00 2024-08-04 00:00:00 Outpatient MD TAMELA HASTINGS [id number] Tamela Seybold 2024-08-02 00:00:00 2024-08-02 00:00:00 Outpatient LAURIE SWAN [id number] Tamela Seybold 2024-07-30 15:00:00 2024-07-30 15:00:00 Outpatient WINKLERBLADIMIR [id number] Tamela Seybold 2024-07-28 09:15:00 2024-07-28 09:15:00 Outpatient SERINA BLOOM [id number] Tamela Seybold 2024-07-22 11:45:00 2024-07-22 11:45:00 Outpatient LAB47 TAMELA SINGH [id number] Tamela Seybold 2024-07-22 11:00:00 2024-07-22 11:00:00 Outpatient LAURIE SWAN [id number] Tamela Seybold 2024-07-19 00:00:00 2024-07-19 00:00:00 Outpatient LAURIE SWAN [id number] Tamela Seybold 2024-07-14 00:00:00 2024-07-14 00:00:00 Outpatient LAURIE SWAN [id number] Tamela Seybold 2024-07-12 16:00:00 2024-07-12 16:00:00 Outpatient LAB47 TAMELA SINGH [id number] Tamela Seybold 2024-07-12 15:30:00 2024-07-12 15:30:00 Outpatient LAURIE SWAN TAMELA SINGH [id number] Tamela Seybold 2024-07-06 00:00:00 2024-07-06 00:00:00 Outpatient LAURIE SWAN TAMELA [id number] Tamela Seybold 2024-07-01 14:12:00 2024-07-01 19:36:00 Emergency Charity Spence [facility] [id number] 2 [facility] 2024-07-01 14:12:00 2024-07-01 19:36:00 Emergency Emergency JORDYCHARITY LOYD [facility] General Medicine [id number] [facility] 2024-06-29 00:00:00 2024-06-29 00:00:00 Outpatient LAURIE SWAN TAMELA [facility]INGH [id number] [facility]-24 00:00:00 2024-06-24 00:00:00 Outpatient BRITTNEE ELÍAS SINGH [id number] Tamela Seybold 2024-06-23 14:00:00 2024-06-23 14:00:00 Outpatient EVERARDO BEAULIEUMADELEINE SINGH [id number] Tamela Seybold 2024-06-18 00:00:00 2024-06-18 00:00:00 Outpatient LAURIE SWAN TAMELA SINGH [id number] Tamela Seybold 2024-06-17 15:45:00 2024-06-17 15:45:00 Outpatient JACQUELINEChadd RAJ SINGH [id number] Tamela Seybold 2024-06-17 15:15:00 2024-06-17 15:15:00 Outpatient EMIL RAMSEY [id number] Tamela Seybold 2024-06-15 00:00:00 2024-06-15 00:00:00 Outpatient ELÍAS BEAULIEU [id number] Tamela Seybold 2024-06-15 00:00:00 2024-06-15 00:00:00 Outpatient MD TAMEL[facility] HASTINGS [id number] [facility]-10 00:00:00 2024-06-10 00:00:00 Outpatient BLADIMIR WINKLER [id number] [facility] 2024-06-08 14:29:00 2024-06-09 13:40:00 Inpatient Urgent BRITTNEEELÍAS HURST [facility] [id number] [facility] 2024-06-08 14:29:00 2024-06-09 13:40:00 Inpatient U [facility] [id number] 2024-06-08 14:29:00 2024-06-09 13:40:00 Hospital Encounter Elías Beaulieu Jonas [facility] [id number] [facility] 2024-06-09 00:00:00 2024-06-09 00:00:00 Outpatient ANA LEAL [id number] Tamela [facility] 2024-06-08 12:00:00 2024-06-08 12:00:00 Outpatient ELÍAS BEAULIEU [id number] Tamela [facility] 2024-06-08 00:00:00 2024-06-08 00:00:00 Outpatient ANA LEAL [id number] [facility] 2024-05-31 15:45:00 2024-05-31 15:45:00 Outpatient LAURIE SWAN [id number] Tamela [facility] 2024-05-31 00:00:00 2024-05-31 00:00:00 Outpatient MD TAMELA HASTINGS [id number] Tamela pamella 2024-05-31 00:00:00 2024-05-31 00:00:00 Outpatient ELÍAS BEAULIEU [id number] [facility] 2024-05-30 00:00:00 2024-05-30 00:00:00 Outpatient TAMELA SINGH [id number] Tamela Seybold 2024-05-20 00:00:00 2024-05-20 00:00:00 Outpatient ELÍAS BEAULIEU TAMELA SINGH [id number] Tamela Seybold 2024-05-18 15:20:00 2024-05-18 15:20:00 Outpatient RONINE NOYOLA TAMELA SINGH [id number] Tamela Seybold 2024-05-18 14:00:00 2024-05-18 14:00:00 Outpatient TAMELA SINGH [id number] Tamela Seybold 2024-05-06 15:00:00 2024-05-06 15:00:00 Outpatient BLADIMIR WINKLER TAMELA SINGH [id number] Tamela Seybold 2024-05-05 15:00:00 2024-05-05 15:00:00 Outpatient BRITTNEE ELÍAS TAMELA SINGH [id number] Tamela Seybold 2024-05-03 15:45:00 2024-05-03 15:45:00 Outpatient WOLFSERINA TAMELA SINGH [id number] Tamela Seybold 2024-04-05 00:00:00 2024-04-05 00:00:00 Outpatient LAURIE SWAN [id number] Tamela Seybold 2024-03-31 14:00:00 2024-03-31 14:00:00 Outpatient BRITTNEE ELÍAS TAMELA SINGH [id number] Tamela Seybold 2024-03-31 00:00:00 2024-03-31 00:00:00 Outpatient BRITTNEE ELÍAS TAMELA SINGH [id number] Tamela Seybold 2024-03-29 16:35:00 2024-03-29 16:35:00 Outpatient SARWAT SINGH [id number] Tamela Seybold 2024-03-29 16:00:00 2024-03-29 16:00:00 Outpatient LAURIE SWAN [id number] Tamela Seybold 2024-03-29 00:00:00 2024-03-29 00:00:00 Outpatient LAURIE SWAN TAMELA SINGH [id number] Tamela Seybold 2024-03-17 15:00:00 2024-03-17 15:00:00 Outpatient EMIL RAMSEY TAMELA SINGH [id number] Tamela Seybold 2024-03-16 14:30:00 2024-03-16 14:30:00 Outpatient RAJ MAURER TAMELA SINGH [id number] Tamela Seybold 2024-03-01 15:45:00 2024-03-01 15:45:00 Outpatient SERINA BLOOM TAMELA SINHG [id number] Tamela Seybold 2024-02-12 00:00:00 2024-02-12 00:00:00 Outpatient LAURIE SWAN TAMELA SINGH [id number] Tamela Seybold 2024-02-11 00:00:00 2024-02-11 00:00:00 Outpatient LAURIE SWAN TAMELA SINGH [id number] Tamela Seybold 2024-02-11 00:00:00 2024-02-11 00:00:00 Outpatient ANGEL TARIQESVIN SINGH [id number] Tamela Seybold 2024-02-09 15:00:00 2024-02-09 15:00:00 Outpatient LAB47 TAMELA SINGH [id number] Tamela Seybold 2024-02-06 15:45:00 2024-02-06 15:45:00 Outpatient LAB47 TAMELA SINGH [id number] Tamela Seybold 2024-02-06 15:00:00 2024-02-06 15:00:00 Outpatient TAMELA SINGH [id number] Tamela Seybold 2024-02-06 13:55:00 2024-02-06 13:55:00 Outpatient LAB47 TAMELA SINGH [id number] Tamela Seybold 2024-02-06 00:00:00 2024-02-06 00:00:00 Outpatient MORALES ALBRIGHT TAMELA SINGH [id number] Tamela Seybold 2024-02-04 15:30:00 2024-02-04 15:30:00 Outpatient BLADIMIR WINKLER [id number] Tamela Seybold 2024-01-27 00:00:00 2024-01-27 00:00:00 Outpatient LAURIE SWAN TAMELA [id number] Tamela Seybold 2024-01-20 00:00:00 2024-01-20 00:00:00 Outpatient LAURIE SWAN TAMELA [id number] Tamela Seybold 2024-01-19 16:00:00 2024-01-19 16:00:00 Outpatient SERINA BLOOM TAMELA SINGH [id number] Tamela Seybold 2024-01-15 16:00:00 2024-01-15 16:00:00 Outpatient LABSandhya TAMELA SINGH [id number] Tamela Seybold 2024-01-14 00:00:00 2024-01-14 00:00:00 Outpatient TAMELA SINGH [id number] Tamela Seybold 2024-01-13 00:00:00 2024-01-13 00:00:00 Outpatient LAURIE SWAN TAMELA [id number] Tamela Seybold 2024-01-13 00:00:00 2024-01-13 00:00:00 Outpatient LAURIE SWAN TAMELA [id number] Tamela Seybold 2024-01-13 00:00:00 2024-01-13 00:00:00 Outpatient LAURIE SWAN TAMELA [id number] Tamela Seybold 2024-01-13 00:00:00 2024-01-13 00:00:00 Outpatient LAURIE SWAN TAMELA [id number] Tamela Seybold 2024-01-12 15:30:00 2024-01-12 15:30:00 Outpatient TAMELA SINGH [id number] Tamela Seybold 2024 10:50:00 2024 10:50:00 Outpatient LAB47 TAMELA SINGH [id number] Tamela Seybold 2024-01-07 15:00:00 2024-01-07 15:00:00 Outpatient RAMSEYFELIPE ALMANZARBerna SINGH [id number] Tamela Seybold 2023-12-22 00:00:00 2023-12-22 00:00:00 Outpatient RAJ MAURER TAMELA SINGH [id number] Tamela Seybold 2023-12-19 00:00:00 2023-12-19 00:00:00 Outpatient RAJ MAURER TAMELA SINGH [id number] Tamela Seybold 2023-12-19 00:00:00 2023-12-19 00:00:00 Outpatient TAMELA SINGH [id number] Tamela Seybold 2023-12-18 15:45:00 2023-12-18 15:45:00 Outpatient LAURIE SWAN TAMELA SINGH [id number] Tamela Seybold 2023-12-17 15:15:00 2023-12-17 15:15:00 Outpatient TAHIRSERINA BACA TAMELA SINGH [id number] Tamela Seybold 2023-12-15 14:15:00 2023-12-15 14:15:00 Outpatient RAJ MAURER TAMELA SINGH [id number] Tamela Seybold 2023-12-12 00:00:00 2023-12-12 00:00:00 Outpatient WINKLERBLADIMIR Parra [id number] Tamela Seybold 2023-12-05 00:00:00 2023-12-05 00:00:00 Outpatient BLADIMIR WINKLER [id number] Tamela Seybold 2023-11-28 00:00:00 2023-11-28 00:00:00 Outpatient BLADIMIR WINKLER [id number] Tamela Seybold 2023-11-27 14:45:00 2023-11-27 14:45:00 Outpatient TAMELA SINGH [id number] Tamela Seybold 2023-11-27 14:40:00 2023-11-27 14:40:00 Outpatient TAMELA SINGH [id number] Tamela Seybold 2023-11-27 14:35:00 2023-11-27 14:35:00 Outpatient TAMELA SINGH [id number] Tamela Seybold 2023-11-27 14:30:00 2023-11-27 14:30:00 Outpatient LAB TAMELA SINGH [id number] Tamela Seybold 2023-11-25 15:30:00 2023-11-25 15:30:00 Outpatient R [facility] [id number] [facility] 2023-11-11 15:05:00 2023-11-11 15:05:00 Outpatient TAMELA SINGH [id number] [facility]ela [facility] 2023-11-11 15:00:00 2023-11-11 15:00:00 Outpatient RONNIE NOYOLA TAMELA SINGH [id number] [facility] 2023-11-05 16:20:00 2023-11-05 16:20:00 Outpatient LAB45 TAMELA SINGH [id number] [facility] 2023-11-05 15:30:00 2023-11-05 15:30:00 Outpatient BLADIMIR WINKLER TAMELA SINGH [id number] [facility] 2023-11-04 14:00:00 2023-11-04 14:00:00 Outpatient ARJ MAURER [id number] [facility] 2023-09-03 08:00:00 2023-09-03 08:15:00 Picker/Puller Visit Pob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 1.2.840.114 350.1.13.10 4.2.7.2.686 [id number] [facility] 2023-09-03 08:00:00 2023-09-03 08:00:00 Outpatient R [facility]I [facility] [id number] [facility] 2023-08-05 14:00:00 2023-08-05 14:50:24 Outpatient R SIMS [facility] [id number] [facility] 2023-08-05 14:00:00 2023-08-05 14:50:24 [facility] 1.2.840.114 350.1.13.10 4.2.7.2.686 [id number] [facility] 2023-07-24 14:05:59 2023-07-24 23:59:00 Hospital Encounter Morales Albright [facility] 1.2.840.114 350.1.13.10 4.2.7.2.686 [id number] [facility] 2023-07-24 14:03:47 2023-07-24 14:04:00 Outpatient R RADIOLOGY [facility] [id number] [facility] 2023-07-24 14:03:47 2023-07-24 14:04:00 Hospital Encounter Radiology [facility] 1.2.840.114 350.1.13.10 4.2.7.2.686 [id number] [facility] 2023-07-17 00:00:00 2023-07-17 00:00:00 Outpatient R RADIOLOGY [facility] [id number] [facility] 2023-07-08 14:00:00 2023-07-08 14:00:00 Outpatient R FAUSTINO STINSON [facility] [id number] [facility] 2023-06-06 00:00:00 2023-06-06 00:00:00 Orders Only Doctor Unassigned, [place] [facility] 1.2.840.114 350.1.13.10 4.2.7.2.686 [id number] [facility] 2023-05-16 14:11:26 2023-05-16 23:59:00 Outpatient R RADIOLOGY [facility] [id number] [facility] 2023-05-16 14:11:26 2023-05-16 23:59:00 Hospital Encounter Radiology [facility] 1.2.840.114 350.1.13.10 4.2.7.2.686 [id number] [facility] 2023-05-13 00:00:00 2023-05-13 00:00:00 Outpatient R RADIOLOGY [facility] [id number] [facility] 2023-05-08 09:45:00 2023-05-08 10:00:00 Picker/Puller Visit Pob, 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 [facility] 1.840.114 350.1.13.10 4.2.7.2.686 [id number] [facility] 2023-05-08 09:45:00 2023-05-08 09:45:00 Outpatient R CHARITY MOON [facility] [id number] [facility] 2023-05-05 16:17:00 2023-05-05 20:43:00 Emergency X DANAE GRULLON [facility] E[facility] [id number] [facility] 2023-05-05 16:17:00 2023-05-05 20:43:00 Emergency Danae Grullon S [facility] 1.840.114 350.1.13.10 4.2.7.2.686 [id number] [facility] 2022-07-18 16:47:32 2022-07-18 23:59:00 Outpatient R RADIOLOGY [facility] [id number] [facility] 2022-07-18 16:47:32 2022-07-18 23:59:00 Hospital Encounter Radiology [facility] 1.84.114 350.1.13.10 4.2.7.2.686 [id number] [facility] 2022-07-18 00:00:00 2022-07-18 00:00:00 Orders Only Doctor Unassigned, [place] [facility] 1.84.114 350.1.13.10 4.2.7.2.686 [id number] [facility] 2022-06-07 13:29:41 2022-06-07 23:59:00 Outpatient R RADIOLOGY [facility] [id number] [facility] 2022-06-07 13:29:41 2022-06-07 23:59:00 Hospital Encounter Radiology [facility] 1.2.840.114 350.1.13.10 4.2.7.2.686 [id number] [facility] 2022-05-22 14:45:00 2022-05-22 15:00:00 Picker/Puller Visit [facility] 1.2.840.114 350.1.13.10 4.2.7.2.686 [id number] [facility] 2022-05-22 14:45:00 2022-05-22 14:45:00 Outpatient Klever ANA [facility] [id number] [facility] 2022-05-22 00:00:00 2022-05-22 00:00:00 Orders Only Doctor Unassigned, [place] [facility] 1.2840.114 350.1.13.10 4.2.7.2.686 [id number] [facility] 2022-05-11 09:45:00 2022-05-11 10:00:00 Picker/Puller Visit [facility], [facility] BUILDING 1.2.840.114 350.1.13.10 4.2.7.2.686 [id number] [facility] 2022-05-11 09:45:00 2022-05-11 09:45:00 [facility] [id number] 2022-05-11 00:00:00 2022-05-11 00:00:00 Orders Only Doctor Unassigned, [place] [facility] 1.2.840.114 350.1.13.10 4.2.7.2.686 [id number] [facility] 2022-04-22 00:00:00 2022-04-22 00:00:00 Outpatient R RADIOLOGY [facility] [id number] [facility] 2021-12-18 20:11:00 2021-12-19 01:25:00 Emergency Yessi Klein [facility] 1.2.840.114 350.1.13.10 4.2.7.2.686 [id number] [facility] 2021-12-18 20:11:00 2021-12-19 01:25:00 [facility] [id number] [facility] 2021-08-14 00:00:00 2021-08-14 00:00:00 Patient Secure Msg Doctor Unassigned, [place] [facility] 1.2.840.114 350.1.13.10 4.2.7.2.686 [id number] [facility] 2021-08-13 16:13:00 2021-08-13 18:06:00 Emergency X TORRI PACHECO [facility] ERT [id number] [facility] 2021-08-13 16:13:00 2021-08-13 18:06:00 Emergency Torri Pacheco G [facility] 1.2.840.114 350.1.13.10 4.2.7.2.686 [id number] [facility] 2020-11-23 00:00:00 2020-11-23 00:00:00 Outpatient R YING CADENA [facility] [id number] [facility] 2020-06-05 14:40:00 2020-06-05 14:40:00 Outpatient R [facility] [id number] [facility] 2020-03-22 14:45:00 2020-03-22 14:45:00 Outpatient R NOEL SAMPSON [facility] [id number] [facility] 2020-02-21 14:03:27 2020-02-21 23:59:00 Outpatient R OBDULIA BOOTH [facility] [id number] [facility] 2020-02-07 14:30:00 2020-02-07 14:30:00 Outpatient R OBDULIA BOOTH [facility] [id number] [facility] 2019-12-13 14:30:00 2019-12-13 14:30:00 Outpatient R WILLIAM OSORIO [facility] [id number] [facility] 2019-12-01 10:42:24 2019-12-01 12:03:00 Emergency X JAYSHREE BUSCH [facility] ERT [id number] [facility] Results Test Description Test Time Test Comments Results Result Co [facility] Source [facility]/Diff and Cqpczaji1945-29-47 06:43:31 * Test Item Value Reference Range Interpretation Comme nts WBC (test code = 7829415554) 12.25 10^3/uL 4.15-10.55 H NRBC % (test code = 4740904857) See_Comment Reference range for Pediatrics not established. [Automated message] The system which generated this result transmitted reference range: 0.0 - 0.0 /100WB. The reference range was not used to interpret this result as normal/abnormal. RBC (test code = 0820109129) 4.31 10^6/ul 3.74-5.22 Hgb (test code = 9311666875) 13.6 g/dL 10.8-14.8 Hct (test code = 4698456995) 42.3 % 33.9-45.4 MCV (test code = 2695585382) 98.1 fL 77.8-97.5 H MCH (test code = 5551912937) 31.6 pg 24.9-32.6 MCHC (test code = 1059846378) 32.2 g/dL 30.1-35.0 RDW - SD (test code = 0455479333) 56.8 fL 37.6-49.1 H Plt Count (test code = 0631713098) 247 10^3/uL 191-422 MPV (test code = 2422028683) 10.7 fL 9.0-12.6 Lab Interpretation (test code = 36174-5) Abnormal [facility] Metabolic Imjaz6688-95-39 06:26:06* Test Item Value Reference Range Interpretation Comme nts Sodium Lvl (test code = 1783906918) See_Comment [Automated messa ge] The system which generated this result transmitted reference range: 136 - 145 mEq/L. The reference range was not used to interpret this result as normal/abnormal. Potassium Lvl (test code = 7947350749) See_Comment L The pediatric reference ranges for this test represent a CLSI-based transference of the Siemens study of pediatric reference intervals for the Siemens Atellica analyzer (CLSI EP28). [facility] has not internally validated these reference ranges and therefore they should be used only in the context of a thorough clinical assessment. [Automated message] The system which generated this result transmitted reference range: 3.4 - 4.5 mEq/L. The reference range was not used to interpret this result as normal/abnormal. Chloride Lvl (test code = 3543847934) See_Comment [Automated messa ge] The system which generated this result transmitted reference range: 98 - 107 mEq/L. The reference range was not used to interpret this result as normal/abnormal. CO2 Lvl (test code = 7181882558) See_Comment [Automated messa ge] The system which generated this result transmitted reference range: 20.0 - 31.0 mEq/L. The reference range was not used to interpret this result as normal/abnormal. Anion Gap (test code = 6868814454) See_Comment [Automated messa ge] The system which generated this result transmitted reference range: 10.0 - 20.0 mEq/L. The reference range was not used to interpret this result as normal/abnormal. Glucose Lvl (test code = 2755266912) 90 mg/dL 70-99 Adult reference range values reflect the clinical guidelines of the [place] [employer]. The pediatric reference ranges for this test represent a CLSI-based transference of the Siemens study of pediatric reference intervals for the Siemens Atellica analyzer (CLSI EP28). ?[facility] has not internally validated these reference ranges and therefore they should be used only in the context of a thorough clinical assessment. Creatinine Lvl (test code = 3089307051) 0.63 mg/dL 0.55-1.02 BUN (test code = 9579671483) 10 mg/dL 9-23 B/C Ratio (test code = 8976728125) 6-25 Total Protein (test code = 9721957706) 5.4 g/dL 5.7-8.2 L Albumin Lvl (test code = 3044243203) 2.9 g/dL 3.4-5.0 L Globulin (test code = 0206911148) 2.5 g/dL 2.0-4.0 Albumin/Globulin Ratio (test code = 8260678596) 0.7-1.6 Calcium Lvl (test code = 5757832337) 7.9 mg/dL 8.3-10.6 L ALT (test code = 9901685253) 48 U/L 7-40 H AST (test code = 8558997685) 30 U/L 12-40 Bilirubin Total (test code = 5220766810) 0.7 mg/dL 0.30-1.20 The pediatric reference ranges for this test represent a CLSI-based transference of the Siemens study of pediatric reference intervals for the Siemens Atellica analyzer (CLSI EP28). [facility] has not internally validated these reference ranges and therefore they should be used only in the context of a thorough clinical assessment. Alkaline Phosphatase (test code = 2581805796) 108 U/L 46-116 eGFR (test code = 7615658965) mL/min/1.73m2 The eGFR is calculated using the [...] estimated BMI. Lab Interpretation (test code = 47475-9) Abnormal [facility] EpicMagnesium Yotcc2883-85-11 06:26:06* Test Item Value Reference Range Interpretation Comme nts Magnesium Lvl (test code = 6964922397) 1.79 mg/dL 1.60-2.60 [facility] EpicPhosphorus Lrvxi5592-13-42 06:26:06* Test Item Value Reference Range Interpretation Comme nts Phosphorus Lvl (test code = 2442183674) 3.4 mg/dL 2.4-5.1 [facility] EpicAntibody Jidhea5106-08-40 11:34:28* Test Item Value Reference Range Interpretation Comme nts Antibody Screen (test code = 1230704761) Negative [facility] Dbcp8509-04-08 11:23:36* Test Item Value Reference Range Interpretation Comme nts ABO/Rh (test code = 3655871181) O POS [facility] Qvgfcwenzrxm4086-35-47 16:38:27* Test Item Value Reference Range Interpretation Comme nts Segmented Neutrophils Manual (test code = 9306796721) 77 % 40.9-70.4 H Lymphs % (test code = 8584580464) 14 % 15.6-46.4 L Monocytes (test code = 1458278326) 3 % 3.9-10.9 L Eos % (test code = 9270205787) 2 % 0.3-4.1 Basos % (test code = 7366150221) 1 % 0.2-1.3 The pediatric reference ranges for this test represent a CLSI-based transference of the study for "Pediatric Reference Intervals" 8th edition, AAC press 2020, with the Sysmex analyzers (CLSI EP28). [facility] has not internally validated these reference ranges and therefore they should be used only in the context of a thorough clinical assessment. Segs # (test code = 2362659626) 10.76 10^3/uL 2.03-7.09 H Lymphocytes # (test code = 2727707778) 1.96 10^3/uL 1.09-3.65 Monocytes # (test code = 2046303625) 0.42 10^3/uL 0.27-0.78 The pediatric reference ranges for this test represent a CLSI-based transference of the study for "Pediatric Reference Intervals" 8th edition, AACC press 2020, with the Sysmex analyzers (CLSI EP28). [facility] has not internally validated these reference ranges and therefore they should be used only in the context of a thorough clinical assessment. Eosinophils # (test code = 3304440750) 0.28 10^3/uL 0.02-0.33 Basophils # (test code = 9275539065) 0.14 10^3/uL 0.01-0.09 H Metamyelocytes (test code = 7980378027) 3 % 0.0-1.0 H NRBC % (test code = 6198365247) See_Comment The pediatric reference ranges for this test represent a CLSI-based transference of the study for "Pediatric Reference Intervals" 8th edition, [facility] press 2020, with the Sysmex analyzers (CLSI EP28). [facility] has not internally validated these reference ranges and therefore they should be used only in the context of a thorough clinical assessment. [Automated message] The system which generated this result transmitted reference range: <=0 /100WB. The reference range was not used to interpret this result as normal/abnormal. Lab Interpretation (test code = 96749-8) Abnormal [facility] Metabolic Nadyn2565-19-38 16:21:15* Test Item Value Reference Range Interpretation Comme nts Sodium Lvl (test code = 7743003729) See_Comment [Automated Whitepagesa Workana] The system which generated this result transmitted reference range: 136 - 145 mEq/L. The reference range was not used to interpret this result as normal/abnormal. Potassium Lvl (test code = 5996542480) See_Comment The pediatric reference ranges for this test represent a CLSI-based transference of the Siemens study of pediatric reference intervals for the Siemens Atellica analyzer (CLSI EP28). [facility] has not internally validated these reference ranges and therefore they should be used only in the context of a thorough clinical assessment. [Automated message] The system which generated this result transmitted reference range: 3.4 - 4.5 mEq/L. The reference range was not used to interpret this result as normal/abnormal. Chloride Lvl (test code = 9560639921) See_Comment [Automated Whitepagesa ge] The system which generated this result transmitted reference range: 98 - 107 mEq/L. The reference range was not used to interpret this result as normal/abnormal. CO2 Lvl (test code = 1618453970) See_Comment [Automated [employer]epagesa Workana] The system which generated this result transmitted reference range: 20.0 - 31.0 mEq/L. The reference range was not used to interpret this result as normal/abnormal. Anion Gap (test code = 5770927297) See_Comment [Automated Whitepagesa Workana] The system which generated this result transmitted reference range: 10.0 - 20.0 mEq/L. The reference range was not used to interpret this result as normal/abnormal. Glucose Lvl (test code = 3110694004) 95 mg/dL 70-99 Adult reference range values reflect the clinical guidelines of the [place] [employer]. The pediatric reference ranges for this test represent a CLSI-based transference of the Siemens study of pediatric reference intervals for the Siemens Atellica analyzer (CLSI EP28). ?[facility] has not internally validated these reference ranges and therefore they should be used only in the context of a thorough clinical assessment. Creatinine Lvl (test code = 5784724612) 1.01 mg/dL 0.55-1.02 BUN (test code = 0474607174) 20 mg/dL 9-23 B/C Ratio (test code = 3543283293) 6-25 Total Protein (test code = 8127158941) 6.6 g/dL 5.7-8.2 Albumin Lvl (test code = 6992881703) 3.5 g/dL 3.4-5.0 Globulin (test code = 1575127227) 3.1 g/dL 2.0-4.0 Albumin/Globulin Ratio (test code = 8925089838) 0.7-1.6 Calcium Lvl (test code = 3920791083) 8.8 mg/dL 8.3-10.6 ALT (test code = 5750120306) 62 U/L 7-40 H AST (test code = 7995559262) 40 U/L 12-40 Bilirubin Total (test code = 5235581513) 0.4 mg/dL 0.30-1.20 The pediatric reference ranges for this test represent a CLSI-based transference of the Siemens study of pediatric reference intervals for the Siemens Atellica analyzer (CLSI EP28). [facility] has not internally validated these reference ranges and therefore they should be used only in the context of a thorough clinical assessment. Alkaline Phosphatase (test code = 3303646060) 130 U/L 46-116 H eGFR (test code = 0324165477) mL/min/1.73m2 The eGFR is calculated using the [...] estimated BMI. Lab Interpretation (test code = 14494-1) Abnormal [facility] EpicHemoglobin [id number] 16:16:15* Test Item Value Reference Range Interpretation Comme nts Hgb A1C (test code = 9161047424) 5.97 % <=5.60 H Lab Interpretation (test cod e = 58387-6) [facility]Diff and [id number] 16:08:20 * Test Item Value Reference Range Interpretation Comme nts WBC (test code = 7486463008) 13.98 10^3/uL 4.15-10.55 H NRBC % (test code = 2297222605) See_Comment H Reference range for Pediatrics not established. [Automated message] The system which generated this result transmitted reference range: 0.0 - 0.0 /100WB. The reference range was not used to interpret this result as normal/abnormal. RBC (test code = 6446513131) 4.76 10^6/ul 3.74-5.22 Hgb (test code = 6922739412) 15.1 g/dL 10.8-14.8 H Hct (test code = 5631910978) 46 % 33.9-45.4 H MCV (test code = 2700262858) 96.6 fL 77.8-97.5 MCH (test code = 9438862083) 31.7 pg 24.9-32.6 MCHC (test code = 8427397221) 32.8 g/dL 30.1-35.0 RDW - SD (test code = 3217991786) 55.8 fL 37.6-49.1 H Plt Count (test code = 6965125508) 293 10^3/uL 191-422 MPV (test code = 7288071632) 10.3 fL 9.0-12.6 Lab Interpretation (test code = 54946-5) Abnormal [facility] EpicTHYROID STIMULATING [id number] 16:37:37* Test Item Value Reference Range Interpretation Comme nts TSH (test code = 3163752145) 1.00 See_Comment [Automated messa ge] The system which generated this result transmitted reference range: 0.45 - 4.70 mIU/L. The reference range was not used to interpret this result as normal/abnormal. Lab Interpretation (test code = 36100-7) Normal [facility] [id number] 16:23:56* Test Item Value Reference Range Interpretation Comme nts FREE T4 (test code = 6085264166) 0.60 See_Comment L [Automated messa ge] The system which generated this result transmitted reference range: 0.78 - 2.20 ng/dL:. The reference range was not used to interpret this result as normal/abnormal. Lab Interpretation (test code = 76277-7) [facility]normal [facility] [id number] 16:14:33* Test Item Value Reference Range Interpretation Comme nts ESR (test code = 50263-4) 4 See_Comment [Automated message] The system which generated this result transmitted reference range: 0 - 20 mm/HR. The reference range was not used to interpret this result as normal/abnormal. Lab Interpretation (test code = 97738-5) Normal [facility]. METABOLIC PANEL (39614)2023-05-08 16:10:52* Test Item Value Reference Range Interpretation Comme nts NA (test code = 2351484938) 140 mmol/L 135-145 K (test code = 4693677398) 3.9 mmol/L 3.5-5.0 CL (test code = 4194947176) 104 mmol/L 98-108 CO2 TOTAL (test code = 0596453456) 30 mmol/L 23-31 AGAP (test code = 8177246145) 6 2-16 BUN (test code = 7480968809) 10 mg/dL 7-23 GLUCOSE (test code = 5107758809) 96 mg/dL 70-110 CREATININE (test code = 5823775586) 0.62 mg/dL 0.50-1.04 TOTAL BILI (test code = 7608973192) 0.3 mg/dL 0.1-1.1 CALCIUM (test code = 7932418017) 9.0 mg/dL 8.6-10.6 T PROTEIN (test code = 0240638920) 6.0 g/dL 6.3-8.2 L ALBUMIN (test code = 2769805469) 3.7 g/dL 3.5-5.0 ALK PHOS (test code = 1997781148) 147 U/L 34-122 H ALTv (test code = 1742-6) 37 U/L 5-35 H AST(SGOT) (test code = 0502477585) 31 U/L 13-40 eGFR (test code = 3567231109) 102.3 mL/min/1.73m2 REJI (test code = REJI) [...] imaging tests). Lab Interpretation (test code = 86660-8) [facility]normal [facility] 16:10:32* Test Item Value Reference Range Interpretation Comme nts PHOSPHORUS (test code = 0935501971) 3.3 mg/dL 2.5-5.0 Lab Interpretation (test cod e = 23648-2) Normal [facility] HospitalGAMMA [id number] 16:10:31* Test Item Value Reference Range Interpretation Comme nts GGT (test code = 8644172927) 104 U/L 13-40 H Lab Interpretation (test cod e = 24607-6) Abnormal [facility] HospitalBIL[facility] UNCONJUGATED/BILI [id number] 16:09:51* Test Item Value Reference Range Interpretation Comme nts BILI CONJ (test code = 1699766276) 0.0 mg/dL 0.0-0.3 BILI UNCON (test code = 2877410346) 0.1 mg/dL 0.1-1.1 Lab Interpretation (test cod e = 12253-0) Normal [facility] HospitalMAMMOGRAM, [id number]-[id number] 22:44:00*.*.*.*.*.*.*.*.*.*.*.*.*.*FINAL*.*.*.*.*.*.*.*.*.*.*.*.*.*.*No comparison films were available at the time of this reading. Bilateral Breast Findings (craniocaudal, mediolateral oblique and CCexaggerated to axilla projections):There are scattered fibroglandular densities. No significant masses,calcifications or other abnormalities are seen. ROSALEE OMALLEY JR, MD ?Personally interpreted by: ROSALEE OMALLEY JR, MD /Signed/ ROSALEE OMALLEY JR, MDGonz[facility] Hospital Notes Date/Time Note Provider Source Referral ID Status Reason Start Date Expiration Date Visits Requested Visits Authorized [id number] Authorized Service Not Available at Clinic 05/24/2025 08/22/2025 1 1 TamelaIno [id number] 16:03:53* TamelaIno Umadyw8297-97-31 16:03:53 TamelaFransisco [id number] 16:03:53* Pascual León MD - 05/24/2025 3:45 [...] your pain? constantly Kind of pain (quality):Sharp, Pins/[place], Numbness What makes it worse? 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 Pascual León, [facility]-Pain Medicine [facility] and [facility] This document was created using a voice [...] a day for one week. Pascual León, [facility]-Pain Medicine Ilan This document was created [...] Topics Alcohol use: Never Drug use: Never [facility]2025-09-16 16:03:53Upcoming Encounters Scheduled Referrals Name Type Priority [...] Vaccines (1 - 1-dose 75+ series) 2049 [facility]2025-09-16 16:03:53 Diagnosis Chronic lumbosacral pain - Primary Lumbago Myofascial pain syndrome Mylagia and myositis, unspecified Coccydynia Other disorder of coccyx Neural foraminal stenosis of lumbosacral spine [facility]2025-09-16 16:03:53 [place] [id number] 15:29:36 Chief Complaint Patient presents with Follow-up On back pain. LIZZETTE 04/05/2025. Says pain has improved about 50% since having the trigger point injection. LIANG Diaz III [facility] 16:01:56* [facility] 2025-04-06 16:01:56 [facility]2025-07-30 16:01:56* Patient Instructions* Raj Maurer DO - 04/06/2025 4:01 PM CDT Lupus/RA: Stable. Managed by Rheumatology. Taking Plaquenil 400 mg daily, methotrexate 15 mg every week, and Benysta.200 mg every week. She is also taking folic acid. Follow up with Rheumatology as directed. Hyperparathyroidism/adrenal insufficiency after removal of adrenal adenoma/[place]: Stable. Managed by endocrinology. Currently on Hydrocortisone [...] plan of care. Will provide handicap placard. [facility]2025-07-30 16:01:56* Raj Maurer DO - 04/06/2025 [...] acid. Hyperparathyroidism/adrenal insufficiency after removal of adrenal adenoma/[place]: Managed by endocrinology in the past. Notes [...] note 04/05/2025: Reviewed1. Myofascial pain syndrome INJECTION SINGLE/TRADE RECRUITER TRIGGER POINT 1/2 MUSCLES 2. Neural foraminal [...] salivary cortisol elevated She has overt adrenal [place]'s She has striae, easy bruising, she has [...] and all orders for this visit: Adrenal [place]'s syndrome (HHS-HCC)- COMP. METABOLIC PANEL (14); Future [...] 09/15/2024 Performed by Yuriy Pedersen MD at [facility] LUMBAR/SACRAL TRANSFORAMINAL/SELECTIVE NERVE ROOT BLOCK EPIDURAL INJECTION Left 11/17/2024 Performed by Yuriy Pedersen MD at [facility] LUMBAR/SACRAL TRANSFORAMINAL/SELECTIVE NERVE ROOT BLOCK EPIDURAL INJECTION, ADDITIONAL LEVEL Left 11/17/2024 Performed by Yuriy Pedersen MD at [facility] SUPRACERVICAL ABDL HYSTER W/WO RMVL TUBE OVARY [...] PLACARD APPLICATION 2. Adrenal insufficiency after adrenalectomy (HHS-HCC)- Hydrocortisone 10 MG oral Tablet; 1.5 tab in the morning, 1 in evening, may increase as directed.. - HANDICAP PLACARD APPLICATION 3. History of adrenal surgery- HANDICAP PLACARD APPLICATION 4. Prediabetes- HANDICAP PLACARD APPLICATION 5. Rheumatoid arthritis involving multiple sites, unspecified whetherrheumatoid factor present (multi HCC) - HANDICAP PLACARD APPLICATION 6. Other forms of systemic lupus erythematosus, unspecified organ involvement status ([facility]) - HANDICAP PLACARD APPLICATION 7. Immunodeficiency due to conditions classified elsewhere ([facility]-HCC)- HANDICAP PLACARD APPLICATION Lupus/RA: Stable. Managed by Rheumatology. Taking Plaquenil 400 mg daily, methotrexate 15 mg every week, and Benysta.200 mg every week. She is also taking folic acid. Follow up with Rheumatology as directed. Hyperparathyroidism/adrenal insufficiency after removal of adrenal adenoma/[place]: Stable. Managed by endocrinology. 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[employer] Tobacco Use Smoking status: Former Current packs/day: 0.50 Average packs/day: 0.5 packs/day for 10.0 years (5.0 ttl pk-yrs) Types: Cigarettes Smokeless tobacco: Never Tobacco comments: Quit 05/2024 Vaping Use Vaping status: Never Used Substance and Sexual Activity Alcohol use: Never Drug use: Never Sexual activity: Not Currently control/protection: Hysterectomy [facility]2025-07-30 16:01:56Upcoming Encounters Health Maintenance Due Date [...] Vaccines (1 - 1-dose 75+ series) 2049 [facility]2025-07-30 16:01:56 Diagnosis Prediabetes - Primary Other abnormal glucose Lumbar paraspinal muscle spasm Other symptoms referable to back Adrenal insufficiency after adrenalectomy ([facility]-HCC) History of adrenal surgery Rheumatoid arthritis involvi ng multiple sites, unspecified whether rheumatoid factor present (multi HCC) Other forms of systemic lupu s erythematosus, unspecified organ involvement status (multi HCC) Immunodeficiency due to cond itions classified elsewhere ([facility]-HCC) [facility]2025-07-30 16:01:[address] [facility]hm[facility]20[facility] 16:37:26* [place] [id number] 16:37:26 [facility]2025-07-29 16:37:26* Pascual León MD - 04/05/2025 4:06 [...] your pain? constantly Kind of pain (quality):Sharp, Pins/[place], Numbness What makes it worse? Walking What [...] ThinnersNSAIDs ASSESSMENT 1. Myofascial pain syndrome INJECTION SINGLE/TRADE RECRUITER TRIGGER POINT 1/2 MUSCLES 2. 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 Pascual León, [facility]-Pain Medicine [facility] This document was created using a voice [...] a day for one week. Pascual León, [facility] Medicine Ilan This document was created [...] Topics Alcohol use: Never Drug use: Never [facility]2025-07-29 16:37:26Upcoming Encounters Scheduled Orders Name Type Priority Associated Diagnoses Orde r Schedule INJECTION SINGLE/TRADE RECRUITER TRIGGER POINT 1/2 MUSCLES Procedures Routine Myofascial [...] Vaccines (1 - 1-dose 75+ series) 2049 [facility]2025-07-29 16:37:26 Diagnosis Myofascial pain syndrome - Primary Mylagia and myositis, unspecified Neural foraminal stenosis of lumbosacral spine Chronic lumbosacral pain Lumbago Lumbar paraspinal muscle spasm Other symptoms referable to back [facility]2025-07-29 16:37:26 [facility]2025-07-29 15:55:53 Eda Rosales a 50 year [...] arthritis (multi HCC) [facility]umat[facility] 15:23:10 Chief Complaint Patient presents with Follow-up 3 month. 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 Will revive patient with analgesia, otherwise no [...] UTI Scoring Tools Mary Stafford MD [facility]/252019 [facility]29[facility] 16:23:07 Chief Complaint Patient presents with Leg Pain Hip Pain Back Pain Patient complains of lower extremity pain Natalie Hebert MA Abby Djqjhk8054-46-20 15:51:10 Chief Complaint Patient presents with Consultation Previous In [place] Dx Fatty, Liver Mass, and CystPt. Seeking new Gastro resident care Kathrine TAVERA Abby Jiypso8818-05-18 15:17:35 Chief Complaint Patient presents with Follow-up Adrenal Problem Vanita Marcelino MA Abby Sxtyhj5319-79-20 15:05:04 Chief Complaint Patient presents with Consultation Hx of lupus CHELSIE - Kathrine Bee bAby Kneyfo4289-11-94 15:22:30 Chief Complaint Patient presents with Back Pain Brenda Godfrey MA Brenda Godfrey [place] 725455-03-13 11:14:59 No chief complaint on file. [place] 516925-02-10 14:49:55 Eda Deshpande is a 49 year old female Chief Complaint Patient presents with Follow-up Low back and left leg pain, numbness and tingling. Back Pain Adela Alexander MA III [facility] Adela Alexander [place] 725455-02-03 15:13:39 Chief Complaint Patient presents with Follow-up Adrenal Problem Vanita Marcelino MA [facility] [place] [address]Tsrxav7708-68-46 15:23:28 Chief Complaint Patient presents with Elbow Pain Elbow pain/swelling. Started over a month and progressively getting worse each day Na Mccoy MA [place] 378174-11-22 15:26:47 Chief Complaint Patient presents with Follow-Up Visit Lupus Patient here for follow up on lupus Cecilia Donald LVN [facility]rina[facility] [address]Troiun5805-80-40 10:56:33 Chief Complaint Patient presents with Follow-up Adrenal Problem Vanita Marcelino CMA II [facility] Zuydqe8657-84-69 14:50:44 Chief Complaint Patient presents with Follow-up Adrenal Problem Vanita Marcelino CMA II [facility]2024-10-24 19:36:42* [facility] CenterKpdqmiw3090-94-83 19:36:42* Calculated C-SSRS Risk Score (Lifetime/Recent) Answer Date of Assessment Author No Risk Indicated 07/01/2024 3:32 PM CDT Kevon Calvin RN * [place] Suicide Severity Rating Scale (Screener/Recent Self-Report) Question Answer Date of Assessment Author 1. Wish to be (Past 1 Month) No 024 3:32 PM CDT Kevon Calvin RN 2. Non-Specific Active Suici millicent Thoughts (Past 1 Month) No 07/01/2024 3:32 PM CDT Kevon Calvin RN 6. Suicidal Behavior (Lifetime) No 3:32 PM CDT Kevon Calvin RN [facility] CenterEukqdis9498-30-08 19:36:42Pending Results Scheduled Orders Name Type Priority [...] on patient's age to complete this topic [address]10-24 19:36:42 Diagnosis Nausea and vomiting, unspeci fied vomiting type - Primary Right upper quadrant abdomin al pain [place] [address]-10-24 19:36:[address]10-02 16:01:30* [address]10-02 16:01:[address]10-02 16:01:30 Diagnosis [place]'s syndrome, unspecif ied (HCC) [facility] CenterWvoynkn7738-60-80 15:33:18 Chief Complaint Patient presents with Follow-up Adrenal Problem Vanita Marcelino CMA II [facility]2024-07-22 15:52:52 Chief Complaint Patient presents with Follow-up Adrenal Problem Vanita Marcelino CMA II [facility]2024-07-10 14:58:20 Chief Complaint Patient presents with Follow-up Discoid lupus f/u Leigh Marquez [place] 727934-06-24 15:29:38 Eda Deshpande is a 49 year old female Chief Complaint Patient presents with Follow-up 49 year old female; C/O lower back pain. No recent injuries/accidents. Pain 11/15. Fanny Olsen CMA I [facility]2024-05-29 15:07:00 Chief Complaint Patient presents with Follow-Up Visit Follow up on lupus Lupus Sol Tavares CMA II [facility]2024-05-13 16:03:38 Eda Deshpande is a 49 year old female Chief Complaint Patient presents with Follow-up 49 year old female; C/O lower back pain. Patient here to review MRI results. No recent injuries/accidents. Pain 12/16. Fanny Olsen CMA I [facility] 15:39:03 Chief Complaint Patient presents with Consultation Thyroid Problem Vanita Marcelino CMA II [facility]2024-04-10 15:02:01 Eda Deshpande is a 48 year old female Chief Complaint Patient presents with New Patient Consult Back Pain Patient with chronic back pain, rheumatoid arthritis and lupus. Seen by hiv prevention specialist in the past. Was to have MRI and further evaluation and treatment. Adela Alexander CMA II [facility], [facility]24-[facility] 13:52:35 Chief Complaint Patient presents with Physical Jeri Mack MA II [facility]2024-02-28 15:32:07 Chief Complaint Patient presents with Follow-Up Visit Follow up on Lupus and rheumatoid arthritis Sol Tavares CMA II [facility]2023-12-27 08:00:00 Images from the original note [...] processed according to instructions and sent to [facility] laboratories per lab order on 09/03/2023 : LT BLUE SST 5 RED LAV 3 PPT DK GREEN (LiHep) 1 DK GREEN (SodH) [place] DK BLUE (K2) DK BLUE (S) ACD Blood Culture NIPT/NTD [facility]2023-08-31 09:45:00 Images from the original note were not included. Venipuncture collection performed by clean technique on the right anticubitus. Total of 1 attempts were made. Slight pressure and a bandage/dressing were applied to the site(s). The patient experienced no complications. The following specimens were processed according to instructions and sent to [facility] laboratories per lab order on 05/08/2023: LT BLUE SST 6 RED LAV 1 PPT DK GREEN (LiHep) DK GREEN (SodH) [place] DK BLUE (K2) DK BLUE (S) ACD Blood Culture NIPT/NTD Patient has been identified by and name and was provided with cup, antiseptic towelette, and clean catch instructions. 2 urine specimen(s) sent. Unpreserved 2 Urine Culture Aptima tube Other urine T [place] 408023-08-28 20:41:41 Pt discharged with diagnosis of acute left flank pain and R groin pain. Printed and verbal instructions reviewed with and given to patient. Prescriptions given x 0. Pt verbalized understanding of teaching and recommended follow-up. Denies questions or concerns at this time. Pt ambulatory at discharge. Appears in no apparent distress. No ataxia noted. 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 Ana Edouard [facility]
[2025-06-26] MEDS ORDERED: KETOROLAC 30 MG/ML INJ ONE (04:44)
[2025-06-26] MEDS ORDERED: ONDANSETRON 4 MG/2 ML VIAL ONE (04:44)
[2025-06-26] MEDS ORDERED: NA CHLORIDE 0.9% 100 ML ONE (04:45)
[2025-06-26] MEDS ORDERED: METHOCARBAMOL 1,000 MG/10 ML VIAL ONE (04:45)
[2025-06-26] MEDS ORDERED: FENTANYL CITR 100 MCG/2 ML ONE (04:45)
[2025-06-26 04:51] LABS: Absolute Lymphocytes (CBC) 2.5 K/uL (0.7-4.9); Hematocrit 44.8 % (36.0-45.0); Hemoglobin 15.4 g/dL (12.0-15.0); MCH 29.8 pg (27.0-35.0); MCHC 34.4 g/dL (32.0-36.0); MCV 86.7 fL (80-100); MPV 9.6 fL (7.6-11.3); Nucleated RBC Absolute Count 0.0 (0-0); Nucleated Red Blood Cells % 0.1 % (0-0); RBC Red Blood Cell Count 5.17 M/uL (3.86-4.86); White Blood Count 8.30 thou/uL (4.3-10.9)
[2025-06-26 06:21] LABS: ALT/SGPT 22.0 U/L (13-56); AST/SGOT 22.0 U/L (15-37); Albumin 2.9 g/dL (3.4-5.0); Albumin/Globulin Ratio 1.0 (1.1-1.8); Alkaline Phosphatase 108.0 U/L (45-117); Anion Gap 8.4 mEq/L (5.0-15.0); BUN Blood Urea Nitrogen 9.0 mg/dL (7-18); Globulin 2.8 g/dL (2.3-3.5); Glucose Level 97.0 mg/dL (74-106); Lipase 40.0 U/L (13-75); Potassium 3.4 mEq/L (3.5-5.1)
--- NOTE | 2025-06-26 06:32 | ER ---
Nurse's Notes [facility] Name: Sienna Vogel Age: 50 yrs Sex: Female : 1975 Arrival Date: 06/26/2025 Time: 03:54 Bed 14 Private MD: Diagnosis: Radiculopathy, lumbosacral region;Intervertebral disc disorders with radiculopathy, lumbar region Presentation: 06/26 04:01 Chief complaint: Patient states: right lower back pain radiating all the way down the ss12 her right side of the hip. pain 10/10. Have hx of back disc issues. Coronavirus screen: Client denies travel out of the [place] in the last 14 days. Ebola Screen: Patient negative for fever greater than or equal to 101.5 degrees Fahrenheit, and additional compatible Ebola Virus Disease symptoms Patient denies exposure to infectious person. Patient denies travel to an Ebola-affected area in the 21 days before illness onset. Initial Sepsis Screen: Does the patient meet any 2 criteria? No. Patient's initial sepsis screen is negative. Does the patient have a suspected source of infection? No. Patient's initial sepsis screen is negative. Risk Assessment: Do you want to hurt yourself or someone else? Patient reports no desire to harm self or others. Onset of symptoms is unknown. 04:01 Method Of Arrival: Ambulatory 12 04:01 Acuity: LIVE 3 ss12 Triage Assessment: 04:01 General: Appears in no apparent distress. uncomfortable, Behavior is calm, cooperative, ss12 restless. Pain: Complains of pain in right lower back Pain radiates to right leg Pain currently is 10 out of 10 on a pain scale. Quality of pain is described as aching, Pain began. EENT: No deficits noted. No signs and/or symptoms were reported regarding the EENT system. Neuro: No deficits noted. Level of Consciousness is awake, alert, obeys commands, Oriented to person, place, time, situation. Cardiovascular: No deficits noted. Capillary refill < 3 seconds Patient's skin is warm and dry. Respiratory: No deficits noted. Airway is patent Respiratory effort is even, unlabored, Respiratory pattern is regular, symmetrical. GI: No deficits noted. Abdomen is flat, non-distended. : No deficits noted. No signs and/or symptoms were reported regarding the genitourinary system. Derm: Skin is intact, Skin is dry, Skin is pink, warm \T\ dry. normal. Musculoskeletal: No deficits noted. No signs and/or symptoms reported regarding the musculoskeletal system. 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 - Infectious Disease History:: Denies. - Social history:: Smoking status: Patient reports the use of cigarette tobacco products, 3-4 cigarettes a day. - Family history:: not pertinent. Screenin:34 [facility] ED Fall Risk Assessment (Adult) History of falling in the last 3 months, ss12 including since admission No falls in past 3 months (0 pts) Confusion or Disorientation No (0 pts) Intoxicated or Sedated No (0 pts) Impaired Gait No (0 pts) Mobility Assist Device Used No (0 pt) Altered Elimination No (0 pt) Score/Fall Risk Level 0 - 2 = Low Risk Oriented to surroundings, Maintained a safe environment, Educated pt \T\ family on fall prevention, incl call for assistance when getting out of bed, Assessed \T\ reinforced patient's understanding of fall precautions. Abuse screen: Denies threats or abuse. Denies injuries from another. Nutritional screening: No deficits noted. Tuberculosis screening: No symptoms or risk factors identified. Assessment: 04:01 General: see triage asessement. ss12 05:00 Reassessment: Patient appears in no apparent distress at this time. Patient and/or ss12 family updated on plan of care and expected duration. Pain level reassessed. Patient is alert, oriented x 3, equal unlabored respirations, skin warm/dry/pink. 05:27 Reassessment: Pt family requested to be called when pt being discharged. if you cant [facility] reach Eduardo Fong. Eduardo Deshpande (son) phone number [phone] brother Ajit (Son)[phone]. 06:49 Reassessment: PT SON HERE TO PICK THE PATIENT. RIDE WITNESSED. ss12 Vital Signs: 04:01 BP 108 / 65; Pulse 86; Resp 16; Temp 97.6; Pulse Ox 98% on R/A; ss12 04:34 Weight 63.5 kg; Height 5 ft. 2 in. ; ss12 05:15 BP 104 / 62; Pulse 78; Resp 16; Pulse Ox 98% on R/A; ss12 06:15 BP 107 / 79; Pulse 81; Resp 16; Pulse Ox 96% on R/A; ss12 04:34 Body Mass Index 25.61 (63.50 kg, 157.48 cm) ss12 [place] Coma Score: 19:28 Eye Response: spontaneous(4). Motor Response: obeys commands(6). Verbal Response: sp4 oriented(5). Total: 15. ED Course: 03:57 Patient arrived in ED. gm2 04:00 Inserted saline lock: 22 gauge in left forearm, using aseptic technique. Blood ss12 collected. Flushed with 10 mL NS. 04:03 Farhad Llamas, RN is Primary Nurse. ss12 04:18 Triage completed. ss12 04:28 Adolfo Ferreira MD is Attending Physician. sp4 04:35 Arm band placed on right wrist. ss12 04:35 Patient has correct armband on for positive identification. Provided Education on: plan ss12 of care. 04:35 No provider procedures requiring assistance completed. ss12 04:36 CBC with Diff Sent. ss12 04:36 CMP Sent. ss12 04:36 Lipase Sent. ss12 05:12 CBC with Diff Sent. ss12 05:12 CMP Sent. ss12 05:12 Lipase Sent. ss12 06:50 IV discontinued, intact, bleeding controlled, No redness/swelling at site. Pressure ss12 dressing applied. Administered Medications: 04:45 Drug: fentaNYL (PF) IVP 100 mcg IVP once Route: IVP; Site: left forearm; ss12 05:50 Follow up: Response: No adverse reaction ss12 04:45 Drug: Ondansetron IVP 4 mg IVP once; over 2 minutes Route: IVP; Site: left forearm; ss12 05:49 Follow up: Response: No adverse reaction ss12 04:45 Drug: Ketorolac IVP 30 mg IVP once Route: IVP; Site: left forearm; ss12 05:49 Follow up: Response: No adverse reaction 12 04:45 Drug: Methocarbamol IVPB 1 grams IVPB once over 1 hrs; (mix in NS 100 mL) Route: IVPB; ss12 Infused Over: 1 hrs; Site: left forearm; 05:49 Follow up: IV Status: Completed infusion ss12 04:45 Drug: Droperidol IVP 2.5 mg IVP once Route: IVP; Site: left forearm; ss12 05:49 Follow up: Response: No adverse reaction; Pain is decreased ss12 Medication: 04:35 VIS not applicable for this client. [facility] Outcome: 06:32 Discharge ordered by . sp4 06:49 Discharged to home ambulatory, 12 06:49 Condition: stable 06:49 Discharge instructions given to patient, family, Instructed on discharge instructions, follow up and referral plans. Demonstrated understanding of instructions, follow-up care, medications, Prescriptions given X 2, 06:51 Patient left the ED. [facility] Signatures: Adolfo Ferreira MD MD sp4 Antoinette Jacobo 2 Farhad Llamas RN RN 12 Corrections: (The following items were deleted from the chart) 05:30 04:01 Reassessment: [place] [id number]
--- NOTE | 2025-06-26 06:32 | EDPHYS ---
Physician Documentation [facility] Name: Sienna Vogel Age: 50 yrs Sex: Female : 1975 Arrival Date: 06/26/2025 Time: 03:54 Bed 14 Private MD: ED Physician Adolfo Ferreira HPI: 06/26 04:29 This 50 yrs old Female presents to ER via Ambulatory with complaints of Low sp4 Back Pain, Leg Pain. 19:28 50-year-old female with history of scoliosis and chronic back pain presents with sp4 worsening lower back pain associated with pain traveling down the right leg. Patient is currently on pain management with p.o. tramadol and spinal injections. Patient follows up with [facility] . Record review reveals CT from 06/08/2025 - FINDINGS: LOWER CHEST: No acute process identified.No significant pericardial effusion. UPPER GI: No significant abnormality. LIVER: 7 mm hypoattenuating lesion in the left hepatic lobe is too small to characterize but has benign imaging features. GALLBLADDER/BILE DUCTS: The gallbladder is distended which is nonspecific. No pericholecystic inflammatory changes.? PANCREAS: No mass, ductal dilation, or heavenly-pancreatic fluid. SPLEEN: Unremarkable. ADRENALS: Status post left adrenalectomy. 3.5 x 3.4 cm fluid collection adjacent to the upper pole left kidney without significant enhancement. This is probably a postoperative seroma. KIDNEYS AND URETERS: No hydronephrosis.No suspicious renal mass.Nonobstructing renal calculi.No ureteral calculi. ABDOMINAL AORTA AND OTHER VESSELS: Normal caliber aorta and IVC. PERITONEUM: No abnormal free fluid. No free air. LYMPH NODES: No pathologic lymphadenopathy. ABDOMINAL WALL: Unremarkable SMALL BOWEL/COLON: Small bowel has normal course and caliber. No colonic wall thickening or pericolonic inflammatory changes.Normal appendix. Mild diverticulosis without diverticulitis. URINARY BLADDER: Underdistended but grossly unremarkable. REPRODUCTIVE ORGANS: Uterus surgically absent. No adnexal abnormality. MUSCULOSKELETAL: Multilevel degenerative changes in the spine. Grade 1 anterolisthesis of L3 on L4. There is some endplate irregularity, sclerosis, and severe disc height loss at L3-4 along the right aspect of the disc consistent with severe degenerative changes. Right inferior pubic ramus deformity may be from a remote fracture. No acute fracture seen. ADDITIONAL FINDINGS: None. RADIOLOGY SERVICES REPORT IMPRESSION: Left adrenalectomy. Fluid collection adjacent to the upper pole the left kidney probably a postoperative seroma. Distended gallbladder without pericholecystic inflammatory changes. Normal appendix. . 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 - Infectious Disease History:: Denies. - Social history:: Smoking status: Patient reports the use of cigarette tobacco products, 3-4 cigarettes a day. - Family history:: not pertinent. ROS: 19:28 Constitutional: Negative for fever, chills, and weight loss, positive for acute right sp4 lower back pain with pain radiation down the right leg. 19:28 All other systems are negative, Exam: 19:28 Constitutional: This is a well developed, well nourished patient who is awake, alert, sp4 patient is uncomfortable appearing but nontoxic Head/Face: Normocephalic, atraumatic. Eyes: Pupils equal round and reactive to light, extra-ocular motions intact. Lids and lashes normal. Conjunctiva and sclera are not injected. Cornea within normal limits. Periorbital areas with no swelling, redness, or edema. ENT: Nares patent. No nasal discharge, no septal abnormalities noted. Tympanic membranes are normal and external auditory canals are clear. Oropharynx with no redness, swelling, or masses, exudates, or evidence of obstruction, uvula midline. Mucous membranes moist. Neck: Trachea midline, no thyromegaly or masses palpated, and no cervical lymphadenopathy. Supple, full range of motion without nuchal rigidity, or vertebral point tenderness. Chest/axilla: Normal chest wall appearance and motion. Nontender with no deformity. No lesions are appreciated. Cardiovascular: Regular rate and rhythm with a normal S1 and S2. No gallops, murmurs, or rubs. No pulse deficits. Respiratory: Lungs have equal breath sounds bilaterally, clear to auscultation and percussion. No rales, rhonchi or wheezes noted. No increased work of breathing, no retractions or nasal flaring. Abdomen/GI: Soft, with normal bowel sounds. No distension or tympany. No guarding or rebound. No evidence of tenderness throughout. Back: No spinal tenderness. No costovertebral tenderness. Skin: Warm, dry with normal turgor. Normal color with no rashes, no lesions, and no evidence of cellulitis. MS/ Extremity: Pulses equal, no cyanosis. Neurovascular intact. Full, normal range of motion. Patient is ambulatory with some assistance. No signs of lower extremity weakness or paresis Neuro: Awake and alert, GCS 15, oriented to person, place, time, and situation. Cranial nerves II-XII grossly intact. Motor strength 5/5 in all extremities. Sensory grossly intact. Psych: Awake, alert, with orientation to person, place and time. Behavior, mood, and affect are within normal limits Vital Signs: 04:01 BP 108 / 65; Pulse 86; Resp 16; Temp 97.6; Pulse Ox 98% on R/A; ss12 04:34 Weight 63.5 kg; Height 5 ft. 2 in. ; ss12 05:15 BP 104 / 62; Pulse 78; Resp 16; Pulse Ox 98% on R/A; ss12 06:15 BP 107 / 79; Pulse 81; Resp 16; Pulse Ox 96% on R/A; ss12 04:34 Body Mass Index 25.61 (63.50 kg, 157.48 cm) 12 [place] Coma Score: 19:28 Eye Response: spontaneous(4). Motor Response: obeys commands(6). Verbal Response: sp4 oriented(5). Total: 15. MDM: 04:29 Medical Screening Exam initiated sp4 19:28 Differential diagnosis: arthritis, strain, fracture, sciatica, contusion, Herniated sp4 disc UTI. Data reviewed: vital signs, nurses notes, old medical records. ED course: Prior CT revealed - MUSCULOSKELETAL: Multilevel degenerative changes in the spine. Grade 1 anterolisthesis of L3 on L4. There is some endplate irregularity, sclerosis, and severe disc height loss at L3-4 along the right aspect of the disc consistent with severe degenerative changes. Right inferior pubic ramus deformity may be from a remote fracture. Basically patient has scoliosis, severe degenerative changes at L3-L4 level also grade 1 anterolisthesis of L3 onto L4. Patient reported some improvement from pain medications. 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 I recommended follow-up with neurosurgeon for evaluation for spinal surgery. . 06/26 04:18 Order name: CBC with Diff; Complete Time: 06:13 ha1 06/26 04:18 Order name: CMP ha1 06/26 04:18 Order name: Lipase ha1 06/26 04:18 Order name: IV Saline Lock; Complete Time: 04:36 ha1 06/26 04:18 Order name: Labs collected and sent; Complete Time: 04:36 ha1 Administered Medications: 04:45 Drug: fentaNYL (PF) IVP 100 mcg IVP once Route: IVP; Site: left forearm; ss12 05:50 Follow up: Response: No adverse reaction ss12 04:45 Drug: Ondansetron IVP 4 mg IVP once; over 2 minutes Route: IVP; Site: left forearm; ss12 05:49 Follow up: Response: No adverse reaction ss12 04:45 Drug: Ketorolac IVP 30 mg IVP once Route: IVP; Site: left forearm; ss12 05:49 Follow up: Response: No adverse reaction ss12 04:45 Drug: Methocarbamol IVPB 1 grams IVPB once over 1 hrs; (mix in NS 100 mL) Route: IVPB; ss12 Infused Over: 1 hrs; Site: left forearm; 05:49 Follow up: IV Status: Completed infusion ss12 04:45 Drug: Droperidol IVP 2.5 mg IVP once Route: IVP; Site: left forearm; ss12 05:49 Follow up: Response: No adverse reaction; Pain is decreased ss12 Disposition: 19:33 Chart complete. sp4 Disposition Summary: 06/26/25 06:32 Discharge Ordered Notes: Location: Home sp4 Problem: new sp4 Symptoms: have improved sp4 Condition: Stable sp4 Diagnosis - Radiculopathy, lumbosacral region sp4 - Intervertebral disc disorders with radiculopathy, lumbar region sp4 Followup: sp4 - With: Private Physician - When: 2 - 3 days - Reason: Recheck today's complaints Discharge Instructions: - Discharge Summary Sheet sp4 - Lumbosacral Radiculopathy sp4 Forms: - Patient Portal Instructions sp4 Prescriptions: - lidocaine HCl 2 % cream - apply 1 application TOPICAL route 2 times per day Apply to lower spinal area sp4 twice daily PRN pain; 50 gram; Refills: 0, Product Selection Permitted - methocarbamol 750 mg Oral tablet - take 2 tablets ORAL route 3 times per day for 2 days PRN pain; 60 tablet; sp4 Refills: 0, Product Selection Permitted Signatures: Dispatcher [employer] EDMS Marcia Ocasio RN RN ha1 Adolfo Ferreira MD MD sp4 Farhad Llamas RN RN ss12 Corrections: (The following items were deleted from the chart) 04:18 04:18 CBC+H.LAB.BRZ ordered. EDMS EDMS 04:18 04:18 COMPREHENSIVE METABOLIC PANEL+C.LAB.BRZ ordered. EDMS EDMS 04:18 04:18 LIPASE+C.LAB.BRZ ordered. EDMS EDMS
[2025-06-26 10:33] VITALS: TEMP 97.6
[2025-06-26 10:50] VITALS: BP 107/79; O2SAT 96
== END 2025-06-26 06:51 | disposition home or self-care (01) ==
LOC: ER 03:54
DX: M54.16 Radiculopathy, lumbar region (principal); Z72.0 Tobacco use
CPT/HCPCS: 96365; 85025; 36415; 83690; 80053; 96375; 99284; J1885; J3010; J2405; J2800; J1790